=== PATIENT | female | born 1975 | race Caucasian/White ===

== ENCOUNTER 2016-06-26 15:31 | Inpatient (IN) | payer MEDICARE, OTHER ==
[2016-06-26] MEDS ORDERED: INSULIN REGULAR 100 UNIT/ML VIAL IV ONE (15:50)
[2016-06-26 15:51] LABS: Glucose,Whole Blood 480 mg/dL (75-99)
--- NOTE | 2016-06-26 15:53 | ED ---
General Adult HPI - General Chief complaint: Weakness Stated complaint: elevated BS 544 Time Seen by Provider: 06/26/16 15:35 Source: patient, RN notes reviewed Mode of arrival: wheelchair Limitations: no limitations - History of Present Illness Initial comments: This is a 41-year-old female was a past medical history significant for diabetes. Patient comes in today stating that she been vomiting all night having diarrhea. Patient states she became weaker and weaker throughout the night to the point where now she's finding it hard to even get around. Patient denies any fever or chills. Patient denies any abdominal pain but states her abdomen is cramping. Patient denies chest pain difficulty breathing or shortness of breath. Patient denies headache patient denies numbness weakness. Patient does states she is lightheaded however. Patient states his sugars are high. She decided to come to the emergency department. - Related Data Home Medications Medication Instructions Recorded Confirmed Methylphenidate HCl [Ritalin] 20 mg PO DAILY 01/04/14 06/26/16 Omeprazole [PriLOSEC] 20 mg PO BID 01/04/14 06/26/16 Insulin NPH Hum/Reg Insulin Hm 8 unit SQ DAILY@1300 06/26/16 06/26/16 [NovoLIN 70-30 100 UNIT/ML VIAL] Insulin NPH Hum/Reg Insulin Hm 20 unit SQ BID@0800,2000 06/26/16 06/26/16 [NovoLIN 70-30 100 UNIT/ML VIAL] Allergies Allergy/AdvReac Type Severity Reaction Status Date / Time caffeine Allergy Nausea & Verified 06/26/16 16:22 Vomiting paroxetine HCl [From Paxil] Allergy Rash/Hives Verified 06/26/16 16:22 sertraline HCl [From Zoloft] Allergy Rash/Hives Verified 06/26/16 16:22 Review of Systems ROS Statement: Those systems with pertinent positive or pertinent negative responses have been documented in the HPI. ROS Other: All systems not noted in ROS Statement are negative. Past Medical History Past Medical History: Diabetes Mellitus, Fibromyalgia, GERD/Reflux, Rheumatoid Arthritis (RA), Syncope Additional Past Medical History / Comment(s): ANEMIA, LIPOMA LEFT THIGH History of Any Multi-Drug Resistant Organisms: None Reported Past Surgical History: Ablation, Breast Surgery, Tubal Ligation Additional Past Surgical History / Comment(s): LEFT BREAST BX BENIGN, UTERINE ABLATION Past Anesthesia/Blood Transfusion Reactions: No Reported Reaction Past Psychological History: ADD/ADHD, Anxiety, Depression Smoking Status: Never smoker Past Alcohol Use History: None Reported Past Drug Use History: None Reported Additional Drug Use History / Comment(s): STATES DAILY USE, INSTRUCTED NOT TO USE FOR 24 HRS PRIOR TO PROCEDURE - Past Family History Mother Family Medical History: Asthma Additional Family Medical History / Comment(s): depression General Exam - General Exam Comments Initial Comments: GENERAL: Patient is well-developed and well-nourished. Patient is nontoxic and well- hydrated and is in moderate distress ENT: Neck is soft and supple. No significant lymphadenopathy is noted. Oropharynx is clear. Dry mucous membranes. Neck has full range of motion without eliciting any pain. EYES: The sclera were anicteric and conjunctiva were pink and moist. Extraocular movements were intact and pupils were equal round and reactive to light. Eyelids were unremarkable. PULMONARY: Unlabored respirations. Good breath sounds bilaterally. No audible rales rhonchi or wheezing was noted. CARDIOVASCULAR: Patient is tachycardic ABDOMEN: Soft and nontender with normal bowel sounds. No palpable organomegaly was noted. There is no palpable pulsatile mass. SKIN: Skin is clear with no lesions or rashes and otherwise unremarkable. NEUROLOGIC: Patient is alert and oriented x3. Cranial nerves II through XII are grossly intact. Motor and sensory are also intact. Normal speech, volume and content. Symmetrical smile. C MUSCULOSKELETAL: Normal extremities with adequate strength and full range of motion. No lower extremity swelling or edema. No calf tenderness. LYMPHATICS: No significant lymphadenopathy is noted PSYCHIATRIC: Normal psychiatric evaluation. Limitations: no limitations Course Vital Signs 06/26/16 15:33 Temperature 96.8 F L Pulse Rate 131 H Respiratory 20 Rate Blood Pressure 117/79 O2 Sat by Pulse 99 Oximetry Medical Decision Making - Medical Decision Making EKG shows sinus tachycardia at 123 bpm UT interval 130 QRS is 102 QT intervals 346 QTC is 495. Patient's EKG shows no ST segment elevation or depression or T- wave abdomen is noted. Chest x-ray shows no acute abnormality. I started the patient on IV insulin as well as IV fluid and started off at 2 L and at the third after those were done. Dr. Bautista agrees to admit the patient. I spoke with Dr. Suero he agreed to admit the patient Dr. Aviles will be taking over the care of this patient at 5 PM - Lab Data Result diagrams: 06/26/16 16:14 06/26/16 16:14 Lab Results 06/26/16 06/26/16 06/26/16 Range/Units 15:42 16:14 16:14 WBC 27.4 H* (3.8-10.6) k/uL RBC 6.47 H (3.80-5.40) m/uL Hgb 17.4 H (11.4-16.0) gm/dL Hct 57.9 H (34.0-46.0) % MCV 89.4 (80.0-100.0) fL MCH 27.0 (25.0-35.0) pg MCHC 30.1 L (31.0-37.0) g/dL RDW 14.0 (11.5-15.5) % Plt Count 599 H (150-450) k/uL Neutrophils % (Manual) 76.0 % Band Neutrophils % 7.0 % Lymphocytes % (Manual) 14.0 % Monocytes % (Manual) 3.0 % Neutrophils # (Manual) 22.7 H (1.3-7.7) k/uL Lymphocytes # (Manual) 3.8 (1.0-4.8) k/uL Monocytes # (Manual) 0.8 (0-1.0) k/uL Nucleated RBCs 0 (0-0) /100 WBC Manual Slide Review Performed Large Platelets Present Hypochromasia Marked Sodium 145 (137-145) mmol/L Potassium 4.7 (3.5-5.1) mmol/L Chloride 99 (98-107) mmol/L Carbon Dioxide <5 L* (22-30) mmol/L Anion Gap 41 mmol/L BUN 27 H (7-17) mg/dL Creatinine 1.10 H (0.52-1.04) mg/dL Est GFR (MDRD) Af Amer >60 (>60 ml/min/1.73 sqM) Est GFR (MDRD) Non-Af 55 (>60 ml/min/1.73 sqM) Glucose 548 H* (74-99) mg/dL POC Glucose (mg/dL) 480 H (75-99) mg/dL POC Glu Nursing Home Administrator ID Mariano Mckeon Calcium 10.6 H (8.4-10.2) mg/dL Total Bilirubin 0.8 (0.2-1.3) mg/dL AST 46 H (14-36) U/L ALT 36 (9-52) U/L Alkaline Phosphatase 342 H (38-126) U/L Total Protein 11.1 H (6.3-8.2) g/dL Albumin 5.2 H (3.5-5.0) g/dL Acetone, Qual Positive (Negative) 06/26/16 Range/Units 17:02 WBC (3.8-10.6) k/uL RBC (3.80-5.40) m/uL Hgb (11.4-16.0) gm/dL Hct (34.0-46.0) % MCV (80.0-100.0) fL MCH (25.0-35.0) pg MCHC (31.0-37.0) g/dL RDW (11.5-15.5) % Plt Count (150-450) k/uL Neutrophils % (Manual) % Band Neutrophils % % Lymphocytes % (Manual) % Monocytes % (Manual) % Neutrophils # (Manual) (1.3-7.7) k/uL Lymphocytes # (Manual) (1.0-4.8) k/uL Monocytes # (Manual) (0-1.0) k/uL Nucleated RBCs (0-0) /100 WBC Manual Slide Review Large Platelets Hypochromasia Sodium (137-145) mmol/L Potassium (3.5-5.1) mmol/L Chloride (98-107) mmol/L Carbon Dioxide (22-30) mmol/L Anion Gap mmol/L BUN (7-17) mg/dL Creatinine (0.52-1.04) mg/dL Est GFR (MDRD) Af Amer (>60 ml/min/1.73 sqM) Est GFR (MDRD) Non-Af (>60 ml/min/1.73 sqM) Glucose (74-99) mg/dL POC Glucose (mg/dL) >600 H (75-99) mg/dL POC Glu Nursing Home Administrator ID Branch, Garrick Calcium (8.4-10.2) mg/dL Total Bilirubin (0.2-1.3) mg/dL AST (14-36) U/L ALT (9-52) U/L Alkaline Phosphatase (38-126) U/L Total Protein (6.3-8.2) g/dL Albumin (3.5-5.0) g/dL Acetone, Qual (Negative) Critical Care Time Critical Care Time: Yes Total Critical Care Time: 40 Disposition Clinical Impression: DKA (diabetic ketoacidoses), Gastroenteritis Disposition: ADMITTED IP TO THIS HOSP Referrals: Kevin Ruiz DO [Primary Care Provider] - 1-2 days Time of Disposition: 17:01
[2016-06-26] MEDS ORDERED: INSULIN REGULAR 100 UNIT in SODIUM CHLORIDE 0.9% 100 ML IV ONE (16:00)
[2016-06-26] MEDS: SODIUM CHLORIDE 0.9% 2,000 ML IV ONE ×3 (16:19→18:36)
[2016-06-26 16:25] LABS: CH 26.2; CHCM 29.4; HCT 57.9 % (34.0-46.0); HDW 2.84; HGB 17.4 gm/dL (11.4-16.0); Hypochromasia Marked; MCHC 30.1 g/dL (31.0-37.0); MCV 89.4 fL (80.0-100.0); Mean Platelet Volume 7.3; RBC 6.47 m/uL (3.80-5.40); WBC (Perox) 28.86
[2016-06-26 16:39] LABS: WBC 27.4 k/uL (3.8-10.6)
[2016-06-26 16:40] LABS: ALT 36 U/L (9-52); AST 46 U/L (14-36); Alkaline Phosphatase 342 U/L (38-126); Anion Gap 41 mmol/L; Blood Urea Nitrogen 27 mg/dL (7-17); Calcium 10.6 mg/dL (8.4-10.2); Chloride 99 mmol/L (98-107); Non-African American GFR(MDRD) 55 (>60 ml/min/1.73 sqM); Sodium 145 mmol/L (137-145); Total Bilirubin 0.8 mg/dL (0.2-1.3)
[2016-06-26 16:41] LABS: Potassium 4.7 mmol/L (3.5-5.1)
[2016-06-26 16:54] LABS: Carbon Dioxide <5 mmol/L (22-30); Glucose 548 mg/dL (74-99)
[2016-06-26 16:55] LABS: Total Protein 11.1 g/dL (6.3-8.2)
--- NOTE | 2016-06-26 17:01 | XR ---
EXAMINATION TYPE: XR chest 2V DATE OF EXAM: 06/26/2016 4:38 PM COMPARISON: NONE INDICATION: Difficulty breathing nausea vomiting TECHNIQUE: Single frontal view of the chest is obtained. FINDINGS: The heart size is normal. The pulmonary vasculature is normal. The lungs are clear. IMPRESSION: 1. No acute pulmonary process.
[2016-06-26 17:04] LABS: Glucose,Whole Blood >600 mg/dL (75-99)
[2016-06-26 17:08] LABS: Add Differential Manual Differential
[2016-06-26 17:09] LABS: Nucleated Red Blood Cells 0 /100 WBC (0-0); Total Cells Counted 100
[2016-06-26 17:10] LABS: Large Platelets Present; Manual Review Performed
[2016-06-26] MEDS ORDERED: PIPERACILLIN-TAZOBACTAM 3.375 GM in DEXTROSE/WATER 1 50ML.BAG IVPB STA (17:10)
[2016-06-26] MEDS ORDERED: HYDROmorphone 1 MG/ML 1 ML SYRINGE IVP STA (17:14)
[2016-06-26] MEDS ORDERED: ONDANSETRON 4 MG/2 ML VIAL IVP STA (17:25)
[2016-06-26 17:30] LABS: ABG PCO2 19 mmHg (35-45); ABG PH 7.15 (7.35-7.45); ABG PO2 126 mmHg (83-108)
[2016-06-26 17:31] LABS: ABG HCO3 6 mmol/L (21-25); ABG TCO2 7 mmol/L (19-24)
[2016-06-26 17:59] LABS: Appearance,Urine Cloudy (Clear); Bilirubin,Urine Negative (Negative); Glucose,Urine (UA) 4+ (Negative); Leukocyte Esterase,Urine Negative (Negative); Mucus,Urine Rare /hpf; Nitrite,Urine Negative (Negative); PH, Urine 5.5 (5.0-8.0); Particle Count 12091; Protein,Urine 2+ (Negative); RBC,Urine 2 /hpf (0-5); Specific Gravity,Urine 1.014 (1.001-1.035); UA Billing (MACRO vs. MICRO) MICRO; Urobilinogen,Urine <2.0 mg/dL (<2.0); WBC,Urine 15 /hpf (0-5)
[2016-06-26 18:15] LABS: Glucose,Whole Blood 480 mg/dL (75-99)
[2016-06-26 18:25] LABS: Ketones,Urine 3+ (Negative)
[2016-06-26 18:39] LABS: Glucose,Whole Blood 322 mg/dL (75-99)
[2016-06-26] MEDS ORDERED: INSULIN REGULAR 100 UNIT in SODIUM CHLORIDE 0.9% 100 ML IV SCH (19:15)
[2016-06-26] MEDS ORDERED: SODIUM CHLORIDE 0.9% 1,000 ML IV SCH (19:15)
[2016-06-26 19:32] LABS: Glucose,Whole Blood 241 mg/dL (75-99)
[2016-06-26 19:34] LABS: ALT 35 U/L (9-52); AST 41 U/L (14-36); Alkaline Phosphatase 180 U/L (38-126); Anion Gap 21 mmol/L; Blood Urea Nitrogen 28 mg/dL (7-17); Calcium 8.1 mg/dL (8.4-10.2); Chloride 114 mmol/L (98-107); Glucose 182 mg/dL (74-99); Non-African American GFR(MDRD) >60 (>60 ml/min/1.73 sqM); Sodium 144 mmol/L (137-145); Total Bilirubin 0.8 mg/dL (0.2-1.3); Total Protein 7.4 g/dL (6.3-8.2)
[2016-06-26 19:46] LABS: Potassium 4.8 mmol/L (3.5-5.1)
[2016-06-26 19:48] LABS: Carbon Dioxide 9 mmol/L (22-30)
[2016-06-26] MEDS: D5-0.45% NACL WITH KCL 20MEQ/L 1,000 ML IV SCH (20:00)
[2016-06-26 20:24] LABS: Glucose,Whole Blood 147 mg/dL (75-99)
[2016-06-26] MEDS ORDERED: NALOXONE 0.4 MG/ML 1 ML VIAL IV PRN (20:29)
[2016-06-26] MEDS ORDERED: Phosphorus Replacement Protoco 1 EACH MISC MISCELLANE PRN (20:40)
[2016-06-26] MEDS ORDERED: Potassium Replacement Protocol 1 EACH MISC MISCELLANE PRN (20:40)
[2016-06-26] MEDS ORDERED: Magnesium Replacement Protocol 1 EACH MISC MISCELLANE PRN (20:40)
[2016-06-26] MEDS ORDERED: ONDANSETRON 4 MG/2 ML VIAL IVP PRN (20:40)
[2016-06-26 21:02] VITALS: BMI 25.8
[2016-06-26 21:30] LABS: Glucose,Whole Blood 113 mg/dL (75-99)
[2016-06-26] MEDS: HYDROmorphone 1 MG/ML 1 ML SYRINGE IVP PRN (21:40)
[2016-06-26 22:27] LABS: Glucose,Whole Blood 95 mg/dL (75-99)
[2016-06-26 23:02] LABS: Glucose,Whole Blood 93 mg/dL (75-99)
[2016-06-26] MEDS: PIPERACILLIN-TAZOBACTAM 3.375 GM in DEXTROSE/WATER 1 50ML.BAG IVPB SCH (23:37)
[2016-06-26 23:56] LABS: Anion Gap 12 mmol/L; Blood Urea Nitrogen 26 mg/dL (7-17); Calcium 8.1 mg/dL (8.4-10.2); Carbon Dioxide 18 mmol/L (22-30); Chloride 113 mmol/L (98-107); Glucose 109 mg/dL (74-99); Non-African American GFR(MDRD) >60 (>60 ml/min/1.73 sqM); Phosphorous 2.7 mg/dL (2.5-4.5); Potassium 4.4 mmol/L (3.5-5.1); Sodium 143 mmol/L (137-145)
[2016-06-27 00:03] LABS: Glucose,Whole Blood 105 mg/dL (75-99)
[2016-06-27 01:04] LABS: Glucose,Whole Blood 123 mg/dL (75-99)
[2016-06-27 01:56] LABS: Glucose,Whole Blood 141 mg/dL (75-99)
[2016-06-27] MEDS: D5-0.45% NACL WITH KCL 20MEQ/L 1,000 ML IV SCH ×2 (02:54→10:44)
[2016-06-27 02:58] LABS: Glucose,Whole Blood 144 mg/dL (75-99)
[2016-06-27 04:14] LABS: Glucose,Whole Blood 140 mg/dL (75-99)
[2016-06-27 04:31] LABS: Basophils # (A) 0.1 k/uL (0-0.2); Basophils % (A) 1 %; CH 27.1; CHCM 33.3; Eosinophils % (A) 0 %; HCT 37.8 % (34.0-46.0); Luc # (Auto) 0.24; Luc % (Auto) 1; Lymphocytes # (A) 2.2 k/uL (1.0-4.8); Lymphocytes % (A) 13 %; MCH 27.4 pg (25.0-35.0); MCHC 33.5 g/dL (31.0-37.0); Monocytes # (A) 0.7 k/uL (0-1.0); Monocytes % (A) 4 %; Neutrophils # (A) 14.1 k/uL (1.3-7.7); Neutrophils % (A) 82 %; RBC 4.63 m/uL (3.80-5.40); RDW 14.6 % (11.5-15.5); WBC 17.2 k/uL (3.8-10.6); WBC (Perox) 17.69
[2016-06-27 04:35] LABS: Anion Gap 11 mmol/L; Blood Urea Nitrogen 22 mg/dL (7-17); Calcium 8.2 mg/dL (8.4-10.2); Carbon Dioxide 17 mmol/L (22-30); Chloride 112 mmol/L (98-107); Glucose 157 mg/dL (74-99); Non-African American GFR(MDRD) >60 (>60 ml/min/1.73 sqM); Sodium 140 mmol/L (137-145)
[2016-06-27 05:09] LABS: HGB 12.7 gm/dL (11.4-16.0); MCV 81.7 fL (80.0-100.0)
[2016-06-27 05:11] LABS: Glucose,Whole Blood 151 mg/dL (75-99)
[2016-06-27 06:07] LABS: Glucose,Whole Blood 160 mg/dL (75-99)
[2016-06-27] MEDS: HYDROmorphone 1 MG/ML 1 ML SYRINGE IVP PRN ×2 (06:23→10:53)
[2016-06-27 07:08] LABS: Glucose,Whole Blood 154 mg/dL (75-99)
[2016-06-27 07:58] LABS: Glucose,Whole Blood 169 mg/dL (75-99)
[2016-06-27] MEDS: PIPERACILLIN-TAZOBACTAM 3.375 GM in DEXTROSE/WATER 1 50ML.BAG IVPB SCH (08:04)
[2016-06-27 08:54] LABS: Glucose,Whole Blood 167 mg/dL (75-99)
[2016-06-27] MEDS ORDERED: ENOXAPARIN 40 MG/0.4 ML SYRINGE SQ SCH (09:00)
[2016-06-27] MEDS ORDERED: PANTOPRAZOLE 40 MG/10 ML VIAL IV SCH (09:00)
--- NOTE | 2016-06-27 09:11 | XR ---
EXAMINATION TYPE: XR chest 1V portable DATE OF EXAM: 06/27/2016 7:00 AM COMPARISON: 06/26/2016 INDICATION: Elevated blood sugar TECHNIQUE: Single frontal view of the chest is obtained. FINDINGS: The heart size is normal. The pulmonary vasculature is normal. The lungs are clear. IMPRESSION: 1. No acute pulmonary process.
[2016-06-27 09:45] LABS: Glucose,Whole Blood 153 mg/dL (75-99)
[2016-06-27 09:51] LABS: Anion Gap 11 mmol/L; Blood Urea Nitrogen 18 mg/dL (7-17); Calcium 8.3 mg/dL (8.4-10.2); Carbon Dioxide 18 mmol/L (22-30); Chloride 114 mmol/L (98-107); Glucose 164 mg/dL (74-99); Magnesium 1.9 mg/dL (1.6-2.3); Non-African American GFR(MDRD) >60 (>60 ml/min/1.73 sqM); Phosphorous 2.8 mg/dL (2.5-4.5); Sodium 143 mmol/L (137-145)
[2016-06-27 09:57] LABS: Hemoglobin A1C 11.7 % (4.2-6.1)
[2016-06-27 09:58] LABS: Potassium 4.5 mmol/L (3.5-5.1)
[2016-06-27] MEDS ORDERED: INSULIN NPH 300 UNIT/3 ML VIAL SQ ONE (10:27)
[2016-06-27] MEDS ORDERED: INSULIN GLARGINE 100 UNIT/ML 10 ML VIAL SQ SCH (10:30)
[2016-06-27] MEDS ORDERED: SODIUM CHLORIDE 0.9% 1,000 ML IV SCH (10:45)
[2016-06-27] MEDS ORDERED: LACTATED RINGERS 1,000 ML IV SCH (11:00)
[2016-06-27 11:21] LABS: Glucose,Whole Blood 162 mg/dL (75-99)
[2016-06-27] MEDS ORDERED: INSULIN LISPRO (humaLOG) 300 UNIT/3 ML VIAL SQ SCH ×2 (12:30)
[2016-06-27 12:40] VITALS: TEMP 98
[2016-06-27] MEDS ORDERED: FLUDROCORTISONE 0.1 MG TAB PO SCH (13:00)
[2016-06-27] MEDS ORDERED: DESVENLAFAXINE SUCCINATE 50 MG TAB.ER.24H PO SCH (13:00)
--- NOTE | 2016-06-27 13:07 | HP ---
HISTORY AND PHYSICAL/DISCHARGE SUMMARY DATE OF ADMISSION: This is a 41-year-old female with a known history of diabetes mellitus, viral gastroenteritis which ( ) her DKA. Patient came in with highly elevated WBC count and metabolic acidosis secondary to diabetic ketoacidosis which resolved and anion gap improved. Patient takes NPH insulin 70/30 seven units in the morning, six units in the afternoon and twenty units at night time. Blood sugars apparently were never controlled. I will try for Lantus aspart regimen, 20 units at bedtime and morning along with premeal insulin 6 units if her insurance approves. Patient's prescription be given accordingly and if not, patient was asked to take 20 units of 70/30 in the morning, if insurance does not approve Lantus. Patient was asked to take 20 units of 70/30 in the morning and 15 units of 70/30 in the evening and check the blood sugars t.i.d. a.c. and patient will be on diabetic diet. Patient's diarrhea improved. Patient does not have any pneumonia or urinary tract infection or any other signs or symptoms of sepsis except for viral gastroenteritis which does not warrant any antibiotics. Antibiotics will be discontinued. Patient's anion gap resolved. Patient was given Lantus now. Until she is discharged, patient will be on lactated Ringer's and patient will be started on her diabetic diet and will watch her for a couple more hours, after that patient will be discharged. REVIEW OF SYSTEMS: GASTROINTESTINAL: As described in HPI and patient was having epigastric abdominal pain. CONSTITUTIONAL: No fever, no malaise, no fatigue. HEENT: No recent visual problems or hearing problems. Denied any sore throat. CARDIOVASCULAR: No chest pain, orthopnea, PND, no palpitations, no syncope. PULMONARY: No shortness of breath, no cough, no hemoptysis. NEUROLOGICAL: No headaches, no weakness, no numbness. HEMATOLOGICAL: Denies any bleeding or petechiae. GENITOURINARY: Denies any burning micturition, frequency, or urgency. MUSCULOSKELETAL/RHEUMATOLOGICAL: Denies any joint pain, swelling, or any muscle pain. ENDOCRINE: Denies any polyuria or polydipsia. The rest of the 14 point review of systems is negative. Patient is already taking Prilosec at home. Patient also use ibuprofen which will be discontinued. Home medications include: 1. Methylphenidate. 2. Omeprazole. 3. 70/30 insulin dosing as mentioned above. ALLERGIES: Allergic to CAFFEINE, PAROXETINE, SERTRALINE. PAST MEDICAL HISTORY: Type 1 diabetes mellitus, fibromyalgia, gastroesophageal reflux disease, rheumatoid arthritis, anemia, lipoma of the thigh, breast surgery, tubal ligation, ADD, ADHD, anxiety, depression. SOCIAL HISTORY: Denied any smoking, alcohol abuse or drug abuse. FAMILY HISTORY: Mother had asthma and depression. PHYSICAL EXAMINATION: VITAL SIGNS: Temperature 98.9, pulse of 106, respiratory rate of 13, blood pressure is 135/63, saturating at 98% on room air. ABDOMINAL EXAMINATION: Patient has mild diffuse tenderness. Abdomen is soft, no rebound or rigidity. GENERAL: The patient is alert and oriented x3, not in any acute distress. Well developed, well nourished. HEENT: Pupils are round and equally reacting to light. EOMI. No scleral icterus. No conjunctival pallor. Normocephalic, atraumatic. No pharyngeal erythema. No thyromegaly. CARDIOVASCULAR: S1 and S2 present. No murmurs, rubs, or gallops. PULMONARY: Chest is clear to auscultation, no wheezing or crackles. MUSCULOSKELETAL: No joint swelling or deformity. EXTREMITIES: No cyanosis, clubbing, or pedal edema. NEUROLOGICAL: Gross neurological examination did not reveal any focal deficits. SKIN: No rashes. LABORATORY DATA: CBC, CMP are abnormal for elevated WBC count of 27,000 which came down to 17,200, is a reactive response secondary to viral gastroenteritis. Patient is hemoconcentrated with elevated hemoglobin which has come down now and patient has metabolic acidosis with pH of 7.15 and chloride is 114 secondary to hyperchloremia from IV fluids she was receiving. Urine showed 15 WBC, cloudy urine and 2+ protein, 4+ glucose and ketones. Patient's urine drug screen is positive for marijuana. Chest x-ray did not show any pneumonic process. ASSESSMENT AND PLAN: 1. Diabetic ketoacidosis. Management as mentioned above. Patient will be discharged today. 2. Viral gastroenteritis. Patient will be encouraged to drink water at home. 3. Fibromyalgia. 4. Gastroesophageal reflux disease. For above-mentioned chronic medical problems, patient can continue her home medications, insulin regimen changes as mentioned above. This dictation is both H&P and Discharge Summary. Patient will follow with Dr. Kevin Ruiz in about 3 to 7 days. Activity as tolerated. Diabetic 1800 calorie diet.
[2016-06-27] MEDS ORDERED: MAG HYDROX/AL HYDROX/SIMETH 30 ML CUP PO PRN (13:51)
--- NOTE | 2016-06-27 13:56 | P.CNPUL ---
History of Present Illness Consult date: 06/27/16 Requesting physician: Ronny Bautista Reason for consult: other (Acute diabetic ketoacidosis) Chief complaint: Weakness and vomiting. As well as diarrhea. History of present illness: This is a 41-year-old female with history of type 1 diabetes, patient presented to the ER with 1 day history of vomiting and vague abdominal pain and diarrhea. Patient had a flulike illness recently, but she recovered quite well, she believes that her had similar symptoms, and her symptoms have recurred with mostly GI complaints as noted above. Upon presentation to the ER, patient was noted to have significantly elevated blood sugar, and she had positive ketones. She was placed on the DKA protocol, admitted to the ICU, and I was asked to see her on consultation. Patient denies any fever no chills, no dysuria frequency or urgency. On presentation patient was noted to have leukocytosis with WBC count of 27.4. ABG showed a pO2 of 126 pCO2 of 19 pH of 7.15 her urinalysis showed evidence of pyuria and bacteriuria her urine drug screen was positive for marijuana. Vital screen was negative. Ketones were positive. At the time of my evaluation, patient was noted to be doing quite well, and she was relatively asymptomatic. In the ER, the patient was given a dose of Zosyn, which was already discontinued. Cultures are pending. Review of Systems 14 point review of systems were obtained, please refer to pertinent positives and negatives in HPI. Past Medical History Past Medical History: Diabetes Mellitus, Fibromyalgia, GERD/Reflux, Rheumatoid Arthritis (RA), Syncope Additional Past Medical History / Comment(s): ANEMIA, LIPOMA LEFT THIGH History of Any Multi-Drug Resistant Organisms: None Reported Past Surgical History: Ablation, Breast Surgery, Tubal Ligation Additional Past Surgical History / Comment(s): LEFT BREAST BX BENIGN, UTERINE ABLATION Past Anesthesia/Blood Transfusion Reactions: No Reported Reaction Past Psychological History: ADD/ADHD, Anxiety, Depression Smoking Status: Never smoker Past Alcohol Use History: None Reported Past Drug Use History: Marijuana Additional Drug Use History / Comment(s): Medicial marijauana daily use. - Past Family History Mother Family Medical History: Asthma Additional Family Medical History / Comment(s): depression Medications and Allergies Home Medications Medication Instructions Recorded Confirmed Type Methylphenidate HCl [Ritalin] 20 mg PO BID 01/04/14 06/26/16 History Omeprazole [PriLOSEC] 20 mg PO BID 01/04/14 06/26/16 History Desvenlafaxine Succinate [Pristiq] 100 mg PO DAILY 06/26/16 06/26/16 History Fludrocortisone [Florinef] 0.1 mg PO DAILY 06/26/16 06/26/16 History Simvastatin [Zocor] 20 mg PO DAILY 06/26/16 06/26/16 History Allergies Allergy/AdvReac Type Severity Reaction Status Date / Time caffeine Allergy Nausea & Verified 06/26/16 21:05 Vomiting paroxetine HCl [From Paxil] Allergy Rash/Hives Verified 06/26/16 21:05 sertraline HCl [From Zoloft] Allergy Rash/Hives Verified 06/26/16 21:05 Physical Exam Vitals: Vital Signs Temp Pulse Resp BP Pulse Ox 06/27/16 12:00 98 F 105 H 18 114/62 97 06/27/16 11:00 95 10 L 115/68 98 06/27/16 10:00 97 17 115/68 97 06/27/16 09:00 106 H 13 135/63 06/27/16 08:00 98.9 F 103 H 15 136/64 98 06/27/16 07:00 101 H 13 124/62 97 06/27/16 06:00 86 17 120/58 99 06/27/16 05:00 102 H 15 113/65 96 06/27/16 04:00 97.9 F 102 H 15 119/64 96 06/27/16 03:00 100 18 116/73 98 06/27/16 02:00 101 H 21 99/63 98 06/27/16 01:00 101 H 20 99/58 97 06/27/16 00:00 98.3 F 103 H 20 96/54 97 06/26/16 23:19 109 H 14 93/49 96 06/26/16 23:00 107 H 14 99/51 96 06/26/16 22:00 113 H 20 108/62 96 06/26/16 21:00 115 H 14 115/66 97 06/26/16 20:00 111 H 15 126/72 99 06/26/16 19:43 97.3 F L 110 H 20 126/72 98 06/26/16 18:00 106 H 14 119/66 100 Intake and Output 06/26/16 06/27/16 06/27/16 22:59 06:59 14:59 Intake Total 2322.903 1400 450 Output Total 600 1500 Balance 2322.903 800 -1050 Intake: IV 450 D5-0.45% NaCl with KCl 450 20Meq/l 1,000 ml @ 150 mls/hr IV .Q6H40M EZRA Rx# :[id number] Intake, IV Titration 2322.903 1400 Amount D5-0.45% NaCl with KCl 300 1350 20Meq/l 1,000 ml @ 150 mls/hr IV .Q6H40M EZRA Rx# :[id number] Insulin Regular 100 unit 15.901 0 In Sodium Chloride 0.9% 100 ml @ 0.1 UNITS/KG/HR 6.87 mls/hr IV .[id number] EZRA Rx#:[id number] Insulin Regular 100 unit 7.002 In Sodium Chloride 0.9% 100 ml @ 7 UNIT/HR 7.07 mls/hr IV .[id number] ONE Rx #:[id number] Piperacillin-Tazobactam 3 50 .375 gm In Dextrose/Water 1 50ml.bag @ 12.5 mls/hr IVPB Q8HR EZRA Rx#: [id number] Sodium Chloride 0.9% 2, 2000 000 ml @ 999 mls/hr IV . Q2H1M ONE Rx#:[id number] Output: Urine 500 1500 Oral Regurgitation 100 Other: Voiding Method Toilet Toilet # Voids 1 Weight 66.2 kg 67.3 kg Physical Exam: Revealed a 41-year-old female in no distress HEENT:[Neck is supple.] [No neck masses.] [No thyromegaly.] [No JVD.] Chest: [Clear throughout, no crackles, no rhonchi, no wheezes.] Cardiac Exam: [Normal S1 and S2, no S3 gallop, no murmur.] Abdomen: [Soft, nontender, no megaly, no rebound, no guarding, normal bowel sounds.] Extremities: [No clubbing, no edema, no cyanosis.] Neurological Exam: [No focal neurologic deficit.] Results - Laboratory Findings CBC and BMP: 06/27/16 03:55 06/27/16 08:26 ABG ABG pH 7.15 (7.35-7.45) L* 06/26/16 17:15 ABG pCO2 19 mmHg (35-45) L* 06/26/16 17:15 ABG pO2 126 mmHg (83-108) H 06/26/16 17:15 ABG O2 Saturation 98.0 % (94-97) H 06/26/16 17:15 Abnormal lab findings: Abnormal Labs 06/26/16 06/26/16 06/26/16 17:02 17:15 17:42 WBC Neutrophils # ABG pH 7.15 L* ABG pCO2 19 L* ABG pO2 126 H ABG HCO3 6 L* ABG Total CO2 7 L ABG O2 Saturation 98.0 H Chloride Carbon Dioxide BUN Creatinine Glucose POC Glucose (mg/dL) >600 H Hemoglobin A1c Calcium AST Alkaline Phosphatase Urine Appearance Cloudy H Urine Protein 2+ H Urine Glucose (UA) 4+ H Urine Ketones 3+ H Urine WBC 15 H Urine Mucus Rare H Urine Yeast (Budding) Few H U Marijuana (THC) Screen Detected H 06/26/16 06/26/16 06/26/16 18:02 18:32 19:06 WBC Neutrophils # ABG pH ABG pCO2 ABG pO2 ABG HCO3 ABG Total CO2 ABG O2 Saturation Chloride 114 H Carbon Dioxide 9 L* BUN 28 H Creatinine Glucose 182 H POC Glucose (mg/dL) 480 H 322 H Hemoglobin A1c Calcium 8.1 L AST 41 H Alkaline Phosphatase 180 H Urine Appearance Urine Protein Urine Glucose (UA) Urine Ketones Urine WBC Urine Mucus Urine Yeast (Budding) U Marijuana (THC) Screen 06/26/16 06/26/16 06/26/16 19:30 20:22 21:29 WBC Neutrophils # ABG pH ABG pCO2 ABG pO2 ABG HCO3 ABG Total CO2 ABG O2 Saturation Chloride Carbon Dioxide BUN Creatinine Glucose POC Glucose (mg/dL) 241 H 147 H 113 H Hemoglobin A1c Calcium AST Alkaline Phosphatase Urine Appearance Urine Protein Urine Glucose (UA) Urine Ketones Urine WBC Urine Mucus Urine Yeast (Budding) U Marijuana (THC) Screen 06/26/16 06/27/16 06/27/16 23:33 00:01 01:02 WBC Neutrophils # ABG pH ABG pCO2 ABG pO2 ABG HCO3 ABG Total CO2 ABG O2 Saturation Chloride 113 H Carbon Dioxide 18 L BUN 26 H Creatinine Glucose 109 H POC Glucose (mg/dL) 105 H 123 H Hemoglobin A1c Calcium 8.1 L AST Alkaline Phosphatase Urine Appearance Urine Protein Urine Glucose (UA) Urine Ketones Urine WBC Urine Mucus Urine Yeast (Budding) U Marijuana (THC) Screen 06/27/16 06/27/16 06/27/16 01:54 02:56 03:55 WBC Neutrophils # ABG pH ABG pCO2 ABG pO2 ABG HCO3 ABG Total CO2 ABG O2 Saturation Chloride 112 H Carbon Dioxide 17 L BUN 22 H Creatinine 0.50 L Glucose 157 H POC Glucose (mg/dL) 141 H 144 H Hemoglobin A1c Calcium 8.2 L AST Alkaline Phosphatase Urine Appearance Urine Protein Urine Glucose (UA) Urine Ketones Urine WBC Urine Mucus Urine Yeast (Budding) U Marijuana (THC) Screen 06/27/16 06/27/16 06/27/16 03:55 03:55 04:13 WBC 17.2 H Neutrophils # 14.1 H ABG pH ABG pCO2 ABG pO2 ABG HCO3 ABG Total CO2 ABG O2 Saturation Chloride Carbon Dioxide BUN Creatinine Glucose POC Glucose (mg/dL) 140 H Hemoglobin A1c 11.7 H Calcium AST Alkaline Phosphatase Urine Appearance Urine Protein Urine Glucose (UA) Urine Ketones Urine WBC Urine Mucus Urine Yeast (Budding) U Marijuana (THC) Screen 06/27/16 06/27/16 06/27/16 05:10 06:06 07:07 WBC Neutrophils # ABG pH ABG pCO2 ABG pO2 ABG HCO3 ABG Total CO2 ABG O2 Saturation Chloride Carbon Dioxide BUN Creatinine Glucose POC Glucose (mg/dL) 151 H 160 H 154 H Hemoglobin A1c Calcium AST Alkaline Phosphatase Urine Appearance Urine Protein Urine Glucose (UA) Urine Ketones Urine WBC Urine Mucus Urine Yeast (Budding) U Marijuana (THC) Screen 06/27/16 06/27/16 06/27/16 07:57 08:26 08:53 WBC Neutrophils # ABG pH ABG pCO2 ABG pO2 ABG HCO3 ABG Total CO2 ABG O2 Saturation Chloride 114 H Carbon Dioxide 18 L BUN 18 H Creatinine 0.46 L Glucose 164 H POC Glucose (mg/dL) 169 H 167 H Hemoglobin A1c Calcium 8.3 L AST Alkaline Phosphatase Urine Appearance Urine Protein Urine Glucose (UA) Urine Ketones Urine WBC Urine Mucus Urine Yeast (Budding) U Marijuana (THC) Screen 03/05/17 03/05/17 09:43 11:20 WBC Neutrophils # ABG pH ABG pCO2 ABG pO2 ABG HCO3 ABG Total CO2 ABG O2 Saturation Chloride Carbon Dioxide BUN Creatinine Glucose POC Glucose (mg/dL) 153 H 162 H Hemoglobin A1c Calcium AST Alkaline Phosphatase Urine Appearance Urine Protein Urine Glucose (UA) Urine Ketones Urine WBC Urine Mucus Urine Yeast (Budding) U Marijuana (THC) Screen - Diagnostic Findings Chest x-ray: image reviewed (No evidence of active disease) Assessment and Plan Plan: Impression: 1 acute diabetic ketoacidosis significantly improved, hence the patient will be transferred out of the ICU today. And we'll sign off, and that the primary care physician decide on further treatment or discharge planning. 2 suspect recent viral gastroenteritis. 3 history of fibromyalgia and GERD. Recommendation: Transfer to a regular medical floor out of the ICU, I don't believe the patient is ready to be discharged today yet, she would likely end up coming back to the ER again, and I do not believe discharging the patient home is advisable. Time with Patient: Greater than 30
[2016-06-27 13:58] VITALS: BP 125/65
[2016-06-27 15:44] VITALS: PULSE 101; RESP 25
[2016-06-27 16:05] LABS: Glucose,Whole Blood 236 mg/dL (75-99)
[2016-06-27] MEDS ORDERED: METHYLPHENIDATE HCL 10 MG TAB PO SCH (21:00)
[2016-06-27] MEDS ORDERED: PANTOPRAZOLE 40 MG TABLET PO SCH (21:00)
[2016-06-28] MEDS ORDERED: ATORVASTATIN 10 MG TAB PO SCH (09:00)
== END 2016-06-27 17:04 | disposition home or self-care (01) | DRG 639 ==
LOC: EC 15:31 → 6ICU 17:01
PROVIDERS: ADMIT Internal Medicine; ATTEND Internal Medicine
DX: E10.10 Type 1 diabetes mellitus with ketoacidosis without coma (principal); F32.9 Major depressive disorder, single episode, unspecified; A08.4 Viral intestinal infection, unspecified; M79.7 Fibromyalgia; K21.9 Gastro-esophageal reflux disease without esophagitis; F90.9 Attention-deficit hyperactivity disorder, unspecified type; M06.9 Rheumatoid arthritis, unspecified; Z79.4 Long term (current) use of insulin; F41.9 Anxiety disorder, unspecified; Z79.899 Other long term (current) drug therapy
CPT/HCPCS: 36415; 36600; 71010; 71020; 80048; 80053; 80306; 81001; 82009; 82805; 83036; 83735; 84100; 85025; 87502; 93005; 96365; 96366; 96367; 96375; 96376; 99291

== ENCOUNTER 2016-06-29 00:02 | Emergency (ER) | payer MEDICARE, OTHER ==
[2016-06-29 00:23] VITALS: PULSE 88
[2016-06-29] MEDS ORDERED: MAG HYDROX/AL HYDROX/SIMETH 30 ML, HYOSCYAMINE ELIXIR 10 ML, CIMETIDINE HCL 300 MG, LID... PO STA ×8 (01:25→04:48)
[2016-06-29 02:37] LABS: Basophils % (A) 0 %; CH 27.1; CHCM 34.5; Eosinophils % (A) 0 %; HCT 34.6 % (34.0-46.0); HDW 2.87; HGB 11.7 gm/dL (11.4-16.0); Luc # (Auto) 0.09; Luc % (Auto) 1; Lymphocytes # (A) 2.7 k/uL (1.0-4.8); Lymphocytes % (A) 36 %; MCH 26.8 pg (25.0-35.0); MCV 78.9 fL (80.0-100.0); Monocytes # (A) 0.3 k/uL (0-1.0); Monocytes % (A) 4 %; Neutrophils # (A) 4.3 k/uL (1.3-7.7); Neutrophils % (A) 58 %; RBC 4.38 m/uL (3.80-5.40); RDW 14.6 % (11.5-15.5); WBC 7.4 k/uL (3.8-10.6); WBC (Perox) 7.66
[2016-06-29 02:47] LABS: ALT 32 U/L (9-52); AST 20 U/L (14-36); Alkaline Phosphatase 153 U/L (38-126); Amylase 46 U/L (30-110); Anion Gap 6 mmol/L; Blood Urea Nitrogen 8 mg/dL (7-17); Calcium 8.8 mg/dL (8.4-10.2); Carbon Dioxide 28 mmol/L (22-30); Chloride 100 mmol/L (98-107); Glucose 249 mg/dL (74-99); Magnesium 1.9 mg/dL (1.6-2.3); Non-African American GFR(MDRD) >60 (>60 ml/min/1.73 sqM); Potassium 3.5 mmol/L (3.5-5.1); Sodium 134 mmol/L (137-145); Total Bilirubin 0.4 mg/dL (0.2-1.3); Total Protein 5.8 g/dL (6.3-8.2)
[2016-06-29] MEDS ORDERED: INSULIN REGULAR 100 UNIT/ML VIAL SQ STA (03:10)
[2016-06-29 03:31] LABS: Glucose,Whole Blood 267 mg/dL (75-99)
[2016-06-29 04:48] VITALS: BP 137/80; RESP 18; TEMP 98.3
--- NOTE | 2016-06-29 04:51 | ED ---
General Adult HPI - General Chief complaint: ENT Stated complaint: revisit,indigestion pain Time Seen by Provider: 06/29/16 00:47 Source: patient, RN notes reviewed Mode of arrival: ambulatory Limitations: no limitations - History of Present Illness Initial comments: This patient is a 41-year-old woman who presents to be evaluated for substernal burning and squeezing pain that has been going on over the past couple of days. Patient notes that she had been seen for which she is calling a stomach flu that was accompanied by multiple episodes of vomiting. She states that she started having these epigastric and substernal burning and squeezing pains that would come and go. Initially they were a little better if she took some water but then that stopped helping. Patient denies any anginal type symptoms, no dyspnea, diaphoresis, palpitations or lightheadedness, no syncope, nausea or vomiting. -: days(s) Location: chest, abdomen Quality: burning Consistency: intermittent Improves with: none Worsens with: none - Related Data Home Medications Medication Instructions Recorded Confirmed Methylphenidate HCl [Ritalin] 20 mg PO BID 01/04/14 06/29/16 Omeprazole [PriLOSEC] 20 mg PO BID 01/04/14 06/29/16 Desvenlafaxine Succinate [Pristiq] 100 mg PO DAILY 06/26/16 06/29/16 Fludrocortisone [Florinef] 0.1 mg PO DAILY 06/26/16 06/29/16 Simvastatin [Zocor] 20 mg PO DAILY 06/26/16 06/29/16 Previous Rx's Medication Instructions Recorded Insulin Aspart [NovoLOG] 7 unit SQ TID-W/MEALS #1 vial 06/27/16 Insulin Glargine [Lantus] 20 unit SQ DAILY #1 vial 06/27/16 Famotidine [Pepcid] 20 mg PO DAILY #14 tablet 06/29/16 Metoclopramide [Reglan] 10 mg PO ACHS #20 tab 06/29/16 Allergies Allergy/AdvReac Type Severity Reaction Status Date / Time caffeine Allergy Nausea & Verified 06/29/16 00:23 Vomiting paroxetine HCl [From Paxil] Allergy Rash/Hives Verified 06/29/16 00:23 sertraline HCl [From Zoloft] Allergy Rash/Hives Verified 06/29/16 00:23 Review of Systems ROS Statement: Those systems with pertinent positive or pertinent negative responses have been documented in the HPI. ROS Other: All systems not noted in ROS Statement are negative. Constitutional: Denies: fever, chills Respiratory: Denies: cough, dyspnea Cardiovascular: Reports: as per HPI, chest pain. Denies: palpitations, dyspnea on exertion, orthopnea, edema, syncope Gastrointestinal: Reports: as per HPI. Denies: abdominal pain, nausea, vomiting Musculoskeletal: Denies: back pain Skin: Denies: rash Neurological: Denies: headache, weakness, numbness Past Medical History Past Medical History: Diabetes Mellitus, Fibromyalgia, GERD/Reflux, Rheumatoid Arthritis (RA), Syncope Additional Past Medical History / Comment(s): ANEMIA, LIPOMA LEFT THIGH History of Any Multi-Drug Resistant Organisms: None Reported Past Surgical History: Ablation, Breast Surgery, Tubal Ligation Additional Past Surgical History / Comment(s): LEFT BREAST BX BENIGN, UTERINE ABLATION Past Anesthesia/Blood Transfusion Reactions: No Reported Reaction Past Psychological History: ADD/ADHD, Anxiety, Depression Smoking Status: Never smoker Past Alcohol Use History: None Reported Past Drug Use History: Marijuana Additional Drug Use History / Comment(s): Medicial marijauana daily use. - Past Family History Mother Family Medical History: Asthma Additional Family Medical History / Comment(s): depression General Exam Limitations: no limitations General appearance: alert, in no apparent distress Head exam: Present: atraumatic, normocephalic Eye exam: Present: normal appearance. Absent: scleral icterus, conjunctival injection ENT exam: Present: normal oropharynx Neck exam: Present: normal inspection Respiratory exam: Present: normal lung sounds bilaterally. Absent: respiratory distress, wheezes, rales, rhonchi, stridor, chest wall tenderness, other Cardiovascular Exam: Present: regular rate, normal rhythm, normal heart sounds. Absent: systolic murmur, diastolic murmur, rubs, gallop GI/Abdominal exam: Present: soft. Absent: distended, tenderness, guarding, rebound Extremities exam: Present: normal inspection, normal capillary refill. Absent: pedal edema, calf tenderness Back exam: Present: normal inspection. Absent: CVA tenderness (R), CVA tenderness (L) Neurological exam: Present: alert Skin exam: Present: warm, dry, intact, normal color. Absent: rash Course Vital Signs 06/29/16 06/29/16 00:17 04:46 Temperature 99.1 F 98.3 F Pulse Rate 88 88 Respiratory 20 18 Rate Blood Pressure 115/73 137/80 O2 Sat by Pulse 98 98 Oximetry EKG Findings - EKG Results: EKG: interpreted by QUEENIE SANCHEZ, sinus rhythm (Rate 80 bpm), normal axis, normal QRS, normal ST/T - [place], Pacemaker, Normal: Normal tracing: normal tracing Medical Decision Making - Medical Decision Making The patient's symptoms have resolved with the GI cocktail. Have reviewed the chest x-ray, and on the exam the patient does not have any lung findings. She is not coughing or short of breath. At this point we'll have the patient have close follow-up to ensure that this is not a developing infiltrate. Discussed return parameters. - Lab Data Result diagrams: 06/29/16 02:28 06/29/16 02:28 Lab Results 06/29/16 06/29/16 06/29/16 Range/Units 02:28 02:28 02:28 WBC 7.4 (3.8-10.6) k/uL RBC 4.38 (3.80-5.40) m/uL Hgb 11.7 (11.4-16.0) gm/dL Hct 34.6 (34.0-46.0) % MCV 78.9 L (80.0-100.0) fL MCH 26.8 (25.0-35.0) pg MCHC 34.0 (31.0-37.0) g/dL RDW 14.6 (11.5-15.5) % Plt Count 258 (150-450) k/uL Neutrophils % 58 % Lymphocytes % 36 % Monocytes % 4 % Eosinophils % 0 % Basophils % 0 % Neutrophils # 4.3 (1.3-7.7) k/uL Lymphocytes # 2.7 (1.0-4.8) k/uL Monocytes # 0.3 (0-1.0) k/uL Eosinophils # 0.0 (0-0.7) k/uL Basophils # 0.0 (0-0.2) k/uL Sodium 134 L (137-145) mmol/L Potassium 3.5 (3.5-5.1) mmol/L Chloride 100 (98-107) mmol/L Carbon Dioxide 28 (22-30) mmol/L Anion Gap 6 mmol/L BUN 8 (7-17) mg/dL Creatinine 0.30 L (0.52-1.04) mg/dL Est GFR (MDRD) Af Amer >60 (>60 ml/min/1.73 sqM) Est GFR (MDRD) Non-Af >60 (>60 ml/min/1.73 sqM) Glucose 249 H (74-99) mg/dL POC Glucose (mg/dL) (75-99) mg/dL POC Glu Maintenance Pipefitter ID Calcium 8.8 (8.4-10.2) mg/dL Magnesium 1.9 (1.6-2.3) mg/dL Total Bilirubin 0.4 (0.2-1.3) mg/dL AST 20 (14-36) U/L ALT 32 (9-52) U/L Alkaline Phosphatase 153 H (38-126) U/L Troponin I <0.012 (0.000-0.034) ng/mL Total Protein 5.8 L (6.3-8.2) g/dL Albumin 3.2 L (3.5-5.0) g/dL Amylase 46 (30-110) U/L Lipase 273 (23-300) U/L Acetone, Qual Negative (Negative) 06/29/16 Range/Units 03:28 WBC (3.8-10.6) k/uL RBC (3.80-5.40) m/uL Hgb (11.4-16.0) gm/dL Hct (34.0-46.0) % MCV (80.0-100.0) fL MCH (25.0-35.0) pg MCHC (31.0-37.0) g/dL RDW (11.5-15.5) % Plt Count (150-450) k/uL Neutrophils % % Lymphocytes % % Monocytes % % Eosinophils % % Basophils % % Neutrophils # (1.3-7.7) k/uL Lymphocytes # (1.0-4.8) k/uL Monocytes # (0-1.0) k/uL Eosinophils # (0-0.7) k/uL Basophils # (0-0.2) k/uL Sodium (137-145) mmol/L Potassium (3.5-5.1) mmol/L Chloride (98-107) mmol/L Carbon Dioxide (22-30) mmol/L Anion Gap mmol/L BUN (7-17) mg/dL Creatinine (0.52-1.04) mg/dL Est GFR (MDRD) Af Amer (>60 ml/min/1.73 sqM) Est GFR (MDRD) Non-Af (>60 ml/min/1.73 sqM) Glucose (74-99) mg/dL POC Glucose (mg/dL) 267 H (75-99) mg/dL POC Glu Maintenance Pipefitter ID Rosa Yost Calcium (8.4-10.2) mg/dL Magnesium (1.6-2.3) mg/dL Total Bilirubin (0.2-1.3) mg/dL AST (14-36) U/L ALT (9-52) U/L Alkaline Phosphatase (38-126) U/L Troponin I (0.000-0.034) ng/mL Total Protein (6.3-8.2) g/dL Albumin (3.5-5.0) g/dL Amylase (30-110) U/L Lipase (23-300) U/L Acetone, Qual (Negative) Disposition Clinical Impression: Esophagitis Disposition: HOME SELF-CARE Condition: Good Instructions: Esophagitis (ED) Prescriptions: Famotidine [Pepcid] 20 mg PO DAILY #14 tablet Metoclopramide [Reglan] 10 mg PO ACHS #20 tab Referrals: Kevin Ruiz DO [Primary Care Provider] - 1-2 days Javier Paniagua MD [STAFF PHYSICIAN] - 1-2 days
[2016-06-29 07:16] LABS: Glucose,Whole Blood 294 mg/dL (75-99)
--- NOTE | 2016-06-29 13:39 | XR ---
Final Report EXAM: XR Chest, 2 Views. CLINICAL HISTORY: Reason: Difficulty breathing TECHNIQUE: Frontal and lateral views of the chest. COMPARISON: No relevant prior studies available. FINDINGS: Lungs: Slight increased nodular densities projecting over the right lung base. Pleural space: Unremarkable. No pneumothorax. Heart: Unremarkable. No cardiomegaly. Mediastinum: Unremarkable. Bones/joints: Unremarkable. IMPRESSION: Possible early infiltrate in the right lung base. Follow-up recommended. No effusion
== END 2016-06-29 05:05 | disposition home or self-care (01) ==
LOC: EC 00:02
DX: K21.0 Gastro-esophageal reflux disease with esophagitis (principal); Z79.4 Long term (current) use of insulin; Z79.52 Long term (current) use of systemic steroids; Z79.899 Other long term (current) drug therapy; Z88.8 Allergy status to other drugs, medicaments and biological substances; E11.9 Type 2 diabetes mellitus without complications; F90.9 Attention-deficit hyperactivity disorder, unspecified type; F41.9 Anxiety disorder, unspecified; F32.9 Major depressive disorder, single episode, unspecified; M06.9 Rheumatoid arthritis, unspecified
CPT/HCPCS: 36415; 71020; 80053; 82009; 82150; 83690; 83735; 84484; 85025; 93005; 99284

== ENCOUNTER 2017-03-08 08:51 | Inpatient (IN) | payer MEDICARE, OTHER ==
[2017-03-08 09:08] LABS: Glucose,Whole Blood 588 mg/dL (75-99)
[2017-03-08] MEDS ORDERED: SODIUM CHLORIDE 0.9% 1,000 ML IV STA (09:40)
--- NOTE | 2017-03-08 09:46 | ED ---
General Adult HPI - General Chief complaint: Recheck/Abnormal Lab/Rx Stated complaint: High sugar Time Seen by Provider: 03/08/17 09:27 Source: patient, RN notes reviewed Mode of arrival: wheelchair Limitations: no limitations - History of Present Illness Initial comments: Patient is a pleasant 42-year-old female presenting to the emergency department with concerns for hyperglycemia. Patient states her blood sugar was 600 this morning. Patient is unclear what her last blood sugar was. Patient states she felt normal yesterday. Patient feels fatigued. Patient complains of polyuria and polydipsia. Known diabetic. - Related Data Home Medications Medication Instructions Recorded Confirmed Methylphenidate HCl [Ritalin] 20 mg PO BID 01/04/14 03/08/17 Omeprazole [PriLOSEC] 20 mg PO BID 01/04/14 03/08/17 Desvenlafaxine Succinate [Pristiq] 100 mg PO DAILY 06/26/16 03/08/17 Insulin Aspart [NovoLOG See Protocol SQ ACHS 03/08/17 03/08/17 (formulary)] Insulin Glargine [Lantus] 30 unit SQ DAILY 03/08/17 03/08/17 Allergies Allergy/AdvReac Type Severity Reaction Status Date / Time caffeine Allergy Nausea & Verified 03/08/17 09:36 Vomiting paroxetine HCl [From Paxil] Allergy Rash/Hives Verified 03/08/17 09:36 sertraline HCl [From Zoloft] Allergy Rash/Hives Verified 03/08/17 09:36 Review of Systems ROS Statement: Those systems with pertinent positive or pertinent negative responses have been documented in the HPI. ROS Other: All systems not noted in ROS Statement are negative. Constitutional: Denies: fever Eyes: Denies: eye pain ENT: Denies: ear pain Respiratory: Denies: cough Cardiovascular: Denies: chest pain Endocrine: Reports: polydipsia, polyuria Gastrointestinal: Denies: abdominal pain Genitourinary: Denies: dysuria Skin: Denies: rash Neurological: Denies: weakness Past Medical History Past Medical History: Diabetes Mellitus, Fibromyalgia, GERD/Reflux, Rheumatoid Arthritis (RA), Syncope Additional Past Medical History / Comment(s): ANEMIA, LIPOMA LEFT THIGH History of Any Multi-Drug Resistant Organisms: None Reported Past Surgical History: Ablation, Breast Surgery, Tubal Ligation Additional Past Surgical History / Comment(s): LEFT BREAST BX BENIGN, UTERINE ABLATION Past Anesthesia/Blood Transfusion Reactions: No Reported Reaction Past Psychological History: ADD/ADHD, Anxiety, Depression Smoking Status: Never smoker Past Alcohol Use History: None Reported Past Drug Use History: Marijuana - Past Family History Mother Family Medical History: Asthma Additional Family Medical History / Comment(s): depression General Exam Limitations: no limitations General appearance: alert, in no apparent distress Head exam: Present: atraumatic Eye exam: Present: normal appearance, PERRL ENT exam: Present: normal oropharynx Neck exam: Present: normal inspection Respiratory exam: Present: normal lung sounds bilaterally Cardiovascular Exam: Present: tachycardia GI/Abdominal exam: Present: soft. Absent: tenderness Extremities exam: Present: normal inspection Neurological exam: Present: alert, oriented X3, CN II-XII intact. Absent: motor sensory deficit Expanded Cranial nerves: EOM's Intact: Normal Motor strength exam: RUE: 5, LUE: 5, RLE: 5, LLE: 5 Psychiatric exam: Present: normal affect, normal mood Skin exam: Present: normal color Course Vital Signs 03/08/17 03/08/17 09:02 10:20 Temperature 97.2 F L Pulse Rate 120 H 105 H Respiratory 20 20 Rate Blood Pressure 117/76 119/78 O2 Sat by Pulse 98 98 Oximetry EKG Findings - EKG Comments: EKG Findings:: Sinus tachycardia 106. ME 142. QRS 106. QT 372. QTC 494. Left axis. Poor R-wave progression. No acute ST change. Medical Decision Making - Medical Decision Making Patient reevaluated and updated. Insulin drip has been started. Case discussed with Dr. quintero, who will admit for Dr. Ruiz. - Lab Data Result diagrams: 03/08/17 09:30 03/08/17 09:30 Lab Results 03/08/17 03/08/17 03/08/17 Range/Units 09:06 09:30 09:30 WBC 10.0 (3.8-10.6) k/uL RBC 5.38 (3.80-5.40) m/uL Hgb 14.8 (11.4-16.0) gm/dL Hct 49.1 H (34.0-46.0) % MCV 91.3 (80.0-100.0) fL MCH 27.5 (25.0-35.0) pg MCHC 30.2 L (31.0-37.0) g/dL RDW 13.3 (11.5-15.5) % Plt Count 398 (150-450) k/uL Neutrophils % 82 % Lymphocytes % 15 % Monocytes % 1 % Eosinophils % 0 % Basophils % 0 % Neutrophils # 8.2 H (1.3-7.7) k/uL Lymphocytes # 1.5 (1.0-4.8) k/uL Monocytes # 0.1 (0-1.0) k/uL Eosinophils # 0.0 (0-0.7) k/uL Basophils # 0.0 (0-0.2) k/uL Hypochromasia Moderate Sodium 141 (137-145) mmol/L Potassium 4.5 (3.5-5.1) mmol/L Chloride 102 (98-107) mmol/L Carbon Dioxide 8 L* (22-30) mmol/L Anion Gap 31 mmol/L BUN 20 H (7-17) mg/dL Creatinine 0.61 (0.52-1.04) mg/dL Est GFR (MDRD) Af Amer >60 (>60 ml/min/1.73 sqM) Est GFR (MDRD) Non-Af >60 (>60 ml/min/1.73 sqM) Glucose 623 H* (74-99) mg/dL POC Glucose (mg/dL) 588 H (75-99) mg/dL POC Glu Meat Specialist ID Laquita Bourne Calcium 10.8 H (8.4-10.2) mg/dL Phosphorus 5.4 H (2.5-4.5) mg/dL Magnesium 2.0 (1.6-2.3) mg/dL Total Bilirubin 0.4 (0.2-1.3) mg/dL AST 36 (14-36) U/L ALT 35 (9-52) U/L Alkaline Phosphatase 352 H (38-126) U/L Total Protein 8.9 H (6.3-8.2) g/dL Albumin 5.0 (3.5-5.0) g/dL Urine Color Urine Appearance (Clear) Urine pH (5.0-8.0) Ur Specific [place] (1.001-1.035) Urine Protein (Negative) Urine Glucose (UA) (Negative) Urine Ketones (Negative) Urine Blood (Negative) Urine Nitrite (Negative) Urine Bilirubin (Negative) Urine Urobilinogen (<2.0) mg/dL Ur Leukocyte Esterase (Negative) Acetone, Qual Positive (Negative) 03/08/17 Range/Units 09:30 WBC (3.8-10.6) k/uL RBC (3.80-5.40) m/uL Hgb (11.4-16.0) gm/dL Hct (34.0-46.0) % MCV (80.0-100.0) fL MCH (25.0-35.0) pg MCHC (31.0-37.0) g/dL RDW (11.5-15.5) % Plt Count (150-450) k/uL Neutrophils % % Lymphocytes % % Monocytes % % Eosinophils % % Basophils % % Neutrophils # (1.3-7.7) k/uL Lymphocytes # (1.0-4.8) k/uL Monocytes # (0-1.0) k/uL Eosinophils # (0-0.7) k/uL Basophils # (0-0.2) k/uL Hypochromasia Sodium (137-145) mmol/L Potassium (3.5-5.1) mmol/L Chloride (98-107) mmol/L Carbon Dioxide (22-30) mmol/L Anion Gap mmol/L BUN (7-17) mg/dL Creatinine (0.52-1.04) mg/dL Est GFR (MDRD) Af Amer (>60 ml/min/1.73 sqM) Est GFR (MDRD) Non-Af (>60 ml/min/1.73 sqM) Glucose (74-99) mg/dL POC Glucose (mg/dL) (75-99) mg/dL POC Glu Meat Specialist ID Calcium (8.4-10.2) mg/dL Phosphorus (2.5-4.5) mg/dL Magnesium (1.6-2.3) mg/dL Total Bilirubin (0.2-1.3) mg/dL AST (14-36) U/L ALT (9-52) U/L Alkaline Phosphatase (38-126) U/L Total Protein (6.3-8.2) g/dL Albumin (3.5-5.0) g/dL Urine Color Colorless Urine Appearance Clear (Clear) Urine pH 5.0 (5.0-8.0) Ur Specific [place] 1.021 (1.001-1.035) Urine Protein Negative (Negative) Urine Glucose (UA) 4+ H (Negative) Urine Ketones 4+ H (Negative) Urine Blood Negative (Negative) Urine Nitrite Negative (Negative) Urine Bilirubin Negative (Negative) Urine Urobilinogen <2.0 (<2.0) mg/dL Ur Leukocyte Esterase Negative (Negative) Acetone, Qual (Negative) - Radiology Data Radiology results: image reviewed (Chest x-ray shows chronic changes.) Critical Care Time Critical Care Time: Yes Total Critical Care Time: 32 Disposition Clinical Impression: DKA (diabetic ketoacidoses) Disposition: ADMITTED IP TO THIS [facility] Condition: Serious Referrals: Kevin Ruiz DO [Primary Care Provider] - 1-2 days Decision Time: 10:49
[2017-03-08 09:56] LABS: Appearance,Urine Clear (Clear); Basophils % (A) 0 %; Bilirubin,Urine Negative (Negative); CH 27.6; CHCM 30.4; Eosinophils % (A) 0 %; Glucose,Urine (UA) 4+ (Negative); HCT 49.1 % (34.0-46.0); HDW 2.51; HGB 14.8 gm/dL (11.4-16.0); Hypochromasia Moderate; Leukocyte Esterase,Urine Negative (Negative); Luc # (Auto) 0.14; Luc % (Auto) 1; Lymphocytes # (A) 1.5 k/uL (1.0-4.8); Lymphocytes % (A) 15 %; MCH 27.5 pg (25.0-35.0); MCHC 30.2 g/dL (31.0-37.0); MCV 91.3 fL (80.0-100.0); Mean Platelet Volume 6.8; Monocytes # (A) 0.1 k/uL (0-1.0); Monocytes % (A) 1 %; Neutrophils # (A) 8.2 k/uL (1.3-7.7); Neutrophils % (A) 82 %; Nitrite,Urine Negative (Negative); Protein,Urine Negative (Negative); RBC 5.38 m/uL (3.80-5.40); RDW 13.3 % (11.5-15.5); Specific Gravity,Urine 1.021 (1.001-1.035); UA Billing (MACRO vs. MICRO) CHEM; Urobilinogen,Urine <2.0 mg/dL (<2.0); WBC (Perox) 9.33
[2017-03-08 10:12] LABS: ALT 35 U/L (9-52); AST 36 U/L (14-36); Alkaline Phosphatase 352 U/L (38-126); Anion Gap 31 mmol/L; Blood Urea Nitrogen 20 mg/dL (7-17); Calcium 10.8 mg/dL (8.4-10.2); Chloride 102 mmol/L (98-107); Non-African American GFR(MDRD) >60 (>60 ml/min/1.73 sqM); Phosphorus 5.4 mg/dL (2.5-4.5); Potassium 4.5 mmol/L (3.5-5.1); Sodium 141 mmol/L (137-145); Total Bilirubin 0.4 mg/dL (0.2-1.3); Total Protein 8.9 g/dL (6.3-8.2)
[2017-03-08 10:19] LABS: Ketones,Urine 4+ (Negative)
--- NOTE | 2017-03-08 10:21 | XR ---
EXAMINATION TYPE: XR chest 2V DATE OF EXAM: 03/08/2017 COMPARISON: 06/29/2016 HISTORY: 42-year-old female with weakness TECHNIQUE: AP and lateral views FINDINGS: Heart is normal size. Aorta and pulmonary vasculature are within normal limits. Mild interstitial pro minence is unchanged. No consolidation or pleural effusion. Some strandy atelectasis scattered in the lungs. IMPRESSION: Chronic changes, possible chronic bronchitis/asthma. No acute process seen.
[2017-03-08 10:26] LABS: Carbon Dioxide 8 mmol/L (22-30); Glucose 623 mg/dL (74-99)
[2017-03-08] MEDS ORDERED: INSULIN REGULAR BOLUS (FROM DRIP BAG) IV ONE (10:46)
[2017-03-08] MEDS ORDERED: SODIUM CHLORIDE 0.9% 1,000 ML IV ONE (10:46)
[2017-03-08] MEDS ORDERED: ONDANSETRON 4 MG/2 ML VIAL IVP STA (10:53)
[2017-03-08 10:59] LABS: ABG Base Excess -14.3 mmol/L; ABG HCO3 11 mmol/L (21-25); ABG PCO2 21 mmHg (35-45); ABG PH 7.32 (7.35-7.45); ABG PO2 126 mmHg (83-108); ABG TCO2 11 mmol/L (19-24)
[2017-03-08] MEDS ORDERED: INSULIN REGULAR 100 UNIT in SODIUM CHLORIDE 0.9% 100 ML IV SCH (11:00)
[2017-03-08] MEDS ORDERED: D5-0.45% NACL WITH KCL 20MEQ/L 1,000 ML IV SCH (11:30)
[2017-03-08] MEDS: D5-0.45% NACL WITH KCL 20MEQ/L 1,000 ML IV SCH ×2 (11:31→20:28)
[2017-03-08 12:11] LABS: Glucose,Whole Blood 136 mg/dL (75-99)
[2017-03-08 12:32] LABS: Glucose,Whole Blood 257 mg/dL (75-99)
[2017-03-08 13:19] LABS: Glucose,Whole Blood 108 mg/dL (75-99)
[2017-03-08 14:06] LABS: Glucose,Whole Blood 118 mg/dL (75-99)
[2017-03-08 14:30] LABS: Glucose,Whole Blood 194 mg/dL (75-99)
[2017-03-08 14:33] VITALS: BMI 26.5
[2017-03-08 15:36] LABS: Anion Gap 12 mmol/L; Blood Urea Nitrogen 21 mg/dL (7-17); Carbon Dioxide 20 mmol/L (22-30); Chloride 104 mmol/L (98-107); Glucose 211 mg/dL (74-99); Non-African American GFR(MDRD) >60 (>60 ml/min/1.73 sqM); Phosphorus 4.2 mg/dL (2.5-4.5); Potassium 5.4 mmol/L (3.5-5.1); Sodium 136 mmol/L (137-145)
[2017-03-08 15:38] LABS: Glucose,Whole Blood 216 mg/dL (75-99)
[2017-03-08 16:42] LABS: Glucose,Whole Blood 213 mg/dL (75-99)
[2017-03-08 18:10] LABS: Glucose,Whole Blood 230 mg/dL (75-99)
[2017-03-08] MEDS: SODIUM CHLORIDE 0.9% 1,000 ML IV SCH ×4 (18:16→22:34)
[2017-03-08 19:16] LABS: Glucose,Whole Blood 356 mg/dL (75-99)
[2017-03-08 19:46] LABS: Anion Gap 8 mmol/L; Blood Urea Nitrogen 18 mg/dL (7-17); Carbon Dioxide 21 mmol/L (22-30); Chloride 101 mmol/L (98-107); Glucose 381 mg/dL (74-99); Non-African American GFR(MDRD) >60 (>60 ml/min/1.73 sqM); Phosphorus 3.1 mg/dL (2.5-4.5); Potassium 4.6 mmol/L (3.5-5.1); Sodium 130 mmol/L (137-145)
--- NOTE | 2017-03-08 19:55 | HP ---
HISTORY AND PHYSICAL DATE OF ADMISSION: 03/08/17 PRESENTING COMPLAINT: Delirious HISTORY OF PRESENTING COMPLAINT: This is a 42-year-old patient of Dr. Ruiz. Chronic stable medical conditions include fibromyalgia, ADHD, rheumatoid arthritis diagnosed at [facility], depression. The patient was started on insulin at age of 25. The patient normally takes Lantus 30 units and Humalog. Overnight patient became confused with nausea, vomiting, presented with a DKA with sugars up to the 600. Patient is put on insulin drip. The patient did have a loose bowel movement this morning. No abdominal pain and she was rather delirious and confused. Brought in by her . The patient does not eat well and depression seems to be a factor and he said he has had financial issues regarding follow up with healthcare professionals. The patient still remains on insulin drip. She is arousable, does answer questions then dozes off. REVIEW OF SYSTEMS: Difficult to obtain as patient is rather lethargic. PAST MEDICAL HISTORY: Fibromyalgia, ADHD, rheumatoid arthritis, depression, diabetes mellitus type 1 requiring insulin. PAST SURGICAL HISTORY: Breast surgery, tubal ligation, uterine ablation, tilt-table test, removed, uterine ablation. PAST PSYCH HISTORY: ADHD, anxiety, depression. SOCIAL HISTORY: for 20 years. The patient is disabled. Smokes marijuana at night for pain control. FAMILY HISTORY: Asthma, depression, colitis. HOME MEDICATIONS: 1. Ritalin 20 mg p.o. b.i.d. 2. Lantus 30 units subcu in the morning. 3. NovoLog per scale. 4. Pristiq 100 mg p.o. daily. 5. Prilosec 20 mg p.o. b.i.d. ALLERGIES: CAFFEINE, PAXIL, ZOLOFT. PHYSICAL EXAMINATION: Vital signs on presentation: Temperature 97.2, pulse 120, respiration 20, blood pressure 117/76, pulse ox 98% on room air. GENERAL APPEARANCE: Average built, lying in bed, lethargic but arousable. EYES: Pupils equal. Conjunctivae normal. HEENT: Oral cavity dry mucous membrane. NECK: JVD unable to assess. Mass not palpable. RESPIRATORY: Effort, lungs fair entry. CARDIOVASCULAR: First and second sounds. No edema. ABDOMEN: Soft, nontender. Liver and spleen not palpable. LYMPHATIC: No lymph nodes palpable in neck or axillae. PSYCHIATRY: Unable to assess. Patient answering some questions then dozes off. NEUROLOGICAL: Pupils equal. No facial asymmetry. Moving all 4 limbs. INVESTIGATIONS: White count 10, hemoglobin 14.8, platelets 398, potassium 4.5, bicarb is 8, blood glucose was 623, calcium 10.8. UA showing glucose and ketone. Serum acetone positive. ASSESSMENT: 1. Acute diabetic ketoacidosis with no obvious precipitating factor. 2. Hypercalcemia from dehydration. 3. Chronic fibromyalgia. 4. Attention deficit hyperactivity disorder. 5. Rheumatoid arthritis with diagnosis made at [facility]. 6. Depression not otherwise specified and may be uncontrolled as per the . PLAN: Patient is put on insulin drip. Sugars have been coming down. The patient is somewhat lethargic. In the morning we will switch her over to Lantus. The patient does follow with Dr. Christy Vaughn from medical oncology will be consulted. The DKA protocol is being followed. We will also do a psychiatry consultation. Care was discussed with the at the bedside at length. Questions were answered. MMODL / IJN: [id number] /
[2017-03-08 20:04] LABS: Glucose,Whole Blood 375 mg/dL (75-99)
[2017-03-08] MEDS: METHYLPHENIDATE HCL 10 MG TAB PO SCH (20:39)
[2017-03-08] MEDS: INSULIN DETEMIR 100 UNIT/ML 10 ML VIAL SQ SCH (20:39)
[2017-03-08] MEDS: INSULIN ASPART 100 UNIT/ML 1 ML 10 ML VIAL SQ SCH (20:39)
[2017-03-08 20:41] LABS: Glucose,Whole Blood 392 mg/dL (75-99)
[2017-03-09 04:06] LABS: Glucose,Whole Blood 212 mg/dL (75-99)
[2017-03-09 06:08] LABS: Glucose,Whole Blood 62 mg/dL (75-99)
[2017-03-09 06:22] LABS: Anion Gap 6 mmol/L; Blood Urea Nitrogen 17 mg/dL (7-17); Calcium 8.9 mg/dL (8.4-10.2); Carbon Dioxide 25 mmol/L (22-30); Chloride 104 mmol/L (98-107); Glucose 64 mg/dL (74-99); Non-African American GFR(MDRD) >60 (>60 ml/min/1.73 sqM); Potassium 3.5 mmol/L (3.5-5.1); Sodium 135 mmol/L (137-145)
[2017-03-09 06:23] LABS: Glucose,Whole Blood 65 mg/dL (75-99)
[2017-03-09 06:46] LABS: Glucose,Whole Blood 134 mg/dL (75-99)
[2017-03-09] MEDS: INSULIN ASPART 100 UNIT/ML 1 ML 10 ML VIAL SQ SCH ×7 (06:46→22:06)
[2017-03-09] MEDS: SODIUM CHLORIDE 0.9% 1,000 ML IV SCH ×4 (06:46→20:33)
[2017-03-09] MEDS: PANTOPRAZOLE 40 MG TABLET PO SCH (07:11)
[2017-03-09] MEDS ORDERED: NON-FORMULARY DRUG (Insulin Glargine 30 UNIT) SQ SCH (09:00)
[2017-03-09] MEDS: DESVENLAFAXINE SUCCINATE 50 MG TAB.ER.24H PO SCH (09:14)
[2017-03-09] MEDS: METHYLPHENIDATE HCL 10 MG TAB PO SCH ×2 (09:14→20:38)
[2017-03-09] MEDS: ENOXAPARIN 40 MG/0.4 ML SYRINGE SQ SCH (09:14)
[2017-03-09] MEDS: ACETAMINOPHEN TAB 500 MG TAB PO PRN ×2 (11:08→20:38)
[2017-03-09] MEDS ORDERED: RX INFO: IV CONTRAST WAS GIVEN 1 EACH MISC MISCELLANE PRN (11:31)
[2017-03-09 11:52] LABS: Glucose,Whole Blood 220 mg/dL (75-99)
[2017-03-09] MEDS: ASPIRIN 81 MG PO SCH (12:54)
--- NOTE | 2017-03-09 13:28 | CT ---
EXAMINATION TYPE: CT angio head neck DATE OF EXAM: 03/09/2017 HISTORY: Hands numbness COMPARISON: NONE CT DLP: 1210.3 mGycm. Automated Exposure Control for Dose Reduction was Utilized. TECHNIQUE: CTA scan of the neck is performed with IV Contrast, patient injected with 65 mL of Omnipa que 350, axial images are obtained, coronal and sagittal reformatted images are reviewed. Three-D rec onstructed images are created on an independent workstation and reviewed. FINDINGS: No evidence of acute hemorrhage or mass effect. There is an area of low attenuation within the right frontal white matter may been the basis of previous ischemia. Correlate clinically. MRI cou ld BE obtained as warranted. Evaluation of the neck and head with CTA is limited due to motion artifact. There is shotty adenopathy within the soft tissues of the neck. Changes of chronic sinusitis noted. Grossly there is no significant stenosis involving the carotid bifurcation bilaterally. Assessment intracranially demonstrates no diagnostic evidence of sizable aneurysm or vascular malform ation. Changes of chronic sinusitis noted. IMPRESSION: 1. Limited exam due to motion artifact demonstrates no definite significant stenosis involving the ca rotid bifurcation. Assessment for dissection is nondiagnostic due to motion artifact. 2. No sizable intracranial aneurysm. 3. Area of low attenuation in the right frontal lobe may be on the basis of a previous infarct. Corre late with MRI with diffusion imaging to assess chronicity.
[2017-03-09 14:51] LABS: Glucose,Whole Blood 141 mg/dL (75-99)
[2017-03-09 16:44] LABS: Glucose,Whole Blood 209 mg/dL (75-99)
--- NOTE | 2017-03-09 19:03 | MR ---
EXAMINATION TYPE: MR brain wo con DATE OF EXAM: 03/09/2017 COMPARISON: CTA head and neck earlier today HISTORY: Possible TIA per order. Acute onset right-sided facial droop and numbness. TECHNIQUE: Multiplanar, multisequence imaging of the brain and brainstem is performed without IV cont rast. FINDINGS: Diffusion weighted images demonstrate no evidence of a recent infarct or other diffusion abnormality. There is no worrisome extra-axial fluid collection. The ventricular system and cisternal spaces are normal in size and appearance. The brain volume is age appropriate. There is nonspecific irregular T 2 hyperintense area high right frontal lobe measuring 2.3 x 1.9 cm on axial image 23 correlates with area of abnormality on CT. Otherwise no significant white matter changes are seen. Area shows T1 hypo intensity. Midline structures demonstrate normal morphology. The craniocervical junction appears within normal limits. Normal vascular flow voids are present. Mild mucosal thickening inferior bilateral maxillary sinuses and bilateral ethmoid sinuses is present. The globes are intact bilaterally. IMPRESSION: Nonspecific irregular 2 cm right posterior frontal lobe white matter lesion at level of t he centrum semiovale. Differential includes demyelinating plaque, subacute/chronic ischemia, infecti ous and/or inflammatory etiology. Correlating with old outside CT or MRI would be beneficial to asses s if new or acute finding. No restricted diffusion is seen to suggest acute infarct. Consider contras t-enhanced study to assess for enhancement or possible active MS lesion.
--- NOTE | 2017-03-09 19:30 | US ---
EXAMINATION TYPE: US carotid duplex BILAT DATE OF EXAM: 03/09/2017 COMPARISON: CTA head and neck earlier today CLINICAL HISTORY: poss TIA. Right side facial numbness EXAM MEASUREMENTS: RIGHT: Peak Systolic Velocity (PSV) cm/sec ----- Right CCA: 81.3 ----- Right ICA: 94.4 ----- Right ECA: 121.0 ICA/CCA ratio: 1.2 RIGHT: End Diastole cm/sec ----- Right CCA: 23.1 ----- Right ICA: 41.7 ----- Right ECA: 22.5 LEFT: Peak Systolic Velocity (PSV) cm/sec ----- Left CCA: 83.8 ----- Left ICA: 96.9 ----- Left ECA: 122.6 ICA/CCA ratio: 1.2 LEFT: End Diastole cm/sec ----- Left CCA: 20.8 ----- Left ICA: 41.3 ----- Left ECA: 25.7 VERTEBRALS (direction of flow): Right Vertebral: Antegrade Left Vertebral: Antegrade Rhythm: Normal No significant stenosis seen Grayscale images show no significant focal plaque at carotid bulb level bilaterally. IMPRESSION: No significant stenosis is identified bilaterally. Findings correlate with recent CTA n lucia study which is more sensitive study.
[2017-03-09 19:58] VITALS: RESP 16
[2017-03-09 20:55] LABS: Glucose,Whole Blood 170 mg/dL (75-99)
[2017-03-09] MEDS ORDERED: ATORVASTATIN 20 MG TAB PO SCH (21:00)
[2017-03-09] MEDS: INSULIN DETEMIR 100 UNIT/ML 10 ML VIAL SQ SCH (22:05)
--- NOTE | 2017-03-09 23:21 | PN ---
PROGRESS NOTE DATE OF SERVICE: 03/09/2017 PRESENTING COMPLAINT: Acute delirium. INTERVAL HISTORY: This patient presented with acute DKA and acute delirium which greatly improved. The patient doing better, tolerating a diet. The patient did tell us today that there may be some facial asymmetry and right arm numbness she had for a short time when all this presentation started. There was concern about a TIA. REVIEW OF SYSTEMS: Done for constitutional, cardiovascular, GI, pulmonary, musculoskeletal, neurological; relevant findings as above. CURRENT MEDICATIONS: Reviewed. EXAMINATION: Temperature 98.1, pulse 85, respirations 16, blood pressure 164/60, pulse ox 98% on room air. GENERAL APPEARANCE: Sitting up, comfortable. The patient is combing her hair. EYES: Pupils equal. Conjunctivae normal. NECK: JVD not raised. Mass not palpable. RESPIRATORY: Effort normal. LUNGS: Clear. CARDIOVASCULAR: First and second sounds normal. NEUROLOGICAL: No focal weakness. No facial asymmetry. Power and sensation grossly intact. INVESTIGATIONS: Accu-Cheks are noted. ASSESSMENT: 1. Possible transient ischemic attack. 2. Acute transient ischemic attack. 3. Diabetic ketoacidosis, resolved. 4. Insulin-requiring diabetes mellitus type 1. 5. Chronic fibromyalgia. 6. Attention deficit hyperactivity disorder. 7. Rheumatoid arthritis. 8. Depression, not otherwise specified. PLAN: Patient did inform me that she had seen Dr. Bowers last week and her medications were adjusted. Hence, she is okay with that. Hence, the psych consult is being canceled. We did go ahead and order an MRI and a carotid Doppler. The patient will also be started on aspirin and Lipitor. Care was discussed with the patient. The patient did follow with Dr. Christy Vaughn from oncology. MMODL / IJN: [id number] /
[2017-03-10] MEDS: SODIUM CHLORIDE 0.9% 1,000 ML IV SCH ×3 (04:11→13:04)
[2017-03-10 05:33] LABS: Glucose,Whole Blood 60 mg/dL (75-99)
[2017-03-10] MEDS: INSULIN ASPART 100 UNIT/ML 1 ML 10 ML VIAL SQ SCH ×4 (05:45→13:04)
[2017-03-10 05:49] LABS: Glucose,Whole Blood 86 mg/dL (75-99)
[2017-03-10] MEDS: PANTOPRAZOLE 40 MG TABLET PO SCH (06:04)
[2017-03-10 06:40] LABS: Anion Gap 8 mmol/L; Blood Urea Nitrogen 15 mg/dL (7-17); Calcium 8.7 mg/dL (8.4-10.2); Carbon Dioxide 25 mmol/L (22-30); Chloride 105 mmol/L (98-107); Glucose 79 mg/dL (74-99); Non-African American GFR(MDRD) >60 (>60 ml/min/1.73 sqM); Potassium 3.2 mmol/L (3.5-5.1); Sodium 138 mmol/L (137-145)
[2017-03-10] MEDS: ACETAMINOPHEN TAB 500 MG TAB PO PRN (09:07)
[2017-03-10] MEDS: ENOXAPARIN 40 MG/0.4 ML SYRINGE SQ SCH (09:07)
[2017-03-10] MEDS: METHYLPHENIDATE HCL 10 MG TAB PO SCH (09:07)
[2017-03-10] MEDS: DESVENLAFAXINE SUCCINATE 50 MG TAB.ER.24H PO SCH (09:07)
[2017-03-10] MEDS: ASPIRIN 81 MG PO SCH (09:07)
--- NOTE | 2017-03-10 10:46 | CDI ---
In responding to this query, please exercise your independent professional judgment. The [facility] Coding Staff and Clinical Documentation Specialists appreciate your assistance in clarifying documentation, maintaining compliance with coding guidelines, accurately documenting patients condition and capturing severity of illness. The fact that a question is asked does not imply that any particular answer is desired or expected. Communication forms are a method of clarifying documentation and are not made part of the Legal Health Record. Thank you in advance for your clarification. Last Revision, June 2015 Gwen Paris [address] [facility] [place] [address] Documentation Clarification Form Date: 03/10/2017 10:34:00 AM From: Milana Landry Admit Date: 03/08/2017 10:48:00 AM Patient Name: Shayla Perkins Visit Number: [id number] Dr. Ashvin Bundy Patient history/risk factors: Patient presented with DKA DM type 1 Clinical Indicators: H&P documents 'patient became confused'...'patient is rather lethargic' Progress note on 03/09 states' patient presented with acute DKA and acute delirium which greatly improved' Labs on admission: glucose 623, Hgb A1c 10.6, CO2 8, Ca10.8, Phos 5.4, Alk Phos 352 UA on admission: 4+ glucose, 4+ ketones Acetone + ABG's on admission: pH 7.32, pCO2 21, pO2 126, HCO3 11 Treatment: Insulin drip DKA Protocol In your professional opinion, please clarify the etiology of the altered mental status, if known. Acute Metabolic Encephalopathy Other type of Encephalopathy, please specify Other condition, please specify Unable to determine Please document in your progress notes and discharge summary in order to capture severity of illness and risk of mortality. Include clinical findings that support your diagnosis. FYI: Press F11 to launch patient chart. MAYCOL
[2017-03-10 10:47] VITALS: TEMP 96.4
[2017-03-10 11:39] LABS: Glucose,Whole Blood 239 mg/dL (75-99)
[2017-03-10] MEDS: POTASSIUM CHLORIDE ER 20 MEQ TAB.ER PO SCH ×2 (11:42→13:04)
[2017-03-10 12:06] VITALS: BP 133/81; PULSE 94
--- NOTE | 2017-03-10 14:49 | DS ---
DISCHARGE SUMMARY DATE OF ADMISSION: March 08, 2017. DATE OF DISCHARGE: March 10, 2017. FINAL DIAGNOSES: 1. Acute diabetic ketoacidosis, present on admission. 2. Diabetes mellitus type 1 on insulin. 3. Chronic fibromyalgia. 4. Attention deficit hyperactivity disorder. 5. Rheumatoid arthritis. 6. Depression otherwise specified. 7. Transient ischemic attack, present on admission. 8. Acute delirium from DKA, present on admission. 9. Autonomic dysfunction from underlying diabetes, chronic. HOSPITAL COURSE: This is a patient presented with diabetic ketoacidosis. Responded well to insulin drip. Went back on home regime. Patient is followed by Dr. Vaughn from Endocrinology. The patient also had complained of some facial drooping and right arm numbness when all this started before coming in. Neurological workup was done including a CT angio, MRI of the brain, and carotid Doppler the latter of which was negative. 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 The patient states that she has had this for a long time, extensive workup in the past. She also said that she has had a tilt-table test positive in the past and has seen a neurologist in the past. Feeling quite well otherwise. The patient had some confusion upon presentation. EXAM: Lungs are clear. Cardiovascular first and second sounds normal. Psych AO x3. Care was discussed with the patient. Questions were answered. DISCHARGE MEDICATIONS: 1. Ritalin 20 mg b.i.d. 2. Prilosec 20 mg p.o. b.i.d. 3. Pristiq 100 mg p.o. daily. 4. NovoLog per scale at home. 5. Lantus 30 units subcu daily. 6. Aspirin 81 mg p.o. daily. 7. Lipitor 20 mg p.o. q.h.s. Follow up with Dr. Ruiz in 1 week, Dr. Ramírez in [address] Vaughn in 3 days. The patient to keep her Accu-Cheks. MMODL / IJN: [id number] /
== END 2017-03-10 16:57 | disposition home or self-care (01) | DRG 638 ==
LOC: EC 08:51 → 6SEL 10:48
PROVIDERS: ADMIT Hospitalist; ATTEND Hospitalist
DX: E10.10 Type 1 diabetes mellitus with ketoacidosis without coma (principal); G45.9 Transient cerebral ischemic attack, unspecified; E83.52 Hypercalcemia; E86.0 Dehydration; F12.90 Cannabis use, unspecified, uncomplicated; F32.9 Major depressive disorder, single episode, unspecified; F90.9 Attention-deficit hyperactivity disorder, unspecified type; K21.9 Gastro-esophageal reflux disease without esophagitis; M06.9 Rheumatoid arthritis, unspecified; M79.7 Fibromyalgia; Z79.4 Long term (current) use of insulin; Z79.899 Other long term (current) drug therapy; Z81.8 Family history of other mental and behavioral disorders; Z82.5 Family history of asthma and other chronic lower respiratory diseases; Z79.82 Long term (current) use of aspirin
CPT/HCPCS: 36415; 36600; 70496; 70498; 70551; 71020; 80048; 80051; 80053; 81003; 82009; 82565; 82805; 82947; 83036; 83735; 84100; 84520; 85025; 93005; 93880; 96361; 96365; 96366; 96375; 99291

== ENCOUNTER → 2017-03-16 | Outpatient (CLI) | payer MEDICARE, OTHER ==
--- NOTE | 2017-03-16 13:24 | US ---
EXAMINATION TYPE: US venous doppler duplex LE RT DATE OF EXAM: 03/16/2017 12:57 PM COMPARISON: NONE CLINICAL HISTORY: M79.604 Pt in RT lower Limb.right leg pain SIDE PERFORMED: Right TECHNIQUE: The lower extremity deep venous system is examined utilizing real time linear array sonog raffy with graded compression, doppler sonography and color-flow sonography. VESSELS IMAGED: External Iliac Vein (EIV) Common Femoral Vein Deep Femoral Vein Greater Saphenous Vein * Femoral Vein Popliteal Vein Small Saphenous Vein * Proximal Calf Veins (* superficial vessels) *office called with tech impression at 1310 Right Leg: Appears negative for DVT Grayscale, color doppler, spectral doppler imaging performed of the deep veins of the lower extremiti es. There is normal flow, compressibility, vascular waveforms. IMPRESSION: No sonographic evidence of deep venous thrombosis within the right lower extremity.
--- NOTE | 2017-03-16 13:39 | XR ---
EXAMINATION TYPE: XR lumbar spine 2 or 3V DATE OF EXAM: 03/16/2017 COMPARISON: NONE HISTORY: Right leg pain, low back pain TECHNIQUE: Three-view lumbar spine FINDINGS: Disc heights are preserved. Vertebral body heights are preserved. Alignment is normal. Ther e 5 lumbar-type vertebral bodies. The pedicles are intact. IMPRESSION: Normal 3 view lumbar spine.
--- NOTE | 2017-03-16 13:45 | XR ---
EXAMINATION TYPE: XR Hip Complete RT DATE OF EXAM: 03/16/2017 COMPARISON: NONE HISTORY: Right leg pain TECHNIQUE: 2 view right hip FINDINGS: Femoral head articulates with the acetabulum. Minimal joint space narrowing may be present. No acute fractures are evident. Surgical clip is noted in the right hemipelvis. IMPRESSION: 1. No acute osseous abnormality.
== END | disposition home or self-care (01) ==
LOC: RADUSWWP 12:08
PROVIDERS: ATTEND Family Medicine
DX: M79.604 Pain in right leg (principal)
CPT/HCPCS: 72100; 73502

== ENCOUNTER 2017-06-27 03:17 | Inpatient (IN) | payer MEDICARE ==
[2017-06-27] MEDS ORDERED: INSULIN REGULAR 100 UNIT/ML VIAL IV ONE (03:33)
[2017-06-27] MEDS ORDERED: INSULIN REGULAR 100 UNIT in SODIUM CHLORIDE 0.9% 100 ML IV ONE (03:33)
[2017-06-27] MEDS ORDERED: ONDANSETRON 4 MG/2 ML VIAL IVP STA (03:34)
[2017-06-27] MEDS ORDERED: SODIUM CHLORIDE 0.9% 2,000 ML IV ONE (03:34)
--- NOTE | 2017-06-27 03:37 | ED ---
General Adult HPI - General Chief complaint: Recheck/Abnormal Lab/Rx Stated complaint: HYPERGLYCEMIA Time Seen by Provider: 06/27/17 03:20 Source: patient, family, RN notes reviewed Mode of arrival: wheelchair Limitations: no limitations - History of Present Illness Initial comments: This is a 42-year-old female with past medical history significant for diabetes type 1. Patient states she started feeling bad yesterday morning she realized her sugar was over 600. Patient struggled 80 try to get it down but she was also vomiting. Patient states been unable to keep any fluids or food down. Patient states as time went on she felt worse and worse. Patient states she's been breathing heavy and her heart feels like it's racing. Patient denies any abdominal pain patient denies any chest pain. Patient denies headache patient denies numbness weakness. Patient denies any diarrhea. Patient denies any fevers or cough - Related Data Home Medications Medication Instructions Recorded Confirmed Methylphenidate HCl [Ritalin] 20 mg PO BID 01/04/14 03/08/17 Omeprazole [PriLOSEC] 20 mg PO BID 01/04/14 03/08/17 Desvenlafaxine Succinate [Pristiq] 100 mg PO DAILY 06/26/16 03/08/17 Insulin Aspart [NovoLOG See Protocol SQ ACHS 03/08/17 03/08/17 (formulary)] Previous Rx's Medication Instructions Recorded Aspirin 81 mg PO DAILY chew 03/09/17 Atorvastatin [Lipitor] 20 mg PO HS #30 tab 03/10/17 Insulin Aspart [NovoLOG 7 unit SQ AC-TID #1 vial 03/10/17 (formulary)] Insulin Glargine [Lantus] 30 unit SQ DAILY #1 vial 03/10/17 Allergies Allergy/AdvReac Type Severity Reaction Status Date / Time caffeine Allergy Nausea & Verified 06/27/17 03:25 Vomiting paroxetine HCl [From Paxil] Allergy Rash/Hives Verified 06/27/17 03:25 sertraline HCl [From Zoloft] Allergy Rash/Hives Verified 06/27/17 03:25 Review of Systems ROS Statement: Those systems with pertinent positive or pertinent negative responses have been documented in the HPI. ROS Other: All systems not noted in ROS Statement are negative. Past Medical History Past Medical History: Diabetes Mellitus, Fibromyalgia, GERD/Reflux, Rheumatoid Arthritis (RA), Syncope Additional Past Medical History / Comment(s): IDDM type I, DKA, rheumatoid arthritis multiple sites, "neurocardiogenic syncope"-causes sudden drop in blood pressure and pt has syncope-has not happened in a long time, multiple lipomas. History of Any Multi-Drug Resistant Organisms: None Reported Past Surgical History: Breast Surgery, Tubal Ligation, Uterine Ablation Additional Past Surgical History / Comment(s): Tilt table test, LEFT BREAST BX BENIGN, L thigh lipoma removal, UTERINE ABLATION Past Anesthesia/Blood Transfusion Reactions: No Reported Reaction Past Psychological History: ADD/ADHD, Anxiety, Depression Smoking Status: Never smoker Past Alcohol Use History: Rare Past Drug Use History: Marijuana - Past Family History Mother Family Medical History: Asthma Additional Family Medical History / Comment(s): depression, colitis Father History Unknown: Yes General Exam - General Exam Comments Initial Comments: GENERAL: Patient is well-developed and well-nourished. Patient is nontoxic and well- hydrated and is in moderate distress. ENT: Neck is soft and supple. No significant lymphadenopathy is noted. Oropharynx is clear. Dry mucous membranes. Neck has full range of motion without eliciting any pain. EYES: The sclera were anicteric and conjunctiva were pink and moist. Extraocular movements were intact and pupils were equal round and reactive to light. Eyelids were unremarkable. PULMONARY: Unlabored respirations. Good breath sounds bilaterally. No audible rales rhonchi or wheezing was noted. CARDIOVASCULAR: Patient's heart rate is 140 beats minute ABDOMEN: Soft and nontender with normal bowel sounds. No palpable organomegaly was noted. There is no palpable pulsatile mass. SKIN: Skin is clear with no lesions or rashes and otherwise unremarkable. NEUROLOGIC: Patient is alert and oriented x3. Cranial nerves II through XII are grossly intact. Motor and sensory are also intact. Normal speech, volume and content. Symmetrical smile. MUSCULOSKELETAL: Normal extremities with adequate strength and full range of motion. No lower extremity swelling or edema. No calf tenderness. LYMPHATICS: No significant lymphadenopathy is noted PSYCHIATRIC: Normal psychiatric evaluation. Normal interpersonal interactions appears functionally intact in deals appropriately with others. No signs of depression. No signs of anxiety. Limitations: no limitations Course Vital Signs 06/27/17 03:20 Temperature 96.9 F L Pulse Rate 142 H Respiratory 32 H Rate Blood Pressure 133/87 O2 Sat by Pulse 100 Oximetry Medical Decision Making - Medical Decision Making EKG shows sinus tachycardia at 134 bpm QRS is 90 QT interval 362 QTC is 540. Patient's EKG shows no ST segment elevation or depression. Patient was in DKA I started the patient was a bolus of insulin and an insulin drip. I wrote 2 L of fluid for the patient as well. Patient's glucose dropped down to below 200 I started the patient on D5 0.45 and they started at 250 mL per hour - Lab Data Result diagrams: 06/27/17 03:52 06/27/17 03:52 Lab Results 06/27/17 06/27/17 06/27/17 Range/Units 03:37 03:52 03:52 WBC 12.5 H (3.8-10.6) k/uL RBC 5.96 H (3.80-5.40) m/uL Hgb 15.9 (11.4-16.0) gm/dL Hct 50.8 H (34.0-46.0) % MCV 85.4 (80.0-100.0) fL MCH 26.7 (25.0-35.0) pg MCHC 31.3 (31.0-37.0) g/dL RDW 13.7 (11.5-15.5) % Plt Count 541 H (150-450) k/uL Neutrophils % 85 % Lymphocytes % 12 % Monocytes % 2 % Eosinophils % 0 % Basophils % 0 % Neutrophils # 10.6 H (1.3-7.7) k/uL Lymphocytes # 1.5 (1.0-4.8) k/uL Monocytes # 0.2 (0-1.0) k/uL Eosinophils # 0.0 (0-0.7) k/uL Basophils # 0.0 (0-0.2) k/uL Hypochromasia Slight Sodium 139 (137-145) mmol/L Potassium 4.2 (3.5-5.1) mmol/L Chloride 94 L (98-107) mmol/L Carbon Dioxide <5 L* (22-30) mmol/L Anion Gap mmol/L BUN 21 H (7-17) mg/dL Creatinine 0.80 (0.52-1.04) mg/dL Est GFR (MDRD) Af Amer >60 (>60 ml/min/1.73 sqM) Est GFR (MDRD) Non-Af >60 (>60 ml/min/1.73 sqM) Glucose 440 H (74-99) mg/dL POC Glucose (mg/dL) 433 H (75-99) mg/dL POC Glu Bilingual Medical Assistant ID Morales Louis Calcium 10.3 H (8.4-10.2) mg/dL Magnesium 1.9 (1.6-2.3) mg/dL Total Bilirubin 0.4 (0.2-1.3) mg/dL AST 24 (14-36) U/L ALT 26 (9-52) U/L Alkaline Phosphatase 273 H (38-126) U/L Troponin I (0.000-0.034) ng/mL Total Protein 9.0 H (6.3-8.2) g/dL Albumin 5.2 H (3.5-5.0) g/dL Acetone, Qual Positive (Negative) 06/27/17 06/27/17 Range/Units 03:52 05:10 WBC (3.8-10.6) k/uL RBC (3.80-5.40) m/uL Hgb (11.4-16.0) gm/dL Hct (34.0-46.0) % MCV (80.0-100.0) fL MCH (25.0-35.0) pg MCHC (31.0-37.0) g/dL RDW (11.5-15.5) % Plt Count (150-450) k/uL Neutrophils % % Lymphocytes % % Monocytes % % Eosinophils % % Basophils % % Neutrophils # (1.3-7.7) k/uL Lymphocytes # (1.0-4.8) k/uL Monocytes # (0-1.0) k/uL Eosinophils # (0-0.7) k/uL Basophils # (0-0.2) k/uL Hypochromasia Sodium (137-145) mmol/L Potassium (3.5-5.1) mmol/L Chloride (98-107) mmol/L Carbon Dioxide (22-30) mmol/L Anion Gap mmol/L BUN (7-17) mg/dL Creatinine (0.52-1.04) mg/dL Est GFR (MDRD) Af Amer (>60 ml/min/1.73 sqM) Est GFR (MDRD) Non-Af (>60 ml/min/1.73 sqM) Glucose (74-99) mg/dL POC Glucose (mg/dL) 195 H (75-99) mg/dL POC Glu Bilingual Medical Assistant Daphne Howell Calcium (8.4-10.2) mg/dL Magnesium (1.6-2.3) mg/dL Total Bilirubin (0.2-1.3) mg/dL AST (14-36) U/L ALT (9-52) U/L Alkaline Phosphatase (38-126) U/L Troponin I <0.012 (0.000-0.034) ng/mL Total Protein (6.3-8.2) g/dL Albumin (3.5-5.0) g/dL Acetone, Qual (Negative) Critical Care Time Critical Care Time: Yes Total Critical Care Time: 35 Disposition Clinical Impression: DKA (diabetic ketoacidoses) Disposition: ADMITTED IP TO THIS HOSP Referrals: None,Stated [REFERRING] - 1-2 days Time of Disposition: 05:29
[2017-06-27 03:39] LABS: Glucose,Whole Blood 433 mg/dL (75-99)
[2017-06-27 04:02] LABS: Basophils % (A) 0 %; Eosinophils % (A) 0 %; HCT 50.8 % (34.0-46.0); HGB 15.9 gm/dL (11.4-16.0); Hypochromasia Slight; Lymphocytes # (A) 1.5 k/uL (1.0-4.8); Lymphocytes % (A) 12 %; MCH 26.7 pg (25.0-35.0); MCHC 31.3 g/dL (31.0-37.0); MCV 85.4 fL (80.0-100.0); Mean Platelet Volume 6.6; Monocytes # (A) 0.2 k/uL (0-1.0); Monocytes % (A) 2 %; Neutrophils # (A) 10.6 k/uL (1.3-7.7); Neutrophils % (A) 85 %; Platelet Count 541 k/uL (150-450); RBC 5.96 m/uL (3.80-5.40); RDW 13.7 % (11.5-15.5); WBC 12.5 k/uL (3.8-10.6)
[2017-06-27 04:14] LABS: ALT 26 U/L (9-52); AST 24 U/L (14-36); Albumin 5.2 g/dL (3.5-5.0); Alkaline Phosphatase 273 U/L (38-126); Blood Urea Nitrogen 21 mg/dL (7-17); Calcium 10.3 mg/dL (8.4-10.2); Chloride 94 mmol/L (98-107); Glucose 440 mg/dL (74-99); Potassium 4.2 mmol/L (3.5-5.1); Sodium 139 mmol/L (137-145); Total Bilirubin 0.4 mg/dL (0.2-1.3)
--- NOTE | 2017-06-27 04:30 | XR ---
EXAM: XR Chest, 2 Views CLINICAL HISTORY: ITS.REASON XR Reason: Difficulty breathing TECHNIQUE: Frontal and lateral views of the chest. COMPARISON: Chest x-ray dated 03/08/2017. FINDINGS: Lungs: Unremarkable. The lungs are clear. Pleural space: Unremarkable. No pneumothorax. Heart: Unremarkable. No cardiomegaly. Mediastinum: Unremarkable. Bones/joints: Unremarkable. IMPRESSION: Normal chest x-rays.
[2017-06-27 04:31] LABS: Carbon Dioxide <5 mmol/L (22-30)
[2017-06-27 05:12] LABS: Glucose,Whole Blood 195 mg/dL (75-99)
[2017-06-27] MEDS ORDERED: DEXTROSE 5%-0.45% NACL 1,000 ML IV ONE (05:25)
[2017-06-27] MEDS ORDERED: Potassium Replacement Protocol 1 EACH MISC MISCELLANE PRN (05:35)
[2017-06-27] MEDS ORDERED: Magnesium Replacement Protocol 1 EACH MISC MISCELLANE PRN (05:35)
[2017-06-27] MEDS ORDERED: INSULIN REGULAR BOLUS (FROM DRIP BAG) IV ONE (05:35)
[2017-06-27] MEDS ORDERED: INSULIN REGULAR 100 UNIT in SODIUM CHLORIDE 0.9% 100 ML IV SCH (05:45)
[2017-06-27 06:37] LABS: Glucose,Whole Blood 198 mg/dL (75-99)
[2017-06-27 08:08] LABS: Appearance,Urine Cloudy (Clear); Bacteria,Urine Rare /hpf; Bilirubin,Urine Negative (Negative); Blood,Urine Negative (Negative); Color,Urine Light Yellow; Glucose,Urine (UA) 4+ (Negative); Granular Casts,Urine 1 /lpf (0); Hyaline Casts,Urine 38 /lpf (0-2); Leukocyte Esterase,Urine Negative (Negative); Mucus,Urine Rare /hpf; PH, Urine 5.5 (5.0-8.0); Protein,Urine 1+ (Negative); RBC,Urine 1 /hpf (0-5); Specific Gravity,Urine 1.012 (1.001-1.035); Squamous Epithelial Cell,Urine 2 /hpf (0-4); WBC,Urine 3 /hpf (0-5)
[2017-06-27 08:10] LABS: Ketones,Urine 4+ (Negative)
[2017-06-27 08:15] LABS: Glucose,Whole Blood 164 mg/dL (75-99)
[2017-06-27 08:28] LABS: Anion Gap 23 mmol/L; Blood Urea Nitrogen 19 mg/dL (7-17); Carbon Dioxide 11 mmol/L (22-30); Chloride 101 mmol/L (98-107); Glucose 158 mg/dL (74-99); Phosphorus 2.5 mg/dL (2.5-4.5); Potassium 4.2 mmol/L (3.5-5.1); Sodium 135 mmol/L (137-145)
[2017-06-27 08:40] LABS: Glucose,Whole Blood 172 mg/dL (75-99)
[2017-06-27 09:57] LABS: Glucose,Whole Blood 140 mg/dL (75-99)
[2017-06-27 10:55] LABS: Glucose,Whole Blood 141 mg/dL (75-99)
[2017-06-27] MEDS: INSULIN REGULAR 100 UNIT in SODIUM CHLORIDE 0.9% 100 ML IV SCH ×2 (12:07→22:21)
[2017-06-27] MEDS: SODIUM CHLORIDE 0.9% 1,000 ML IV SCH ×7 (12:10→20:55)
[2017-06-27 12:12] LABS: Glucose,Whole Blood 168 mg/dL (75-99)
[2017-06-27] MEDS: D5-0.45% NACL WITH KCL 20MEQ/L 1,000 ML IV SCH ×3 (12:27→20:55)
[2017-06-27 12:48] LABS: Anion Gap 16 mmol/L; Blood Urea Nitrogen 14 mg/dL (7-17); Carbon Dioxide 15 mmol/L (22-30); Chloride 101 mmol/L (98-107); Glucose 198 mg/dL (74-99); Phosphorus 2.7 mg/dL (2.5-4.5); Potassium 4.3 mmol/L (3.5-5.1); Sodium 132 mmol/L (137-145)
[2017-06-27 13:04] LABS: Glucose,Whole Blood 194 mg/dL (75-99)
[2017-06-27 14:29] LABS: Glucose,Whole Blood 234 mg/dL (75-99)
[2017-06-27 14:56] VITALS: BMI 25.8
[2017-06-27 15:19] LABS: Glucose,Whole Blood 276 mg/dL (75-99)
[2017-06-27 15:48] LABS: Appearance,Urine Clear (Clear); Bilirubin,Urine Negative (Negative); Blood,Urine Negative (Negative); Color,Urine Light Yellow; Glucose,Urine (UA) 4+ (Negative); Leukocyte Esterase,Urine Negative (Negative); PH, Urine 5.5 (5.0-8.0); Protein,Urine Trace (Negative); Specific Gravity,Urine 1.015 (1.001-1.035); Urobilinogen,Urine <2.0 mg/dL (<2.0)
[2017-06-27 16:05] LABS: Glucose,Whole Blood 325 mg/dL (75-99)
[2017-06-27 16:33] LABS: Ketones,Urine 4+ (Negative)
[2017-06-27 17:08] LABS: ALT 29 U/L (9-52); AST 18 U/L (14-36); Albumin 3.1 g/dL (3.5-5.0); Alkaline Phosphatase 160 U/L (38-126); Anion Gap 22 mmol/L; Blood Urea Nitrogen 12 mg/dL (7-17); Calcium 8.3 mg/dL (8.4-10.2); Chloride 104 mmol/L (98-107); Potassium 4.6 mmol/L (3.5-5.1); Sodium 132 mmol/L (137-145); Total Bilirubin 0.5 mg/dL (0.2-1.3); Total Protein 5.8 g/dL (6.3-8.2)
[2017-06-27 17:23] LABS: Glucose,Whole Blood 396 mg/dL (75-99)
[2017-06-27 17:30] LABS: Carbon Dioxide 6 mmol/L (22-30); Glucose 475 mg/dL (74-99)
[2017-06-27 18:20] LABS: Glucose,Whole Blood 388 mg/dL (75-99)
[2017-06-27 19:08] LABS: Glucose,Whole Blood 297 mg/dL (75-99)
[2017-06-27 19:39] LABS: Hemoglobin A1C 12.7 % (4.0-6.0)
[2017-06-27 19:56] LABS: Glucose,Whole Blood 247 mg/dL (75-99)
[2017-06-27 20:48] LABS: ALT 28 U/L (9-52); AST 19 U/L (14-36); Albumin 3.2 g/dL (3.5-5.0); Alkaline Phosphatase 174 U/L (38-126); Anion Gap 13 mmol/L; Blood Urea Nitrogen 10 mg/dL (7-17); Calcium 8.5 mg/dL (8.4-10.2); Carbon Dioxide 14 mmol/L (22-30); Chloride 106 mmol/L (98-107); Glucose 224 mg/dL (74-99); Sodium 133 mmol/L (137-145); Total Bilirubin 0.4 mg/dL (0.2-1.3); Total Protein 5.9 g/dL (6.3-8.2)
[2017-06-27 21:17] LABS: Glucose,Whole Blood 207 mg/dL (75-99)
[2017-06-27 22:08] LABS: Glucose,Whole Blood 191 mg/dL (75-99)
[2017-06-27 23:29] LABS: Glucose,Whole Blood 236 mg/dL (75-99)
[2017-06-28 00:09] LABS: Glucose,Whole Blood 219 mg/dL (75-99)
[2017-06-28] MEDS: SODIUM CHLORIDE 0.9% 1,000 ML IV SCH ×2 (00:23→01:50)
--- NOTE | 2017-06-28 00:24 | P.HPIM ---
History of Present Illness H&P Date: 06/27/17 Chief Complaint: Nausea and vomiting and not feeling well Patient is a 42-year-old female with a known history of diabetes type 1, CVA/TIA , fibromyalgia GERD and rheumatoid arthritis and also history of multiple neurocardiogenic syncope came to the hospital complains of not feeling very well and unable to keep down food for the past 2 days. Patient's blood sugar was over 600 at home. Patient has been feeling worse and came to the hospital. Patient states she's been breathing heavy and her heart feels like it's racing. Patient denies any abdominal pain patient denies any chest pain. Patient denies headache patient denies numbness weakness. Patient denies any diarrhea. Patient denies any fevers or cough. No fever no chills. Patient was found have blood sugar greater than 400 and a stone positive along with metabolic acidosis with AG Patient was started on insulin drip for DKA Chest x-ray showed no acute cardio pulmonary process. UA negative for infection. Review of Systems Constitutional: Patient denies any fever or chills . Denies weakness and malaise Abdomen: Patient does have nausea and is a vomiting. No abdominal pain no diarrhea Cardiovascular: Patient denies any chest pain or short of breath no palpitations. Respiratory: patient denied any cough is from production. No shortness of breath Neurologic: Patient denied any numbness or tingling headache. Musculoskeletal: Patient denies any complaints of joint swelling or deformity. Skin: Negative Psychiatric: Negative Endocrine: No heat or cold intolerance. No recent weight gain. Genitourinary: No dysuria or hematuria. All other 14 point ROS negative except the above Past Medical History Past Medical History: CVA/TIA, Diabetes Mellitus, Fibromyalgia, GERD/Reflux, Rheumatoid Arthritis (RA), Syncope Additional Past Medical History / Comment(s): IDDM type I, DKA, 03/08/17 TIA. rheumatoid arthritis multiple sites, "neurocardiogenic syncope"-causes sudden drop in blood pressure and pt has syncope-has not happened in a long time, multiple lipomas. History of Any Multi-Drug Resistant Organisms: None Reported Past Surgical History: Breast Surgery, Tubal Ligation, Uterine Ablation Additional Past Surgical History / Comment(s): Tilt table test, LEFT BREAST BX BENIGN, L thigh lipoma removal. Past Anesthesia/Blood Transfusion Reactions: No Reported Reaction Smoking Status: Never smoker - Past Family History Mother Family Medical History: Asthma Additional Family Medical History / Comment(s): depression, colitis Father History Unknown: Yes Medications and Allergies Home Medications Medication Instructions Recorded Confirmed Type Methylphenidate HCl [Ritalin] 20 mg PO BID 01/04/14 06/27/17 History Omeprazole [PriLOSEC] 20 mg PO BID 01/04/14 06/27/17 History Desvenlafaxine Succinate [Pristiq] 100 mg PO DAILY 06/26/16 06/27/17 History Insulin Aspart [NovoLOG See Protocol SQ ACHS 03/08/17 06/27/17 History (formulary)] Aspirin 81 mg PO DAILY chew 03/09/17 06/27/17 Rx Insulin Glargine [Lantus] 20 unit SQ DAILY 06/27/17 06/27/17 History Allergies Allergy/AdvReac Type Severity Reaction Status Date / Time paroxetine HCl [From Paxil] Allergy Rash/Hives Verified 06/27/17 07:09 sertraline HCl [From Zoloft] Allergy Rash/Hives Verified 06/27/17 07:09 caffeine AdvReac Nausea & Verified 06/27/17 07:09 Vomiting Physical Exam Vitals: Vital Signs Temp Pulse Resp BP Pulse Ox 06/27/17 10:58 97.9 F 102 H 18 112/69 98 06/27/17 10:29 99 18 115/70 06/27/17 08:24 100 18 127/70 99 06/27/17 06:00 98.3 F 110 H 16 130/74 98 06/27/17 05:44 98.1 F 120 H 16 135/80 97 06/27/17 03:20 96.9 F L 142 H 32 H 133/87 100 Intake and Output 06/26/17 06/27/17 06/27/17 22:59 06:59 14:59 Intake Total 10.841 165.456 Balance 10.841 165.456 Intake: Intake, IV Titration 10.841 165.456 Amount Dextrose 5%-0.45% NaCl 1, 150 000 ml @ 250 mls/hr IV . Q4H ONE Rx#:[id number] Insulin Regular 100 unit 10.841 15.456 In Sodium Chloride 0.9% 100 ml @ 7 UNIT/HR 7.07 mls/hr IV .[id number] ONE Rx #:[id number] Other: Weight 66.224 kg PHYSICAL EXAMINATION: Patient is lying in the bed comfortably, appears to be anxious and mild distress , awake alert and oriented.. HEENT: Normocephalic. Neck is supple. Pupils reactive. Nostrils clear. Oral cavity is moist. Ears reveal no drainage. Neck reveals no JVD, carotid bruits, or thyromegaly. CHEST EXAMINATION: Trachea is central. Symmetrical expansion. Lung rodrigez clear to auscultation and percussion. Bibasilar diminished air entry CARDIAC: Normal S1, S2 with no gallops. No murmurs ABDOMEN: Soft. Bowel sounds normal. No organomegaly. No abdominal bruits. Extremities: reveal no edema. No clubbing or cyanosis Neurologically awake, alert, oriented x3 with well-coordinated movements. No focal deficits noted Skin: No rash or skin lesions. Psychiatric: Cooperative. Nonsuicidal Musculoskeletal: No joint swelling or deformity. Normal range of motion. Results CBC & Chem 7: 06/27/17 03:52 06/27/17 20:14 Labs: Abnormal Lab Results - Last 24 Hours (Table) 06/27/17 06/27/17 06/27/17 Range/Units 03:37 03:52 03:52 WBC 12.5 H (3.8-10.6) k/uL RBC 5.96 H (3.80-5.40) m/uL Hct 50.8 H (34.0-46.0) % Plt Count 541 H (150-450) k/uL Neutrophils # 10.6 H (1.3-7.7) k/uL Sodium (137-145) mmol/L Chloride 94 L (98-107) mmol/L Carbon Dioxide <5 L* (22-30) mmol/L BUN 21 H (7-17) mg/dL Creatinine (0.52-1.04) mg/dL Glucose 440 H (74-99) mg/dL POC Glucose (mg/dL) 433 H (75-99) mg/dL Calcium 10.3 H (8.4-10.2) mg/dL Alkaline Phosphatase 273 H (38-126) U/L Total Protein 9.0 H (6.3-8.2) g/dL Albumin 5.2 H (3.5-5.0) g/dL Urine Appearance (Clear) Urine Protein (Negative) Urine Glucose (UA) (Negative) Urine Ketones (Negative) Urine Bacteria (None) /hpf Hyaline Casts (0-2) /lpf Urine Mucus (None) /hpf 06/27/17 06/27/17 06/27/17 Range/Units 05:10 06:34 07:44 WBC (3.8-10.6) k/uL RBC (3.80-5.40) m/uL Hct (34.0-46.0) % Plt Count (150-450) k/uL Neutrophils # (1.3-7.7) k/uL Sodium (137-145) mmol/L Chloride (98-107) mmol/L Carbon Dioxide (22-30) mmol/L BUN (7-17) mg/dL Creatinine (0.52-1.04) mg/dL Glucose (74-99) mg/dL POC Glucose (mg/dL) 195 H 198 H 164 H (75-99) mg/dL Calcium (8.4-10.2) mg/dL Alkaline Phosphatase (38-126) U/L Total Protein (6.3-8.2) g/dL Albumin (3.5-5.0) g/dL Urine Appearance (Clear) Urine Protein (Negative) Urine Glucose (UA) (Negative) Urine Ketones (Negative) Urine Bacteria (None) /hpf Hyaline Casts (0-2) /lpf Urine Mucus (None) /hpf 06/27/17 06/27/17 06/27/17 Range/Units 07:45 07:45 08:36 WBC (3.8-10.6) k/uL RBC (3.80-5.40) m/uL Hct (34.0-46.0) % Plt Count (150-450) k/uL Neutrophils # (1.3-7.7) k/uL Sodium 135 L (137-145) mmol/L Chloride (98-107) mmol/L Carbon Dioxide 11 L (22-30) mmol/L BUN 19 H (7-17) mg/dL Creatinine 0.47 L (0.52-1.04) mg/dL Glucose 158 H (74-99) mg/dL POC Glucose (mg/dL) 172 H (75-99) mg/dL Calcium (8.4-10.2) mg/dL Alkaline Phosphatase (38-126) U/L Total Protein (6.3-8.2) g/dL Albumin (3.5-5.0) g/dL Urine Appearance Cloudy H (Clear) Urine Protein 1+ H (Negative) Urine Glucose (UA) 4+ H (Negative) Urine Ketones 4+ H (Negative) Urine Bacteria Rare H (None) /hpf Hyaline Casts 38 H (0-2) /lpf Urine Mucus Rare H (None) /hpf 06/27/17 06/27/17 06/27/17 Range/Units 09:56 10:52 11:54 WBC (3.8-10.6) k/uL RBC (3.80-5.40) m/uL Hct (34.0-46.0) % Plt Count (150-450) k/uL Neutrophils # (1.3-7.7) k/uL Sodium (137-145) mmol/L Chloride (98-107) mmol/L Carbon Dioxide (22-30) mmol/L BUN (7-17) mg/dL Creatinine (0.52-1.04) mg/dL Glucose (74-99) mg/dL POC Glucose (mg/dL) 140 H 141 H 168 H (75-99) mg/dL Calcium (8.4-10.2) mg/dL Alkaline Phosphatase (38-126) U/L Total Protein (6.3-8.2) g/dL Albumin (3.5-5.0) g/dL Urine Appearance (Clear) Urine Protein (Negative) Urine Glucose (UA) (Negative) Urine Ketones (Negative) Urine Bacteria (None) /hpf Hyaline Casts (0-2) /lpf Urine Mucus (None) /hpf Thrombosis Risk Factor Assmnt - DVT/VTE Prophylaxis DVT/VTE Prophylaxis: Pharmacologic Prophylaxis ordered - Choose All That Apply Any of the Below Risk Factors Present?: Yes Other Risk Factors: No Other congenital or acquired thrombophilia - If yes, enter type in comment: No Assessment and Plan Assessment: Acute diabetic ketoacidosis likely due to noncompliance with insulin dose. Nausea vomiting and unable to tolerate diet due to DKA AGMA Uncontrolled diabetes type 1. HB A1c 12.7 History of CVA/TIA Fibromyalgia GERD History of neurocardiogenic syncope multiple episodes DVT prophylaxis Plan: Patient will be continued on aggressive IV hydration and insulin drip until anion gap closes. Patient takes 20 units of Lantus along with sliding scale. Diabetic education will be provided. Infectious workup including chest x-ray and UA negative. Follow-up culture reports. We will continue to monitor closely and further recommendations based on the clinical course. Prognosis is guarded. Time with Patient: Greater than 30
[2017-06-28] MEDS: ACETAMINOPHEN TAB 325 MG TAB PO PRN ×2 (00:25→21:41)
[2017-06-28 01:05] LABS: Anion Gap 10 mmol/L; Blood Urea Nitrogen 11 mg/dL (7-17); Calcium 8.2 mg/dL (8.4-10.2); Carbon Dioxide 20 mmol/L (22-30); Chloride 103 mmol/L (98-107); Glucose 197 mg/dL (74-99); Potassium 3.2 mmol/L (3.5-5.1); Sodium 133 mmol/L (137-145)
[2017-06-28 01:06] LABS: Glucose,Whole Blood 179 mg/dL (75-99)
[2017-06-28] MEDS: D5-0.45% NACL WITH KCL 20MEQ/L 1,000 ML IV SCH (01:49)
[2017-06-28 02:01] LABS: Glucose,Whole Blood 122 mg/dL (75-99)
[2017-06-28] MEDS: POTASSIUM CHLORIDE ER 20 MEQ TAB.ER PO SCH ×3 (02:30→04:58)
[2017-06-28 03:05] LABS: Glucose,Whole Blood 139 mg/dL (75-99)
[2017-06-28 04:10] LABS: Glucose,Whole Blood 143 mg/dL (75-99)
[2017-06-28 05:24] LABS: Glucose,Whole Blood 244 mg/dL (75-99)
[2017-06-28 06:19] LABS: Glucose,Whole Blood 283 mg/dL (75-99)
[2017-06-28 07:01] LABS: Glucose,Whole Blood 281 mg/dL (75-99)
[2017-06-28 07:02] LABS: Anion Gap 9 mmol/L; Blood Urea Nitrogen 8 mg/dL (7-17); Calcium 8.1 mg/dL (8.4-10.2); Carbon Dioxide 18 mmol/L (22-30); Chloride 107 mmol/L (98-107); Glucose 326 mg/dL (74-99); Potassium 5.8 mmol/L (3.5-5.1); Sodium 134 mmol/L (137-145)
[2017-06-28] MEDS: INSULIN ASPART 100 UNIT/ML 1 ML 10 ML VIAL SQ SCH ×4 (08:38→21:41)
[2017-06-28] MEDS: ASPIRIN 81 MG PO SCH (08:59)
[2017-06-28] MEDS: PANTOPRAZOLE 40 MG TABLET PO SCH (08:59)
[2017-06-28] MEDS: METHYLPHENIDATE HCL 10 MG TAB PO SCH ×2 (08:59→17:51)
[2017-06-28] MEDS: INSULIN DETEMIR 100 UNIT/ML 10 ML VIAL SQ SCH (09:00)
[2017-06-28] MEDS: HEPARIN SODIUM,PORCINE 5,000 UNIT/ML 1 ML VIAL SQ SCH ×2 (09:00→21:41)
[2017-06-28] MEDS: DESVENLAFAXINE SUCCINATE 50 MG TAB.ER.24H PO SCH (09:00)
[2017-06-28 12:14] LABS: Glucose,Whole Blood 276 mg/dL (75-99)
[2017-06-28 17:14] LABS: Glucose,Whole Blood 167 mg/dL (75-99)
[2017-06-28 20:37] LABS: Glucose,Whole Blood 139 mg/dL (75-99)
[2017-06-28] MEDS ORDERED: INSULIN DETEMIR 100 UNIT/ML 10 ML VIAL SQ SCH (21:00)
[2017-06-28 22:51] VITALS: RESP 18
[2017-06-29 06:01] VITALS: BP 132/79; PULSE 91; TEMP 97.3
[2017-06-29] MEDS: D5-0.45% NACL WITH KCL 20MEQ/L 1,000 ML IV SCH (06:22)
[2017-06-29 07:13] LABS: Glucose,Whole Blood 390 mg/dL (75-99)
[2017-06-29] MEDS: DESVENLAFAXINE SUCCINATE 50 MG TAB.ER.24H PO SCH (08:05)
[2017-06-29] MEDS: PANTOPRAZOLE 40 MG TABLET PO SCH (08:05)
[2017-06-29] MEDS: HEPARIN SODIUM,PORCINE 5,000 UNIT/ML 1 ML VIAL SQ SCH (08:05)
[2017-06-29] MEDS: METHYLPHENIDATE HCL 10 MG TAB PO SCH (08:05)
[2017-06-29] MEDS: INSULIN DETEMIR 100 UNIT/ML 10 ML VIAL SQ SCH (08:05)
[2017-06-29] MEDS: ASPIRIN 81 MG PO SCH (08:05)
[2017-06-29] MEDS: INSULIN ASPART 100 UNIT/ML 1 ML 10 ML VIAL SQ SCH ×2 (08:05→12:43)
[2017-06-29 11:40] LABS: Glucose,Whole Blood 327 mg/dL (75-99)
[2017-06-29 12:22] LABS: Basophils % (A) 0 %; Eosinophils % (A) 1 %; HCT 32.3 % (34.0-46.0); HGB 11.1 gm/dL (11.4-16.0); Lymphocytes # (A) 1.6 k/uL (1.0-4.8); Lymphocytes % (A) 45 %; MCH 26.8 pg (25.0-35.0); MCHC 34.3 g/dL (31.0-37.0); Mean Platelet Volume 6.3; Monocytes # (A) 0.1 k/uL (0-1.0); Monocytes % (A) 4 %; Neutrophils # (A) 1.7 k/uL (1.3-7.7); Neutrophils % (A) 49 %; Platelet Count 247 k/uL (150-450); RBC 4.13 m/uL (3.80-5.40); RDW 13.8 % (11.5-15.5); WBC 3.5 k/uL (3.8-10.6)
[2017-06-29 12:28] LABS: MCV 78.2 fL (80.0-100.0)
[2017-06-29] MEDS ORDERED: INSULIN ASPART 100 UNIT/ML 1 ML 10 ML VIAL SQ SCH (12:30)
[2017-06-29 12:51] LABS: Anion Gap 9 mmol/L; Blood Urea Nitrogen 7 mg/dL (7-17); Calcium 8.7 mg/dL (8.4-10.2); Carbon Dioxide 24 mmol/L (22-30); Chloride 100 mmol/L (98-107); Glucose 256 mg/dL (74-99); Sodium 133 mmol/L (137-145)
== END 2017-06-29 15:01 | disposition home or self-care (01) | DRG 639 ==
LOC: EC 03:17 → 6SEL 05:32 → 4MS4W 06-28 14:57
PROVIDERS: ADMIT Hospitalist; ATTEND Hospitalist
PROC: 05HY33Z Insertion of Infusion Device into Upper Vein, Percutaneous Approach (ICD-10-PCS; principal; 2017-06-27 15:25)
DX: E10.10 Type 1 diabetes mellitus with ketoacidosis without coma (principal); F12.90 Cannabis use, unspecified, uncomplicated; F90.9 Attention-deficit hyperactivity disorder, unspecified type; K21.9 Gastro-esophageal reflux disease without esophagitis; M06.9 Rheumatoid arthritis, unspecified; M79.7 Fibromyalgia; Z79.4 Long term (current) use of insulin; Z79.82 Long term (current) use of aspirin; Z79.899 Other long term (current) drug therapy; Z81.8 Family history of other mental and behavioral disorders; Z82.5 Family history of asthma and other chronic lower respiratory diseases; Z86.73 Personal history of transient ischemic attack (TIA), and cerebral infarction without residual deficits; Z91.14 Patient's other noncompliance with medication regimen; Z88.5 Allergy status to narcotic agent; Z88.8 Allergy status to other drugs, medicaments and biological substances; R11.2 Nausea with vomiting, unspecified; F41.9 Anxiety disorder, unspecified; F32.9 Major depressive disorder, single episode, unspecified
CPT/HCPCS: 0; 36415; 71046; 80048; 80051; 80053; 81001; 81003; 82009; 82565; 82947; 83036; 83735; 84100; 84484; 84520; 85025; 93005; 96361; 96374; 99291

== ENCOUNTER 2017-08-19 16:25 | Emergency (ER) | payer MEDICARE ==
[2017-08-19 16:42] VITALS: RESP 18
[2017-08-19] MEDS ORDERED: SODIUM CHLORIDE 0.9% 1,000 ML IV STA (16:56)
[2017-08-19] MEDS ORDERED: KETOROLAC 30 MG/ML 1 ML VIAL IVP STA (16:56)
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
[2017-08-19 17:23] LABS: Appearance,Urine Clear (Clear); Bilirubin,Urine Negative (Negative); Blood,Urine Negative (Negative); Color,Urine Colorless; Glucose,Urine (UA) 4+ (Negative); Ketones,Urine Negative (Negative); Leukocyte Esterase,Urine Negative (Negative); Nitrite,Urine Negative (Negative); Protein,Urine Negative (Negative); Specific Gravity,Urine 1.025 (1.001-1.035); Urobilinogen,Urine <2.0 mg/dL (<2.0)
[2017-08-19 17:34] LABS: Basophils % (A) 0 %; Eosinophils % (A) 0 %; HCT 37.1 % (34.0-46.0); HGB 11.9 gm/dL (11.4-16.0); Hypochromasia Slight; Lymphocytes # (A) 2.2 k/uL (1.0-4.8); Lymphocytes % (A) 41 %; MCH 26.3 pg (25.0-35.0); MCV 82.2 fL (80.0-100.0); Monocytes # (A) 0.3 k/uL (0-1.0); Monocytes % (A) 5 %; Neutrophils # (A) 2.9 k/uL (1.3-7.7); Neutrophils % (A) 52 %; Platelet Count 385 k/uL (150-450); RBC 4.51 m/uL (3.80-5.40); RDW 13.1 % (11.5-15.5); WBC 5.5 k/uL (3.8-10.6)
[2017-08-19 17:46] LABS: D-Dimer 0.56 mg/L FEU (<0.60); Partial Thromboplastin Time 23.2 sec (22.0-30.0); Prothrombin Time 9.6 sec (9.0-12.0)
[2017-08-19 17:51] LABS: ALT 13 U/L (9-52); AST 15 U/L (14-36); Albumin 3.6 g/dL (3.5-5.0); Alkaline Phosphatase 183 U/L (38-126); Anion Gap 19 mmol/L; Blood Urea Nitrogen 20 mg/dL (7-17); Calcium 9.3 mg/dL (8.4-10.2); Carbon Dioxide 21 mmol/L (22-30); Chloride 95 mmol/L (98-107); Lipase 149 U/L (23-300); Magnesium 1.6 mg/dL (1.6-2.3); Potassium 3.9 mmol/L (3.5-5.1); Sodium 135 mmol/L (137-145); Total Bilirubin 0.2 mg/dL (0.2-1.3); Total Protein 6.4 g/dL (6.3-8.2)
[2017-08-19 18:05] LABS: Glucose 519 mg/dL (74-99)
--- NOTE | 2017-08-19 18:05 | XR ---
EXAMINATION TYPE: XR chest 2V DATE OF EXAM: 08/19/2017 COMPARISON: 08/12/2017 HISTORY: Chest pain TECHNIQUE: Frontal and lateral views of the chest are obtained. FINDINGS: Heart and mediastinum are normal. Lungs are clear. Diaphragm is normal. There are chest le ads. Bony thorax is intact. IMPRESSION: Normal chest. No change.
[2017-08-19] MEDS ORDERED: SODIUM CHLORIDE 0.9% 2,000 ML IV ONE (18:12)
[2017-08-19 18:19] VITALS: TEMP 97.7
[2017-08-19 18:56] LABS: Glucose,Whole Blood 150 mg/dL (75-99)
[2017-08-19 19:19] VITALS: BP 114/69; PULSE 90
== END 2017-08-19 19:19 | disposition home or self-care (01) ==
LOC: EC 16:25
DX: R07.2 Precordial pain (principal); E10.65 Type 1 diabetes mellitus with hyperglycemia; F90.9 Attention-deficit hyperactivity disorder, unspecified type; F32.9 Major depressive disorder, single episode, unspecified; F41.9 Anxiety disorder, unspecified; Z86.73 Personal history of transient ischemic attack (TIA), and cerebral infarction without residual deficits; Z79.4 Long term (current) use of insulin; Z79.899 Other long term (current) drug therapy; Z91.018 Allergy to other foods; Z88.8 Allergy status to other drugs, medicaments and biological substances
CPT/HCPCS: 36415; 93005; 85379; 80053; 83690; 83735; 84484; 85025; 85610; 85730; 81003; 81025; 71046; 99285; 96374; 96361; J1885

== ENCOUNTER 2017-09-07 19:03 | Inpatient (IN) | payer MEDICARE ==
[2017-09-07] MEDS ORDERED: SODIUM CHLORIDE 0.9% 1,000 ML IV STA ×2 (19:45→21:24)
[2017-09-07] MEDS ORDERED: KETOROLAC 30 MG/ML 1 ML VIAL IM STA (19:46)
[2017-09-07] MEDS ORDERED: KETOROLAC 30 MG/ML 1 ML VIAL IVP STA (19:58)
--- NOTE | 2017-09-07 20:01 | ED ---
General Adult HPI - General Source: patient, RN notes reviewed Mode of arrival: wheelchair Limitations: no limitations <Chente Martin - Last Filed: 09/07/17 23:47> <Alexandro Mata - Last Filed: 09/08/17 06:49> - General Chief complaint: Extremity Problem,Nontraumatic Stated complaint: Leg pain, Pain everywhere Time Seen by Provider: 09/07/17 19:25 - History of Present Illness Initial comments: 42-year-old female with a history of fibromyalgia and rheumatoid arthritis presents to the emergency department for a chief complaint of increased generalized pain. Patient states she has pain in the bilateral ankles knees and hips. She also has some lower abdominal pain related to the hip pain. Patient states it is difficult for her to raise her arms due to the pain. She states her legs hurt the most. Patient denies pain shooting from her back down to her legs. Patient states she is also diabetic. Patient denies IV drug use. She states she has medical marijuana. Patient states Dr Ruiz manages her conditions. She has tried methotrexate and Humira with no relief. She usually takes Tylenol at home for pain and can stand it. However today she needed some relief. Patient has no other complaints at this time including shortness of breath, chest pain, abdominal pain, nausea or vomiting, headache, or visual changes. (Chente Martin) - Related Data Home Medications Medication Instructions Recorded Confirmed Methylphenidate HCl [Ritalin] 20 mg PO BID 01/04/14 09/07/17 Omeprazole [PriLOSEC] 20 mg PO BID 01/04/14 09/07/17 Desvenlafaxine Succinate [Pristiq] 100 mg PO DAILY 06/26/16 09/07/17 Insulin Aspart [NovoLOG See Protocol SQ ACHS 03/08/17 09/07/17 (formulary)] Insulin Glargine [Lantus] 32 unit SQ DAILY 06/27/17 09/07/17 Previous Rx's Medication Instructions Recorded Insulin Aspart [NovoLOG 7 unit SQ AC-TID #0 vial 06/29/17 (formulary)] Allergies Allergy/AdvReac Type Severity Reaction Status Date / Time paroxetine HCl [From Paxil] Allergy Rash/Hives Verified 09/07/17 19:59 sertraline HCl [From Zoloft] Allergy Rash/Hives Verified 09/07/17 19:59 caffeine AdvReac Nausea & Verified 09/07/17 19:59 Vomiting Review of Systems ROS Other: All systems not noted in ROS Statement are negative. <Chente Martin - Last Filed: 09/07/17 23:47> ROS Other: All systems not noted in ROS Statement are negative. <Alexandro Mata - Last Filed: 09/08/17 06:49> ROS Statement: Those systems with pertinent positive or pertinent negative responses have been documented in the HPI. Past Medical History Past Medical History: CVA/TIA, Diabetes Mellitus, Fibromyalgia, GERD/Reflux, Rheumatoid Arthritis (RA), Syncope Additional Past Medical History / Comment(s): IDDM type I, DKA, 03/08/17 TIA. rheumatoid arthritis multiple sites, "neurocardiogenic syncope"-causes sudden drop in blood pressure and pt has syncope-has not happened in a long time, multiple lipomas. History of Any Multi-Drug Resistant Organisms: None Reported Past Surgical History: Breast Surgery, Tubal Ligation, Uterine Ablation Additional Past Surgical History / Comment(s): Tilt table test, LEFT BREAST BX BENIGN, L thigh lipoma removal. Past Anesthesia/Blood Transfusion Reactions: No Reported Reaction Past Psychological History: ADD/ADHD, Anxiety, Depression Smoking Status: Never smoker Past Alcohol Use History: Rare Past Drug Use History: Marijuana - Past Family History Mother Family Medical History: Asthma Additional Family Medical History / Comment(s): depression, colitis Father History Unknown: Yes <Chente Martin - Last Filed: 09/07/17 23:47> General Exam Limitations: no limitations General appearance: alert, in no apparent distress Head exam: Present: atraumatic, normocephalic, normal inspection Respiratory exam: Present: normal lung sounds bilaterally. Absent: respiratory distress, wheezes, rales, rhonchi, stridor Cardiovascular Exam: Present: regular rate, normal rhythm, normal heart sounds. Absent: systolic murmur, diastolic murmur, rubs, gallop, clicks GI/Abdominal exam: Present: soft, tenderness (Patient does have some mild lower abdominal tenderness.), normal bowel sounds. Absent: distended, guarding, rebound, rigid Extremities exam: Present: tenderness (Patient has tenderness in the arms and legs bilaterally. No specific point tenderness.), normal capillary refill ( Refill less than 2 seconds in all 4 extremities. Radial pulse 2+ bilaterally. Pedal pulse 2+ bilaterally.). Absent: full ROM (Patient has limited range of motion of joints in upper and lower extremities but is able to move all joints.) , joint swelling (No swelling or ecchymosis noted in any extremities.), calf tenderness (Negative Homans sign bilaterally. No increased tenderness in the calves.) Back exam: Absent: full ROM, tenderness Neurological exam: Present: alert, oriented X3, CN II-XII intact Skin exam: Present: warm, dry, intact, normal color. Absent: rash <Chente Martin - Last Filed: 09/07/17 23:47> Vital Signs 09/07/17 09/07/17 09/07/17 19:10 20:23 21:18 Temperature 97.9 F 98.7 F Pulse Rate 96 80 82 Pulse Rate [ Left Pulse Oximetery] Respiratory 20 20 18 Rate Blood Pressure 142/78 128/80 127/76 Blood Pressure [Right Arm] O2 Sat by Pulse 98 100 99 Oximetry 09/07/17 09/08/17 23:13 00:45 Temperature 97.9 F 98.4 F Pulse Rate 88 Pulse Rate [ 91 Left Pulse Oximetery] Respiratory 18 18 Rate Blood Pressure 119/59 Blood Pressure 110/64 [Right Arm] O2 Sat by Pulse 96 97 Oximetry Medical Decision Making - Lab Data Result diagrams: 09/07/17 20:51 09/07/17 20:51 <Chente Martin - Last Filed: 09/07/17 23:47> - Lab Data Result diagrams: 09/07/17 20:51 09/08/17 05:18 <Alexandro Mata - Last Filed: 09/08/17 06:49> - Medical Decision Making 42-year-old female with a history of rheumatoid arthritis and fibromyalgia presents the emergency department for generalized pain. Patient states the pain is worse in her bilateral legs. Patient states she also had difficulty raising her arms due to the pain. Patient admits to lower abdominal pain that she thinks is related to her hips. Patient states she normally takes Tylenol at home but it is not helping today. On exam patient has diffuse bilateral leg pain as well as mild lower abdominal pain. Patient also has pain in the arms. Neurovascular intact in all extremities. Patient's CBC is unremarkable. Patient 's glucose is 451. CRP 49.5. Urine shows 4+ glucose and 3+ ketones. Acetone positive. Patient has a history of DKA and is currently in DKA. Patient was given fluids and insulin. Her pain was managed with Toradol. She will be admitted to the hospital. (Chente Martin) I saw this patient in conjunction with the physician study assistant. I performed independent history and physical exam. Agree with case management. I did perform independent history and physical. Case discussed with the admitting physician. data entry specialist. Physician study assistant supervision time. Discussion of results with patient and a family member (NanciAlexandro quezada) - Lab Data Lab Results 09/07/17 09/07/17 09/07/17 Range/Units 20:22 20:51 20:51 WBC 7.1 (3.8-10.6) k/uL RBC 5.12 (3.80-5.40) m/uL Hgb 13.0 (11.4-16.0) gm/dL Hct 40.1 (34.0-46.0) % MCV 78.4 L (80.0-100.0) fL MCH 25.4 (25.0-35.0) pg MCHC 32.4 (31.0-37.0) g/dL RDW 13.2 (11.5-15.5) % Plt Count 325 (150-450) k/uL Neutrophils % 64 % Lymphocytes % 30 % Monocytes % 4 % Eosinophils % 0 % Basophils % 0 % Neutrophils # 4.5 (1.3-7.7) k/uL Lymphocytes # 2.1 (1.0-4.8) k/uL Monocytes # 0.3 (0-1.0) k/uL Eosinophils # 0.0 (0-0.7) k/uL Basophils # 0.0 (0-0.2) k/uL Hypochromasia Slight Sodium 133 L (137-145) mmol/L Potassium 4.8 (3.5-5.1) mmol/L Chloride 96 L (98-107) mmol/L Carbon Dioxide 21 L (22-30) mmol/L Anion Gap 16 mmol/L BUN 17 (7-17) mg/dL Creatinine 0.30 L (0.52-1.04) mg/dL Est GFR (CKD-EPI)AfAm >90 (>60 ml/min/1.73 sqM) Est GFR (CKD-EPI)NonAf >90 (>60 ml/min/1.73 sqM) Glucose 451 H* (74-99) mg/dL POC Glucose (mg/dL) 459 H (75-99) mg/dL POC Glu Senior Strategy Analyst ID Michi Lynn Calcium 9.4 (8.4-10.2) mg/dL Total Bilirubin 0.4 (0.2-1.3) mg/dL AST 20 (14-36) U/L ALT 22 (9-52) U/L Alkaline Phosphatase 186 H (38-126) U/L C-Reactive Protein 49.5 H (<10.0) mg/L Total Protein 6.7 (6.3-8.2) g/dL Albumin 3.8 (3.5-5.0) g/dL Urine Color Urine Appearance (Clear) Urine pH (5.0-8.0) Ur Specific [place] (1.001-1.035) Urine Protein (Negative) Urine Glucose (UA) (Negative) Urine Ketones (Negative) Urine Blood (Negative) Urine Nitrite (Negative) Urine Bilirubin (Negative) Urine Urobilinogen (<2.0) mg/dL Ur Leukocyte Esterase (Negative) Urine HCG, Qual (Not Detectd) Acetone, Qual Positive (Negative) 09/07/17 09/07/17 09/07/17 Range/Units 20:51 20:51 22:13 WBC (3.8-10.6) k/uL RBC (3.80-5.40) m/uL Hgb (11.4-16.0) gm/dL Hct (34.0-46.0) % MCV (80.0-100.0) fL MCH (25.0-35.0) pg MCHC (31.0-37.0) g/dL RDW (11.5-15.5) % Plt Count (150-450) k/uL Neutrophils % % Lymphocytes % % Monocytes % % Eosinophils % % Basophils % % Neutrophils # (1.3-7.7) k/uL Lymphocytes # (1.0-4.8) k/uL Monocytes # (0-1.0) k/uL Eosinophils # (0-0.7) k/uL Basophils # (0-0.2) k/uL Hypochromasia Sodium (137-145) mmol/L Potassium (3.5-5.1) mmol/L Chloride (98-107) mmol/L Carbon Dioxide (22-30) mmol/L Anion Gap mmol/L BUN (7-17) mg/dL Creatinine (0.52-1.04) mg/dL Est GFR (CKD-EPI)AfAm (>60 ml/min/1.73 sqM) Est GFR (CKD-EPI)NonAf (>60 ml/min/1.73 sqM) Glucose (74-99) mg/dL POC Glucose (mg/dL) 377 H (75-99) mg/dL POC Glu Senior Strategy Analyst ID Daphne Sharif Calcium (8.4-10.2) mg/dL Total Bilirubin (0.2-1.3) mg/dL AST (14-36) U/L ALT (9-52) U/L Alkaline Phosphatase (38-126) U/L C-Reactive Protein (<10.0) mg/L Total Protein (6.3-8.2) g/dL Albumin (3.5-5.0) g/dL Urine Color Colorless Urine Appearance Clear (Clear) Urine pH 5.5 (5.0-8.0) Ur Specific [place] 1.029 (1.001-1.035) Urine Protein Negative (Negative) Urine Glucose (UA) 4+ H (Negative) Urine Ketones 3+ H (Negative) Urine Blood Negative (Negative) Urine Nitrite Negative (Negative) Urine Bilirubin Negative (Negative) Urine Urobilinogen <2.0 (<2.0) mg/dL Ur Leukocyte Esterase Negative (Negative) Urine HCG, Qual Not Detected (Not Detectd) Acetone, Qual (Negative) Critical Care Time Critical Care Time: Yes (30 minutes) <Alexandro Mata - Last Filed: 09/08/17 06:49> Disposition Time of Disposition: 23:51 <Chente Martin - Last Filed: 09/07/17 23:47> <Alexandro Mata - Last Filed: 09/08/17 06:49> Clinical Impression: DKA (diabetic ketoacidoses) Disposition: ADMITTED IP TO THIS HOSP Condition: Good
[2017-09-07 20:33] LABS: Glucose,Whole Blood 459 mg/dL (75-99)
[2017-09-07 21:03] LABS: Appearance,Urine Clear (Clear); Basophils % (A) 0 %; Bilirubin,Urine Negative (Negative); Blood,Urine Negative (Negative); Color,Urine Colorless; Eosinophils % (A) 0 %; Glucose,Urine (UA) 4+ (Negative); HCT 40.1 % (34.0-46.0); Hypochromasia Slight; Leukocyte Esterase,Urine Negative (Negative); Lymphocytes # (A) 2.1 k/uL (1.0-4.8); Lymphocytes % (A) 30 %; MCH 25.4 pg (25.0-35.0); MCHC 32.4 g/dL (31.0-37.0); MCV 78.4 fL (80.0-100.0); Mean Platelet Volume 6.6; Monocytes # (A) 0.3 k/uL (0-1.0); Monocytes % (A) 4 %; Neutrophils # (A) 4.5 k/uL (1.3-7.7); Neutrophils % (A) 64 %; Nitrite,Urine Negative (Negative); PH, Urine 5.5 (5.0-8.0); Platelet Count 325 k/uL (150-450); Protein,Urine Negative (Negative); RBC 5.12 m/uL (3.80-5.40); RDW 13.2 % (11.5-15.5); Specific Gravity,Urine 1.029 (1.001-1.035); Urobilinogen,Urine <2.0 mg/dL (<2.0); WBC 7.1 k/uL (3.8-10.6)
[2017-09-07 21:15] LABS: ALT 22 U/L (9-52); AST 20 U/L (14-36); Albumin 3.8 g/dL (3.5-5.0); Alkaline Phosphatase 186 U/L (38-126); Anion Gap 16 mmol/L; Blood Urea Nitrogen 17 mg/dL (7-17); C Reactive Protein 49.5 mg/L (<10.0); Calcium 9.4 mg/dL (8.4-10.2); Carbon Dioxide 21 mmol/L (22-30); Chloride 96 mmol/L (98-107); Potassium 4.8 mmol/L (3.5-5.1); Sodium 133 mmol/L (137-145); Total Bilirubin 0.4 mg/dL (0.2-1.3); Total Protein 6.7 g/dL (6.3-8.2)
[2017-09-07 21:20] VITALS: RESP 18
[2017-09-07 21:21] LABS: Glucose 451 mg/dL (74-99)
[2017-09-07] MEDS ORDERED: INSULIN REGULAR 100 UNIT/ML VIAL IV ONE (21:23)
[2017-09-07] MEDS ORDERED: INSULIN REGULAR BOLUS (FROM DRIP BAG) IV ONE (21:25)
[2017-09-07] MEDS ORDERED: INSULIN REGULAR 100 UNIT in SODIUM CHLORIDE 0.9% 100 ML IV SCH (21:45)
[2017-09-07 21:52] LABS: Ketones,Urine 3+ (Negative)
[2017-09-07] MEDS ORDERED: NALOXONE 0.4 MG/ML 1 ML VIAL IV PRN (22:13)
[2017-09-07] MEDS ORDERED: KETOROLAC 30 MG/ML 1 ML VIAL IVP PRN (22:13)
[2017-09-07] MEDS ORDERED: MORPHINE SULFATE 4 MG/ML SYRINGE IV PRN (22:13)
[2017-09-07] MEDS ORDERED: SODIUM CHLORIDE 0.9% 1,000 ML IV SCH (22:15)
[2017-09-07] MEDS ORDERED: ACETAMINOPHEN TAB 325 MG TAB PO SCH (22:30)
[2017-09-07 22:41] LABS: Glucose,Whole Blood 377 mg/dL (75-99)
[2017-09-07 23:59] LABS: Glucose,Whole Blood 256 mg/dL (75-99)
[2017-09-08] MEDS: SODIUM CHLORIDE 0.9% 1,000 ML IV SCH ×2 (00:09→01:45)
[2017-09-08] MEDS ORDERED: ACETAMINOPHEN TAB 325 MG TAB PO PRN (01:08)
[2017-09-08 01:12] LABS: Glucose,Whole Blood 216 mg/dL (75-99)
[2017-09-08 01:43] VITALS: BMI 26.2
[2017-09-08] MEDS: D5-0.45% NACL WITH KCL 20MEQ/L 1,000 ML IV SCH ×2 (01:43→08:15)
[2017-09-08 02:18] LABS: Glucose,Whole Blood 178 mg/dL (75-99)
[2017-09-08 02:28] LABS: Anion Gap 13 mmol/L; Blood Urea Nitrogen 15 mg/dL (7-17); Carbon Dioxide 21 mmol/L (22-30); Chloride 103 mmol/L (98-107); Glucose 191 mg/dL (74-99); Phosphorus 3.2 mg/dL (2.5-4.5); Potassium 3.3 mmol/L (3.5-5.1); Sodium 137 mmol/L (137-145)
[2017-09-08 03:24] LABS: Glucose,Whole Blood 84 mg/dL (75-99)
[2017-09-08 04:16] LABS: Glucose,Whole Blood 97 mg/dL (75-99)
[2017-09-08 05:13] LABS: Glucose,Whole Blood 128 mg/dL (75-99)
[2017-09-08 06:13] LABS: Glucose,Whole Blood 142 mg/dL (75-99)
[2017-09-08 06:18] LABS: Anion Gap 11 mmol/L; Blood Urea Nitrogen 13 mg/dL (7-17); Carbon Dioxide 22 mmol/L (22-30); Chloride 106 mmol/L (98-107); Glucose 129 mg/dL (74-99); Phosphorus 4.3 mg/dL (2.5-4.5); Potassium 4.2 mmol/L (3.5-5.1); Sodium 139 mmol/L (137-145)
[2017-09-08 07:21] LABS: Glucose,Whole Blood 147 mg/dL (75-99)
[2017-09-08 08:12] VITALS: PULSE 88
[2017-09-08 08:22] LABS: Glucose,Whole Blood 217 mg/dL (75-99)
[2017-09-08 09:14] LABS: Glucose,Whole Blood 323 mg/dL (75-99)
[2017-09-08] MEDS: NAPROXEN 250 MG TAB PO SCH ×2 (10:09→16:07)
[2017-09-08 10:31] LABS: Glucose,Whole Blood 348 mg/dL (75-99)
[2017-09-08 10:35] LABS: Anion Gap 11 mmol/L; Blood Urea Nitrogen 12 mg/dL (7-17); Calcium 8.1 mg/dL (8.4-10.2); Carbon Dioxide 20 mmol/L (22-30); Chloride 103 mmol/L (98-107); Glucose 357 mg/dL (74-99); Phosphorus 3.9 mg/dL (2.5-4.5); Potassium 4.4 mmol/L (3.5-5.1); Sodium 134 mmol/L (137-145)
[2017-09-08] MEDS ORDERED: INSULIN ASPART 100 UNIT/ML 1 ML 10 ML VIAL SQ ONE (10:50)
[2017-09-08] MEDS ORDERED: INSULIN DETEMIR 100 UNIT/ML 10 ML VIAL SQ SCH (11:00)
[2017-09-08] MEDS ORDERED: PANTOPRAZOLE 40 MG TABLET PO SCH (11:00)
[2017-09-08] MEDS ORDERED: METHYLPHENIDATE HCL 10 MG TAB PO SCH (11:00)
[2017-09-08] MEDS ORDERED: DESVENLAFAXINE SUCCINATE 50 MG TAB.ER.24H PO SCH (11:00)
[2017-09-08 11:25] LABS: Glucose,Whole Blood 311 mg/dL (75-99)
[2017-09-08 11:56] VITALS: BP 111/77; TEMP 97.6
[2017-09-08 12:13] LABS: Hemoglobin A1C 10.5 % (4.0-6.0)
[2017-09-08] MEDS ORDERED: INSULIN ASPART 100 UNIT/ML 1 ML 10 ML VIAL SQ SCH (12:30)
[2017-09-08 14:39] LABS: Glucose,Whole Blood 182 mg/dL (75-99)
[2017-09-08] MEDS ORDERED: MORPHINE ORAL SOLN 10 MG/5 ML CUP PO PRN (15:24)
--- NOTE | 2017-09-08 16:00 | HP ---
HISTORY AND PHYSICAL HISTORY AND PHYSICAL AND DISCHARGE SUMMARY: DATE OF ADMISSION: 09/07/2017 DATE OF DISCHARGE: 09/08/2017 DATE OF SERVICE: 09/08/2017 PRESENTING COMPLAINT: Pain in the ankle, not feeling well. HISTORY OF PRESENTING COMPLAINT: This is a very pleasant 42-year-old patient of Dr. Ruiz who because of insurance reasons has not really followed up with a doctor. Patient's chronic stable medical conditions include fibromyalgia, GERD, rheumatoid arthritis, anxiety, depression. Patient also is supposed to follow with Dr. Christy Vaughn from Endocrinology. Patient was having increasing pain yesterday in the ankle, knees, hips, shoulders, back, and came to the ER. She was feeling slightly nauseated, had a couple of loose stools. Patient was found to be in diabetic ketoacidosis with sugar found to be 451. Serum acetone was positive. Patient was admitted for diabetic ketoacidosis and put on insulin drip. Denied any fever or chills. No respiratory symptoms. No urinary symptoms. No evidence of infection. REVIEW OF SYSTEMS: CONSTITUTIONAL: Tired. HEENT: None. RESPIRATORY: None. CARDIOVASCULAR: None. GASTROINTESTINAL: A couple of loose stools. GENITOURINARY: None. MUSCULOSKELETAL: Aches and pains in different joints, including ankle, knees, hips, shoulders. DERMATOLOGICAL: None. HEMATOLOGICAL: None. LYMPHATICS: None. PSYCHIATRY: None. NEUROLOGICAL: None. PAST MEDICAL HISTORY: 1. Fibromyalgia. 2. GERD. 3. Diabetes mellitus, type 1. 4. Rheumatoid arthritis. 5. Anxiety. 6. Depression. 7. Neurocardiogenic syncope. 8. Multiple lipomas. PAST SURGICAL HISTORY: 1. Breast surgery. 2. Tubal ligation. 3. Uterine ablation. 4. Has had a tilt table test. 5. Left thigh lipoma removed. PSYCH HISTORY: Anxiety, depression, ADHD. SOCIAL HISTORY: . They have cats and birds. Depression is controlled. No smoking. Marijuana at night for pain. FAMILY HISTORY: Asthma, depression, colitis. HOME MEDICATIONS: 1. Prilosec 20 mg b.i.d. 2. Ritalin 20 mg b.i.d. 3. Lantus 32 units subcutaneously daily. 4. NovoLog per scale. 5. Pristiq 100 mg p.o. daily. ALLERGIES: 1. PAXIL. 2. ZOLOFT. 3. CAFFEINE. PHYSICAL EXAMINATION: VITAL SIGNS ON PRESENTATION: Temperature 97.9, pulse 96, respiration 20, blood pressure 142/78, pulse ox 98% on room air. GENERAL APPEARANCE: Average build. Sitting up. Comfortable. EYES: Pupils equal. Conjunctivae normal. HEENT: External appearance of nose and ears normal. Oral cavity normal. NECK: JVD not raised. Mass not palpable. RESPIRATORY: Effort normal. LUNGS: Fair air entry. CARDIOVASCULAR: First and second sounds normal. No edema. ABDOMEN: Soft, non-tender. Liver and spleen not palpable. LYMPHATIC: No lymph node palpable in neck or axillae. PSYCHIATRY: Alert and oriented x3. Mood and affect normal. NEUROLOGICAL: Pupils equal. Cranial nerves grossly intact. Power and sensation grossly intact. MUSCULOSKELETAL: Mild tenderness in the right ankle area. No evidence of infection. INVESTIGATIONS: White count 7.1, hemoglobin 13, potassium 4.8, BUN 17, creatinine 0.30. Blood glucose was 451. Serum acetone was positive. ASSESSMENT: 1. Diabetic ketoacidosis. 2. Diabetes mellitus, type 1, insulin-requiring. 3. Chronic fibromyalgia. 4. Gastroesophageal reflux disease. 5. Neurocardiogenic syncope. 6. Chronic anxiety and depression. 7. Questionable rheumatoid arthritis. PLAN: Patient was put on insulin drip, did well. This morning patient was put back on her Lantus and NovoLog. Sugar right now is 182. I did have a long talk with the patient. She has got ample supply of insulin but has trouble paying co-pays. She is going to make efforts to do that. I did put the patient on naproxen, with which her pain has improved. I told her to follow up with her specialist. DISCHARGE MEDICATIONS: 1. Ritalin 20 mg b.i.d. 2. Prilosec 20 mg b.i.d. 3. Pristiq 100 mg p.o. daily. 4. NovoLog. 5. Lantus 32 units subcutaneously daily. 6. NovoLog 7 units before meals t.i.d. 7. Naproxen 250 mg t.i.d. for 7 days. Follow up with Dr. Ruiz in 3 days. Follow up with Dr. Vaughn in 3 days. Follow up with Dr. Santamaria in one week. Diet carbohydrate-consistent. This is both a history and physical and discharge summary on Shayla Hassandean MMODL / IJN: [id number] /
== END 2017-09-08 17:02 | disposition home or self-care (01) | DRG 639 ==
LOC: EC 19:03 → 6SEL 22:20
PROVIDERS: ADMIT Hospitalist; ATTEND Hospitalist
DX: E10.10 Type 1 diabetes mellitus with ketoacidosis without coma (principal); F32.9 Major depressive disorder, single episode, unspecified; M79.7 Fibromyalgia; K21.9 Gastro-esophageal reflux disease without esophagitis; M06.9 Rheumatoid arthritis, unspecified; F41.9 Anxiety disorder, unspecified; F90.9 Attention-deficit hyperactivity disorder, unspecified type; R55 Syncope and collapse; Z91.19 Patient's noncompliance with other medical treatment and regimen; Z79.4 Long term (current) use of insulin; Z79.899 Other long term (current) drug therapy; Z86.73 Personal history of transient ischemic attack (TIA), and cerebral infarction without residual deficits; Z59.9 Problem related to housing and economic circumstances, unspecified; Z98.51 Tubal ligation status; Z88.8 Allergy status to other drugs, medicaments and biological substances; Z82.5 Family history of asthma and other chronic lower respiratory diseases; Z81.8 Family history of other mental and behavioral disorders; Z83.79 Family history of other diseases of the digestive system
CPT/HCPCS: 36415; 80048; 80051; 80053; 81003; 81025; 82009; 82565; 82947; 83036; 84100; 84520; 85025; 86140; 96361; 96374; 99285

== ENCOUNTER 2017-10-01 13:25 | Inpatient (IN) | payer MEDICARE ==
[2017-10-01 14:00] LABS: Glucose,Whole Blood 422 mg/dL (75-99)
[2017-10-01] MEDS ORDERED: SODIUM CHLORIDE 0.9% 1,000 ML IV STA ×3 (15:32→17:15)
--- NOTE | 2017-10-01 15:35 | ED ---
General Adult HPI - General Chief complaint: Recheck/Abnormal Lab/Rx Stated complaint: Hyperglycemia Time Seen by Provider: 10/01/17 14:40 Source: patient, RN notes reviewed Mode of arrival: wheelchair Limitations: no limitations - History of Present Illness Initial comments: This is a 42-year-old female history of insulin-dependent diabetes who states she is started having nausea vomiting yesterday and also had high blood sugars or treated at home without success. She states she's had sweats and chills cough for about a week with white phlegm no urinary problems. At this time is generalized weakness and pain no overt focal abdominal pain. No other modifying factors. She states she is not she's had a tubal ligation as well as NovaSure - Related Data Home Medications Medication Instructions Recorded Confirmed Methylphenidate HCl [Ritalin] 20 mg PO BID 01/04/14 10/01/17 Omeprazole [PriLOSEC] 20 mg PO BID 01/04/14 10/01/17 Desvenlafaxine Succinate [Pristiq] 100 mg PO DAILY 06/26/16 10/01/17 Insulin Aspart [NovoLOG See Protocol SQ ACHS 03/08/17 10/01/17 (formulary)] Insulin Glargine [Lantus] 32 unit SQ DAILY 06/27/17 10/01/17 Allergies Allergy/AdvReac Type Severity Reaction Status Date / Time paroxetine HCl [From Paxil] Allergy Rash/Hives Verified 10/01/17 18:15 sertraline HCl [From Zoloft] Allergy Rash/Hives Verified 10/01/17 18:15 caffeine AdvReac Nausea & Verified 10/01/17 18:15 Vomiting Review of Systems ROS Statement: Those systems with pertinent positive or pertinent negative responses have been documented in the HPI. ROS Other: All systems not noted in ROS Statement are negative. Past Medical History Past Medical History: CVA/TIA, Diabetes Mellitus, Fibromyalgia, GERD/Reflux, Rheumatoid Arthritis (RA), Syncope Additional Past Medical History / Comment(s): IDDM type I, DKA, 03/08/17 TIA. rheumatoid arthritis multiple sites, "neurocardiogenic syncope"-causes sudden drop in blood pressure and pt has syncope-has not happened in a long time, multiple lipomas. History of Any Multi-Drug Resistant Organisms: None Reported Past Surgical History: Breast Surgery, Tubal Ligation, Uterine Ablation Additional Past Surgical History / Comment(s): Tilt table test, LEFT BREAST BX BENIGN, L thigh lipoma removal. Past Anesthesia/Blood Transfusion Reactions: No Reported Reaction Past Psychological History: ADD/ADHD, Anxiety, Depression Smoking Status: Never smoker Past Alcohol Use History: Rare Past Drug Use History: Marijuana - Past Family History Mother Family Medical History: Asthma Additional Family Medical History / Comment(s): depression, colitis Father History Unknown: Yes General Exam - General Exam Comments Initial Comments: This a well-developed well-nourished awake alert oriented 3 female Limitations: no limitations General appearance: alert, in no apparent distress Head exam: Present: atraumatic, normocephalic, normal inspection Eye exam: Present: normal appearance, PERRL, EOMI. Absent: scleral icterus, conjunctival injection, periorbital swelling ENT exam: Present: mucous membranes dry Neck exam: Present: normal inspection. Absent: tenderness, meningismus, lymphadenopathy Respiratory exam: Present: normal lung sounds bilaterally. Absent: respiratory distress, wheezes, rales, rhonchi, stridor Cardiovascular Exam: Present: normal rhythm, tachycardia. Absent: systolic murmur, diastolic murmur, rubs, gallop, clicks GI/Abdominal exam: Present: soft, normal bowel sounds. Absent: distended, tenderness, guarding, rebound, rigid Extremities exam: Present: normal inspection, full ROM, normal capillary refill. Absent: tenderness, pedal edema, joint swelling, calf tenderness Back exam: Present: normal inspection Neurological exam: Present: alert, oriented X3, CN II-XII intact Psychiatric exam: Present: normal affect, normal mood Skin exam: Present: warm, dry, intact, normal color. Absent: rash Course Vital Signs 10/01/17 10/01/17 10/01/17 13:54 16:15 16:57 Temperature 98.1 F Pulse Rate 145 H 135 H 128 H Respiratory 22 18 19 Rate Blood Pressure 118/86 148/90 155/91 O2 Sat by Pulse 98 97 99 Oximetry - Reevaluation(s) Reevaluation #1: 10/01/17 18:12 Reevaluation patient reveals the blood sugar to be improving after IV hydration hours she was developing nausea vomiting. Medical Decision Making - Medical Decision Making I did discuss findings with patient she is the exception of 1 episode nausea vomiting feeling somewhat improved after IV hydration she'll be admitted for continued IV hydration and control of blood sugar. - Lab Data Result diagrams: 10/01/17 15:00 10/01/17 15:00 Lab Results 10/01/17 10/01/17 10/01/17 Range/Units 13:58 15:00 15:00 WBC 16.6 H (3.8-10.6) k/uL RBC 6.58 H (3.80-5.40) m/uL Hgb 15.9 (11.4-16.0) gm/dL Hct 49.2 H (34.0-46.0) % MCV 74.8 L (80.0-100.0) fL MCH 24.2 L (25.0-35.0) pg MCHC 32.4 (31.0-37.0) g/dL RDW 13.9 (11.5-15.5) % Plt Count 543 H (150-450) k/uL Neutrophils % 89 % Lymphocytes % 8 % Monocytes % 3 % Eosinophils % 0 % Basophils % 0 % Neutrophils # 14.8 H (1.3-7.7) k/uL Lymphocytes # 1.3 (1.0-4.8) k/uL Monocytes # 0.5 (0-1.0) k/uL Eosinophils # 0.0 (0-0.7) k/uL Basophils # 0.0 (0-0.2) k/uL Microcytosis Slight Sodium 138 (137-145) mmol/L Potassium 4.7 (3.5-5.1) mmol/L Chloride 97 L (98-107) mmol/L Carbon Dioxide 6 L* (22-30) mmol/L Anion Gap 35 mmol/L BUN 26 H (7-17) mg/dL Creatinine 0.77 (0.52-1.04) mg/dL Est GFR (CKD-EPI)AfAm >90 (>60 ml/min/1.73 sqM) Est GFR (CKD-EPI)NonAf >90 (>60 ml/min/1.73 sqM) Glucose 323 H (74-99) mg/dL POC Glucose (mg/dL) 422 H (75-99) mg/dL POC Glu Sack Repairer ID Theodore, Hamida Calcium 10.9 H (8.4-10.2) mg/dL Magnesium 1.7 (1.6-2.3) mg/dL Total Bilirubin 0.8 (0.2-1.3) mg/dL AST 41 H (14-36) U/L ALT 18 (9-52) U/L Alkaline Phosphatase 212 H (38-126) U/L Total Protein 9.7 H (6.3-8.2) g/dL Albumin 5.2 H (3.5-5.0) g/dL Amylase 53 (30-110) U/L Lipase 48 (23-300) U/L Urine Color Urine Appearance (Clear) Urine pH (5.0-8.0) Ur Specific [place] (1.001-1.035) Urine Protein (Negative) Urine Glucose (UA) (Negative) Urine Ketones (Negative) Urine Blood (Negative) Urine Nitrite (Negative) Urine Bilirubin (Negative) Urine Urobilinogen (<2.0) mg/dL Ur Leukocyte Esterase (Negative) Urine RBC (0-5) /hpf Urine WBC (0-5) /hpf Ur Squamous Epith Cells (0-4) /hpf Hyaline Casts (0-2) /lpf Urine Mucus (None) /hpf Acetone, Qual (Negative) 10/01/17 10/01/17 10/01/17 Range/Units 15:00 17:01 17:49 WBC (3.8-10.6) k/uL RBC (3.80-5.40) m/uL Hgb (11.4-16.0) gm/dL Hct (34.0-46.0) % MCV (80.0-100.0) fL MCH (25.0-35.0) pg MCHC (31.0-37.0) g/dL RDW (11.5-15.5) % Plt Count (150-450) k/uL Neutrophils % % Lymphocytes % % Monocytes % % Eosinophils % % Basophils % % Neutrophils # (1.3-7.7) k/uL Lymphocytes # (1.0-4.8) k/uL Monocytes # (0-1.0) k/uL Eosinophils # (0-0.7) k/uL Basophils # (0-0.2) k/uL Microcytosis Sodium (137-145) mmol/L Potassium (3.5-5.1) mmol/L Chloride (98-107) mmol/L Carbon Dioxide (22-30) mmol/L Anion Gap mmol/L BUN (7-17) mg/dL Creatinine (0.52-1.04) mg/dL Est GFR (CKD-EPI)AfAm (>60 ml/min/1.73 sqM) Est GFR (CKD-EPI)NonAf (>60 ml/min/1.73 sqM) Glucose (74-99) mg/dL POC Glucose (mg/dL) 130 H (75-99) mg/dL POC Glu Sack Repairer ID Demetrice [place] Calcium (8.4-10.2) mg/dL Magnesium (1.6-2.3) mg/dL Total Bilirubin (0.2-1.3) mg/dL AST (14-36) U/L ALT (9-52) U/L Alkaline Phosphatase (38-126) U/L Total Protein (6.3-8.2) g/dL Albumin (3.5-5.0) g/dL Amylase (30-110) U/L Lipase (23-300) U/L Urine Color Yellow Urine Appearance Cloudy H (Clear) Urine pH 5.5 (5.0-8.0) Ur Specific [place] 1.017 (1.001-1.035) Urine Protein 2+ H (Negative) Urine Glucose (UA) 4+ H (Negative) Urine Ketones 4+ H (Negative) Urine Blood Negative (Negative) Urine Nitrite Negative (Negative) Urine Bilirubin Negative (Negative) Urine Urobilinogen 2.0 (<2.0) mg/dL Ur Leukocyte Esterase Negative (Negative) Urine RBC 1 (0-5) /hpf Urine WBC 3 (0-5) /hpf Ur Squamous Epith Cells 7 H (0-4) /hpf Hyaline Casts 67 H (0-2) /lpf Urine Mucus Rare H (None) /hpf Acetone, Qual Negative (Negative) - EKG Data -: EKG Interpreted by Me EKG shows normal: sinus rhythm (Sinus tachycardia rate of 1:30. Interval 134 QRS duration 90 QT since QTC 318/467 left anterior fascicular block) - Radiology Data Radiology results: report reviewed (I did review the imaging and report no acute findings.), image reviewed Disposition Clinical Impression: Uncontrolled diabetes mellitus, Acute gastritis, Dehydration, Metabolic acidosis Disposition: ADMITTED IP TO THIS [facility] Condition: Stable Referrals: Kevin Ruiz DO [Primary Care Provider] - 1-2 days
[2017-10-01 15:42] LABS: Basophils % (A) 0 %; Eosinophils % (A) 0 %; HCT 49.2 % (34.0-46.0); HGB 15.9 gm/dL (11.4-16.0); Lymphocytes # (A) 1.3 k/uL (1.0-4.8); Lymphocytes % (A) 8 %; MCH 24.2 pg (25.0-35.0); MCHC 32.4 g/dL (31.0-37.0); MCV 74.8 fL (80.0-100.0); Mean Platelet Volume 6.9; Microcytosis Slight; Monocytes # (A) 0.5 k/uL (0-1.0); Monocytes % (A) 3 %; Neutrophils # (A) 14.8 k/uL (1.3-7.7); Neutrophils % (A) 89 %; Platelet Count 543 k/uL (150-450); RBC 6.58 m/uL (3.80-5.40); RDW 13.9 % (11.5-15.5); WBC 16.6 k/uL (3.8-10.6)
[2017-10-01 15:52] LABS: ALT 18 U/L (9-52); AST 41 U/L (14-36); Albumin 5.2 g/dL (3.5-5.0); Alkaline Phosphatase 212 U/L (38-126); Amylase 53 U/L (30-110); Blood Urea Nitrogen 26 mg/dL (7-17); Calcium 10.9 mg/dL (8.4-10.2); Chloride 97 mmol/L (98-107); Glucose 323 mg/dL (74-99); Lipase 48 U/L (23-300); Magnesium 1.7 mg/dL (1.6-2.3); Sodium 138 mmol/L (137-145); Total Bilirubin 0.8 mg/dL (0.2-1.3); Total Protein 9.7 g/dL (6.3-8.2)
[2017-10-01 15:57] LABS: Anion Gap 35 mmol/L
[2017-10-01 16:02] LABS: Carbon Dioxide 6 mmol/L (22-30)
[2017-10-01 16:03] LABS: Potassium 4.7 mmol/L (3.5-5.1)
--- NOTE | 2017-10-01 16:11 | XR ---
EXAMINATION TYPE: XR chest 2V DATE OF EXAM: 10/01/2017 COMPARISON: 08/19/2017 TECHNIQUE: PA and lateral views submitted. HISTORY: Cough FINDINGS: The lungs are clear and there is no pneumothorax, pleural effusion, or focal pneumonia. Hypertrophi c change of the spine. IMPRESSION: 1. No acute process.
[2017-10-01 17:02] LABS: Glucose,Whole Blood 130 mg/dL (75-99)
[2017-10-01 18:09] LABS: Appearance,Urine Cloudy (Clear); Bilirubin,Urine Negative (Negative); Blood,Urine Negative (Negative); Color,Urine Yellow; Glucose,Urine (UA) 4+ (Negative); Hyaline Casts,Urine 67 /lpf (0-2); Leukocyte Esterase,Urine Negative (Negative); Mucus,Urine Rare /hpf; Nitrite,Urine Negative (Negative); PH, Urine 5.5 (5.0-8.0); Protein,Urine 2+ (Negative); RBC,Urine 1 /hpf (0-5); Specific Gravity,Urine 1.017 (1.001-1.035); Squamous Epithelial Cell,Urine 7 /hpf (0-4); WBC,Urine 3 /hpf (0-5)
[2017-10-01 18:15] LABS: Ketones,Urine 4+ (Negative)
[2017-10-01] MEDS ORDERED: SODIUM BICARB 8.4% 50 ML SYR (1 MEQ/ML) IV STA (18:20)
[2017-10-01] MEDS ORDERED: NALOXONE 0.4 MG/ML 1 ML VIAL IV PRN (18:27)
[2017-10-01 20:25] LABS: Glucose,Whole Blood 61 mg/dL (75-99)
[2017-10-01] MEDS: INSULIN ASPART 100 UNIT/ML 1 ML 10 ML VIAL SQ SCH (20:31)
[2017-10-01 21:04] LABS: Glucose,Whole Blood 82 mg/dL (75-99)
[2017-10-01] MEDS: ACETAMINOPHEN TAB 325 MG TAB PO PRN (21:49)
[2017-10-01] MEDS: METHYLPHENIDATE HCL 10 MG TAB PO SCH (21:58)
[2017-10-01 23:46] LABS: Hemoglobin A1C 10.1 % (4.0-6.0)
[2017-10-02 06:06] LABS: Glucose,Whole Blood 192 mg/dL (75-99)
[2017-10-02] MEDS: PANTOPRAZOLE 40 MG TABLET PO SCH (07:14)
[2017-10-02] MEDS: INSULIN ASPART 100 UNIT/ML 1 ML 10 ML VIAL SQ SCH ×5 (07:14→21:27)
[2017-10-02] MEDS: ACETAMINOPHEN TAB 325 MG TAB PO PRN ×3 (07:15→20:55)
[2017-10-02] MEDS: DESVENLAFAXINE SUCCINATE 50 MG TAB.ER.24H PO SCH (08:46)
[2017-10-02] MEDS: METHYLPHENIDATE HCL 10 MG TAB PO SCH ×2 (08:49→20:55)
[2017-10-02] MEDS ORDERED: INSULIN DETEMIR 100 UNIT/ML 10 ML VIAL SQ SCH (09:00)
[2017-10-02 11:38] LABS: Glucose,Whole Blood 245 mg/dL (75-99)
[2017-10-02] MEDS ORDERED: INSULIN REGULAR 100 UNIT/ML VIAL SQ ONE (14:58)
[2017-10-02 15:40] LABS: Anion Gap 10 mmol/L; Blood Urea Nitrogen 14 mg/dL (7-17); Calcium 8.8 mg/dL (8.4-10.2); Carbon Dioxide 25 mmol/L (22-30); Chloride 101 mmol/L (98-107); Glucose 144 mg/dL (74-99); Potassium 3.4 mmol/L (3.5-5.1); Sodium 136 mmol/L (137-145)
[2017-10-02] MEDS: LORATADINE-PSEUDOEPH 5-120 MG 1 EACH TAB.ER.12H PO SCH ×2 (15:47→20:55)
[2017-10-02] MEDS: ENOXAPARIN 40 MG/0.4 ML SYRINGE SQ SCH (15:47)
[2017-10-02 15:50] LABS: Glucose,Whole Blood 138 mg/dL (75-99)
--- NOTE | 2017-10-02 15:53 | HP ---
HISTORY AND PHYSICAL DATE OF ADMISSION: 10/01/17. DATE OF SERVICE: 10/02/17. PRESENT COMPLAINT: Weak and tired. HISTORY OF PRESENTING COMPLAINT: This is a very pleasant 42-year-old patient who follows with Dr. Ruiz. The patient's chronic stable medical conditions include fibromyalgia, GERD, rheumatoid arthritis, anxiety, depression. The patient is also insulin-requiring diabetic and takes Lantus 32 units. For last few days, patient has been battling a cold, not able to keep anything down and also started throwing up on and patient being following her insulin and by the time yesterday patient really got exhausted and decided to come in. The patient was found to have a bicarb of 6 and patient was admitted and put on insulin drip. The patient's appetite is very poor. Overnight the drip was held. The patient really does not really think anything tastes well. Still feels rather congested. No fever and chills, tired. REVIEW OF SYSTEMS: CONSTITUTIONAL: Weak and tired. HEENT: Nasal stuffiness, slight cough. CARDIOVASCULAR: None. GASTROINTESTINAL: None. GENITOURINARY: None. MUSCULOSKELETAL: The patient has joint pains. DERMATOLOGICAL, HEMATOLOGIC, LYMPHATIC: None. PSYCHIATRY: Slightly anxious. NEUROLOGICAL: None. PAST MEDICAL HISTORY: Fibromyalgia, GERD, diabetes mellitus type 1, rheumatoid arthritis, anxiety, depression, neurocardiogenic syncope, multiple lipomas. PAST SURGICAL HISTORY: Breast surgery, tubal ligation, uterine ablation, left eyelid lipoma removed. PSYCH HISTORY: Anxiety, depression, ADHD. SOCIAL HISTORY: . Has a bird and cats at home. No smoking. Does take marijuana at night for pain. FAMILY HISTORY: Anxiety, asthma, depression, colitis. HOME MEDICATIONS: 1. Prilosec 20 mg b.i.d. 2. Ritalin 20 mg b.i.d. 3. Lantus 32 units subcu daily. 4. Insulin Aspart. 5. Pristiq 100 mg p.o. daily. ALLERGIES: To PAXIL, ZOLOFT, CAFFEINE. PHYSICAL EXAMINATION: VITAL SIGNS ON PRESENTATION: Temperature 98.1, pulse 145, respirations 22, blood pressure 118/86, pulse ox 98% on room air. GENERAL APPEARANCE: Average build lying in bed, really tired-appearing. EYES: Conjunctivae normal. HEENT: There is erythema of the nares. Redness of the nostrils. Oral cavity is dry. NECK: JVD not raised. Mass not palpable. RESPIRATORY: Effort normal. Lungs, fair entry. CARDIOVASCULAR: First and second sounds, no edema. ABDOMEN: Soft, nontender. Liver and spleen not palpable. LYMPHATIC: No lymph node palpable in the neck or axillae. PSYCHIATRY: Alert and oriented x3. Mood and affect slightly anxious-appearing. NEUROLOGICAL: Pupils equal. Cranial nerves grossly intact. Power and sensation grossly intact. INVESTIGATIONS: White count 6.6, hemoglobin 15.9, platelets 543, potassium 4.7, bicarb 6, anion gap 35, BUN 26, creatinine 0.77, blood glucose was 323, calcium 10.9. Serum acetone negative. ASSESSMENT: 1. Diabetic ketoacidosis with anion gap of 35. The patient is not able to eat or drink much for last few days. 2. Clinically dehydrated, elevated BUN. 3. Reactive thrombocytosis. 4. Diabetes mellitus type 1, insulin-requiring. 5. Chronic fibromyalgia. 6. Gastroesophageal reflux disease. 7. Neurocardiogenic syncope. 8. Chronic anxiety and depression. 9. Viral upper respiratory tract infection with viral bronchitis. PLAN: Given that it is late afternoon will give 10 units of regular insulin 1 dose now and tonight will give 1 dose of insulin NPH 16 units. We will continue with sliding scale tomorrow morning. Patient will give 26 units subcu Levemir. We will also add Claritin- D. For the viral infection encourage oral intake. Until patient's oral intake improves it will be expected that the patient's diabetic ketoacidosis will resolve. Also repeat electrolytes have been sent off. Care was discussed the patient. Questions were answered. Copy to Dr. Ruiz. MMNICHOLASL / IJN: [id number] /
[2017-10-02] MEDS ORDERED: POTASSIUM CHLORIDE ER 20 MEQ TAB.ER PO STA (15:56)
[2017-10-02] MEDS ORDERED: INSULIN NPH 300 UNIT/3 ML VIAL SQ SCH ×2 (21:00→22:00)
[2017-10-02 21:19] LABS: Glucose,Whole Blood 88 mg/dL (75-99)
[2017-10-03 05:46] LABS: Glucose,Whole Blood 90 mg/dL (75-99)
[2017-10-03] MEDS: INSULIN ASPART 100 UNIT/ML 1 ML 10 ML VIAL SQ SCH ×2 (06:15→12:03)
[2017-10-03] MEDS: ACETAMINOPHEN TAB 325 MG TAB PO PRN (06:20)
[2017-10-03] MEDS: PANTOPRAZOLE 40 MG TABLET PO SCH (06:20)
[2017-10-03 06:26] VITALS: TEMP 98.8
[2017-10-03 06:44] LABS: Basophils % (A) 0 %; Eosinophils % (A) 1 %; HCT 34.6 % (34.0-46.0); Lymphocytes % (A) 35 %; MCH 24.5 pg (25.0-35.0); MCHC 32.9 g/dL (31.0-37.0); MCV 74.4 fL (80.0-100.0); Mean Platelet Volume 6.2; Microcytosis Slight; Monocytes # (A) 0.2 k/uL (0-1.0); Monocytes % (A) 3 %; Neutrophils # (A) 3.4 k/uL (1.3-7.7); Neutrophils % (A) 60 %; Platelet Count 322 k/uL (150-450); Poikilocytosis Slight; RBC 4.65 m/uL (3.80-5.40); WBC 5.7 k/uL (3.8-10.6)
[2017-10-03 06:48] LABS: HGB 11.4 gm/dL (11.4-16.0)
[2017-10-03] MEDS: LORATADINE-PSEUDOEPH 5-120 MG 1 EACH TAB.ER.12H PO SCH (08:43)
[2017-10-03] MEDS: DESVENLAFAXINE SUCCINATE 50 MG TAB.ER.24H PO SCH (08:43)
[2017-10-03] MEDS: ENOXAPARIN 40 MG/0.4 ML SYRINGE SQ SCH (08:43)
[2017-10-03] MEDS: METHYLPHENIDATE HCL 10 MG TAB PO SCH (08:46)
[2017-10-03 08:50] VITALS: RESP 16
[2017-10-03] MEDS ORDERED: INSULIN DETEMIR 100 UNIT/ML 10 ML VIAL SQ SCH (09:00)
[2017-10-03 11:31] LABS: Glucose,Whole Blood 294 mg/dL (75-99)
[2017-10-03 12:06] VITALS: BP 129/74; PULSE 100
--- NOTE | 2017-10-04 21:28 | DS ---
DISCHARGE SUMMARY DATE OF ADMISSION: 10/01/2017. DATE OF DISCHARGE: 10/04/2017 FINAL DIAGNOSES: 1. Diabetic ketoacidosis. 2. Clinically dehydrated with elevated BUN. 3. Reactive thrombocytosis. 4. Diabetes mellitus type 1, insulin-requiring. 5. Chronic fibromyalgia. 6. Gastroesophageal reflux disease. 7. Neurocardiogenic syncope, history of. 8. Chronic anxiety and depression. 9. Viral upper respiratory tract infection with viral bronchitis. HOSPITAL COURSE: This is a patient who has been struggling with some viral infection for a few days, is not able to keep much of her food down, presented with diabetic ketoacidosis with a very high anion gap. Responded well to insulin, fluid and some Claritin-D. By the time of discharge, doing much better. Care was discussed with the patient. Medications adjusted. EXAM: LUNGS: Fair air entry. CARDIOVASCULAR: First and second sounds normal. DISCHARGE MEDICATIONS: 1. Ritalin 20 mg p.o. b.i.d. 2. Prilosec 20 mg p.o. b.i.d. 3. Pristiq 100 mg p.o. daily. 4. NovoLog per scale. 5. Lantus 28 units subcu daily. 6. Claritin-D 5/120 one tablet p.o. q.12, 6 tablets. FOLLOWUP: With Dr. Ruiz on 10/13/2017. Follow up with Dr. Vaughn from endocrinology on 10/04/2017. ABDOMEN: Soft, nontender. Liver and spleen not palpable. MMODL / IJN: [id number] /
== END 2017-10-03 14:41 | disposition home or self-care (01) | DRG 639 ==
LOC: EC 13:25 → 6SEL 18:27
PROVIDERS: ADMIT Hospitalist; ATTEND Hospitalist
DX: E10.10 Type 1 diabetes mellitus with ketoacidosis without coma (principal); E86.0 Dehydration; F32.9 Major depressive disorder, single episode, unspecified; F41.9 Anxiety disorder, unspecified; F90.9 Attention-deficit hyperactivity disorder, unspecified type; J20.8 Acute bronchitis due to other specified organisms; K21.9 Gastro-esophageal reflux disease without esophagitis; K29.00 Acute gastritis without bleeding; M06.9 Rheumatoid arthritis, unspecified; M79.7 Fibromyalgia; Z79.4 Long term (current) use of insulin; Z79.899 Other long term (current) drug therapy; Z81.8 Family history of other mental and behavioral disorders; Z82.5 Family history of asthma and other chronic lower respiratory diseases; Z86.73 Personal history of transient ischemic attack (TIA), and cerebral infarction without residual deficits; Z88.8 Allergy status to other drugs, medicaments and biological substances; D47.3 Essential (hemorrhagic) thrombocythemia
CPT/HCPCS: 36415; 71046; 80048; 80053; 81001; 82009; 82150; 83036; 83690; 83735; 85025; 93005; 96361; 96374; 99285

== ENCOUNTER 2017-12-22 01:06 | Inpatient (IN) | payer MEDICARE, MEDICAID ==
[2017-12-22 02:37] LABS: Amphetamine Screen,Urine Not Detected (NotDetected); Barbiturate Screen,Urine Not Detected (NotDetected); Benzodiazepines Screen,Urine Not Detected (NotDetected); Cocaine Screen,Urine Not Detected (NotDetected); Methadone Screen, Urine Not Detected (NotDetected); Opiate Screen,Urine Not Detected (NotDetected); Oxycodone Screen, Urine Not Detected (NotDetected); Phencyclidine Screen,Urine Not Detected (NotDetected); Tricyclic Antidepressant,Urine Not Detected (NotDetected); Urn Cannabinoid Scrn Detected (NotDetected)
[2017-12-22 03:01] LABS: Glucose,Whole Blood 380 mg/dL (75-99)
[2017-12-22] MEDS ORDERED: INSULIN REGULAR 100 UNIT/ML VIAL SQ STA (03:09)
[2017-12-22] MEDS ORDERED: SODIUM CHLORIDE 0.9% 2,000 ML IV ONE (03:09)
[2017-12-22 03:44] LABS: Basophils % (A) 0 %; Eosinophils % (A) 1 %; HCT 37.4 % (34.0-46.0); HGB 11.4 gm/dL (11.4-16.0); Hypochromasia Marked; Lymphocytes # (A) 2.2 k/uL (1.0-4.8); Lymphocytes % (A) 33 %; MCH 23.6 pg (25.0-35.0); MCHC 30.3 g/dL (31.0-37.0); MCV 77.7 fL (80.0-100.0); Mean Platelet Volume 6.1; Monocytes # (A) 0.3 k/uL (0-1.0); Monocytes % (A) 5 %; Neutrophils # (A) 4.1 k/uL (1.3-7.7); Neutrophils % (A) 61 %; Platelet Count 379 k/uL (150-450); RBC 4.82 m/uL (3.80-5.40); RDW 14.4 % (11.5-15.5); WBC 6.8 k/uL (3.8-10.6)
[2017-12-22] MEDS ORDERED: ACETAMINOPHEN TAB 500 MG TAB PO STA (03:46)
[2017-12-22 03:53] LABS: Anion Gap 9 mmol/L; Blood Urea Nitrogen 15 mg/dL (7-17); Calcium 9.2 mg/dL (8.4-10.2); Carbon Dioxide 27 mmol/L (22-30); Chloride 98 mmol/L (98-107); Glucose 385 mg/dL (74-99); Potassium 4.6 mmol/L (3.5-5.1); Sodium 134 mmol/L (137-145)
[2017-12-22 04:53] LABS: Glucose,Whole Blood 326 mg/dL (75-99)
[2017-12-22 06:02] LABS: Glucose,Whole Blood 224 mg/dL (75-99)
[2017-12-22] MEDS ORDERED: MAG HYDROX/AL HYDROX/SIMETH 30 ML CUP PO PRN (06:22)
[2017-12-22] MEDS ORDERED: MAGNESIUM HYDROXIDE 2,400 MG/10 ML CUP PO PRN (06:22)
[2017-12-22 07:19] LABS: Glucose,Whole Blood 138 mg/dL (75-99)
[2017-12-22] MEDS: INSULIN ASPART 100 UNIT/ML 1 ML 10 ML VIAL SQ SCH ×7 (08:50→20:27)
[2017-12-22] MEDS: PANTOPRAZOLE 40 MG TABLET PO SCH (08:53)
[2017-12-22] MEDS: DESVENLAFAXINE SUCCINATE 50 MG TAB.ER.24H PO SCH (08:53)
[2017-12-22] MEDS ORDERED: DESVENLAFAXINE SUCCINATE 50 MG TAB.ER.24H PO SCH (09:00)
[2017-12-22] MEDS ORDERED: METHYLPHENIDATE HCL 10 MG TAB PO SCH ×2 (09:00)
[2017-12-22] MEDS ORDERED: INSULIN DETEMIR 100 UNIT/ML 10 ML VIAL SQ SCH (09:00)
[2017-12-22] MEDS: METHYLPHENIDATE HCL 10 MG TAB PO SCH ×2 (09:55→13:07)
[2017-12-22] MEDS: ACETAMINOPHEN TAB 325 MG TAB PO PRN ×2 (09:56→20:31)
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
[2017-12-22 12:44] LABS: Glucose,Whole Blood 266 mg/dL (75-99)
[2017-12-22 17:13] LABS: Glucose,Whole Blood 69 mg/dL (75-99)
[2017-12-22 17:43] LABS: Glucose,Whole Blood 81 mg/dL (75-99)
[2017-12-22 18:10] LABS: Glucose,Whole Blood 106 mg/dL (75-99)
[2017-12-22 20:20] LABS: Glucose,Whole Blood 241 mg/dL (75-99)
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
[2017-12-23] MEDS: ACETAMINOPHEN TAB 325 MG TAB PO PRN ×2 (00:32→08:09)
[2017-12-23] MEDS ORDERED: LORazepam 0.5 MG TAB PO STA (01:25)
[2017-12-23 03:00] LABS: Glucose,Whole Blood 132 mg/dL (75-99)
[2017-12-23 06:37] LABS: Glucose,Whole Blood 118 mg/dL (75-99)
[2017-12-23] MEDS: INSULIN ASPART 100 UNIT/ML 1 ML 10 ML VIAL SQ SCH ×7 (07:55→19:59)
[2017-12-23] MEDS: PANTOPRAZOLE 40 MG TABLET PO SCH (08:37)
[2017-12-23] MEDS: METHYLPHENIDATE HCL 10 MG TAB PO SCH ×2 (09:40→12:36)
[2017-12-23] MEDS: DULoxetine HCL 20 MG CAPSULE.DR PO SCH (09:41)
[2017-12-23] MEDS: DESVENLAFAXINE SUCCINATE 50 MG TAB.ER.24H PO SCH (09:41)
[2017-12-23] MEDS: INSULIN DETEMIR 100 UNIT/ML 10 ML VIAL SQ SCH (10:05)
[2017-12-23] MEDS: NAPROXEN 250 MG TAB PO SCH ×2 (10:52→20:58)
--- NOTE | 2017-12-23 10:55 | P.PN ---
Subjective Progress Note Date: 12/23/17 Principal diagnosis: Major depressive disorder recurrent severe without psychotic features, marital conflict, chronic pain, insulin-dependent diabetes mellitus. I reviewed the medical record, interviewed the patient and discuss her treatment and treatment plan during team meeting. She has a history of chronic depression and has been involved with mental health services for several years. She presented with complaints of depression and thoughts of suicide without intent or plan. The increasing depression and suicidal thoughts appeared to developed in the context of increasing conflict with her . She receives mental health services through our outpatient clinic and Dr. Donahue is for psychiatrist. He evaluated her yesterday and established a plan to discontinue Pristiq 50 mg daily after titrating Cymbalta to a therapeutic dose. Today she complained of conflict with her and an argument on the telephone earlier in the morning. She was pain focused and complained of headache, neck aches, backache, shoulder pain, knee pain and leg pain. She alleges that she has received no relief of the pain from the current dose of acetaminophen. She understands that the unit does not prescribed opiate pain medications for chronic nonmalignant pain. We discussed alternatives and she agreed to a trial of Naprosyn 500 mg by mouth twice a day. She also complained of insomnia and alleged that her pain worsens when she is unable to sleep. She requested a "temporary" prescription of a sleep medication reporting benefit from Ambien in the past. Later today she complained of a developing cold sore and requested a prescription for Abriva Objective - Vital Signs Vital signs: Vital Signs Temp 97.9 F 12/23/17 06:44 Pulse 92 12/23/17 06:44 Resp 18 12/23/17 06:44 BP 144/76 12/23/17 06:44 Pulse Ox 98 12/22/17 06:57 Intake & Output 12/22/17 12/23/17 12/23/17 18:59 06:59 18:59 Weight 62.142 kg - Psychiatric Psychiatric Comment(s): She presented as a disheveled and pale appearing female who was pleasant on approach. She made eye contact and appeared to attend to the interview. She had bipedal edema but no prominent physical abnormalities. She had a depressed facial expression. She was alert and oriented to person, place and time. She showed psychomotor retardation but no abnormal movements. Her speech was spontaneous with decreased rate, rhythm and volume. She had no articulation difficulties. Her affect was depressed and not reactive. She expressed feelings of hopelessness and helplessness but denied suicidal ideation or wishes. She perseverated about pain, insomnia and ongoing conflict with her . Her thinking was concrete but her associations were coherent, logical and goal directed. She denied hallucinations and did not appear to responding to internal stimuli. - Labs CBC & Chem 7: 12/22/17 03:19 12/22/17 03:19 Labs: Abnormal Lab Results - Last 24 Hours (Table) 12/22/17 12/22/17 12/22/17 Range/Units 12:39 17:08 17:56 POC Glucose (mg/dL) 266 H 69 L 106 H (75-99) mg/dL 12/22/17 12/23/17 12/23/17 Range/Units 20:15 02:56 06:30 POC Glucose (mg/dL) 241 H 132 H 118 H (75-99) mg/dL Assessment and Plan (1) Dysthymic disorder Current Visit: Yes Status: Chronic Priority: Medium Code(s): F34.1 - DYSTHYMIC DISORDER SNOMED Code(s): 48108761 (2) Major depressive disorder, recurrent severe without psychotic features Current Visit: Yes Status: Acute Priority: High Code(s): F33.2 - MAJOR DEPRESSV DISORDER, RECURRENT SEVERE W/O PSYCH FEATURES SNOMED Code(s): 49926705 (3) Insulin dependent diabetes mellitus Current Visit: Yes Status: Chronic Priority: Medium Code(s): E11.9 - TYPE 2 DIABETES MELLITUS WITHOUT COMPLICATIONS; Z79.4 - SOFTWARE QUALITY SPECIALIST (CURRENT) USE OF INSULIN SNOMED Code(s): 07184350 (4) Fibromyalgia Current Visit: Yes Status: Chronic Priority: High Code(s): M79.7 - FIBROMYALGIA SNOMED Code(s): 561527144 Plan: Continue inpatient psychiatric hospitalization. Continue duloxetine 20 mg daily and titrated according to clinical response and tolerance. Continue Pristiq temporarily. Discontinue acetaminophen and begin a trial of Naprosyn 500 mg by mouth twice a day for pain and Ambien 5 mg at bedtime when necessary for insomnia. Continue insulin and protonix as recommended by medicine service. Continue outpatient dose of Ritalin 20 mg twice a day. Encourage participation in therapeutic groups and activities. Evaluate clinical status response to treatment on a daily basis. Abreva is nonformulary only formulary alternative is valacyclovir. Will consult the hospitalist.
[2017-12-23 12:36] LABS: Glucose,Whole Blood 258 mg/dL (75-99)
[2017-12-23 15:59] LABS: Hemoglobin A1C 9.1 % (4.0-6.0)
[2017-12-23 17:21] LABS: Glucose,Whole Blood 142 mg/dL (75-99)
[2017-12-23 20:11] LABS: Glucose,Whole Blood 166 mg/dL (75-99)
[2017-12-23] MEDS: ZOLPIDEM 5 MG TAB PO PRN (20:58)
[2017-12-24 02:30] LABS: Glucose,Whole Blood 325 mg/dL (75-99)
[2017-12-24] MEDS: ACETAMINOPHEN TAB 325 MG TAB PO PRN ×2 (05:05→23:55)
[2017-12-24 06:08] LABS: Glucose,Whole Blood 331 mg/dL (75-99)
[2017-12-24] MEDS: DULoxetine HCL 20 MG CAPSULE.DR PO SCH (08:16)
[2017-12-24] MEDS: PANTOPRAZOLE 40 MG TABLET PO SCH (08:16)
[2017-12-24] MEDS: NAPROXEN 250 MG TAB PO SCH ×2 (08:16→22:14)
[2017-12-24] MEDS: METHYLPHENIDATE HCL 10 MG TAB PO SCH ×2 (08:16→12:48)
[2017-12-24] MEDS: INSULIN ASPART 100 UNIT/ML 1 ML 10 ML VIAL SQ SCH ×7 (08:17→20:20)
--- NOTE | 2017-12-24 09:12 | PN ---
PROGRESS NOTE DATE OF SERVICE: 12/23/2017 PRESENTING COMPLAINT: Swelling in the legs. INTERVAL HISTORY: This patient was seen by me yesterday evening on December 23, 2017. The patient's sugars are doing better. Some swelling in lower extremity. Tolerating a diet. Patient looks much more relaxed today. Dose of insulin was adjusted last night. The patient appears to be less anxious, sitting up on a table, doing some coloring. REVIEW OF SYSTEMS: Done for constitutional, cardiovascular, GI, pulmonary and relevant findings as above. CURRENT MEDICATIONS: Reviewed. PHYSICAL EXAMINATION: VITAL SIGNS: On examination, temperature 97.9, pulse 72, respiratory 18, blood pressure 144/76, pulse ox 98 percent on room air. GENERAL APPEARANCE: Sitting up, more comfortable. EYES: Pupils are equal. Conjunctivae normal. HEENT: External appearance of nose and ears normal. Oral cavity, poor dentition. NECK: JVD not raised. Mass not palpable. RESPIRATORY: Effort normal. LUNGS: Fair entry. CARDIOVASCULAR: 1st and second sounds normal. Mild edema. ABDOMEN: Soft, nontender. Liver and spleen not palpable. PSYCHIATRY: Alert and oriented times three. Less anxious-appearing. INVESTIGATIONS: Accu-Cheks 118, 258, 142, 166. ASSESSMENT: 1. Major depressive disorder, recurrent, severe, without psychosis. 2. Diabetes mellitus type 1 insulin-requiring, uncontrolled with both hypo and hyperglycemia on presentation, now doing better. 3. Chronic fibromyalgia. 4. Gastroesophageal reflux disease. 5. History of neurocardiogenic syncope. 6. Questionable diagnosis of rheumatoid arthritis. 7. Chronic insomnia for medical reasons. 8. Lower extremity swelling/edema some of it is non pitting. PLAN: At this point, continue current medication and treatment plan. Follow Accu-Cheks. I spoke to the nurse to give the patient OLIVA york. MMODL / IJN: [id number] /
[2017-12-24] MEDS: INSULIN DETEMIR 100 UNIT/ML 10 ML VIAL SQ SCH (09:30)
[2017-12-24] MEDS: DESVENLAFAXINE SUCCINATE 50 MG TAB.ER.24H PO SCH (09:30)
[2017-12-24 12:28] LABS: Glucose,Whole Blood 278 mg/dL (75-99)
[2017-12-24 17:09] LABS: Glucose,Whole Blood 143 mg/dL (75-99)
[2017-12-24 20:19] LABS: Glucose,Whole Blood 297 mg/dL (75-99)
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
--- NOTE | 2017-12-24 20:44 | PN ---
PROGRESS NOTE DATE OF SERVICE: 12/24/2017 PRESENT COMPLAINT: Swelling in the legs. INTERVAL HISTORY: The patient is seen by me this afternoon. The patient does report feeling down. informed her that he is going to divorce her. The patient is wearing a stocking. Otherwise, she has been tolerating a diet, did take her medications. REVIEW OF SYSTEMS: Done for constitutional, cardiovascular, GI, pulmonary and findings as above. CURRENT MEDICATIONS: Reviewed. EXAMINATION: Temperature 97.6, pulse 88, respirations 18, blood pressure 101/64. GENERAL APPEARANCE: Sitting up, comfortable. EYES: Pupils equal. Conjunctivae normal. HEENT: External nose and ears normal. Oral cavity: Poor dentition. NECK: JVD not raised. Mass not palpable. RESPIRATORY: Effort normal. Lungs are clear. CARDIOVASCULAR: First and second sounds normal. No edema. ABDOMEN: Soft. Liver and spleen not palpable. PSYCHIATRY: Alert and oriented x3. Mood and affect normal. Some edema is present. Stocking in place. INVESTIGATIONS: Accu-Cheks 331, 278, 143. ASSESSMENT: 1. Major depressive disorder, recurrent, without severe psychosis. 2. Diabetes mellitus type 1, insulin-requiring, uncontrolled with both hypo- and hyperglycemia on presentation, now doing better. 3. Chronic fibromyalgia. 4. Gastroesophageal reflux disease. 5. History of neurocardiogenic syncope. 6. Questionable diagnosis of rheumatoid arthritis. 7. Chronic insomnia for medical reasons. 8. Lower extremity pitting edema. Some of it is nonpitting. PLAN: Continue current medication and treatment plan. Patient told to keep stockings on. The patient's Levemir will be increased to 32 units starting tomorrow morning. MMODL / IJN: [id number] /
[2017-12-24] MEDS: ZOLPIDEM 5 MG TAB PO PRN (22:14)
[2017-12-25 06:50] LABS: Glucose,Whole Blood 188 mg/dL (75-99)
[2017-12-25] MEDS: ACETAMINOPHEN TAB 325 MG TAB PO PRN ×2 (06:56→21:33)
[2017-12-25] MEDS: INSULIN ASPART 100 UNIT/ML 1 ML 10 ML VIAL SQ SCH ×7 (07:57→20:25)
[2017-12-25] MEDS: PANTOPRAZOLE 40 MG TABLET PO SCH (08:46)
[2017-12-25] MEDS: NAPROXEN 250 MG TAB PO SCH ×2 (08:46→21:47)
[2017-12-25] MEDS: DULoxetine HCL 20 MG CAPSULE.DR PO SCH (08:46)
[2017-12-25] MEDS: METHYLPHENIDATE HCL 10 MG TAB PO SCH ×2 (08:46→13:17)
[2017-12-25] MEDS: DESVENLAFAXINE SUCCINATE 50 MG TAB.ER.24H PO SCH (08:46)
[2017-12-25] MEDS: INSULIN DETEMIR 100 UNIT/ML 10 ML VIAL SQ SCH (08:48)
[2017-12-25 12:36] LABS: Glucose,Whole Blood 261 mg/dL (75-99)
[2017-12-25 13:31] VITALS: BMI 24.3
[2017-12-25 17:52] LABS: Glucose,Whole Blood 109 mg/dL (75-99)
--- NOTE | 2017-12-25 18:18 | P.PN ---
Progress Note - Text Progress Note Date: 12/25/17 IDENTIFICATION DATA 42-year-old woman with history of MDD, PTSD AND ADHD was admitted through emergency room due to suicidal ideation. INTERVAL HISTORY: She reports to have slept the best yesterday. She states her current medication regimen is working well for her and claims she has been able to think clearly and does not want to be taken off of her pristiq. She reports good appetite. She states she is currently focused on finding a place to live. She is hoping that social media assistant here can get her into a low income/affordable place/apartment like [facility] or any other safe place which is affordable. MENTAL STATUS EXAMINATION: Patient is 42 year old woman. Today she was seen ambulating with a walker rather than a wheel chair. She reports having severe arthritis and uses walker to help her. She appeared in fair grooming and hygiene. Her speech and thought process are goal directed. Her mood is reported as being better and affect appropriate. She denies auditory or visual hallucinations. She denies paranoia. she is alert and oriented X 4. Denies current suicidal or homicidal ideations. Insight and judgment are improving. ASSESSMENT AND PLAN: Continue current treatment.
[2017-12-25 20:10] LABS: Glucose,Whole Blood 117 mg/dL (75-99)
[2017-12-25] MEDS: ZOLPIDEM 5 MG TAB PO PRN (21:47)
[2017-12-26 06:11] LABS: Glucose,Whole Blood 150 mg/dL (75-99)
[2017-12-26] MEDS: PANTOPRAZOLE 40 MG TABLET PO SCH (07:49)
[2017-12-26] MEDS: INSULIN ASPART 100 UNIT/ML 1 ML 10 ML VIAL SQ SCH ×7 (07:49→20:11)
[2017-12-26] MEDS: METHYLPHENIDATE HCL 10 MG TAB PO SCH ×2 (08:34→12:50)
[2017-12-26] MEDS: DESVENLAFAXINE SUCCINATE 50 MG TAB.ER.24H PO SCH (08:34)
[2017-12-26] MEDS: NAPROXEN 250 MG TAB PO SCH ×2 (08:35→21:46)
[2017-12-26] MEDS: DULoxetine HCL 20 MG CAPSULE.DR PO SCH (08:36)
[2017-12-26] MEDS: ACETAMINOPHEN TAB 325 MG TAB PO PRN ×2 (08:37→22:37)
[2017-12-26] MEDS: INSULIN DETEMIR 100 UNIT/ML 10 ML VIAL SQ SCH (09:08)
--- NOTE | 2017-12-26 09:11 | P.PN ---
Progress Note - Text Interval history: The patient is found in the hallway she follows me to an interview room. She reports that she is relieved that her and her both want a divorce. She states that she will need to find her own apartment. She is making arrangements with family and friends as to where she may stay temporarily and getting her belongings. We discussed her current psychotropic medications she reports that she feels she can tolerate the medication change as planned. She is attending groups she is experiencing some edema of her lower extremities which she believes is due to rheumatoid arthritis. Mental status exam: The patient is seated in a wheelchair. Hygiene and grooming have improved. Eye contact is appropriate speech is fluent spontaneous nonpressured. She reports her mood is still depressed she has some hopeless thinking but feels safe in the hospital. She reports no homicidal ideation intent or plan. She is endorsing no auditory or visual hallucinations or any specific delusions. She demonstrates no abnormal involuntary movements. No verbal or physical aggressiveness. She does not appear to be psychotic hypomanic or manic. She maintains a bland affect during the interview. Plan: The patient will continue on her current medication however I will discontinue the Pristiq and we will increase the Cymbalta to 60 mg daily starting tomorrow. Vital signs reviewed. Her blood sugars have improved since time of admission. We will continue to monitor for safety and encourage full participation in the milieu.
[2017-12-26 13:00] LABS: Glucose,Whole Blood 179 mg/dL (75-99)
[2017-12-26 14:57] LABS: Appearance,Urine Clear (Clear); Bilirubin,Urine Negative (Negative); Blood,Urine Negative (Negative); Color,Urine Colorless; Glucose,Urine (UA) Negative (Negative); Ketones,Urine Negative (Negative); Leukocyte Esterase,Urine Negative (Negative); Nitrite,Urine Negative (Negative); PH, Urine 6.5 (5.0-8.0); Protein,Urine Negative (Negative); Specific Gravity,Urine 1.003 (1.001-1.035); Urobilinogen,Urine <2.0 mg/dL (<2.0)
[2017-12-26 17:21] LABS: Glucose,Whole Blood 123 mg/dL (75-99)
[2017-12-26 20:05] LABS: Glucose,Whole Blood 97 mg/dL (75-99)
[2017-12-26] MEDS: ZOLPIDEM 5 MG TAB PO PRN (21:45)
[2017-12-27 06:26] LABS: Glucose,Whole Blood 225 mg/dL (75-99)
[2017-12-27] MEDS: ACETAMINOPHEN TAB 325 MG TAB PO PRN ×2 (07:06→22:01)
[2017-12-27] MEDS: NAPROXEN 250 MG TAB PO SCH ×2 (08:14→21:59)
[2017-12-27] MEDS: PANTOPRAZOLE 40 MG TABLET PO SCH (08:15)
[2017-12-27] MEDS: METHYLPHENIDATE HCL 10 MG TAB PO SCH ×2 (08:15→13:58)
[2017-12-27] MEDS: DULoxetine HCL 60 MG CAPSULE.DR PO SCH (08:15)
[2017-12-27] MEDS: INSULIN ASPART 100 UNIT/ML 1 ML 10 ML VIAL SQ SCH ×7 (08:16→21:03)
[2017-12-27] MEDS: INSULIN DETEMIR 100 UNIT/ML 10 ML VIAL SQ SCH (08:20)
--- NOTE | 2017-12-27 11:22 | P.PN ---
Progress Note - Text Interval history: The patient is found in her room she follows me to self lounge to speak. She indicates continued feelings of frustration regarding her marriage. She states her is trying to convince her to undergo a trial separation rather than proceed right to divorce. She states that they have a significant amount of marital that that he would like to settle prior to a divorce. She indicates she slept last night appetite stable. She has been participating in groups. She continues to contemplate different placement options once discharged from the mental health unit as she states she does not wish to return residing with her . Mental status exam: The patient is a female appearing older than her stated age. She is thinning hair dentition is poor. She is wearing her eyeglasses. She seated in a wheelchair. Her feet are edematous more so on the left which she feels is due to her rheumatoid arthritis. She reports that her mood is frustrated depressed. She reports feeling safe in the hospital. She endorses no homicidal ideation. She endorses no auditory or visual hallucinations or any specific delusions. She demonstrates no verbal or physical aggressiveness. Affect is constricted. Plan: The patient's will continue on her current medication. We will monitor her for safety. She is instructed to continue calling friends to see where she may stay upon discharge. She is advised to contact the housing office to get information about subsidized housing. Vital signs reviewed. We will continue to monitor her for safety and encourage full participation in the milieu.
[2017-12-27 12:38] LABS: Glucose,Whole Blood 276 mg/dL (75-99)
[2017-12-27] MEDS ORDERED: INSULIN ASPART 100 UNIT/ML 1 ML 10 ML VIAL SQ SCH (17:30)
[2017-12-27 17:54] LABS: Glucose,Whole Blood 76 mg/dL (75-99)
[2017-12-27 20:21] LABS: Glucose,Whole Blood 189 mg/dL (75-99)
[2017-12-27] MEDS: ZOLPIDEM 5 MG TAB PO PRN (22:01)
[2017-12-28 06:59] LABS: Glucose,Whole Blood 305 mg/dL (75-99)
[2017-12-28] MEDS: ACETAMINOPHEN TAB 325 MG TAB PO PRN ×2 (07:40→23:34)
[2017-12-28] MEDS: PANTOPRAZOLE 40 MG TABLET PO SCH (07:40)
[2017-12-28] MEDS: INSULIN ASPART 100 UNIT/ML 1 ML 10 ML VIAL SQ SCH ×7 (07:49→20:51)
[2017-12-28] MEDS: INSULIN DETEMIR 100 UNIT/ML 10 ML VIAL SQ SCH (08:39)
[2017-12-28] MEDS: NAPROXEN 250 MG TAB PO SCH ×2 (09:12→21:58)
[2017-12-28] MEDS: DULoxetine HCL 60 MG CAPSULE.DR PO SCH (09:13)
[2017-12-28] MEDS: METHYLPHENIDATE HCL 10 MG TAB PO SCH ×2 (09:13→12:51)
--- NOTE | 2017-12-28 09:22 | P.PN ---
Progress Note - Text Interval history: The patient is found in group she follows me to an interview room. She reports that her mood is beginning to improve. Sleep and appetite are stabilizing. She has been participating in groups regularly. She has been in contact with a friend of hers and they are agreeable to having the patient stay with them temporarily. The patient met with social work and she was given resources in terms of subsidized housing options. She continues to speak with her via phone and states that they now plan to separate for a year and then . Mental status exam: The patient is a frail-appearing female appearing older than her stated age. She continues to use a wheelchair for mobility. She reports that she is having less hopeless thinking. She reports feeling safe here in the hospital she is reporting no homicidal ideation. She denies having any auditory or visual hallucinations or specific delusions. There is no evidence of psychosis no evidence of hypomania or may. Insight and judgment improving. Affect is demonstrating appropriate range. Plan: The patient will continue on her current psychotropic medication. It appears that she is beginning to stabilize. We will consider discharging her in the next 1-2 days. Social work will arrange a support meeting. We will continue to monitor her for safety and encourage her continued participation in the milieu.
[2017-12-28 12:26] LABS: Glucose,Whole Blood 225 mg/dL (75-99)
[2017-12-28 15:35] LABS: Glucose,Whole Blood 74 mg/dL (75-99)
[2017-12-28 15:54] LABS: Glucose,Whole Blood 78 mg/dL (75-99)
[2017-12-28 17:09] LABS: Glucose,Whole Blood 94 mg/dL (75-99)
[2017-12-28 20:25] LABS: Glucose,Whole Blood 202 mg/dL (75-99)
[2017-12-28] MEDS: ZOLPIDEM 5 MG TAB PO PRN (22:00)
[2017-12-29] MEDS: ACETAMINOPHEN TAB 325 MG TAB PO PRN (06:34)
[2017-12-29 06:35] LABS: Glucose,Whole Blood 165 mg/dL (75-99)
[2017-12-29 06:53] VITALS: BP 124/69; PULSE 69; RESP 16; TEMP 98
[2017-12-29] MEDS: INSULIN ASPART 100 UNIT/ML 1 ML 10 ML VIAL SQ SCH ×4 (08:05→13:01)
[2017-12-29] MEDS: PANTOPRAZOLE 40 MG TABLET PO SCH (08:45)
[2017-12-29] MEDS: INSULIN DETEMIR 100 UNIT/ML 10 ML VIAL SQ SCH (08:45)
[2017-12-29] MEDS: DULoxetine HCL 60 MG CAPSULE.DR PO SCH (08:45)
[2017-12-29] MEDS: METHYLPHENIDATE HCL 10 MG TAB PO SCH ×2 (08:46→13:04)
[2017-12-29] MEDS: NAPROXEN 250 MG TAB PO SCH (08:47)
--- NOTE | 2017-12-29 11:04 | P.DS ---
Providers Date of admission: 12/22/17 06:13 Expected date of discharge: 12/29/17 Attending physician: Kyaw Donahue Consults: 12/22/17 06:22 Consult Physician Routine Consulting Provider: Ashvin Bundy Consult Reason/Comments: Medical management/pitting edema to bilateral feet Do you want consulting provider notified?: Yes 12/23/17 17:45 Consult Physician Routine Consulting Provider: Ashvin Bundy Consult Reason/Comments: Pt's left leg and foot swollen (edema). per pt on water pill in the past Do you want consulting provider notified?: Yes Primary care physician: Kevin Ruiz - Bhaskar Diagnosis(es) (1) Major depressive disorder, recurrent severe without psychotic features Current Visit: Yes Status: Acute Priority: High (2) Chronic post-traumatic stress disorder (PTSD) Current Visit: Yes Status: Acute Priority: Medium (3) ADHD, predominantly inattentive type Current Visit: Yes Status: Acute Priority: Medium Hospital Course: Brief summary of admission note: This patient is a 42-year-old female who was admitted to the mental health unit through the emergency room with suicidal ideation. The patient is known to my outpatient practice since 2008. She has an established diagnosis of major depressive disorder social phobia chronic PTSD and ADHD. She presented feeling overwhelmed after recent verbal altercation with her . She felt she was reexperiencing prior symptoms of PTSD. She had hopelessness thinking and suicidal ideation. For full details please refer to my psychiatric evaluation dated 12/22/2017. Summary of hospital course: The patient was admitted to the mental health unit she did sign in voluntarily. We reviewed her presenting symptoms and treatment options. We decided that we would transition her off of Pristiq and initiate Cymbalta as it may help with symptoms of depression and anxiety and physical pain. She was seen by internal medicine for routine history and physical exam. The patient attended groups and demonstrated no agitated behavior. She reported a progressive improvement of symptoms while here on the mental health unit. During her stay she decided that she wanted to separate from her and he has been agreeable per her report. She has made arrangements to stay with a friend until she is able to secure her own housing. She has reported a complete resolution of any suicidal ideation. Mental status exam: The patient is a female appearing older than her stated age. Her hair is thinning she is wearing eyeglasses dentition is poor. She does have edema of her feet bilaterally presumably due to rheumatoid arthritis pathology. She is seated in a wheelchair but is able to ambulate. She reports her mood is hopeful she states that she is no longer experiencing any hopelessness thinking or any suicidal ideation intent or plan. She is reporting no homicidal ideation intent or plan. She is reporting no auditory or visual hallucinations or any specific delusions and there is no observed evidence of psychosis. She does not appear hypomanic or manic. She remains oriented to person place and date. She demonstrates no verbal or physical aggressiveness. Affect is appropriately expresses. Impressions 1. Major depressive disorder recurrent severe without psychosis, Rodick history of post manic stress disorder, ADHD inattentive type II. Medical Trevizo include rheumatoid arthritis, diabetes and GERD 3. Stressors include marital dissatisfaction with potential separation from Plan: The patient will be discharged mental health unit today. She plans on residing with a friend upon discharge. She will continue on Cymbalta 60 mg daily and Ritalin 20 mg twice daily. She will follow up with her primary care physician as scheduled. She will follow-up with me in the outpatient clinic for ongoing psychiatric medication management. She is encouraged to meet with her individual therapist. There is no imminent safety risk she is appropriate for transition to outpatient care. She is instructed to return to the hospital with any acute safety concerns. Patient Condition at Discharge: Stable Plan - Discharge Summary Discharge Rx Participant: No New Discharge Prescriptions: New DULoxetine HCL [Cymbalta] 60 mg PO DAILY #30 capsule. Insulin Aspart [NovoLOG (formulary)] 5 unit SQ AC-TID #2 vial Continue Acetaminophen [Tylenol Arthritis] 1,300 mg PO DAILY PRN PRN Reason: Pain Insulin Glargine [Lantus] 32 unit SQ DAILY #3 vial Methylphenidate HCl [Ritalin] 20 mg PO BID #60 tablet Omeprazole [PriLOSEC] 20 mg PO BID #60 capsule. Discontinued Desvenlafaxine Succinate [Pristiq] 100 mg PO DAILY Insulin Aspart [NovoLOG (formulary)] See Protocol SQ ACHS #1 vial Insulin Aspart [NovoLOG (formulary)] 7 unit SQ AC-TID Discharge Medication List Acetaminophen [Tylenol Arthritis] 1,300 mg PO DAILY PRN 12/22/17 [History] DULoxetine HCL [Cymbalta] 60 mg PO DAILY #30 capsule. 12/29/17 [Rx] Insulin Aspart [NovoLOG (formulary)] 5 unit SQ AC-TID #2 vial 12/29/17 [Rx] Insulin Glargine [Lantus] 32 unit SQ DAILY #3 vial 12/29/17 [Rx] Methylphenidate HCl [Ritalin] 20 mg PO BID #60 tablet 12/29/17 [Rx] Omeprazole [PriLOSEC] 20 mg PO BID #60 capsule. 12/29/17 [Rx] Follow up Appointment(s)/Referral(s): Kevin Ruiz DO [Primary Care Provider] - 1 Week Kyaw Donahue DO [Medical Doctor] - 01/04/18 4:00 pm (Dr. Donahue )
[2017-12-29 12:39] LABS: Glucose,Whole Blood 180 mg/dL (75-99)
== END 2017-12-29 13:44 | disposition home or self-care (01) | DRG 885 ==
LOC: EC 01:06 → 3MHU 06:13
PROVIDERS: ADMIT Psychiatry & Neurology Psychiatry; ATTEND Psychiatry & Neurology Psychiatry
DX: F33.2 Major depressive disorder, recurrent severe without psychotic features (principal); R45.851 Suicidal ideations; B00.1 Herpesviral vesicular dermatitis; E10.649 Type 1 diabetes mellitus with hypoglycemia without coma; E10.65 Type 1 diabetes mellitus with hyperglycemia; F34.1 Dysthymic disorder; F40.10 Social phobia, unspecified; F43.12 Post-traumatic stress disorder, chronic; F51.04 Psychophysiologic insomnia; F90.0 Attention-deficit hyperactivity disorder, predominantly inattentive type; G89.29 Other chronic pain; K21.9 Gastro-esophageal reflux disease without esophagitis; M06.9 Rheumatoid arthritis, unspecified; M79.7 Fibromyalgia; Z79.4 Long term (current) use of insulin; Z81.8 Family history of other mental and behavioral disorders; Z82.5 Family history of asthma and other chronic lower respiratory diseases; Z91.410 Personal history of adult physical and sexual abuse; Z98.51 Tubal ligation status; Z79.899 Other long term (current) drug therapy; Z88.8 Allergy status to other drugs, medicaments and biological substances; Z91.048 Other nonmedicinal substance allergy status
CPT/HCPCS: 36415; 80048; 80306; 81003; 81025; 82075; 83036; 84443; 85025

== ENCOUNTER 2018-05-21 13:16 | Emergency (ER) | payer MEDICARE, OTHER ==
[2018-05-21 13:39] VITALS: RESP 16; TEMP 98.1
[2018-05-21] MEDS ORDERED: KETOROLAC 30 MG/ML 1 ML VIAL IM STA (14:20)
--- NOTE | 2018-05-21 14:30 | ED ---
General Adult HPI - General Chief complaint: Extremity Injury, Upper Stated complaint: Shoulder pain Time Seen by Provider: 05/21/18 14:02 Source: patient, RN notes reviewed Mode of arrival: ambulatory Limitations: no limitations - History of Present Illness Initial comments: 43-year-old female with a PMH of IDDM, rheumatoid arthritis, fibromyalgia presents to the emergency department for a chief complaint of left shoulder pain. Patient states this pain has been ongoing for 2 weeks. Patient states this pain started after she was lifting a toddler helping her friend out for a few days. Patient states the pain is worsened with movement of the left shoulder. She states it feels better when she does not move the left shoulder. She states the pain is mostly in the upper scapular area. She denies fevers or chills. Patient has no other complaints at this time including shortness of breath, chest pain, abdominal pain, nausea or vomiting, headache, or visual changes. - Related Data Home Medications Medication Instructions Recorded Confirmed Acetaminophen [Tylenol Arthritis] 1,300 mg PO DAILY PRN 12/22/17 05/21/18 Simvastatin 5 mg PO DAILY 05/18/18 05/21/18 Previous Rx's Medication Instructions Recorded DULoxetine HCL [Cymbalta] 60 mg PO DAILY #30 capsule. 12/29/17 Insulin Aspart [NovoLOG 5 unit SQ AC-TID #2 vial 12/29/17 (formulary)] Insulin Glargine [Lantus] 32 unit SQ DAILY #3 vial 12/29/17 Methylphenidate HCl [Ritalin] 20 mg PO BID #60 tablet 12/29/17 Omeprazole [PriLOSEC] 20 mg PO BID #60 capsule. 12/29/17 Allergies Allergy/AdvReac Type Severity Reaction Status Date / Time paroxetine HCl [From Paxil] Allergy Rash/Hives Verified 05/21/18 13:39 sertraline HCl [From Zoloft] Allergy Rash/Hives Verified 05/21/18 13:39 Review of Systems ROS Statement: Those systems with pertinent positive or pertinent negative responses have been documented in the HPI. ROS Other: All systems not noted in ROS Statement are negative. Past Medical History Past Medical History: Chest Pain / Angina, CVA/TIA, Diabetes Mellitus, Fibromyalgia, GERD/Reflux, Rheumatoid Arthritis (RA), Syncope Additional Past Medical History / Comment(s): IDDM type I, DKA, 03/08/17 TIA. rheumatoid arthritis multiple sites, "neurocardiogenic syncope"-causes sudden drop in blood pressure and pt has syncope-has not happened in a long time, multiple lipomas. History of Any Multi-Drug Resistant Organisms: None Reported Past Surgical History: Breast Surgery, Tubal Ligation, Uterine Ablation Additional Past Surgical History / Comment(s): Tilt table test, LEFT BREAST BX BENIGN, L thigh lipoma removal. Past Anesthesia/Blood Transfusion Reactions: No Reported Reaction Past Psychological History: ADD/ADHD, Anxiety, Depression Smoking Status: Never smoker - Past Family History Mother Family Medical History: Asthma Additional Family Medical History / Comment(s): depression, colitis Father History Unknown: Yes General Exam Limitations: no limitations General appearance: alert, in no apparent distress Head exam: Present: atraumatic, normocephalic, normal inspection Eye exam: Present: normal appearance, PERRL, EOMI. Absent: scleral icterus, conjunctival injection, periorbital swelling ENT exam: Present: normal exam, mucous membranes moist Neck exam: Present: normal inspection, full ROM. Absent: tenderness, meningismus, lymphadenopathy Respiratory exam: Present: normal lung sounds bilaterally. Absent: respiratory distress, wheezes, rales, rhonchi, stridor Cardiovascular Exam: Present: regular rate, normal rhythm, normal heart sounds. Absent: systolic murmur, diastolic murmur, rubs, gallop, clicks GI/Abdominal exam: Present: soft, normal bowel sounds. Absent: distended, tenderness, guarding, rebound, rigid Extremities exam: Present: tenderness (mild tenderness to supraspinatus ), normal capillary refill (cap refill <2 seconds, ), other (sensation intact in the left upper extremity. no erythema, edema, or increased warmth in the LUE). Absent: full ROM (Patient has 90 flexion and abduction of the left shoulder which induces pain.) Neurological exam: Present: alert, oriented X3, CN II-XII intact Psychiatric exam: Present: normal affect, normal mood Skin exam: Present: warm, dry, intact, normal color. Absent: rash Course Vital Signs 05/21/18 13:36 Temperature 98.1 F Pulse Rate 110 H Respiratory 16 Rate Blood Pressure 146/95 O2 Sat by Pulse 96 Oximetry Medical Decision Making - Medical Decision Making Patient presents for left shoulder pain. Neurovascular intact. Pain worsened with movement. X-ray shows impingements due to distal acromion downturn. There is also some calcification at the level of insertion of the rotator cuff tendon. Positive Lange sign positive empty can test. Clinically correlated with impingement. Patient will be given a sling and discussed range of motion exercises to prevent frozen shoulder. Discussed following up with orthopedics in one to 2 days. Disposition Clinical Impression: Shoulder impingement syndrome, Shoulder pain Disposition: HOME SELF-CARE Condition: Good Instructions (If sedation given, give patient instructions): Shoulder Pain (ED) Additional Instructions: Please use sling as needed. Please do shoulder exercises to prevent frozen shoulder. Follow-up with orthopedics in one to 2 days. Otherwise take Motrin and Tylenol for pain and return here if you have worsening symptoms. Is patient prescribed a controlled substance at d/c from ED?: No Referrals: Kevin Ruiz DO [Primary Care Provider] - 1-2 days Bjorn Morse DO [Medical Doctor] - 1-2 days Time of Disposition: 15:03
--- NOTE | 2018-05-21 14:52 | XR ---
Left shoulder HISTORY: Pain 3 views of the left shoulder Bone mineralization, joint spaces and alignment are maintained. Distal acromion is downturned. Left l roseanna apex as visualized is normal. Question some calcification at the level of insertion of the rotato r cuff tendon. IMPRESSION: Correlate for impingement, there may be calcific tendinitis of the rotator cuff.
--- NOTE | 2018-05-21 14:54 | XR ---
EXAMINATION TYPE: XR chest 2V DATE OF EXAM: 05/21/2018 COMPARISON: Prior chest x-ray 10/01/2017 HISTORY: Shoulder pain TECHNIQUE: Frontal and lateral views of the chest are obtained. FINDINGS: There is no focal air space opacity, pleural effusion, or pneumothorax seen. The cardiac silhouette size is within normal limits. The osseous structures are intact. Distal acromion is down turned. IMPRESSION: No acute cardiopulmonary process.
[2018-05-21 15:21] VITALS: BP 140/80; PULSE 98
== END 2018-05-21 15:15 | disposition home or self-care (01) ==
LOC: EC 13:16
DX: M75.42 Impingement syndrome of left shoulder (principal); M65.812 Other synovitis and tenosynovitis, left shoulder; Z86.73 Personal history of transient ischemic attack (TIA), and cerebral infarction without residual deficits; Z87.39 Personal history of other diseases of the musculoskeletal system and connective tissue; Z79.899 Other long term (current) drug therapy; Z88.8 Allergy status to other drugs, medicaments and biological substances; X50.0XXA Overexertion from strenuous movement or load, initial encounter
CPT/HCPCS: 73030; 71046; 99283; 96372; J1885

== ENCOUNTER 2018-06-15 14:34 | Inpatient (IN) | payer MEDICARE, OTHER ==
[2018-06-15] MEDS ORDERED: ONDANSETRON 4 MG/2 ML VIAL IVP STA (15:19)
[2018-06-15] MEDS ORDERED: SODIUM CHLORIDE 0.9% 2,000 ML IV STA (15:19)
[2018-06-15 16:55] LABS: Anisocytosis Slight; Basophils % (A) 0 %; Eosinophils # (A) 0.1 k/uL (0-0.7); Eosinophils % (A) 2 %; Lymphocytes # (A) 2.6 k/uL (1.0-4.8); Lymphocytes % (A) 31 %; MCH 25.8 pg (25.0-35.0); MCHC 33.3 g/dL (31.0-37.0); MCV 77.7 fL (80.0-100.0); Mean Platelet Volume 6.9; Microcytosis Slight; Monocytes # (A) 0.5 k/uL (0-1.0); Monocytes % (A) 6 %; Neutrophils % (A) 59 %; RBC 5.79 m/uL (3.80-5.40); RDW 16.7 % (11.5-15.5); WBC 8.5 k/uL (3.8-10.6)
--- NOTE | 2018-06-15 17:00 | ED ---
General Adult HPI - General Chief complaint: Recheck/Abnormal Lab/Rx Stated complaint: DKA, weakness Time Seen by Provider: 06/15/18 15:03 Source: patient, RN notes reviewed Mode of arrival: wheelchair Limitations: no limitations - History of Present Illness Initial comments: 43-year-old female presents to the emergency department for a chief complaint of possible DKA. Patient states she has felt this before as a type I diabetic. She states that about 5 days ago she started to feel weak and has been vomiting since then. She states her blood sugars have been running in the 300s. She states she thought she could manage it on her own at home but she states she seems to be getting worse. She states her primary care told her to come into the hospital. Patient denies significant abdominal pain. Patient does admit to feeling dehydrated. Patient states she took 32 units of levemir and 30 novolog this morning and has not eaten anything since. Patient has no other complaints at this time including shortness of breath, chest pain, abdominal pain, headache, or visual changes. - Related Data Home Medications Medication Instructions Recorded Confirmed Simvastatin 5 mg PO DAILY 05/18/18 06/15/18 INSULIN ASPART (NovoLOG) [NovoLOG 30 unit SQ AC-BRKFST 06/15/18 06/15/18 (formulary)] Insulin Aspart [NovoLOG] See Protocol SQ AC-BID 06/15/18 06/15/18 Insulin Detemir (Levemir) [Levemir] 32 unit SQ DAILY 06/15/18 06/15/18 Omeprazole [PriLOSEC] 20 mg PO DAILY 06/15/18 06/15/18 Orencia(Unknown Dose) 1 dose IV Q28D 06/15/18 06/15/18 Previous Rx's Medication Instructions Recorded DULoxetine HCL [Cymbalta] 60 mg PO DAILY #30 capsule. 12/29/17 Methylphenidate HCl [Ritalin] 20 mg PO BID #60 tablet 12/29/17 Allergies Allergy/AdvReac Type Severity Reaction Status Date / Time paroxetine HCl [From Paxil] Allergy Rash/Hives Verified 06/15/18 15:33 sertraline HCl [From Zoloft] Allergy Rash/Hives Verified 06/15/18 15:33 Review of Systems ROS Statement: Those systems with pertinent positive or pertinent negative responses have been documented in the HPI. ROS Other: All systems not noted in ROS Statement are negative. Past Medical History Past Medical History: Chest Pain / Angina, CVA/TIA, Diabetes Mellitus, Fibromyalgia, GERD/Reflux, Rheumatoid Arthritis (RA), Syncope Additional Past Medical History / Comment(s): IDDM type I, DKA, 03/08/17 TIA. rheumatoid arthritis multiple sites, "neurocardiogenic syncope"-causes sudden drop in blood pressure and pt has syncope-has not happened in a long time, multiple lipomas. History of Any Multi-Drug Resistant Organisms: None Reported Past Surgical History: Breast Surgery, Tubal Ligation, Uterine Ablation Additional Past Surgical History / Comment(s): Tilt table test, LEFT BREAST BX BENIGN, L thigh lipoma removal. Past Anesthesia/Blood Transfusion Reactions: No Reported Reaction Past Psychological History: ADD/ADHD, Anxiety, Depression Smoking Status: Never smoker Past Alcohol Use History: Rare Past Drug Use History: None Reported - Past Family History Mother Family Medical History: Asthma Additional Family Medical History / Comment(s): depression, colitis Father History Unknown: Yes General Exam Limitations: no limitations General appearance: alert, in no apparent distress Head exam: Present: atraumatic, normocephalic, normal inspection Eye exam: Present: normal appearance, PERRL, EOMI. Absent: scleral icterus, conjunctival injection, periorbital swelling ENT exam: Present: normal exam, mucous membranes moist Neck exam: Present: normal inspection, full ROM. Absent: tenderness, meningismus, lymphadenopathy Respiratory exam: Present: normal lung sounds bilaterally. Absent: respiratory distress, wheezes, rales, rhonchi, stridor Cardiovascular Exam: Present: regular rate, normal rhythm, normal heart sounds. Absent: systolic murmur, diastolic murmur, rubs, gallop, clicks GI/Abdominal exam: Present: soft, normal bowel sounds. Absent: distended, tenderness, guarding, rebound, rigid Neurological exam: Present: alert, oriented X3, CN II-XII intact Psychiatric exam: Present: normal affect, normal mood Course Vital Signs 06/15/18 06/15/18 14:47 16:11 Temperature 98.7 F Pulse Rate 105 H Respiratory 20 Rate Blood Pressure 126/89 O2 Sat by Pulse 97 Oximetry - Reevaluation(s) Reevaluation #1: 06/15/18 16:59 lab had to collect blood Medical Decision Making - Medical Decision Making 43-year-old female presents to the emergency department for a chief complaint of possible DKA. Patient has had nausea and vomiting for the past 5 days. CBC unremarkable although hemoglobin is elevated to 15. CMP shows a BUN of 21. Patient given 2 L of fluids. Glucose is actually low at 56. Patient took 32 units of Levemir and 30 units of NovoLog this morning and has not eaten since. However she does state that because has been running in the high 300s this week. Patient was given food which did increase glucose to 104. Anion gap 13. Patient does have 2+ ketones in the urine as well as positive acetone. Patient will be admitted to Dr. castillo with sliding scale. - Lab Data Result diagrams: 06/15/18 15:19 06/15/18 15:30 Lab Results 06/15/18 06/15/18 06/15/18 Range/Units 15:19 15:30 17:20 WBC 8.5 (3.8-10.6) k/uL RBC 5.79 H (3.80-5.40) m/uL Hgb 15.0 D (11.4-16.0) gm/dL Hct 45.0 (34.0-46.0) % MCV 77.7 L (80.0-100.0) fL MCH 25.8 (25.0-35.0) pg MCHC 33.3 (31.0-37.0) g/dL RDW 16.7 H (11.5-15.5) % Plt Count 360 (150-450) k/uL Neutrophils % 59 % Lymphocytes % 31 % Monocytes % 6 % Eosinophils % 2 % Basophils % 0 % Neutrophils # 5.0 (1.3-7.7) k/uL Lymphocytes # 2.6 (1.0-4.8) k/uL Monocytes # 0.5 (0-1.0) k/uL Eosinophils # 0.1 (0-0.7) k/uL Basophils # 0.0 (0-0.2) k/uL Manual Slide Review Performed Toxic Vacuolation Present Large Platelets Present Anisocytosis Slight Microcytosis Slight Sodium 135 L (137-145) mmol/L Potassium 4.8 (3.5-5.1) mmol/L Chloride 100 (98-107) mmol/L Carbon Dioxide 22 (22-30) mmol/L Anion Gap 13 mmol/L BUN 21 H (7-17) mg/dL Creatinine 0.36 L (0.52-1.04) mg/dL Est GFR (CKD-EPI)AfAm >90 (>60 ml/min/1.73 sqM) Est GFR (CKD-EPI)NonAf >90 (>60 ml/min/1.73 sqM) Glucose 56 L (74-99) mg/dL POC Glucose (mg/dL) (75-99) mg/dL POC Glu Sales Representative [employer] Courses ID Calcium 10.3 H (8.4-10.2) mg/dL Total Bilirubin 0.8 (0.2-1.3) mg/dL AST 26 (14-36) U/L ALT 26 (9-52) U/L Alkaline Phosphatase 191 H (38-126) U/L Total Protein 7.4 (6.3-8.2) g/dL Albumin 4.0 (3.5-5.0) g/dL Amylase 31 (30-110) U/L Lipase 64 (23-300) U/L Urine Color Urine Appearance (Clear) Urine pH (5.0-8.0) Ur Specific [place] (1.001-1.035) Urine Protein (Negative) Urine Glucose (UA) (Negative) Urine Ketones (Negative) Urine Blood (Negative) Urine Nitrite (Negative) Urine Bilirubin (Negative) Urine Urobilinogen (<2.0) mg/dL Ur Leukocyte Esterase (Negative) Urine RBC (0-5) /hpf Urine WBC (0-5) /hpf Ur Squamous Epith Cells (0-4) /hpf Urine Bacteria (None) /hpf Urine Mucus (None) /hpf Urine HCG, Qual Not Detected (Not Detectd) Acetone, Qual Positive (Negative) 06/15/18 06/15/18 06/15/18 Range/Units 17:20 17:57 18:19 WBC (3.8-10.6) k/uL RBC (3.80-5.40) m/uL Hgb (11.4-16.0) gm/dL Hct (34.0-46.0) % MCV (80.0-100.0) fL MCH (25.0-35.0) pg MCHC (31.0-37.0) g/dL RDW (11.5-15.5) % Plt Count (150-450) k/uL Neutrophils % % Lymphocytes % % Monocytes % % Eosinophils % % Basophils % % Neutrophils # (1.3-7.7) k/uL Lymphocytes # (1.0-4.8) k/uL Monocytes # (0-1.0) k/uL Eosinophils # (0-0.7) k/uL Basophils # (0-0.2) k/uL Manual Slide Review Toxic Vacuolation Large Platelets Anisocytosis Microcytosis Sodium (137-145) mmol/L Potassium (3.5-5.1) mmol/L Chloride (98-107) mmol/L Carbon Dioxide (22-30) mmol/L Anion Gap mmol/L BUN (7-17) mg/dL Creatinine (0.52-1.04) mg/dL Est GFR (CKD-EPI)AfAm (>60 ml/min/1.73 sqM) Est GFR (CKD-EPI)NonAf (>60 ml/min/1.73 sqM) Glucose (74-99) mg/dL POC Glucose (mg/dL) 49 L 58 L (75-99) mg/dL POC Glu Sales Representative Business Courses ID Petitpren, Nely Petitpren, Nely Calcium (8.4-10.2) mg/dL Total Bilirubin (0.2-1.3) mg/dL AST (14-36) U/L ALT (9-52) U/L Alkaline Phosphatase (38-126) U/L Total Protein (6.3-8.2) g/dL Albumin (3.5-5.0) g/dL Amylase (30-110) U/L Lipase (23-300) U/L Urine Color Yellow Urine Appearance Cloudy H (Clear) Urine pH 6.5 (5.0-8.0) Ur Specific [place] 1.014 (1.001-1.035) Urine Protein Trace H (Negative) Urine Glucose (UA) 3+ H (Negative) Urine Ketones 2+ H (Negative) Urine Blood Negative (Negative) Urine Nitrite Negative (Negative) Urine Bilirubin Negative (Negative) Urine Urobilinogen <2.0 (<2.0) mg/dL Ur Leukocyte Esterase Negative (Negative) Urine RBC 1 (0-5) /hpf Urine WBC 4 (0-5) /hpf Ur Squamous Epith Cells 6 H (0-4) /hpf Urine Bacteria Occasional H (None) /hpf Urine Mucus Many H (None) /hpf Urine HCG, Qual (Not Detectd) Acetone, Qual (Negative) 06/15/18 06/15/18 Range/Units 18:43 19:21 WBC (3.8-10.6) k/uL RBC (3.80-5.40) m/uL Hgb (11.4-16.0) gm/dL Hct (34.0-46.0) % MCV (80.0-100.0) fL MCH (25.0-35.0) pg MCHC (31.0-37.0) g/dL RDW (11.5-15.5) % Plt Count (150-450) k/uL Neutrophils % % Lymphocytes % % Monocytes % % Eosinophils % % Basophils % % Neutrophils # (1.3-7.7) k/uL Lymphocytes # (1.0-4.8) k/uL Monocytes # (0-1.0) k/uL Eosinophils # (0-0.7) k/uL Basophils # (0-0.2) k/uL Manual Slide Review Toxic Vacuolation Large Platelets Anisocytosis Microcytosis Sodium (137-145) mmol/L Potassium (3.5-5.1) mmol/L Chloride (98-107) mmol/L Carbon Dioxide (22-30) mmol/L Anion Gap mmol/L BUN (7-17) mg/dL Creatinine (0.52-1.04) mg/dL Est GFR (CKD-EPI)AfAm (>60 ml/min/1.73 sqM) Est GFR (CKD-EPI)NonAf (>60 ml/min/1.73 sqM) Glucose (74-99) mg/dL POC Glucose (mg/dL) 104 H 204 H (75-99) mg/dL POC Glu Sales Representative [employer] Courses ID Nely Peters Lacey Calcium (8.4-10.2) mg/dL Total Bilirubin (0.2-1.3) mg/dL AST (14-36) U/L ALT (9-52) U/L Alkaline Phosphatase (38-126) U/L Total Protein (6.3-8.2) g/dL Albumin (3.5-5.0) g/dL Amylase (30-110) U/L Lipase (23-300) U/L Urine Color Urine Appearance (Clear) Urine pH (5.0-8.0) Ur Specific [place] (1.001-1.035) Urine Protein (Negative) Urine Glucose (UA) (Negative) Urine Ketones (Negative) Urine Blood (Negative) Urine Nitrite (Negative) Urine Bilirubin (Negative) Urine Urobilinogen (<2.0) mg/dL Ur Leukocyte Esterase (Negative) Urine RBC (0-5) /hpf Urine WBC (0-5) /hpf Ur Squamous Epith Cells (0-4) /hpf Urine Bacteria (None) /hpf Urine Mucus (None) /hpf Urine HCG, Qual (Not Detectd) Acetone, Qual (Negative) Disposition Clinical Impression: DKA, type 1, Nausea and vomiting Disposition: ADMITTED IP TO THIS [facility] Condition: Fair Is patient prescribed a controlled substance at d/c from ED?: No Referrals: Kevin Ruiz DO [Primary Care Provider] - 1-2 days Time of Disposition: 20:05
[2018-06-15 17:04] LABS: Platelet Count 360 k/uL (150-450)
[2018-06-15 17:28] LABS: Large Platelets Present; Toxic Vacuolation Present
[2018-06-15 17:33] LABS: ALT 26 U/L (9-52); AST 26 U/L (14-36); Alkaline Phosphatase 191 U/L (38-126); Amylase 31 U/L (30-110); Anion Gap 13 mmol/L; Blood Urea Nitrogen 21 mg/dL (7-17); Calcium 10.3 mg/dL (8.4-10.2); Carbon Dioxide 22 mmol/L (22-30); Chloride 100 mmol/L (98-107); Glucose 56 mg/dL (74-99); Lipase 64 U/L (23-300); Potassium 4.8 mmol/L (3.5-5.1); Sodium 135 mmol/L (137-145); Total Bilirubin 0.8 mg/dL (0.2-1.3); Total Protein 7.4 g/dL (6.3-8.2)
[2018-06-15 17:58] LABS: Glucose,Whole Blood 49 mg/dL (75-99)
[2018-06-15 18:07] LABS: Appearance,Urine Cloudy (Clear); Bacteria,Urine Occasional /hpf; Bilirubin,Urine Negative (Negative); Blood,Urine Negative (Negative); Color,Urine Yellow; Glucose,Urine (UA) 3+ (Negative); Leukocyte Esterase,Urine Negative (Negative); Mucus,Urine Many /hpf; Nitrite,Urine Negative (Negative); PH, Urine 6.5 (5.0-8.0); Protein,Urine Trace (Negative); RBC,Urine 1 /hpf (0-5); Specific Gravity,Urine 1.014 (1.001-1.035); Squamous Epithelial Cell,Urine 6 /hpf (0-4); Urobilinogen,Urine <2.0 mg/dL (<2.0); WBC,Urine 4 /hpf (0-5)
[2018-06-15 18:21] LABS: Glucose,Whole Blood 58 mg/dL (75-99)
[2018-06-15 18:22] LABS: Ketones,Urine 2+ (Negative)
[2018-06-15 18:44] LABS: Glucose,Whole Blood 104 mg/dL (75-99)
[2018-06-15 19:23] LABS: Glucose,Whole Blood 204 mg/dL (75-99)
[2018-06-15] MEDS ORDERED: NALOXONE 0.4 MG/ML 1 ML VIAL IV PRN (20:05)
[2018-06-15] MEDS ORDERED: ONDANSETRON 4 MG/2 ML VIAL IVP PRN (20:05)
[2018-06-15 21:13] LABS: Glucose,Whole Blood 272 mg/dL (75-99)
[2018-06-15] MEDS: INSULIN ASPART (NovoLOG) 100 UNIT/ML VIAL SQ SCH (21:29)
[2018-06-15] MEDS: SODIUM CHLORIDE 0.9% 1,000 ML IV SCH (21:30)
[2018-06-16 00:38] LABS: Anion Gap 9 mmol/L; Blood Urea Nitrogen 21 mg/dL (7-17); Carbon Dioxide 19 mmol/L (22-30); Chloride 104 mmol/L (98-107); Glucose 343 mg/dL (74-99); Phosphorus 3.4 mg/dL (2.5-4.5); Sodium 132 mmol/L (137-145)
[2018-06-16 02:19] LABS: Glucose,Whole Blood 278 mg/dL (75-99)
[2018-06-16 04:39] LABS: Anion Gap 7 mmol/L; Blood Urea Nitrogen 19 mg/dL (7-17); Carbon Dioxide 21 mmol/L (22-30); Chloride 105 mmol/L (98-107); Glucose 309 mg/dL (74-99); Phosphorus 3.8 mg/dL (2.5-4.5); Sodium 133 mmol/L (137-145)
[2018-06-16 04:42] LABS: Potassium 4.9 mmol/L (3.5-5.1)
[2018-06-16] MEDS: SODIUM CHLORIDE 0.9% 1,000 ML IV SCH ×2 (08:04→16:07)
[2018-06-16] MEDS: INSULIN ASPART (NovoLOG) 100 UNIT/ML VIAL SQ SCH ×6 (08:06→21:53)
[2018-06-16 12:02] LABS: Glucose,Whole Blood 243 mg/dL (75-99)
[2018-06-16 12:02] LABS: Glucose,Whole Blood 460 mg/dL (75-99)
[2018-06-16 12:26] LABS: Hemoglobin A1C 9.4 % (4.0-6.0)
[2018-06-16] MEDS: PANTOPRAZOLE 40 MG TABLET PO SCH (12:35)
[2018-06-16] MEDS: ATORVASTATIN 10 MG TAB PO SCH (12:35)
[2018-06-16] MEDS: DULoxetine HCL 60 MG CAPSULE.DR PO SCH (12:35)
[2018-06-16] MEDS: INSULIN DETEMIR (LEVEMIR) 100 UNIT/ML SYR SQ SCH (12:42)
[2018-06-16 13:26] VITALS: BMI 26.5
[2018-06-16 16:36] LABS: Glucose,Whole Blood 129 mg/dL (75-99)
[2018-06-16 19:51] LABS: Glucose,Whole Blood 44 mg/dL (75-99)
[2018-06-16 19:51] LABS: Glucose,Whole Blood 49 mg/dL (75-99)
[2018-06-16 20:18] LABS: Glucose,Whole Blood 42 mg/dL (75-99)
[2018-06-16 20:33] LABS: Glucose,Whole Blood 77 mg/dL (75-99)
--- NOTE | 2018-06-16 23:15 | P.HPIM ---
History of Present Illness H&P Date: 06/16/18 Chief Complaint: Nausea and vomiting Patient is a 43-year-old female with known history of diabetes type 1 insulin- dependent, rheumatoid arthritis, fibromyalgia, GERD and previous history of DKA , anxiety/depression, ADD initially presents to the hospital with nausea and vomiting and generalized weakness. Patient says that she was at her friend's house about 5 days back when she started having nausea and vomiting. She was unable to take her insulin at night, since then patient has been having increased blood sugars at home. Patient says that she tried to manage her sugars at home and she continues to have symptoms and hyperglycemia at home and felt like when she had DKA prior. Denied any fever or chills. Patient does have some abdominal pain. No diarrhea. No chest pain or shortness of breath. No cough or sputum production. No headache or dizziness or lightheadedness. Review of Systems Constitutional: Patient denies any fever or chills . Generalized weakness and fatigue. Abdomen: Patient does have nausea and vomiting and abdominal pain. Cardiovascular: Patient denies any chest pain or short of breath no palpitations. Respiratory: patient denied any cough is from production. No shortness of breath Neurologic: Patient denied any numbness or tingling headache. Musculoskeletal: Patient denies any complaints of joint swelling or deformity. Skin: Negative Psychiatric: Negative Endocrine: No heat or cold intolerance. No recent weight gain. Genitourinary: No dysuria or hematuria. All other 14 point ROS negative except the above Past Medical History Past Medical History: Chest Pain / Angina, CVA/TIA, Diabetes Mellitus, Fibromyalgia, GERD/Reflux, Rheumatoid Arthritis (RA), Syncope Additional Past Medical History / Comment(s): IDDM type I, DKA, 03/08/17 TIA. rheumatoid arthritis multiple sites, "neurocardiogenic syncope"-causes sudden drop in blood pressure and pt has syncope-has not happened in a long time, multiple lipomas. History of Any Multi-Drug Resistant Organisms: None Reported Past Surgical History: Breast Surgery, Tubal Ligation, Uterine Ablation Additional Past Surgical History / Comment(s): Tilt table test, LEFT BREAST BX BENIGN, L thigh lipoma removal. Past Anesthesia/Blood Transfusion Reactions: No Reported Reaction Past Psychological History: ADD/ADHD, Anxiety, Depression Smoking Status: Never smoker Past Alcohol Use History: Rare Past Drug Use History: None Reported - Past Family History Mother Family Medical History: Asthma Additional Family Medical History / Comment(s): depression, colitis Father History Unknown: Yes Medications and Allergies Home Medications Medication Instructions Recorded Confirmed Type DULoxetine HCL [Cymbalta] 60 mg PO DAILY #30 capsule. 12/29/17 06/15/18 Rx Methylphenidate HCl [Ritalin] 20 mg PO BID #60 tablet 12/29/17 06/15/18 Rx Simvastatin 5 mg PO DAILY 05/18/18 06/15/18 History INSULIN ASPART (NovoLOG) [NovoLOG 30 unit SQ AC-BRKFST 06/15/18 06/15/18 History (formulary)] Insulin Aspart [NovoLOG] See Protocol SQ AC-BID 06/15/18 06/15/18 History Insulin Detemir (Levemir) [Levemir] 32 unit SQ DAILY 06/15/18 06/15/18 History Omeprazole [PriLOSEC] 20 mg PO DAILY 06/15/18 06/15/18 History Orencia(Unknown Dose) 1 dose IV Q28D 06/15/18 06/15/18 History Allergies Allergy/AdvReac Type Severity Reaction Status Date / Time paroxetine HCl [From Paxil] Allergy Rash/Hives Verified 06/15/18 15:33 sertraline HCl [From Zoloft] Allergy Rash/Hives Verified 06/15/18 15:33 Physical Exam Vitals: Vital Signs Temp Pulse Pulse Resp BP BP Pulse Ox 06/16/18 08:57 113 H 17 06/16/18 08:50 98.2 F 113 H 17 142/70 06/15/18 22:30 97.9 F 106 H 16 127/82 98 06/15/18 21:23 97.6 F 104 H 16 122/77 97 06/15/18 20:56 78 16 129/78 100 06/15/18 16:11 105 H 20 126/89 97 06/15/18 14:47 98.7 F Intake and Output 06/15/18 06/16/18 06/16/18 22:59 06:59 14:59 Intake Total 1000 Balance 1000 Intake: Intake, IV Titration 1000 Amount Sodium Chloride 0.9% 1, 1000 000 ml @ 100 mls/hr IV . Q10H EZRA Rx#:[id number] Other: Voiding Method Toilet # Voids 1 1 PHYSICAL EXAMINATION: Patient is lying in the bed comfortably, no acute distress, awake alert and oriented.. HEENT: Normocephalic. Neck is supple. Pupils reactive. Nostrils clear. Oral cavity is moist. Ears reveal no drainage. Neck reveals no JVD, carotid bruits, or thyromegaly. CHEST EXAMINATION: Trachea is central. Symmetrical expansion. Lung rodrigez clear to auscultation and percussion. CARDIAC: Normal S1, S2 with no gallops. No murmurs ABDOMEN: Soft. Bowel sounds normal. No organomegaly. No abdominal bruits. Extremities: reveal no edema. No clubbing or cyanosis Neurologically awake, alert, oriented x3 with well-coordinated movements. No focal deficits noted Skin: No rash or skin lesions. Psychiatric: Coperative. Nonsuicidal Musculoskeletal: No joint swelling or deformity. Normal range of motion. Results CBC & Chem 7: 06/15/18 15:19 06/16/18 04:17 Labs: Abnormal Lab Results - Last 24 Hours (Table) 06/15/18 06/15/18 06/15/18 Range/Units 15:19 15:30 17:20 RBC 5.79 H (3.80-5.40) m/uL MCV 77.7 L (80.0-100.0) fL RDW 16.7 H (11.5-15.5) % Sodium 135 L (137-145) mmol/L Carbon Dioxide (22-30) mmol/L BUN 21 H (7-17) mg/dL Creatinine 0.36 L (0.52-1.04) mg/dL Glucose 56 L (74-99) mg/dL POC Glucose (mg/dL) (75-99) mg/dL Hemoglobin A1c (4.0-6.0) % Calcium 10.3 H (8.4-10.2) mg/dL Alkaline Phosphatase 191 H (38-126) U/L Urine Appearance Cloudy H (Clear) Urine Protein Trace H (Negative) Urine Glucose (UA) 3+ H (Negative) Urine Ketones 2+ H (Negative) Ur Squamous Epith Cells 6 H (0-4) /hpf Urine Bacteria Occasional H (None) /hpf Urine Mucus Many H (None) /hpf 06/15/18 06/15/18 06/15/18 Range/Units 17:57 18:19 18:43 RBC (3.80-5.40) m/uL MCV (80.0-100.0) fL RDW (11.5-15.5) % Sodium (137-145) mmol/L Carbon Dioxide (22-30) mmol/L BUN (7-17) mg/dL Creatinine (0.52-1.04) mg/dL Glucose (74-99) mg/dL POC Glucose (mg/dL) 49 L 58 L 104 H (75-99) mg/dL Hemoglobin A1c (4.0-6.0) % Calcium (8.4-10.2) mg/dL Alkaline Phosphatase (38-126) U/L Urine Appearance (Clear) Urine Protein (Negative) Urine Glucose (UA) (Negative) Urine Ketones (Negative) Ur Squamous Epith Cells (0-4) /hpf Urine Bacteria (None) /hpf Urine Mucus (None) /hpf 06/15/18 06/15/18 06/16/18 Range/Units 19:21 21:12 00:01 RBC (3.80-5.40) m/uL MCV (80.0-100.0) fL RDW (11.5-15.5) % Sodium (137-145) mmol/L Carbon Dioxide (22-30) mmol/L BUN (7-17) mg/dL Creatinine (0.52-1.04) mg/dL Glucose (74-99) mg/dL POC Glucose (mg/dL) 204 H 272 H (75-99) mg/dL Hemoglobin A1c 9.4 H (4.0-6.0) % Calcium (8.4-10.2) mg/dL Alkaline Phosphatase (38-126) U/L Urine Appearance (Clear) Urine Protein (Negative) Urine Glucose (UA) (Negative) Urine Ketones (Negative) Ur Squamous Epith Cells (0-4) /hpf Urine Bacteria (None) /hpf Urine Mucus (None) /hpf 06/16/18 06/16/18 06/16/18 Range/Units 00:01 02:18 04:17 RBC (3.80-5.40) m/uL MCV (80.0-100.0) fL RDW (11.5-15.5) % Sodium 132 L 133 L (137-145) mmol/L Carbon Dioxide 19 L 21 L (22-30) mmol/L BUN 21 H 19 H (7-17) mg/dL Creatinine 0.42 L (0.52-1.04) mg/dL Glucose 343 H 309 H (74-99) mg/dL POC Glucose (mg/dL) 278 H (75-99) mg/dL Hemoglobin A1c (4.0-6.0) % Calcium (8.4-10.2) mg/dL Alkaline Phosphatase (38-126) U/L Urine Appearance (Clear) Urine Protein (Negative) Urine Glucose (UA) (Negative) Urine Ketones (Negative) Ur Squamous Epith Cells (0-4) /hpf Urine Bacteria (None) /hpf Urine Mucus (None) /hpf 06/16/18 06/16/18 Range/Units 07:07 11:25 RBC (3.80-5.40) m/uL MCV (80.0-100.0) fL RDW (11.5-15.5) % Sodium (137-145) mmol/L Carbon Dioxide (22-30) mmol/L BUN (7-17) mg/dL Creatinine (0.52-1.04) mg/dL Glucose (74-99) mg/dL POC Glucose (mg/dL) 243 H 460 H (75-99) mg/dL Hemoglobin A1c (4.0-6.0) % Calcium (8.4-10.2) mg/dL Alkaline Phosphatase (38-126) U/L Urine Appearance (Clear) Urine Protein (Negative) Urine Glucose (UA) (Negative) Urine Ketones (Negative) Ur Squamous Epith Cells (0-4) /hpf Urine Bacteria (None) /hpf Urine Mucus (None) /hpf Thrombosis Risk Factor Assmnt - DVT/VTE Prophylaxis DVT/VTE Prophylaxis: Pharmacologic Prophylaxis ordered - Choose All That Apply Any of the Below Risk Factors Present?: Yes Each Factor Represents 1 point: Age 41-60 years Other Risk Factors: No Thrombosis Risk Factor Assessment Total Risk Factor Score: 1 Thrombosis Risk Factor Assessment Level: Low Risk Assessment and Plan Assessment: Acute diabetic ketoacidosis. Acetone positive Nausea vomiting and hyperglycemia Diabetes type 1 uncontrolled with hyperglycemia. H A1c 9.4 Acute kidney injury most likely prerenal History of CVA/TIA. With no residual weakness Fibromyalgia GERD Rheumatoid arthritis ADD/ ADHD Anxiety/depression DVT prophylaxis Plan: Patient was given NovoLog in the ER. Patient will be started on home dose of insulin with Levemir 32 units daily along with sliding scale. Monitor CBG. Controlled with IV fluids. Continue with home medications and follow closely. Further recommendations based on the clinical course. Time with Patient: Greater than 30
[2018-06-17 01:10] LABS: Glucose,Whole Blood 319 mg/dL (75-99)
[2018-06-17] MEDS: HEPARIN SODIUM,PORCINE 5,000 UNIT/ML 1 ML VIAL SQ SCH ×4 (01:34→23:25)
[2018-06-17] MEDS: METHYLPHENIDATE HCL 10 MG TAB PO SCH ×3 (01:35→20:58)
[2018-06-17] MEDS: SODIUM CHLORIDE 0.9% 1,000 ML IV SCH ×3 (04:45→22:13)
[2018-06-17 06:50] LABS: Glucose,Whole Blood 291 mg/dL (75-99)
[2018-06-17] MEDS: INSULIN ASPART (NovoLOG) 100 UNIT/ML VIAL SQ SCH ×7 (07:26→20:03)
[2018-06-17] MEDS: DULoxetine HCL 60 MG CAPSULE.DR PO SCH (07:26)
[2018-06-17] MEDS: ATORVASTATIN 10 MG TAB PO SCH (07:26)
[2018-06-17] MEDS: PANTOPRAZOLE 40 MG TABLET PO SCH (07:26)
[2018-06-17] MEDS: INSULIN DETEMIR (LEVEMIR) 100 UNIT/ML SYR SQ SCH (07:36)
[2018-06-17 07:51] LABS: Anion Gap 6 mmol/L; Blood Urea Nitrogen 13 mg/dL (7-17); Calcium 8.4 mg/dL (8.4-10.2); Carbon Dioxide 27 mmol/L (22-30); Chloride 100 mmol/L (98-107); Glucose 283 mg/dL (74-99); Potassium 3.9 mmol/L (3.5-5.1); Sodium 133 mmol/L (137-145)
[2018-06-17 08:04] LABS: Anisocytosis Slight; Basophils % (A) 0 %; Eosinophils % (A) 1 %; HCT 31.8 % (34.0-46.0); Lymphocytes # (A) 2.6 k/uL (1.0-4.8); Lymphocytes % (A) 49 %; MCH 25.9 pg (25.0-35.0); MCHC 32.3 g/dL (31.0-37.0); Mean Platelet Volume 6.2; Microcytosis Slight; Monocytes # (A) 0.2 k/uL (0-1.0); Monocytes % (A) 4 %; Neutrophils # (A) 2.3 k/uL (1.3-7.7); Neutrophils % (A) 45 %; Platelet Count 235 k/uL (150-450); RBC 3.98 m/uL (3.80-5.40); RDW 16.2 % (11.5-15.5); WBC 5.2 k/uL (3.8-10.6)
[2018-06-17 08:08] LABS: HGB 10.3 gm/dL (11.4-16.0)
[2018-06-17 11:46] LABS: Glucose,Whole Blood 320 mg/dL (75-99)
[2018-06-17 13:40] LABS: Glucose,Whole Blood 126 mg/dL (75-99)
[2018-06-17 16:24] LABS: Glucose,Whole Blood 114 mg/dL (75-99)
[2018-06-17 19:08] VITALS: RESP 16
[2018-06-17 19:40] LABS: Glucose,Whole Blood 114 mg/dL (75-99)
[2018-06-17 21:47] LABS: Glucose,Whole Blood 158 mg/dL (75-99)
--- NOTE | 2018-06-17 23:50 | P.PN ---
Subjective Progress Note Date: 06/17/18 Principal diagnosis: Acute diabetic ketoacidosis Patient is a 43-year-old female with known history of diabetes type 1 insulin- dependent, rheumatoid arthritis, fibromyalgia, GERD and previous history of DKA , anxiety/depression, ADD initially presents to the hospital with nausea and vomiting and generalized weakness. Patient says that she was at her friend's house about 5 days back when she started having nausea and vomiting. She was unable to take her insulin at night, since then patient has been having increased blood sugars at home. Patient says that she tried to manage her sugars at home and she continues to have symptoms and hyperglycemia at home and felt like when she had DKA prior. Denied any fever or chills. Patient does have some abdominal pain. No diarrhea. No chest pain or shortness of breath. No cough or sputum production. No headache or dizziness or lightheadedness. 06/17/2018 Patient denied any complaints of nausea vomiting or abdominal pain. Tolerating oral diet. Otherwise pressure was elevated this morning. Patient did have hypoglycemia yesterday evening with CBG 42. Preprandial insulin is reduced from 10 units to 5 units 3 times a day before meals along with sliding scale. Continue with Levemir 32 units daily. Patient follows with endocrinology as outpatient. Otherwise no fever no chills. Patient is supposed to get infusion for rheumatoid arthritis yesterday as an outpatient. No fever no chills. No joint swelling or pain. Anticipate discharge in next 24 hours with better blood sugar control. Current medications reviewed. Objective - Vital Signs Vital signs: Vital Signs Temp 98.0 F 06/17/18 19:07 Pulse 90 06/17/18 19:07 Resp 16 06/17/18 19:07 BP 106/70 06/17/18 19:07 Pulse Ox 98 06/17/18 19:07 Intake & Output 06/17/18 06/17/18 06/18/18 06:59 18:59 06:59 Intake Total 1404 236 Balance 1404 236 Intake: Oral 1404 236 Other: Voiding Method Toilet Toilet # Voids 3 1 - Exam PHYSICAL EXAMINATION: Patient is lying in the bed comfortably, no acute distress, awake alert and oriented.. HEENT: Normocephalic. Neck is supple. Pupils reactive. Nostrils clear. Oral cavity is moist. Ears reveal no drainage. Neck reveals no JVD, carotid bruits, or thyromegaly. CHEST EXAMINATION: Trachea is central. Symmetrical expansion. Lung rodrigez clear to auscultation and percussion. CARDIAC: Normal S1, S2 with no gallops. No murmurs ABDOMEN: Soft. Bowel sounds normal. No organomegaly. No abdominal bruits. Extremities: reveal no edema. No clubbing or cyanosis Neurologically awake, alert, oriented x3 with well-coordinated movements. No focal deficits noted Skin: No rash or skin lesions. Psychiatric: Coperative. Nonsuicidal Musculoskeletal: No joint swelling or deformity. Normal range of motion. - Labs CBC & Chem 7: 06/17/18 07:07 06/17/18 07:07 Labs: Abnormal Lab Results - Last 24 Hours (Table) 06/17/18 06/17/18 06/17/18 Range/Units 01:09 06:48 07:07 Hgb 10.3 L D (11.4-16.0) gm/dL Hct 31.8 L (34.0-46.0) % RDW 16.2 H (11.5-15.5) % Sodium (137-145) mmol/L Creatinine (0.52-1.04) mg/dL Glucose (74-99) mg/dL POC Glucose (mg/dL) 319 H 291 H (75-99) mg/dL 06/17/18 06/17/18 06/17/18 Range/Units 07:07 11:45 13:38 Hgb (11.4-16.0) gm/dL Hct (34.0-46.0) % RDW (11.5-15.5) % Sodium 133 L (137-145) mmol/L Creatinine 0.37 L (0.52-1.04) mg/dL Glucose 283 H (74-99) mg/dL POC Glucose (mg/dL) 320 H 126 H (75-99) mg/dL 06/17/18 06/17/18 06/17/18 Range/Units 16:23 19:38 21:45 Hgb (11.4-16.0) gm/dL Hct (34.0-46.0) % RDW (11.5-15.5) % Sodium (137-145) mmol/L Creatinine (0.52-1.04) mg/dL Glucose (74-99) mg/dL POC Glucose (mg/dL) 114 H 114 H 158 H (75-99) mg/dL Assessment and Plan Assessment: Acute diabetic ketoacidosis. Acetone positive. Resolved Nausea vomiting and hyperglycemia. Improved Diabetes type 1 uncontrolled with hyperglycemia. H A1c 9.4 Acute kidney injury most likely prerenal History of CVA/TIA. With no residual weakness Fibromyalgia GERD Rheumatoid arthritis ADD/ ADHD Anxiety/depression DVT prophylaxis Plan: Patient was given NovoLog in the ER. Patient will be started on home dose of insulin with Levemir 32 units daily along with sliding scale. Added aspart 5 units 3 times a day before meals. Monitor CBG. Controlled with IV fluids. Continue with home medications and follow closely. Further recommendations based on the clinical course. Time with Patient: Greater than 30
[2018-06-18 01:54] LABS: Glucose,Whole Blood 290 mg/dL (75-99)
[2018-06-18 06:40] LABS: Glucose,Whole Blood 339 mg/dL (75-99)
[2018-06-18] MEDS: SODIUM CHLORIDE 0.9% 1,000 ML IV SCH (07:12)
[2018-06-18] MEDS: INSULIN ASPART (NovoLOG) 100 UNIT/ML VIAL SQ SCH ×4 (07:43→12:21)
[2018-06-18 08:12] VITALS: TEMP 97.9
[2018-06-18 08:19] VITALS: BP 120/80; PULSE 96
[2018-06-18] MEDS: INSULIN DETEMIR (LEVEMIR) 100 UNIT/ML SYR SQ SCH (08:52)
[2018-06-18] MEDS: DULoxetine HCL 60 MG CAPSULE.DR PO SCH (09:00)
[2018-06-18] MEDS: PANTOPRAZOLE 40 MG TABLET PO SCH (09:00)
[2018-06-18] MEDS: HEPARIN SODIUM,PORCINE 5,000 UNIT/ML 1 ML VIAL SQ SCH (09:00)
[2018-06-18] MEDS: METHYLPHENIDATE HCL 10 MG TAB PO SCH (09:00)
[2018-06-18] MEDS: ATORVASTATIN 10 MG TAB PO SCH (09:00)
[2018-06-18 12:03] LABS: Glucose,Whole Blood 221 mg/dL (75-99)
--- NOTE | 2018-06-19 00:38 | P.DS ---
Providers Date of admission: 06/15/18 20:29 Expected date of discharge: 06/18/18 Attending physician: Isaac Cevallos MD [facility] Course: Discharge diagnosis Acute diabetic ketoacidosis. Acetone positive. Resolved Nausea vomiting and hyperglycemia. Resolved Diabetes type 1 uncontrolled with hyperglycemia. H A1c 9.4 Acute kidney injury most likely prerenal History of CVA/TIA. With no residual weakness Fibromyalgia GERD Rheumatoid arthritis ADD/ ADHD Anxiety/depression DVT prophylaxis Hospital course Patient is a 43-year-old female with known history of diabetes type 1 insulin- dependent, rheumatoid arthritis, fibromyalgia, GERD and previous history of DKA , anxiety/depression, ADD initially presents to the hospital with nausea and vomiting and generalized weakness. Patient says that she was at her friend's house about 5 days back when she started having nausea and vomiting. She was unable to take her insulin at night, since then patient has been having increased blood sugars at home. Patient says that she tried to manage her sugars at home and she continues to have symptoms and hyperglycemia at home and felt like when she had DKA prior. Denied any fever or chills. Patient does have some abdominal pain. No diarrhea. No chest pain or shortness of breath. No cough or sputum production. No headache or dizziness or lightheadedness. 06/17/2018 Patient denied any complaints of nausea vomiting or abdominal pain. Tolerating oral diet. Otherwise pressure was elevated this morning. Patient did have hypoglycemia yesterday evening with CBG 42. Preprandial insulin is reduced from 10 units to 5 units 3 times a day before meals along with sliding scale. Continue with Levemir 32 units daily. Patient follows with endocrinology as outpatient. Otherwise no fever no chills. Patient is supposed to get infusion for rheumatoid arthritis yesterday as an outpatient. No fever no chills. No joint swelling or pain. Anticipate discharge in next 24 hours with better blood sugar control. 06/18/2018 Patient did improve symptomatically. DKA resolved. Blood sugars are elevated this morning otherwise improved now. Patient will be continued on her home insulin regimen as per admitting counselor recommendations. Patient was advised to follow-up with endocrinology within a week. No nausea vomiting. Tolerating oral diet. Patient is otherwise stable to discharge home. PHYSICAL EXAMINATION: Patient is lying in the bed comfortably, no acute distress, awake alert and oriented.. HEENT: Normocephalic. Neck is supple. Pupils reactive. Nostrils clear. Oral cavity is moist. Ears reveal no drainage. Neck reveals no JVD, carotid bruits, or thyromegaly. CHEST EXAMINATION: Trachea is central. Symmetrical expansion. Lung rodrigez clear to auscultation and percussion. CARDIAC: Normal S1, S2 with no gallops. No murmurs ABDOMEN: Soft. Bowel sounds normal. No organomegaly. No abdominal bruits. Extremities: reveal no edema. No clubbing or cyanosis Neurologically awake, alert, oriented x3 with well-coordinated movements. No focal deficits noted Skin: No rash or skin lesions. Psychiatric: Coperative. Nonsuicidal Musculoskeletal: No joint swelling or deformity. Normal range of motion. Vital Signs - 24 hr 06/18/18 07:00 Temperature 97.9 F Pulse Rate [ 96 Pulse Oximetery ] Respiratory 16 Rate Blood Pressure 120/80 [Right Arm] O2 Sat by Pulse 100 Oximetry Patient Condition at Discharge: Fair Plan - Discharge Summary Discharge Rx Participant: Yes New Discharge Prescriptions: Continue DULoxetine HCL [Cymbalta] 60 mg PO DAILY #30 capsule. Methylphenidate HCl [Ritalin] 20 mg PO BID #60 tablet Simvastatin 5 mg PO DAILY Insulin Detemir (Levemir) [Levemir] 32 unit SQ DAILY Insulin Aspart [NovoLOG] See Protocol SQ AC-BID Orencia(Unknown Dose) 1 dose IV Q28D Omeprazole [PriLOSEC] 20 mg PO DAILY INSULIN ASPART (NovoLOG) [NovoLOG (formulary)] 30 unit SQ AC-BRKFST Discharge Medication List DULoxetine HCL [Cymbalta] 60 mg PO DAILY #30 capsule. 12/29/17 [Rx] Methylphenidate HCl [Ritalin] 20 mg PO BID #60 tablet 12/29/17 [Rx] Simvastatin 5 mg PO DAILY 05/18/18 [History] INSULIN ASPART (NovoLOG) [NovoLOG (formulary)] 30 unit SQ AC-BRKFST 06/15/18 [ History] Insulin Aspart [NovoLOG] See Protocol SQ AC-BID 06/15/18 [History] Insulin Detemir (Levemir) [Levemir] 32 unit SQ DAILY 06/15/18 [History] Omeprazole [PriLOSEC] 20 mg PO DAILY 06/15/18 [History] Orencia(Unknown Dose) 1 dose IV Q28D 06/15/18 [History] Follow up Appointment(s)/Referral(s): Kevin Ruiz DO [Primary Care Provider] - 1-2 days (CALL OFFICE ON TUESDAY TO SCHEDULE APPOINTMENT, OFFICE CLOSED AT TIME OF DISCHARGE.) Christy Vaughn MD [STAFF PHYSICIAN] - 1 Week (CALL OFFICE TO SCHEDULE APPOINTMENT ON TUESDAY, OFFICE CLOSED AT TIME OF DISCHARGE.) Patient Instructions/Handouts: Diabetic Ketoacidosis (DC) Discharge Disposition: HOME SELF-CARE
--- NOTE | 2018-06-21 09:26 | CDI ---
Documentation Clarification Form Date: 06/21/18 From: Myra Emile Mira Vernell, Hydraulic Specialist Hours-8:30 am & 5 pm M-F Admit Date: 06/15/2018 8:29:00 PM Patient Name: Shayla Perkins Visit Number: [id number] Discharge Date: 06/18/2018 3:30:00 PM ATTENTION: The Clinical Documentation Specialists (CDI) and [facility] Coding Staff appreciate your assistance in clarifying documentation. Please respond to the clarification below the line at the bottom and electronically sign. The CDI & [facility] Coding staff will review the response and follow-up if needed. Please note: Queries are made part of the Legal Health Record. If you have any questions, please contact the author of this message via ITS. Dr. Anthony Torres Acute kidney injury was documented in the H&P, PN & DS. History/Risk Factors: Type I Diabetic ketoacidosis BUN: 21, 21, 19, 13 CR: .36, .58, .42, .37 GFR: >90 x 4 Treatment: IV fluid hydration, renal function KIDGO defines WENDY as the occurrence of any 1 of the following: Increase in serum creatinine level by 0.3 mg/dl, measured prospectively by at least 2 separate levels obtained within 48 hrs, or Increase in serum creatinine level to 1.5 times baseline or greater, which is known or presumed to have occurred within the prior 7 days, or A urine volume of less than 0.5 ml/kg/h for 6 hours or longer. In order to capture the severity of condition, please clarify if the condition signifies: Acute kidney injury ruled in Acute kidney injury ruled out Other, please specify Unable to determine Acute kidney injury ruled in MTDD
== END 2018-06-18 15:30 | disposition home or self-care (01) | DRG 638 ==
LOC: EC 14:34 → 4SSUR 20:29
PROVIDERS: ADMIT Internal Medicine; ATTEND Internal Medicine
DX: E10.10 Type 1 diabetes mellitus with ketoacidosis without coma (principal); N17.9 Acute kidney failure, unspecified; E10.649 Type 1 diabetes mellitus with hypoglycemia without coma; M79.7 Fibromyalgia; K21.9 Gastro-esophageal reflux disease without esophagitis; M06.9 Rheumatoid arthritis, unspecified; F90.9 Attention-deficit hyperactivity disorder, unspecified type; F32.9 Major depressive disorder, single episode, unspecified; F41.9 Anxiety disorder, unspecified; Z79.4 Long term (current) use of insulin; Z79.899 Other long term (current) drug therapy; Z86.73 Personal history of transient ischemic attack (TIA), and cerebral infarction without residual deficits; Z88.8 Allergy status to other drugs, medicaments and biological substances; Z82.5 Family history of asthma and other chronic lower respiratory diseases; Z81.8 Family history of other mental and behavioral disorders; Z83.79 Family history of other diseases of the digestive system
CPT/HCPCS: 36415; 80048; 80051; 80053; 81001; 81025; 82009; 82150; 82565; 82947; 83036; 83690; 84100; 84520; 85025; 96361; 96374; 99285

== ENCOUNTER 2018-08-17 13:24 | Emergency (ER) | payer MEDICARE, OTHER ==
[2018-08-17 13:47] VITALS: BP 121/73; PULSE 113; RESP 18; TEMP 98.2
[2018-08-17 14:03] LABS: Glucose,Whole Blood 180 mg/dL (75-99)
== END 2018-08-17 14:39 | disposition left against medical advice (07) ==
LOC: EC 13:24
CPT/HCPCS: 36415; 99499

== ENCOUNTER 2018-09-07 09:27 | Inpatient (IN) | payer MEDICARE, OTHER ==
[2018-09-07] MEDS ORDERED: ONDANSETRON 4 MG/2 ML VIAL IVP STA (10:16)
[2018-09-07] MEDS ORDERED: SODIUM CHLORIDE 0.9% 1,000 ML IV STA (10:16)
--- NOTE | 2018-09-07 10:18 | ED ---
Nausea/Vomiting/Diarrhea HPI - General Chief complaint: Nausea/Vomiting/Diarrhea Stated complaint: vomiting Time Seen by Provider: 09/07/18 10:07 Source: patient Mode of arrival: wheelchair Limitations: no limitations - History of Present Illness Initial comments: 43 year female presenting today for chief complaint of vomiting. She states she has been vomiting for the past 4 days. Patient has history of type 1 diabetes. She denies abdominal pain she denies chest pain or shortness of breath. She states this feels like when she has been in DKA in the past. She states her sugar yesterday evening was 477. She states she has not been able to correct this with insulin. Patient denies any fever or cough congestion shows headache dizziness she denies diarrhea. Remaining review of systems negative. Upon arrival pt HR elevated, remaining within except a limits P patient appears almost as acute distress. No increase in respirations. - Related Data Home Medications Medication Instructions Recorded Confirmed Insulin Aspart [NovoLOG] See Protocol SQ AC-TID 06/15/18 09/07/18 Insulin Detemir (Levemir) [Levemir] 32 unit SQ DAILY 06/15/18 09/07/18 Omeprazole [PriLOSEC] 20 mg PO DAILY 06/15/18 09/07/18 Simvastatin [Zocor] 20 mg PO HS 09/07/18 09/07/18 Previous Rx's Medication Instructions Recorded DULoxetine HCL [Cymbalta] 60 mg PO DAILY #30 capsule. 12/29/17 Methylphenidate HCl [Ritalin] 20 mg PO BID #60 tablet 12/29/17 Allergies Allergy/AdvReac Type Severity Reaction Status Date / Time paroxetine HCl [From Paxil] Allergy Rash/Hives Verified 09/07/18 09:54 sertraline HCl [From Zoloft] Allergy Rash/Hives Verified 09/07/18 09:54 Review of Systems ROS Statement: Those systems with pertinent positive or pertinent negative responses have been documented in the HPI. ROS Other: All systems not noted in ROS Statement are negative. Past Medical History Past Medical History: Chest Pain / Angina, CVA/TIA, Diabetes Mellitus, Fibromyalgia, GERD/Reflux, Rheumatoid Arthritis (RA), Syncope Additional Past Medical History / Comment(s): IDDM type I, DKA, 03/08/17 TIA. rheumatoid arthritis multiple sites, "neurocardiogenic syncope"-causes sudden drop in blood pressure and pt has syncope-has not happened in a long time, multiple lipomas. History of Any Multi-Drug Resistant Organisms: None Reported Past Surgical History: Breast Surgery, Tubal Ligation, Uterine Ablation Additional Past Surgical History / Comment(s): Tilt table test, LEFT BREAST BX BENIGN, L thigh lipoma removal. Past Anesthesia/Blood Transfusion Reactions: No Reported Reaction Past Psychological History: ADD/ADHD, Anxiety, Depression Smoking Status: Never smoker Past Alcohol Use History: None Reported Past Drug Use History: None Reported - Past Family History Mother Family Medical History: Asthma Additional Family Medical History / Comment(s): depression, colitis Father History Unknown: Yes General Exam - General Exam Comments Initial Comments: General: The patient is awake and alert, in no distress, and does not appear acutely ill. Eye: Pupils are equal, round and reactive to light, extra-ocular movements are intact. No nystagmus. There is normal conjunctiva bilaterally. No signs of icterus. Ears, nose, mouth and throat: There are moist mucous membranes and no oral lesions. Neck: The neck is supple, there is no tenderness or JVD. Cardiovascular: There is a regular rate and rhythm. No murmur, rub or gallop is appreciated. Respiratory: Lungs are clear to auscultation, respirations are non-labored, breath sounds are equal. No wheezes, stridor, rales, or rhonchi. Gastrointestinal: Soft, non-distended, non-tender abdomen without masses or organomegaly noted. There is no rebound or guarding present. No CVA tenderness. Bowel sounds are unremarkable. Musculoskeletal: Normal ROM, no tenderness. Strength 5/5. Sensation intact. Pulses equal bilaterally 2+. Neurological: A&O x 3. CN II-XII intact, There are no obvious motor or sensory deficits. Coordination appears grossly intact. Speech is normal. Skin: Skin is warm and dry and no rashes or lesions are noted. Psychiatric: Cooperative, appropriate mood & affect, normal judgment. Limitations: no limitations Course Vital Signs 09/07/18 09/07/18 09:31 13:13 Temperature 97.8 F Pulse Rate 116 H 87 Respiratory 18 18 Rate Blood Pressure 122/80 132/87 O2 Sat by Pulse 96 98 Oximetry Medical Decision Making - Medical Decision Making 43-year-old female presenting today for chief complaint of vomiting 4 days. Patient states symptoms are similar to when she's had DKA patient has had elevated blood glucose. Patient has elevated glucose at 477. Anion gap of 21. Ketones in urine. Acetone positive. ABG was obtained revealing a normal blood pH. Compensated metabolic acidosis. Pt in DKA. Patient is given IV bolus of insulin and start on a drip. Patient will be converted to D5 when per protocol. Discussed the case attained provider, at this time if the patient is stable for admission to the floor with insulin drip with further care by Dr. Bundy accepting admitting provider. Dr. Nelson spoke with Dr Bundy - Lab Data Result diagrams: 09/07/18 10:30 09/07/18 10:30 Lab Results 09/07/18 09/07/18 Range/Units 10:30 10:30 WBC 12.9 H (3.8-10.6) k/uL RBC 5.42 H (3.80-5.40) m/uL Hgb 13.6 (11.4-16.0) gm/dL Hct 43.0 (34.0-46.0) % MCV 79.4 L (80.0-100.0) fL MCH 25.2 (25.0-35.0) pg MCHC 31.7 (31.0-37.0) g/dL RDW 13.7 (11.5-15.5) % Plt Count 558 H (150-450) k/uL Neutrophils % 85 % Lymphocytes % 12 % Monocytes % 2 % Eosinophils % 1 % Basophils % 0 % Neutrophils # 11.0 H (1.3-7.7) k/uL Lymphocytes # 1.5 (1.0-4.8) k/uL Monocytes # 0.2 (0-1.0) k/uL Eosinophils # 0.1 (0-0.7) k/uL Basophils # 0.0 (0-0.2) k/uL Hypochromasia Moderate Poikilocytosis Slight Sodium 134 L (137-145) mmol/L Potassium 5.1 (3.5-5.1) mmol/L Chloride 99 (98-107) mmol/L Carbon Dioxide 14 L (22-30) mmol/L Anion Gap 21 mmol/L BUN 21 H (7-17) mg/dL Creatinine 0.42 L (0.52-1.04) mg/dL Est GFR (CKD-EPI)AfAm >90 (>60 ml/min/1.73 sqM) Est GFR (CKD-EPI)NonAf >90 (>60 ml/min/1.73 sqM) Glucose 490 H (74-99) mg/dL Calcium 10.1 (8.4-10.2) mg/dL Magnesium 1.8 (1.6-2.3) mg/dL Total Bilirubin 0.6 (0.2-1.3) mg/dL AST 17 (14-36) U/L ALT 11 (9-52) U/L Alkaline Phosphatase 198 H (38-126) U/L Total Protein 7.6 (6.3-8.2) g/dL Albumin 4.5 (3.5-5.0) g/dL Amylase 35 (30-110) U/L Lipase 54 (23-300) U/L Acetone, Qual Positive (Negative) Disposition Clinical Impression: DKA (diabetic ketoacidoses) Disposition: ADMITTED IP TO THIS [facility] Condition: Stable Is patient prescribed a controlled substance at d/c from ED?: No Time of Disposition: 12:14 Decision to Admit Reason: Admit from EC Decision Date: 09/07/18 Decision Time: 12:15
[2018-09-07] MEDS ORDERED: SODIUM CHLORIDE 0.9% 500 ML 500 ML IV ONE (10:21)
[2018-09-07 10:42] LABS: Basophils % (A) 0 %; Eosinophils # (A) 0.1 k/uL (0-0.7); Eosinophils % (A) 1 %; HGB 13.6 gm/dL (11.4-16.0); Hypochromasia Moderate; Lymphocytes # (A) 1.5 k/uL (1.0-4.8); Lymphocytes % (A) 12 %; MCH 25.2 pg (25.0-35.0); MCHC 31.7 g/dL (31.0-37.0); MCV 79.4 fL (80.0-100.0); Mean Platelet Volume 6.9; Monocytes # (A) 0.2 k/uL (0-1.0); Monocytes % (A) 2 %; Neutrophils % (A) 85 %; Platelet Count 558 k/uL (150-450); Poikilocytosis Slight; RBC 5.42 m/uL (3.80-5.40); RDW 13.7 % (11.5-15.5); WBC 12.9 k/uL (3.8-10.6)
[2018-09-07 10:51] LABS: ALT 11 U/L (9-52); AST 17 U/L (14-36); Albumin 4.5 g/dL (3.5-5.0); Alkaline Phosphatase 198 U/L (38-126); Amylase 35 U/L (30-110); Anion Gap 21 mmol/L; Blood Urea Nitrogen 21 mg/dL (7-17); Calcium 10.1 mg/dL (8.4-10.2); Carbon Dioxide 14 mmol/L (22-30); Chloride 99 mmol/L (98-107); Glucose 490 mg/dL (74-99); Lipase 54 U/L (23-300); Magnesium 1.8 mg/dL (1.6-2.3); Potassium 5.1 mmol/L (3.5-5.1); Sodium 134 mmol/L (137-145); Total Bilirubin 0.6 mg/dL (0.2-1.3); Total Protein 7.6 g/dL (6.3-8.2)
[2018-09-07] MEDS ORDERED: INSULIN REGULAR BOLUS (FROM DRIP BAG) IV ONE (10:59)
[2018-09-07] MEDS ORDERED: INSULIN REGULAR 100 UNIT in SODIUM CHLORIDE 0.9% 100 ML IV SCH (11:00)
[2018-09-07 11:40] LABS: Appearance,Urine Clear (Clear); Bilirubin,Urine Negative (Negative); Blood,Urine Negative (Negative); Color,Urine Light Yellow; Glucose,Urine (UA) 4+ (Negative); Leukocyte Esterase,Urine Negative (Negative); Nitrite,Urine Negative (Negative); Protein,Urine Negative (Negative); Specific Gravity,Urine 1.032 (1.001-1.035); Urobilinogen,Urine <2.0 mg/dL (<2.0)
[2018-09-07 11:44] LABS: Ketones,Urine 4+ (Negative)
[2018-09-07 11:48] LABS: Glucose,Whole Blood 304 mg/dL (75-99)
[2018-09-07] MEDS: SODIUM CHLORIDE 0.9% 1,000 ML IV SCH ×2 (11:51→18:18)
[2018-09-07 12:31] LABS: ABG Base Excess -5.9 mmol/L; ABG HCO3 19 mmol/L (21-25); ABG Oxygen Saturation 98.4 % (94-97); ABG PCO2 29 mmHg (35-45); ABG PH 7.42 (7.35-7.45); ABG PO2 99 mmHg (83-108); ABG TCO2 20 mmol/L (19-24)
[2018-09-07 12:39] LABS: Glucose,Whole Blood 191 mg/dL (75-99)
[2018-09-07] MEDS ORDERED: D5-0.45% NACL WITH KCL 20MEQ/L 1,000 ML IV SCH (13:00)
[2018-09-07 14:15] LABS: Glucose,Whole Blood 100 mg/dL (75-99)
[2018-09-07 15:06] LABS: Glucose,Whole Blood 84 mg/dL (75-99)
[2018-09-07 15:22] LABS: Anion Gap 8 mmol/L; Blood Urea Nitrogen 16 mg/dL (7-17); Carbon Dioxide 21 mmol/L (22-30); Chloride 107 mmol/L (98-107); Glucose 83 mg/dL (74-99); Phosphorus 2.5 mg/dL (2.5-4.5); Potassium 4.2 mmol/L (3.5-5.1); Sodium 136 mmol/L (137-145)
[2018-09-07 15:33] LABS: Glucose,Whole Blood 69 mg/dL (75-99)
[2018-09-07 15:49] LABS: Glucose,Whole Blood 73 mg/dL (75-99)
[2018-09-07 15:59] LABS: Glucose,Whole Blood 76 mg/dL (75-99)
[2018-09-07 17:01] LABS: Glucose,Whole Blood 185 mg/dL (75-99)
[2018-09-07] MEDS: METHYLPHENIDATE HCL 10 MG TAB PO SCH (18:12)
[2018-09-07] MEDS: INSULIN ASPART (NovoLOG) 100 UNIT/ML VIAL SQ SCH ×2 (18:34→20:24)
[2018-09-07] MEDS: ENOXAPARIN 40 MG/0.4 ML SYRINGE SQ SCH (18:45)
[2018-09-07 19:21] LABS: Anion Gap 11 mmol/L; Blood Urea Nitrogen 20 mg/dL (7-17); Carbon Dioxide 21 mmol/L (22-30); Chloride 101 mmol/L (98-107); Glucose 308 mg/dL (74-99); Potassium 4.6 mmol/L (3.5-5.1); Sodium 133 mmol/L (137-145)
[2018-09-07 20:16] LABS: Glucose,Whole Blood 340 mg/dL (75-99)
--- NOTE | 2018-09-07 20:31 | HP ---
HISTORY AND PHYSICAL DATE OF SERVICE: September 07, 2018. PRESENT COMPLAINT: Nausea, vomiting, tired. HISTORY OF PRESENTING COMPLAINT: This is a 42-year-old patient who follows with Dr. Ruiz. Chronic stable medical conditions include chronic fibromyalgia, GERD, rheumatoid arthritis, anxiety, depression. The patient is also insulin-requiring diabetic. Normally takes 32 units Lantus in the morning. For the last 4 days, patient has been having quite a bit of vomiting and decreased oral intake and sugar was still running high. Patient presented to the ER was found to be in diabetic ketoacidosis, was started on insulin drip and admitted including IV fluids were added. The patient normally does feel cold. There was no fever. No respiratory symptoms. No urinary symptoms. The patient admitted with insulin drip. Towards this evening, she started to feel a bit better. Did tolerate about 50% of her meal. REVIEW OF SYSTEMS: CONSTITUTIONAL: Tired, rundown. HEENT: None. RESPIRATORY: None. CARDIOVASCULAR: None. GASTROINTESTINAL as above. No abdominal pain. GENITOURINARY: None. MUSCULOSKELETAL: Chronic joint pains. DERMATOLOGICAL, HEMATOLOGIC, LYMPHATICS: None. PSYCHIATRIC: Depression, anxiety controlled. NEUROLOGICAL: None. PAST MEDICAL HISTORY: Fibromyalgia, GERD, diabetes mellitus type 1, rheumatoid arthritis, anxiety, depression, neurocardiogenic syncope, multiple lipomas. PAST SURGICAL HISTORY: Breast surgery, tubal ligation, uterine ablation, left eyelid lipoma removed. PSYCH HISTORY: History of anxiety, depression, ADHD. SOCIAL HISTORY: The patient is but for last few months. Lives with her mother. No smoking. Sometimes takes marijuana at night for chronic pain. FAMILY HISTORY: Anxiety, asthma, depression, colitis. HOME MEDICATIONS: 1. Zocor 20 mg at bedtime. 2. Prilosec 20 mg p.o. daily. 3. Ritalin 20 mg b.i.d. 4. Levemir 32 units subcu daily. 5. NovoLog per scale. 6. Cymbalta 60 mg p.o. daily. ALLERGIES: TO PAXIL AND ZOLOFT. PHYSICAL EXAMINATION: VITAL SIGNS: Vital signs on presentation: Temperature 97.8, pulse 116, respiratory 18, blood pressure 122/80, pulse ox 96% on room air. GENERAL APPEARANCE: Average built, propped up, tired-appearing. EYES: Pupil's equal. Conjunctivae normal. HEENT: External appearance of nose and ears normal. Oral cavity with dry mucous membranes. NECK: JVD unable to assess. Mass not palpable. RESPIRATORY: Effort normal. LUNGS are clear. CARDIOVASCULAR: First and second sounds normal. No edema. ABDOMEN: Soft, nontender. Liver and spleen not palpable. LYMPHATIC: No lymph nodes palpable in the neck and axilla. PSYCHIATRY: Alert and oriented x3. Mood and affect slightly anxious-appearing. NEUROLOGICAL: Pupils equal. Cranial nerves grossly intact. Power and sensation grossly intact. INVESTIGATIONS: Admission labs: White count 12.9, hemoglobin 13.6, platelets 558. Potassium 5.1, bicarb is 14, anion gap was 21, BUN 21, creatinine 0.42, blood glucose was 490. Serum acetone positive. ASSESSMENT: 1. Acute diabetic ketoacidosis in a patient that has been vomiting for last 4 days. No evidence of infection. 2. Clinical dehydration with BUN elevated to 21. 3. Diabetes mellitus type 1, insulin requiring. 4. Chronic fibromyalgia. 5. Gastroesophageal reflux disease. 6. Neurocardiogenic syncope, chronic. 7. Chronic anxiety and depression, not otherwise specified. PLAN: Patient is put on insulin drip, IV fluids. Later in the evening patient is feeling eating better. Did eat about 50% of meals. We will stop the insulin drip. Start to give the patient NPH 12 units at 9 o'clock and start the patient on Levemir tomorrow morning. Lovenox for DVT prophylaxis. Care was discussed with the patient. Questions were answered. Copy to Dr. Ruiz. JACQUELINE / DAVID: [id number] /
[2018-09-07] MEDS ORDERED: ATORVASTATIN 10 MG TAB PO SCH (21:00)
[2018-09-07] MEDS ORDERED: INSULIN NPH 300 UNIT/3 ML VIAL SQ SCH (21:00)
[2018-09-08 00:01] LABS: Glucose,Whole Blood 174 mg/dL (75-99)
[2018-09-08 03:30] LABS: Glucose,Whole Blood 164 mg/dL (75-99)
[2018-09-08 06:15] LABS: Glucose,Whole Blood 176 mg/dL (75-99)
[2018-09-08] MEDS: INSULIN ASPART (NovoLOG) 100 UNIT/ML VIAL SQ SCH ×2 (06:22→12:01)
[2018-09-08] MEDS: METHYLPHENIDATE HCL 10 MG TAB PO SCH (06:23)
[2018-09-08] MEDS ORDERED: PANTOPRAZOLE 40 MG TABLET PO SCH (07:30)
[2018-09-08 08:25] VITALS: RESP 18; TEMP 98.9
[2018-09-08] MEDS: SODIUM CHLORIDE 0.9% 1,000 ML IV SCH (08:27)
[2018-09-08] MEDS: ENOXAPARIN 40 MG/0.4 ML SYRINGE SQ SCH (08:31)
[2018-09-08 08:37] LABS: Anion Gap 12 mmol/L; Blood Urea Nitrogen 14 mg/dL (7-17); Calcium 9.4 mg/dL (8.4-10.2); Carbon Dioxide 24 mmol/L (22-30); Chloride 102 mmol/L (98-107); Glucose 128 mg/dL (74-99); Magnesium 1.5 mg/dL (1.6-2.3); Potassium 3.8 mmol/L (3.5-5.1); Sodium 138 mmol/L (137-145)
[2018-09-08] MEDS ORDERED: INSULIN DETEMIR (LEVEMIR) 100 UNIT/ML SYR SQ SCH (09:00)
[2018-09-08] MEDS ORDERED: DULoxetine HCL 60 MG CAPSULE.DR PO SCH (09:00)
[2018-09-08 11:08] VITALS: BP 131/65; PULSE 94
[2018-09-08 11:24] LABS: Glucose,Whole Blood 300 mg/dL (75-99)
--- NOTE | 2018-09-08 22:41 | DS ---
DISCHARGE SUMMARY DATE OF ADMISSION: 09/07/2018 DATE OF DISCHARGE: 09/08/2018 FINAL DIAGNOSES: 1. Acute diabetic ketoacidosis. No evidence of infection. 2. Dehydration with elevated BUN at 21. 3. Diabetes mellitus, type 1, insulin-dependent. 4. Chronic fibromyalgia. 5. Gastroesophageal reflux disease. 6. Neurocardiogenic syncope, chronic. 7. Chronic anxiety and depression not otherwise specified. HOSPITAL COURSE: This is a patient with multiple medical problems who presented with nausea and vomiting for the last 4 days. Sugar was running high. She was found to be in diabetic ketoacidosis, treated with insulin drip and fluids and did recover well. On day of discharge, sugars were doing better. Care was discussed with the patient. Questions were answered. PHYSICAL EXAMINATION: Temperature 98.9, pulse 98, respiration 18, blood pressure 112/68, pulse ox 100 % on room air. Lungs are clear. CARDIOVASCULAR: First and second sounds normal. INVESTIGATIONS: Potassium 3.8. DISCHARGE MEDICATIONS: 1. Cymbalta 60 mg p.o. daily. 2. Ritalin 20 mg b.i.d. 3. NovoLog per scale. 4. Levemir 32 units subcutaneously daily. 5. Prilosec 20 mg p.o. daily. 6. Zocor 20 mg at bedtime. Follow up with Dr. Ruiz on 09/12/2018. MMODL / IJN: [id number] /
== END 2018-09-08 13:47 | disposition home or self-care (01) | DRG 639 ==
LOC: EC 09:27 → 3SCARD 10:59
PROVIDERS: ADMIT Hospitalist; ATTEND Hospitalist
DX: E10.10 Type 1 diabetes mellitus with ketoacidosis without coma (principal); E86.0 Dehydration; M79.7 Fibromyalgia; K21.9 Gastro-esophageal reflux disease without esophagitis; M06.9 Rheumatoid arthritis, unspecified; G89.29 Other chronic pain; R55 Syncope and collapse; F32.9 Major depressive disorder, single episode, unspecified; F41.9 Anxiety disorder, unspecified; F90.9 Attention-deficit hyperactivity disorder, unspecified type; Z79.4 Long term (current) use of insulin; Z79.899 Other long term (current) drug therapy; Z86.73 Personal history of transient ischemic attack (TIA), and cerebral infarction without residual deficits; Z88.8 Allergy status to other drugs, medicaments and biological substances; Z81.8 Family history of other mental and behavioral disorders; Z82.5 Family history of asthma and other chronic lower respiratory diseases
CPT/HCPCS: 36415; 36600; 80048; 80051; 80053; 81003; 81025; 82009; 82150; 82565; 82805; 82947; 83690; 83735; 84100; 84520; 85025; 96361; 96365; 96375; 99284

== ENCOUNTER 2019-01-25 08:56 | Inpatient (IN) | payer MEDICARE, OTHER ==
[2019-01-25 09:01] LABS: Glucose,Whole Blood >600 mg/dL (75-99)
[2019-01-25] MEDS ORDERED: SODIUM CHLORIDE 0.9% 2,000 ML IV ONE (09:08)
[2019-01-25] MEDS: SODIUM CHLORIDE 0.9% 1,000 ML IV SCH ×5 (09:25→20:19)
--- NOTE | 2019-01-25 09:34 | ED ---
General Adult HPI - General Chief complaint: Recheck/Abnormal Lab/Rx Stated complaint: Diabetic Time Seen by Provider: 01/25/19 08:59 Source: family, RN notes reviewed Mode of arrival: wheelchair Limitations: no limitations - History of Present Illness Initial comments: This a 44-year-old female presents emergency Department with mother for diabetic issues. Patient reportedly has not been taking her insulin well states that she does not feel that she has been vomiting. Patient had multiple admissions for DKA in the past. Patient denies any chest pain, shortness breath. states she does not on Lasix she took insulin. Patient's blood sugar is reading high at home. Patient states takes insulin, Zocor, Cymbalta. She has no current headache no recent fevers no recent URI symptoms. - Related Data Home Medications Medication Instructions Recorded Confirmed Insulin Aspart [NovoLOG] See Protocol SQ ACHS 06/15/18 01/25/19 Insulin Detemir (Levemir) [Levemir] 32 unit SQ DAILY 06/15/18 01/25/19 Omeprazole [PriLOSEC] 20 mg PO DAILY 06/15/18 01/25/19 Abatacept [Orencia Clickject] 125 mg SQ Q7D 01/25/19 01/25/19 Simvastatin [Zocor] 40 mg PO HS 01/25/19 01/25/19 Previous Rx's Medication Instructions Recorded DULoxetine HCL [Cymbalta] 60 mg PO DAILY #30 capsule. 12/29/17 Methylphenidate HCl [Ritalin] 20 mg PO BID #60 tablet 12/29/17 Allergies Allergy/AdvReac Type Severity Reaction Status Date / Time paroxetine HCl [From Paxil] Allergy Rash/Hives Verified 11/15/18 12:49 sertraline HCl [From Zoloft] Allergy Rash/Hives Verified 11/15/18 12:49 Review of Systems ROS Statement: Those systems with pertinent positive or pertinent negative responses have been documented in the HPI. ROS Other: All systems not noted in ROS Statement are negative. Past Medical History Past Medical History: Chest Pain / Angina, CVA/TIA, Diabetes Mellitus, Fibromyalgia, GERD/Reflux, Rheumatoid Arthritis (RA), Syncope Additional Past Medical History / Comment(s): IDDM type I, DKA, 03/08/17 TIA. rheumatoid arthritis multiple sites, "neurocardiogenic syncope"-causes sudden drop in blood pressure and pt has syncope-has not happened in a long time, multiple lipomas. History of Any Multi-Drug Resistant Organisms: None Reported Past Surgical History: Breast Surgery, Tubal Ligation, Uterine Ablation Additional Past Surgical History / Comment(s): Tilt table test, LEFT BREAST BX BENIGN, L thigh lipoma removal. Past Anesthesia/Blood Transfusion Reactions: No Reported Reaction Past Psychological History: ADD/ADHD, Anxiety, Depression Smoking Status: Unknown if ever smoked Past Alcohol Use History: Rare Past Drug Use History: Marijuana - Past Family History Mother Family Medical History: Asthma Additional Family Medical History / Comment(s): depression, colitis Father History Unknown: Yes Additional Family Medical History / Comment(s): Pt does not know who her father is. General Exam Limitations: no limitations General appearance: alert, in no apparent distress Head exam: Present: atraumatic, normocephalic, normal inspection Eye exam: Present: normal appearance, PERRL, EOMI. Absent: scleral icterus, conjunctival injection, periorbital swelling ENT exam: Present: normal oropharynx, mucous membranes dry, TM's normal bilaterally. Absent: normal exam, mucous membranes moist Neck exam: Present: normal inspection. Absent: tenderness, meningismus, lymphadenopathy Respiratory exam: Present: respiratory distress (Tachypnea). Absent: normal lung sounds bilaterally, wheezes, rales, rhonchi, stridor Cardiovascular Exam: Present: normal rhythm, tachycardia, normal heart sounds. Absent: systolic murmur, diastolic murmur, rubs, gallop, clicks GI/Abdominal exam: Present: soft, normal bowel sounds. Absent: distended, tenderness, guarding, rebound, rigid Neurological exam: Present: alert, oriented X3 Skin exam: Present: warm, dry, intact, normal color. Absent: rash Course Vital Signs 01/25/19 01/25/19 08:59 10:30 Temperature 97.5 F L Pulse Rate 101 H 96 Respiratory 24 24 Rate Blood Pressure 124/98 113/73 O2 Sat by Pulse 100 100 Oximetry Medical Decision Making - Medical Decision Making Recorded to-year-old female presented for diabetic issues, lethargy, altered mental status. Patient had complete workup was found to be in severe DKA. Patient was given appropriate fluid bolus, fluid hydration, insulin drip. Patient will be admitted to ICU for further management and further care. - Lab Data Result diagrams: 01/25/19 09:20 01/25/19 09:20 Lab Results 01/25/19 01/25/19 01/25/19 Range/Units 09:00 09:20 09:20 WBC 29.3 H (3.8-10.6) k/uL RBC 5.40 (3.80-5.40) m/uL Hgb 14.4 (11.4-16.0) gm/dL Hct 52.6 H (34.0-46.0) % MCV 97.5 (80.0-100.0) fL MCH 26.8 (25.0-35.0) pg MCHC 27.4 L (31.0-37.0) g/dL RDW 13.7 (11.5-15.5) % Plt Count 706 H (150-450) k/uL Neutrophils % 86 % Lymphocytes % 9 % Monocytes % 4 % Eosinophils % 0 % Basophils % 0 % Neutrophils # 25.1 H (1.3-7.7) k/uL Lymphocytes # 2.7 (1.0-4.8) k/uL Monocytes # 1.1 H (0-1.0) k/uL Eosinophils # 0.1 (0-0.7) k/uL Basophils # 0.0 (0-0.2) k/uL Manual Slide Review Performed Toxic Granulation Present Toxic Vacuolation Present Hypochromasia Marked VBG pH (7.31-7.41) VBG pCO2 (37-51) mmHg VBG HCO3 (24-28) mmol/L Sodium 132 L (137-145) mmol/L Potassium 6.3 H* (3.5-5.1) mmol/L Chloride 89 L (98-107) mmol/L Carbon Dioxide 7 L* (22-30) mmol/L Anion Gap 36 mmol/L BUN 37 H (7-17) mg/dL Creatinine 1.91 H (0.52-1.04) mg/dL Est GFR (CKD-EPI)AfAm 37 (>60 ml/min/1.73 sqM) Est GFR (CKD-EPI)NonAf 32 (>60 ml/min/1.73 sqM) Glucose 989 H* (74-99) mg/dL POC Glucose (mg/dL) >600 H (75-99) mg/dL POC Glu Packing Room Supervisor ID Zenaida Fernandez Plasma Lactic Acid Yariel (0.7-2.0) mmol/L Calcium 9.9 (8.4-10.2) mg/dL Magnesium 2.7 H (1.6-2.3) mg/dL Total Bilirubin 0.4 (0.2-1.3) mg/dL AST 26 (14-36) U/L ALT 18 (9-52) U/L Alkaline Phosphatase 247 H (38-126) U/L Total Protein 7.8 (6.3-8.2) g/dL Albumin 4.7 (3.5-5.0) g/dL Lipase 52 (23-300) U/L Acetone, Qual Positive (Negative) 01/25/19 01/25/19 Range/Units 09:20 09:20 WBC (3.8-10.6) k/uL RBC (3.80-5.40) m/uL Hgb (11.4-16.0) gm/dL Hct (34.0-46.0) % MCV (80.0-100.0) fL MCH (25.0-35.0) pg MCHC (31.0-37.0) g/dL RDW (11.5-15.5) % Plt Count (150-450) k/uL Neutrophils % % Lymphocytes % % Monocytes % % Eosinophils % % Basophils % % Neutrophils # (1.3-7.7) k/uL Lymphocytes # (1.0-4.8) k/uL Monocytes # (0-1.0) k/uL Eosinophils # (0-0.7) k/uL Basophils # (0-0.2) k/uL Manual Slide Review Toxic Granulation Toxic Vacuolation Hypochromasia VBG pH 6.78 L* (7.31-7.41) VBG pCO2 17 L* (37-51) mmHg VBG HCO3 2 L* (24-28) mmol/L Sodium (137-145) mmol/L Potassium (3.5-5.1) mmol/L Chloride (98-107) mmol/L Carbon Dioxide (22-30) mmol/L Anion Gap mmol/L BUN (7-17) mg/dL Creatinine (0.52-1.04) mg/dL Est GFR (CKD-EPI)AfAm (>60 ml/min/1.73 sqM) Est GFR (CKD-EPI)NonAf (>60 ml/min/1.73 sqM) Glucose (74-99) mg/dL POC Glucose (mg/dL) (75-99) mg/dL POC Glu Packing Room Supervisor ID Plasma Lactic Acid Yariel 3.9 H* (0.7-2.0) mmol/L Calcium (8.4-10.2) mg/dL Magnesium (1.6-2.3) mg/dL Total Bilirubin (0.2-1.3) mg/dL AST (14-36) U/L ALT (9-52) U/L Alkaline Phosphatase (38-126) U/L Total Protein (6.3-8.2) g/dL Albumin (3.5-5.0) g/dL Lipase (23-300) U/L Acetone, Qual (Negative) Critical Care Time Critical Care Time: Yes Total Critical Care Time: 35 Critical Care Time: Total of 35 minutes of critical care time were used initially evaluated patient, reviewed past medical history, vitals, medications. Patient had labs including CBC, CMP, ABG, urinalysis, acetone and lactic acid. EKG was ordered. Patient found to be in severe DKA. Patient had initial fluid bolus of 2 L ordered with 200ml/hr hour after, insulin drip was ordered with an insulin bolus. Patient h ad a VBG of pH 6.78. Patient does have lethargy and mild altered mental status given the patient's condition. Patient lives CT her brain to rule out cerebral edema. Patient case discussed with admitting physician Dr. Bundy. Patient we placed in ICU case discussed with Dr. Suero. Disposition Clinical Impression: DKA (diabetic ketoacidoses), Dehydration, Lactic acidosis, Leukocytosis, Hyperkalemia Disposition: ADMITTED IP TO THIS HOSP Condition: Critical Referrals: Kevin Ruiz DO [Primary Care Provider] - 1-2 days
[2019-01-25 09:49] LABS: Basophils % (A) 0 %; Eosinophils # (A) 0.1 k/uL (0-0.7); Eosinophils % (A) 0 %; HCT 52.6 % (34.0-46.0); HGB 14.4 gm/dL (11.4-16.0); Hypochromasia Marked; Lymphocytes # (A) 2.7 k/uL (1.0-4.8); Lymphocytes % (A) 9 %; MCH 26.8 pg (25.0-35.0); MCHC 27.4 g/dL (31.0-37.0); MCV 97.5 fL (80.0-100.0); Monocytes # (A) 1.1 k/uL (0-1.0); Monocytes % (A) 4 %; Neutrophils # (A) 25.1 k/uL (1.3-7.7); Neutrophils % (A) 86 %; Platelet Count 706 k/uL (150-450); RDW 13.7 % (11.5-15.5); WBC 29.3 k/uL (3.8-10.6)
[2019-01-25 09:58] LABS: ALT 18 U/L (9-52); AST 26 U/L (14-36); African American GFR (CKD) 37 (>60 ml/min/1.73 sqM); Albumin 4.7 g/dL (3.5-5.0); Alkaline Phosphatase 247 U/L (38-126); Anion Gap 36 mmol/L; Blood Urea Nitrogen 37 mg/dL (7-17); Calcium 9.9 mg/dL (8.4-10.2); Chloride 89 mmol/L (98-107); Magnesium 2.7 mg/dL (1.6-2.3); Sodium 132 mmol/L (137-145); Total Bilirubin 0.4 mg/dL (0.2-1.3); Total Protein 7.8 g/dL (6.3-8.2)
[2019-01-25 10:08] LABS: VBG PH 6.78 (7.31-7.41)
[2019-01-25 10:10] LABS: Carbon Dioxide 7 mmol/L (22-30); Glucose 989 mg/dL (74-99); Potassium 6.3 mmol/L (3.5-5.1)
[2019-01-25] MEDS ORDERED: INSULIN REGULAR BOLUS (FROM DRIP BAG) IV ONE (10:11)
[2019-01-25 10:21] LABS: Toxic Granulation Present
[2019-01-25 10:22] LABS: Toxic Vacuolation Present
[2019-01-25] MEDS: INSULIN REGULAR 100 UNIT in SODIUM CHLORIDE 0.9% 100 ML IV SCH ×3 (10:37→20:19)
--- NOTE | 2019-01-25 10:46 | CT ---
EXAMINATION TYPE: CT brain wo con DATE OF EXAM: 01/25/2019 COMPARISON: 03/09/2017 HISTORY: Altered mental status. Uncontrolled blood sugar CT DLP: 1082.4 mGycm. Automated Exposure Control for Dose Reduction was Utilized. TECHNIQUE: CT scan of the head is performed without contrast. FINDINGS: There is no acute intracranial hemorrhage, mass effect, or midline shift identified. The ventricles and sulci are within normal limits in size. The globes are intact and the visualized sin uses are clear. There is an abnormal area of attenuation the right frontal white matter which was als o noted on the previous exam 03/09/2017 represent an area of previous ischemia or demyelination. Cere bellar tonsils are low-lying at the level of foramen magnum. IMPRESSION: 1. No acute intracranial hemorrhage, mass effect, or midline shift is seen. 2. Stable area of abnormal attenuation the right frontal white matter which may been the basis of an area of previous demyelination or remote ischemia. There is unchanged from the prior exam of 2016. 3. Stable low-lying cerebellar tonsils.
[2019-01-25 11:21] LABS: Appearance,Urine Cloudy (Clear); Bacteria,Urine Rare /hpf; Bilirubin,Urine Negative (Negative); Blood,Urine Trace (Negative); Budding Yeast,Urine Few /hpf; Color,Urine Light Yellow; Glucose,Urine (UA) 4+ (Negative); Hyaline Casts,Urine 31 /lpf (0-2); Leukocyte Esterase,Urine Negative (Negative); Mucus,Urine Rare /hpf; Nitrite,Urine Negative (Negative); Protein,Urine 1+ (Negative); RBC,Urine 1 /hpf (0-5); Specific Gravity,Urine 1.017 (1.001-1.035); Squamous Epithelial Cell,Urine 1 /hpf (0-4); Urobilinogen,Urine <2.0 mg/dL (<2.0)
[2019-01-25 11:32] LABS: Ketones,Urine 3+ (Negative)
[2019-01-25 11:45] LABS: Glucose,Whole Blood >600 mg/dL (75-99)
--- NOTE | 2019-01-25 12:44 | P.CNPUL ---
History of Present Illness Consult date: 01/25/19 Requesting physician: Ashvin Bundy Reason for consult: other (DKA, critical care management) Chief complaint: Nausea vomiting History of present illness: This is a 44-year-old female patient who follows with Dr. Ruiz as her primary care physician. She has a history of anxiety/depression, hyperlipidemia, marijuana use, fibromyalgia, rheumatoid arthritis taking Orencia every other week, diabetes mellitus, type I since her 20s. She is to be on Levemir 32 units daily along with NovoLog. She was brought into the emergency room this morning by her mother who had not seen her for approximately 2 weeks. She developed increasing nausea, vomiting and altered mental status. She states her with whom she is currently from found her in a bathtub delirious. She had been staying at a friend's house for the past couple of weeks. Unsure if she had been taking any of her medication. She been found to have a blood glucose of 989. Positive acetone. Positive ketones. Potassium 6.3. Bicarb 7. Anion gap 36. Creatinine 1.91. Plasma lactic acid 3.9. Venous pH 6.78. White count 29.3. Hemoglobin 14.4. She is seen today in consultation in the emergency department. She has received 2 L of fluid resuscitation thus far. Insulin drip at 6.9 units per hour. Currently 0.9 at 200 ML's per hour. She is afebrile. Heart rate in the 90s. Blood pressure is stable. 100% O2 saturation on room air. She is still somewhat altered. Moving about on the cart. Complaining of thirst. Not answering questions appropriately. Computed tomography scan of the brain showed no acute abnormalities. We will transfer her to the intensive care unit once a bed becomes available. Review of Systems ROS unobtainable: due to mental status Past Medical History Past Medical History: Chest Pain / Angina, CVA/TIA, Diabetes Mellitus, Fibromyalgia, GERD/Reflux, Rheumatoid Arthritis (RA), Syncope Additional Past Medical History / Comment(s): IDDM type I, DKA, 03/08/17 TIA. 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 History of Any Multi-Drug Resistant Organisms: None Reported Past Surgical History: Breast Surgery, Tubal Ligation, Uterine Ablation Additional Past Surgical History / Comment(s): Tilt table test, LEFT BREAST BX BENIGN, L thigh lipoma removal. Past Anesthesia/Blood Transfusion Reactions: No Reported Reaction Smoking Status: Never smoker - Past Family History Mother Family Medical History: Asthma Additional Family Medical History / Comment(s): depression, colitis Father History Unknown: Yes Additional Family Medical History / Comment(s): Pt does not know who her father is. Medications and Allergies Home Medications Medication Instructions Recorded Confirmed Type DULoxetine HCL [Cymbalta] 60 mg PO DAILY #30 capsule. 12/29/17 01/25/19 Rx Methylphenidate HCl [Ritalin] 20 mg PO BID #60 tablet 12/29/17 01/25/19 Rx Insulin Aspart [NovoLOG] See Protocol SQ ACHS 06/15/18 01/25/19 History Insulin Detemir (Levemir) [Levemir] 32 unit SQ DAILY 06/15/18 01/25/19 History Omeprazole [PriLOSEC] 20 mg PO DAILY 06/15/18 01/25/19 History Abatacept [Orencia Clickject] 125 mg SQ Q7D 01/25/19 01/25/19 History Simvastatin [Zocor] 40 mg PO HS 01/25/19 01/25/19 History Allergies Allergy/AdvReac Type Severity Reaction Status Date / Time paroxetine HCl [From Paxil] Allergy Rash/Hives Verified 11/15/18 12:49 sertraline HCl [From Zoloft] Allergy Rash/Hives Verified 11/15/18 12:49 Physical Exam Vitals: Vital Signs Temp Pulse Resp BP Pulse Ox 01/25/19 12:00 130/78 100 01/25/19 11:30 96 115/73 100 01/25/19 11:00 96 113/73 01/25/19 10:30 96 24 101/88 100 01/25/19 10:00 97 117/73 100 01/25/19 09:30 99 30 H 129/74 100 01/25/19 09:00 101 H 28 H 124/98 100 01/25/19 08:59 97.5 F L 101 H 29 H 124/98 99 Intake and Output 01/24/19 01/25/19 01/25/19 22:59 06:59 14:59 Other: Weight 68.946 kg GENERAL EXAM: Restless, altered mental status, thirsty. On room air. 100% O2 saturation. HEAD: Normocephalic. EYES: Normal reaction of pupils, equal size. NOSE: Clear with pink turbinates. THROAT: Poor dentition. Dry. No erythema or exudates. NECK: No masses, no JVD. CHEST: No chest wall deformity. LUNGS: Equal air entry with no crackles, wheeze, rhonchi or dullness. CVS: S1 and S2 normal with no audible murmur, regular rhythm. ABDOMEN: No hepatosplenomegaly, normal bowel sounds, no guarding or rigidity. SPINE: No scoliosis or deformity SKIN: No rashes CENTRAL NERVOUS SYSTEM: No focal deficits, tone is normal in all 4 extremities. EXTREMITIES: There is no peripheral edema. No clubbing, no cyanosis. Pe ripheral pulses are intact. Results - Laboratory Findings CBC and BMP: 01/25/19 09:20 01/25/19 09:20 Abnormal lab findings: Abnormal Labs 01/25/19 01/25/19 01/25/19 09:00 09:20 09:20 WBC 29.3 H Hct 52.6 H MCHC 27.4 L Plt Count 706 H Neutrophils # 25.1 H Monocytes # 1.1 H VBG pH VBG pCO2 VBG HCO3 Sodium 132 L Potassium 6.3 H* Chloride 89 L Carbon Dioxide 7 L* BUN 37 H Creatinine 1.91 H Glucose 989 H* POC Glucose (mg/dL) >600 H Plasma Lactic Acid Yariel Magnesium 2.7 H Alkaline Phosphatase 247 H Urine Appearance Urine Protein Urine Glucose (UA) Urine Ketones Urine Blood Urine WBC Urine Bacteria Hyaline Casts Urine Mucus Urine Yeast (Budding) 01/25/19 01/25/19 01/25/19 09:20 09:20 10:58 WBC Hct MCHC Plt Count Neutrophils # Monocytes # VBG pH 6.78 L* VBG pCO2 17 L* VBG HCO3 2 L* Sodium Potassium Chloride Carbon Dioxide BUN Creatinine Glucose POC Glucose (mg/dL) Plasma Lactic Acid Yariel 3.9 H* Magnesium Alkaline Phosphatase Urine Appearance Cloudy H Urine Protein 1+ H Urine Glucose (UA) 4+ H Urine Ketones 3+ H Urine Blood Trace H Urine WBC 9 H Urine Bacteria Rare H Hyaline Casts 31 H Urine Mucus Rare H Urine Yeast (Budding) Few H 01/25/19 11:44 WBC Hct MCHC Plt Count Neutrophils # Monocytes # VBG pH VBG pCO2 VBG HCO3 Sodium Potassium Chloride Carbon Dioxide BUN Creatinine Glucose POC Glucose (mg/dL) >600 H Plasma Lactic Acid Yariel Magnesium Alkaline Phosphatase Urine Appearance Urine Protein Urine Glucose (UA) Urine Ketones Urine Blood Urine WBC Urine Bacteria Hyaline Casts Urine Mucus Urine Yeast (Budding) - Diagnostic Findings Chest x-ray: image reviewed (No acute pulmonary process) Assessment and Plan Assessment: Impression: #1 Acute diabetic ketoacidosis with blood glucose 989. #2 Altered mental status secondary to above. Computed tomography scan of the brain revealed no acute abnormalities. #3 Anion gap metabolic acidosis secondary to above. #4 Hyperkalemia secondary to above. #5 Acute renal failure. #6 Leukocytosis. #7 Diabetes mellitus, type I since her 20s. Question of medication compliance. #8 Rheumatoid arthritis receiving Orencia every other week. #9 Fibromyalgia. #10 Hyperlipidemia. #11 History of depression, currently from her . #12 Marijuana use. Plan: The patient was seen and evaluated by Dr. Suero. The patient will be trans ferred to the intensive care unit. Continued on the DKA protocol. Currently on insulin drip. 0.9 normal saline at 200 ML's per hour. Continue to monitor her glucose levels and electrolytes closely. Nothing by mouth for now. We will continue to follow and make further recommendations based on her clinical status. I, the cosigning physician, performed a history & physical examination of the patient. Lungs sounds are clear. Maintaining good O2 saturations in the 90s on room air. I discussed the assessment and plan of care with my nurse practitioner, Lindsey Menon. I attest to the above consultation as dictated by her. Time with Patient: Greater than 30
[2019-01-25 12:47] LABS: Glucose,Whole Blood >600 mg/dL (75-99)
[2019-01-25 13:21] LABS: Glucose,Whole Blood >600 mg/dL (75-99)
[2019-01-25 14:13] LABS: African American GFR (CKD) 57 (>60 ml/min/1.73 sqM); Blood Urea Nitrogen 38 mg/dL (7-17); Chloride 106 mmol/L (98-107); Phosphorus 6.9 mg/dL (2.5-4.5); Potassium 5.1 mmol/L (3.5-5.1); Sodium 139 mmol/L (137-145)
[2019-01-25 14:25] LABS: Carbon Dioxide <5 mmol/L (22-30); Glucose 626 mg/dL (74-99)
[2019-01-25 14:26] LABS: Glucose,Whole Blood 548 mg/dL (75-99)
[2019-01-25 15:16] LABS: Glucose,Whole Blood 405 mg/dL (75-99)
[2019-01-25 16:08] LABS: Glucose,Whole Blood 425 mg/dL (75-99)
[2019-01-25 17:05] LABS: Glucose,Whole Blood 373 mg/dL (75-99)
[2019-01-25 18:10] LABS: Glucose,Whole Blood 301 mg/dL (75-99)
[2019-01-25 18:42] LABS: African American GFR (CKD) >90 (>60 ml/min/1.73 sqM); Blood Urea Nitrogen 36 mg/dL (7-17); Chloride 111 mmol/L (98-107); Glucose 328 mg/dL (74-99); Sodium 139 mmol/L (137-145)
[2019-01-25 18:48] LABS: Carbon Dioxide <5 mmol/L (22-30)
[2019-01-25 19:11] LABS: Glucose,Whole Blood 253 mg/dL (75-99)
[2019-01-25 20:26] LABS: Glucose,Whole Blood 185 mg/dL (75-99)
[2019-01-25] MEDS: D5-0.45% NACL WITH KCL 20MEQ/L 1,000 ML IV SCH (20:43)
--- NOTE | 2019-01-25 20:50 | P.HPIM ---
History of Present Illness H&P Date: 01/25/19 Chief Complaint: Not feeling well. History of presenting complaint: This is a 44-year-old patient of Dr. Ruiz. Chronic stable medical conditions include chronic fibromyalgia, GERD, rheumatoid arthritis, anxiety depression. Patient long-standing insulin requiring diabetic. Patient presents to the ER, was brought in by the mother. Apparently patient not been feeling well. Insulin was missed. Patient started having nausea vomiting. Patient somewhat lethargic. Does not reported fever or chills. Patient was severely hypothermic in the ER. Found to be severely acidotic and in diabetic ketoacidosis. Patient was significantly low. Patient started on IV fluids on the DKA protocol and insulin drip. Admitted to the ICU. Patient still lethargic arousable but not really able to answer much questions. Admitting review of systems cannot be obtained as patient rather lethargic. Relevant findings as above Past medical history: Fibromyalgia, GERD, diabetes mellitus type 1, rheumatoid arthritis, anxiety, depression,, multiple lipomas Past surgical history: Breast surgery, tubal ligation, uterine ablation, left eyelid lymphoma report,. Past psych history: -anxiety, depression, ADHD Social history: Patient lives with her mother. No smoking. History of doing marijuana in the past. Physical examination: VITAL SIGNS: 91.6, 94, 22, 122/67, 100% room air GENERAL: BMI 23.8, laying in bed lethargic but arousable. EYES: Pupils equal. Conjunctiva normal. HEENT: External appearance of nose and ears normal, oral cavity dry mucous membrane. NECK: JVD unable to assess; masses not palpable. HEART: First and second heart sounds are normal; no edema. LUNGS: Respiratory rate increased, clear to auscultation. ABDOMEN: Soft, nontender, liver spleen not palpable, no masses palpable. PSYCH: Lethargic but arousablel. NEUROLOGICAL: Cranial nerves grossly intact; no facial asymmetry, is moving her limbs. LYMPHATICS: No lymph nodes palpable in the axilla and neck INVESTIGATIONS, reviewed in the clinical context: White count 29.3 hemoglobin 14.4 platelets 706 Venous blood gas: PH 6.78 pCO2 17 bicarb to Potassium 6.3 bicarb 7 BUN 37 creatinine 1.91 Blood glucose 989 UA negative for leukoesterase and nitrite EKG tracing personally reviewed by me-normal sinus rhythm, prolonged QT Computed tomography scan of the brain-unremarkable Assessment: -Diabetic ketoacidosis, severe -Severe hypokalemia possibly from DKA -Leukocytosis that can be manifestation of DKA from one contraction. Currently no clinical evidence of infection -Chronic fibromyalgia -GERD -Diabetes mellitus type 1 on insulin -Rheumatoid arthritis -Anxiety depression otherwise specified -Acute metabolic encephalopathy from DKA. -Lactic acidosis type II Plan: Patient is rather ill. Admitted to the ICU. Started on DKA protocol. Lovenox for DVT prophylaxis. We'll give GI prophylaxis. No family is currently present. Pulses guarded. Continue with the DKA protocol. Follow strict follow electrolytes Past Medical History Past Medical History: Chest Pain / Angina, CVA/TIA, Diabetes Mellitus, Fibromyalgia, GERD/Reflux, Rheumatoid Arthritis (RA), Syncope Additional Past Medical History / Comment(s): IDDM type I, DKA, 03/08/17 TIA. 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 History of Any Multi-Drug Resistant Organisms: None Reported Past Surgical History: Breast Surgery, Tubal Ligation, Uterine Ablation Additional Past Surgical History / Comment(s): Tilt table test, LEFT BREAST BX BENIGN, L thigh lipoma removal. Past Anesthesia/Blood Transfusion Reactions: No Reported Reaction Smoking Status: Never smoker - Past Family History Mother Family Medical History: Asthma Additional Family Medical History / Comment(s): depression, colitis Father History Unknown: Yes Additional Family Medical History / Comment(s): Pt does not know who her father is. Medications and Allergies Home Medications Medication Instructions Recorded Confirmed Type DULoxetine HCL [Cymbalta] 60 mg PO DAILY #30 capsule. 12/29/17 01/25/19 Rx Methylphenidate HCl [Ritalin] 20 mg PO BID #60 tablet 12/29/17 01/25/19 Rx Insulin Aspart [NovoLOG] See Protocol SQ ACHS 06/15/18 01/25/19 History Insulin Detemir (Levemir) [Levemir] 32 unit SQ DAILY 06/15/18 01/25/19 History Omeprazole [PriLOSEC] 20 mg PO DAILY 06/15/18 01/25/19 History Abatacept [Orencia Clickject] 125 mg SQ Q7D 01/25/19 01/25/19 History Simvastatin [Zocor] 40 mg PO HS 01/25/19 01/25/19 History Allergies Allergy/AdvReac Type Severity Reaction Status Date / Time paroxetine HCl [From Paxil] Allergy Rash/Hives Verified 11/15/18 12:49 sertraline HCl [From Zoloft] Allergy Rash/Hives Verified 11/15/18 12:49 Physical Exam Vitals: Vital Signs Temp Pulse Resp BP Pulse Ox 01/25/19 19:00 125 H 26 H 107/67 100 01/25/19 18:00 118 H 23 114/66 100 01/25/19 17:00 96.3 F L 109 H 22 120/67 100 01/25/19 16:00 93.4 F L 101 H 20 117/107 100 01/25/19 15:00 94 25 H 119/69 100 01/25/19 14:00 96 24 120/76 100 01/25/19 13:30 91.6 F L 94 22 122/67 100 01/25/19 12:48 100 24 128/72 100 01/25/19 12:00 130/78 100 01/25/19 11:30 96 115/73 100 01/25/19 11:00 96 113/73 01/25/19 10:30 96 24 101/88 100 01/25/19 10:00 97 117/73 100 01/25/19 09:30 99 30 H 129/74 100 01/25/19 09:00 101 H 28 H 124/98 100 01/25/19 08:59 97.5 F L 101 H 29 H 124/98 99 Intake and Output 01/25/19 01/25/19 01/25/19 06:59 14:59 22:59 Intake Total 910.747 6503.60 Output Total 1410 1005 Balance -992.242 59.60 Intake: IV 400 1000 Sodium Chloride 0.9% 1, 400 1000 000 ml @ 200 mls/hr IV . Q5H EZRA Rx#:[id number] Intake, IV Titration 17.758 64.60 Amount Insulin Regular 100 unit 17.758 64.60 In Sodium Chloride 0.9% 100 ml @ 0.1 UNITS/KG/HR 6.964 mls/hr IV .[id number] EZRA Rx#:[id number] Output: Urine 1410 1005 Other: Voiding Method Indwelling Catheter Weight 68.946 kg Results CBC & Chem 7: 01/25/19 09:20 01/25/19 17:57 Labs: Abnormal Lab Results - Last 24 Hours (Table) 01/25/19 01/25/19 01/25/19 Range/Units 09:00 09:20 09:20 WBC 29.3 H (3.8-10.6) k/uL Hct 52.6 H (34.0-46.0) % MCHC 27.4 L (31.0-37.0) g/dL Plt Count 706 H (150-450) k/uL Neutrophils # 25.1 H (1.3-7.7) k/uL Monocytes # 1.1 H (0-1.0) k/uL VBG pH (7.31-7.41) VBG pCO2 (37-51) mmHg VBG HCO3 (24-28) mmol/L Sodium 132 L (137-145) mmol/L Potassium 6.3 H* (3.5-5.1) mmol/L Chloride 89 L (98-107) mmol/L Carbon Dioxide 7 L* (22-30) mmol/L BUN 37 H (7-17) mg/dL Creatinine 1.91 H (0.52-1.04) mg/dL Glucose 989 H* (74-99) mg/dL POC Glucose (mg/dL) >600 H (75-99) mg/dL Plasma Lactic Acid Yariel (0.7-2.0) mmol/L Phosphorus (2.5-4.5) mg/dL Magnesium 2.7 H (1.6-2.3) mg/dL Alkaline Phosphatase 247 H (38-126) U/L Urine Appearance (Clear) Urine Protein (Negative) Urine Glucose (UA) (Negative) Urine Ketones (Negative) Urine Blood (Negative) Urine WBC (0-5) /hpf Urine Bacteria (None) /hpf Hyaline Casts (0-2) /lpf Urine Mucus (None) /hpf Urine Yeast (Budding) (None) /hpf 01/25/19 01/25/19 01/25/19 Range/Units 09:20 09:20 10:58 WBC (3.8-10.6) k/uL Hct (34.0-46.0) % MCHC (31.0-37.0) g/dL Plt Count (150-450) k/uL Neutrophils # (1.3-7.7) k/uL Monocytes # (0-1.0) k/uL VBG pH 6.78 L* (7.31-7.41) VBG pCO2 17 L* (37-51) mmHg VBG HCO3 2 L* (24-28) mmol/L Sodium (137-145) mmol/L Potassium (3.5-5.1) mmol/L Chloride (98-107) mmol/L Carbon Dioxide (22-30) mmol/L BUN (7-17) mg/dL Creatinine (0.52-1.04) mg/dL Glucose (74-99) mg/dL POC Glucose (mg/dL) (75-99) mg/dL Plasma Lactic Acid Yariel 3.9 H* (0.7-2.0) mmol/L Phosphorus (2.5-4.5) mg/dL Magnesium (1.6-2.3) mg/dL Alkaline Phosphatase (38-126) U/L Urine Appearance Cloudy H (Clear) Urine Protein 1+ H (Negative) Urine Glucose (UA) 4+ H (Negative) Urine Ketones 3+ H (Negative) Urine Blood Trace H (Negative) Urine WBC 9 H (0-5) /hpf Urine Bacteria Rare H (None) /hpf Hyaline Casts 31 H (0-2) /lpf Urine Mucus Rare H (None) /hpf Urine Yeast (Budding) Few H (None) /hpf 01/25/19 01/25/19 01/25/19 Range/Units 11:44 12:45 13:19 WBC (3.8-10.6) k/uL Hct (34.0-46.0) % MCHC (31.0-37.0) g/dL Plt Count (150-450) k/uL Neutrophils # (1.3-7.7) k/uL Monocytes # (0-1.0) k/uL VBG pH (7.31-7.41) VBG pCO2 (37-51) mmHg VBG HCO3 (24-28) mmol/L Sodium (137-145) mmol/L Potassium (3.5-5.1) mmol/L Chloride (98-107) mmol/L Carbon Dioxide (22-30) mmol/L BUN (7-17) mg/dL Creatinine (0.52-1.04) mg/dL Glucose (74-99) mg/dL POC Glucose (mg/dL) >600 H >600 H >600 H (75-99) mg/dL Plasma Lactic Acid Yariel (0.7-2.0) mmol/L Phosphorus (2.5-4.5) mg/dL Magnesium (1.6-2.3) mg/dL Alkaline Phosphatase (38-126) U/L Urine Appearance (Clear) Urine Protein (Negative) Urine Glucose (UA) (Negative) Urine Ketones (Negative) Urine Blood (Negative) Urine WBC (0-5) /hpf Urine Bacteria (None) /hpf Hyaline Casts (0-2) /lpf Urine Mucus (None) /hpf Urine Yeast (Budding) (None) /hpf 01/25/19 01/25/19 01/25/19 Range/Units 13:40 14:15 15:09 WBC (3.8-10.6) k/uL Hct (34.0-46.0) % MCHC (31.0-37.0) g/dL Plt Count (150-450) k/uL Neutrophils # (1.3-7.7) k/uL Monocytes # (0-1.0) k/uL VBG pH (7.31-7.41) VBG pCO2 (37-51) mmHg VBG HCO3 (24-28) mmol/L Sodium (137-145) mmol/L Potassium (3.5-5.1) mmol/L Chloride (98-107) mmol/L Carbon Dioxide <5 L* (22-30) mmol/L BUN 38 H (7-17) mg/dL Creatinine 1.33 H (0.52-1.04) mg/dL Glucose 626 H* (74-99) mg/dL POC Glucose (mg/dL) 548 H 405 H (75-99) mg/dL Plasma Lactic Acid Yariel (0.7-2.0) mmol/L Phosphorus 6.9 H (2.5-4.5) mg/dL Magnesium (1.6-2.3) mg/dL Alkaline Phosphatase (38-126) U/L Urine Appearance (Clear) Urine Protein (Negative) Urine Glucose (UA) (Negative) Urine Ketones (Negative) Urine Blood (Negative) Urine WBC (0-5) /hpf Urine Bacteria (None) /hpf Hyaline Casts (0-2) /lpf Urine Mucus (None) /hpf Urine Yeast (Budding) (None) /hpf 01/25/19 01/25/19 01/25/19 Range/Units 16:07 17:04 17:57 WBC (3.8-10.6) k/uL Hct (34.0-46.0) % MCHC (31.0-37.0) g/dL Plt Count (150-450) k/uL Neutrophils # (1.3-7.7) k/uL Monocytes # (0-1.0) k/uL VBG pH (7.31-7.41) VBG pCO2 (37-51) mmHg VBG HCO3 (24-28) mmol/L Sodium (137-145) mmol/L Potassium (3.5-5.1) mmol/L Chloride 111 H (98-107) mmol/L Carbon Dioxide <5 L* (22-30) mmol/L BUN 36 H (7-17) mg/dL Creatinine (0.52-1.04) mg/dL Glucose 328 H (74-99) mg/dL POC Glucose (mg/dL) 425 H 373 H (75-99) mg/dL Plasma Lactic Acid Yariel (0.7-2.0) mmol/L Phosphorus 2.0 L (2.5-4.5) mg/dL Magnesium (1.6-2.3) mg/dL Alkaline Phosphatase (38-126) U/L Urine Appearance (Clear) Urine Protein (Negative) Urine Glucose (UA) (Negative) Urine Ketones (Negative) Urine Blood (Negative) Urine WBC (0-5) /hpf Urine Bacteria (None) /hpf Hyaline Casts (0-2) /lpf Urine Mucus (None) /hpf Urine Yeast (Budding) (None) /hpf 01/25/19 01/25/19 01/25/19 Range/Units 18:08 19:10 20:25 WBC (3.8-10.6) k/uL Hct (34.0-46.0) % MCHC (31.0-37.0) g/dL Plt Count (150-450) k/uL Neutrophils # (1.3-7.7) k/uL Monocytes # (0-1.0) k/uL VBG pH (7.31-7.41) VBG pCO2 (37-51) mmHg VBG HCO3 (24-28) mmol/L Sodium (137-145) mmol/L Potassium (3.5-5.1) mmol/L Chloride (98-107) mmol/L Carbon Dioxide (22-30) mmol/L BUN (7-17) mg/dL Creatinine (0.52-1.04) mg/dL Glucose (74-99) mg/dL POC Glucose (mg/dL) 301 H 253 H 185 H (75-99) mg/dL Plasma Lactic Acid Yariel (0.7-2.0) mmol/L Phosphorus (2.5-4.5) mg/dL Magnesium (1.6-2.3) mg/dL Alkaline Phosphatase (38-126) U/L Urine Appearance (Clear) Urine Protein (Negative) Urine Glucose (UA) (Negative) Urine Ketones (Negative) Urine Blood (Negative) Urine WBC (0-5) /hpf Urine Bacteria (None) /hpf Hyaline Casts (0-2) /lpf Urine Mucus (None) /hpf Urine Yeast (Budding) (None) /hpf Thrombosis Risk Factor Assmnt - Choose All That Apply Any of the Below Risk Factors Present?: Yes Each Factor Represents 1 point: Age 41-60 years, Medical pt on bed rest Other Risk Factors: Yes Each Risk Factor Represents 2 Points: Patient confined to bed Other congenital or acquired thrombophilia - If yes, enter type in comment: No Thrombosis Risk Factor Assessment Total Risk Factor Score: 4 Thrombosis Risk Factor Assessment Level: Moderate Risk
[2019-01-25] MEDS: FAMOTIDINE 20 MG/2 ML VIAL IV SCH (20:56)
[2019-01-25] MEDS: ENOXAPARIN 40 MG/0.4 ML SYRINGE SQ SCH (20:56)
[2019-01-25 21:28] LABS: Glucose,Whole Blood 157 mg/dL (75-99)
[2019-01-25 22:06] LABS: Glucose,Whole Blood 162 mg/dL (75-99)
[2019-01-25 22:21] LABS: African American GFR (CKD) >90 (>60 ml/min/1.73 sqM); Anion Gap 20 mmol/L; Blood Urea Nitrogen 34 mg/dL (7-17); Chloride 115 mmol/L (98-107); Sodium 141 mmol/L (137-145)
[2019-01-25 22:22] LABS: Carbon Dioxide 6 mmol/L (22-30); Potassium 5.3 mmol/L (3.5-5.1)
[2019-01-25 23:02] LABS: Glucose,Whole Blood 157 mg/dL (75-99)
[2019-01-25] MEDS ORDERED: ACETAMINOPHEN TAB 325 MG TAB PO PRN (23:57)
[2019-01-26 00:14] LABS: Glucose,Whole Blood 136 mg/dL (75-99)
[2019-01-26 01:18] LABS: Glucose,Whole Blood 123 mg/dL (75-99)
[2019-01-26 02:20] LABS: Glucose,Whole Blood 134 mg/dL (75-99)
[2019-01-26] MEDS: SODIUM CHLORIDE 0.9% 1,000 ML IV SCH ×8 (02:21→17:05)
[2019-01-26 03:04] LABS: Glucose,Whole Blood 124 mg/dL (75-99)
[2019-01-26 03:44] LABS: African American GFR (CKD) >90 (>60 ml/min/1.73 sqM); Blood Urea Nitrogen 30 mg/dL (7-17)
[2019-01-26 04:04] LABS: Anion Gap 17 mmol/L; Chloride 116 mmol/L (98-107); Potassium 4.8 mmol/L (3.5-5.1); Sodium 141 mmol/L (137-145)
[2019-01-26 04:06] LABS: Carbon Dioxide 8 mmol/L (22-30)
[2019-01-26 04:21] LABS: Glucose,Whole Blood 141 mg/dL (75-99)
[2019-01-26 05:31] LABS: Glucose,Whole Blood 181 mg/dL (75-99)
[2019-01-26] MEDS: D5-0.45% NACL WITH KCL 20MEQ/L 1,000 ML IV SCH ×3 (05:38→17:06)
[2019-01-26 06:09] LABS: African American GFR (CKD) >90 (>60 ml/min/1.73 sqM); Anion Gap 14 mmol/L; Blood Urea Nitrogen 28 mg/dL (7-17); Carbon Dioxide 10 mmol/L (22-30); Chloride 116 mmol/L (98-107); Sodium 140 mmol/L (137-145)
[2019-01-26 06:14] LABS: Potassium 4.6 mmol/L (3.5-5.1)
[2019-01-26 06:51] LABS: Glucose,Whole Blood 225 mg/dL (75-99)
[2019-01-26 07:58] LABS: Glucose,Whole Blood 293 mg/dL (75-99)
[2019-01-26 09:22] LABS: Glucose,Whole Blood 265 mg/dL (75-99)
[2019-01-26] MEDS ORDERED: ONDANSETRON 4 MG/2 ML VIAL IVP PRN (09:35)
[2019-01-26] MEDS: FAMOTIDINE 20 MG/2 ML VIAL IV SCH ×2 (09:38→21:17)
[2019-01-26 09:54] VITALS: BMI 21.7
[2019-01-26 10:00] LABS: Glucose,Whole Blood 264 mg/dL (75-99)
[2019-01-26 10:12] LABS: Glucose,Whole Blood 273 mg/dL (75-99)
[2019-01-26 10:30] LABS: HCT 34.7 % (34.0-46.0); HGB 11.6 gm/dL (11.4-16.0); MCH 26.7 pg (25.0-35.0); MCHC 33.5 g/dL (31.0-37.0); Mean Platelet Volume 6.4; Platelet Count 377 k/uL (150-450); RBC 4.35 m/uL (3.80-5.40); RDW 14.7 % (11.5-15.5)
[2019-01-26 10:32] LABS: MCV 79.9 fL (80.0-100.0)
[2019-01-26 10:43] LABS: African American GFR (CKD) >90 (>60 ml/min/1.73 sqM); Anion Gap 12 mmol/L; Blood Urea Nitrogen 19 mg/dL (7-17); Carbon Dioxide 13 mmol/L (22-30); Chloride 112 mmol/L (98-107); Glucose 291 mg/dL (74-99); Phosphorus 1.4 mg/dL (2.5-4.5); Potassium 3.7 mmol/L (3.5-5.1); Sodium 137 mmol/L (137-145)
[2019-01-26 11:18] LABS: Glucose,Whole Blood 247 mg/dL (75-99)
--- NOTE | 2019-01-26 11:53 | P.PN ---
Subjective Progress Note Date: 01/26/19 Principal diagnosis: Acute diabetic ketoacidosis This is a 44-year-old female patient who follows with Dr. Ruiz as her primary care physician. She has a history of anxiety/depression, hyperlipidemia, marijuana use, fibromyalgia, rheumatoid arthritis taking Orencia every other week, diabetes mellitus, type I since her 20s. She is to be on Levemir 32 units daily along with NovoLog. She was brought into the emergency room this morning by her mother who had not seen her for approximately 2 weeks. She developed increasing nausea, vomiting and altered mental status. She states her with whom she is currently from found her in a bathtub delirious. She had been staying at a friend's house for the past couple of weeks. Unsure if she had been taking any of her medication. She been found to have a blood glucose of 989. Positive acetone. Positive ketones. Potassium 6.3. Bicarb 7. Anion gap 36. Creatinine 1.91. Plasma lactic acid 3.9. Venous pH 6.78. White count 29.3. Hemoglobin 14.4. She is seen today in consultation in the emergency department. She has received 2 L of fluid resuscitation thus far. Insulin drip at 6.9 units per hour. Currently 0.9 at 200 ML's per hour. She is afebrile. Heart rate in the 90s. Blood pressure is stable. 100% O2 saturation on room air. She is still somewhat altered. Moving about on the cart. Complaining of thirst. Not answering questions appropriately. Computed tomography scan of the brain showed no acute abnormalities. We will transfer her to the intensive care unit once a bed becomes available. Patient was reevaluated today on 01/26/2019, patient remains in the ICU, remains on the protocol for DKA treatment. She had significant episodes of nausea and vomiting last night, and she was placed on Zofran by the admitting physician. Remains on IV fluids, remains on insulin presently at 3.3 units per hour. Continues to have on iron gap metabolic acidosis, and her bicarb today is 13, potassium is 3.7. Blood sugar is 291. Objective - Vital Signs Vital signs: Vital Signs Temp 98.0 F 01/26/19 08:00 Pulse 114 H 01/26/19 10:00 Resp 19 01/26/19 10:00 BP 144/70 01/26/19 10:00 Pulse Ox 98 01/26/19 10:00 Intake & Output 01/25/19 01/26/19 01/26/19 18:59 06:59 18:59 Intake Total 3633.684 7924.489 454.630 Output Total 2240 1365 375 Balance -1003.292 735.489 79.630 Weight 68.946 kg 63.1 kg 63.1 kg Intake: IV 1200 2000 450 D5-0.45% NaCl with KCl 1800 450 20Meq/l 1,000 ml @ 150 mls/hr IV .[id number] EZRA Rx# :[id number] Sodium Chloride 0.9% 1, 1200 200 000 ml @ 200 mls/hr IV . Q5H EZRA Rx#:[id number] Intake, IV Titration 36.708 100.489 4.630 Amount Insulin Regular 100 unit 36.708 100.489 4.630 In Sodium Chloride 0.9% 100 ml @ 0.1 UNITS/KG/HR 6.964 mls/hr IV .[id number] EZRA Rx#:[id number] Output: Urine 2240 1365 375 Other: Voiding Method Indwelling Catheter Indwelling Catheter Indwelling Catheter - Exam Physical Exam: Revealed a 44-year-old female lethargic, however she is arousable, follows simple instructions, on room air, in no distress. Head: Atraumatic, normocephalic. HEENT:[Neck is supple.] [No neck masses.] [No thyromegaly.] [No JVD.] Chest: [Clear throughout, no crackles, no rhonchi, no wheezes.] Cardiac Exam: [Normal S1 and S2, no S3 gallop, no murmur.] Abdomen: [Soft, nontender, no megaly, no rebound, no guarding, normal bowel sounds.] Extremities: [No clubbing, no edema, no cyanosis.] Neurological Exam: Lethargic, arousable, follows instructions, Lymphatics: No lymphadenopathy. Skin: No rashes. Musculoskeletal good muscular tone, no deformities. - Labs CBC & Chem 7: 01/26/19 09:59 01/26/19 09:59 Labs: Abnormal Lab Results - Last 24 Hours (Table) 01/25/19 01/25/1919 Range/Units 09:20 12:45 13:19 WBC (3.8-10.6) k/uL MCV (80.0-100.0) fL Potassium (3.5-5.1) mmol/L Chloride (98-107) mmol/L Carbon Dioxide (22-30) mmol/L BUN (7-17) mg/dL Creatinine (0.52-1.04) mg/dL Glucose (74-99) mg/dL POC Glucose (mg/dL) >600 H >600 H (75-99) mg/dL Hemoglobin A1c 10.0 H (4.0-6.0) % Phosphorus (2.5-4.5) mg/dL 01/25/19 01/25/19 01/25/19 Range/Units 13:40 14:15 15:09 WBC (3.8-10.6) k/uL MCV (80.0-100.0) fL Potassium (3.5-5.1) mmol/L Chloride (98-107) mmol/L Carbon Dioxide <5 L* (22-30) mmol/L BUN 38 H (7-17) mg/dL Creatinine 1.33 H (0.52-1.04) mg/dL Glucose 626 H* (74-99) mg/dL POC Glucose (mg/dL) 548 H 405 H (75-99) mg/dL Hemoglobin A1c (4.0-6.0) % Phosphorus 6.9 H (2.5-4.5) mg/dL 01/25/19 01/25/19 01/25/19 Range/Units 16:07 17:04 17:57 WBC (3.8-10.6) k/uL MCV (80.0-100.0) fL Potassium (3.5-5.1) mmol/L Chloride 111 H (98-107) mmol/L Carbon Dioxide <5 L* (22-30) mmol/L BUN 36 H (7-17) mg/dL Creatinine (0.52-1.04) mg/dL Glucose 328 H (74-99) mg/dL POC Glucose (mg/dL) 425 H 373 H (75-99) mg/dL Hemoglobin A1c (4.0-6.0) % Phosphorus 2.0 L (2.5-4.5) mg/dL 10/03/19 10/03/19 10/03/19 Range/Units 18:08 19:10 20:25 WBC (3.8-10.6) k/uL MCV (80.0-100.0) fL Potassium (3.5-5.1) mmol/L Chloride (98-107) mmol/L Carbon Dioxide (22-30) mmol/L BUN (7-17) mg/dL Creatinine (0.52-1.04) mg/dL Glucose (74-99) mg/dL POC Glucose (mg/dL) 301 H 253 H 185 H (75-99) mg/dL Hemoglobin A1c (4.0-6.0) % Phosphorus (2.5-4.5) mg/dL 01/25/19 01/25/19 01/25/19 Range/Units 21:20 21:27 22:05 WBC (3.8-10.6) k/uL MCV (80.0-100.0) fL Potassium 5.3 H (3.5-5.1) mmol/L Chloride 115 H (98-107) mmol/L Carbon Dioxide 6 L* (22-30) mmol/L BUN 34 H (7-17) mg/dL Creatinine (0.52-1.04) mg/dL Glucose (74-99) mg/dL POC Glucose (mg/dL) 157 H 162 H (75-99) mg/dL Hemoglobin A1c (4.0-6.0) % Phosphorus (2.5-4.5) mg/dL 01/25/19 01/26/19 01/26/19 Range/Units 23:01 00:12 01:16 WBC (3.8-10.6) k/uL MCV (80.0-100.0) fL Potassium (3.5-5.1) mmol/L Chloride (98-107) mmol/L Carbon Dioxide (22-30) mmol/L BUN (7-17) mg/dL Creatinine (0.52-1.04) mg/dL Glucose (74-99) mg/dL POC Glucose (mg/dL) 157 H 136 H 123 H (75-99) mg/dL Hemoglobin A1c (4.0-6.0) % Phosphorus (2.5-4.5) mg/dL 10/08/1101/26/19 01/26/19 Range/Units 02:18 02:29 03:02 WBC (3.8-10.6) k/uL MCV (80.0-100.0) fL Potassium (3.5-5.1) mmol/L Chloride 116 H (98-107) mmol/L Carbon Dioxide 8 L* (22-30) mmol/L BUN 30 H (7-17) mg/dL Creatinine 0.51 L (0.52-1.04) mg/dL Glucose (74-99) mg/dL POC Glucose (mg/dL) 134 H 124 H (75-99) mg/dL Hemoglobin A1c (4.0-6.0) % Phosphorus (2.5-4.5) mg/dL 01/26/19 01/26/19 01/26/19 Range/Units 04:19 04:38 05:29 WBC (3.8-10.6) k/uL MCV (80.0-100.0) fL Potassium (3.5-5.1) mmol/L Chloride 116 H (98-107) mmol/L Carbon Dioxide 10 L (22-30) mmol/L BUN 28 H (7-17) mg/dL Creatinine (0.52-1.04) mg/dL Glucose (74-99) mg/dL POC Glucose (mg/dL) 141 H 181 H (75-99) mg/dL Hemoglobin A1c (4.0-6.0) % Phosphorus (2.5-4.5) mg/dL 01/26/19 01/26/19 01/26/19 Range/Units 06:50 07:57 09:21 WBC (3.8-10.6) k/uL MCV (80.0-100.0) fL Potassium (3.5-5.1) mmol/L Chloride (98-107) mmol/L Carbon Dioxide (22-30) mmol/L BUN (7-17) mg/dL Creatinine (0.52-1.04) mg/dL Glucose (74-99) mg/dL POC Glucose (mg/dL) 225 H 293 H 265 H (75-99) mg/dL Hemoglobin A1c (4.0-6.0) % Phosphorus (2.5-4.5) mg/dL 01/26/19 01/26/19 01/26/19 Range/Units 09:58 09:59 09:59 WBC 15.0 H (3.8-10.6) k/uL MCV 79.9 L D (80.0-100.0) fL Potassium (3.5-5.1) mmol/L Chloride 112 H (98-107) mmol/L Carbon Dioxide 13 L (22-30) mmol/L BUN 19 H (7-17) mg/dL Creatinine 0.45 L (0.52-1.04) mg/dL Glucose 291 H (74-99) mg/dL POC Glucose (mg/dL) 264 H (75-99) mg/dL Hemoglobin A1c (4.0-6.0) % Phosphorus 1.4 L (2.5-4.5) mg/dL 01/26/19 01/26/19 Range/Units 10:10 11:16 WBC (3.8-10.6) k/uL MCV (80.0-100.0) fL Potassium (3.5-5.1) mmol/L Chloride (98-107) mmol/L Carbon Dioxide (22-30) mmol/L BUN (7-17) mg/dL Creatinine (0.52-1.04) mg/dL Glucose (74-99) mg/dL POC Glucose (mg/dL) 273 H 247 H (75-99) mg/dL Hemoglobin A1c (4.0-6.0) % Phosphorus (2.5-4.5) mg/dL Assessment and Plan Assessment: #1 Acute diabetic ketoacidosis with blood glucose 989. Mostly secondary to noncompliance. #2 Altered mental status secondary to above. Computed tomography scan of the brain revealed no acute abnormalities. #3 Anion gap metabolic acidosis secondary to above. #4 Hyperkalemia secondary to above. Resolved. #5 Acute renal failure. #6 Leukocytosis. #7 Diabetes mellitus, type I since her 20s. Question of medication compliance. #8 Rheumatoid arthritis receiving Orencia every other week. #9 Fibromyalgia. #10 Hyperlipidemia. #11 History of depression, currently from her . #12 Marijuana use. Recommendation: Continue present treatment plan, continue the protocol for DKA, continue insulin drip, continue IV fluids, patient will remain in the ICU, and we will continue to follow. Time with Patient: Less than 30
[2019-01-26] MEDS: ENOXAPARIN 40 MG/0.4 ML SYRINGE SQ SCH (12:42)
[2019-01-26] MEDS ORDERED: Phosphorus Replacement Protoco 1 EACH MISC MISCELLANE PRN (12:45)
[2019-01-26 12:53] LABS: Glucose,Whole Blood 187 mg/dL (75-99)
[2019-01-26] MEDS: DULoxetine HCL 60 MG CAPSULE.DR PO SCH (13:31)
[2019-01-26 13:43] LABS: Glucose,Whole Blood 173 mg/dL (75-99)
[2019-01-26] MEDS: SODIUM PHOSPHATE 10 MMOL in SODIUM CHLORIDE 0.9% 250 ML IVPB SCH ×3 (13:46→20:57)
[2019-01-26 14:16] LABS: Glucose,Whole Blood 175 mg/dL (75-99)
[2019-01-26 15:03] LABS: African American GFR (CKD) >90 (>60 ml/min/1.73 sqM); Anion Gap 8 mmol/L; Blood Urea Nitrogen 15 mg/dL (7-17); Calcium 8.8 mg/dL (8.4-10.2); Carbon Dioxide 17 mmol/L (22-30); Chloride 112 mmol/L (98-107); Glucose 170 mg/dL (74-99); Potassium 3.3 mmol/L (3.5-5.1); Sodium 137 mmol/L (137-145)
[2019-01-26 15:07] LABS: Glucose,Whole Blood 158 mg/dL (75-99)
[2019-01-26 17:10] LABS: Glucose,Whole Blood 142 mg/dL (75-99)
[2019-01-26 18:14] LABS: Glucose,Whole Blood 132 mg/dL (75-99)
[2019-01-26 19:01] LABS: Glucose,Whole Blood 137 mg/dL (75-99)
[2019-01-26 19:16] LABS: African American GFR (CKD) >90 (>60 ml/min/1.73 sqM); Anion Gap 9 mmol/L; Blood Urea Nitrogen 11 mg/dL (7-17); Calcium 8.5 mg/dL (8.4-10.2); Carbon Dioxide 19 mmol/L (22-30); Chloride 111 mmol/L (98-107); Glucose 149 mg/dL (74-99); Potassium 3.4 mmol/L (3.5-5.1); Sodium 139 mmol/L (137-145)
[2019-01-26 20:02] LABS: Glucose,Whole Blood 142 mg/dL (75-99)
[2019-01-26] MEDS: INSULIN REGULAR 100 UNIT in SODIUM CHLORIDE 0.9% 100 ML IV SCH (20:11)
[2019-01-26] MEDS ORDERED: INSULN ASP PRT/INSULIN ASPART 100 UNIT/ML 10 ML VIAL SQ ONE (20:36)
[2019-01-26] MEDS ORDERED: Potassium Replacement Protocol 1 EACH MISC MISCELLANE PRN (20:54)
[2019-01-26] MEDS ORDERED: ATORVASTATIN 20 MG TAB PO SCH (21:00)
[2019-01-26 21:12] LABS: Glucose,Whole Blood 195 mg/dL (75-99)
[2019-01-26] MEDS: POTASSIUM CHLORIDE ER 20 MEQ TAB.ER PO SCH (21:17)
[2019-01-26] MEDS: INSULIN ASPART (NovoLOG) 100 UNIT/ML VIAL SQ SCH (21:17)
--- NOTE | 2019-01-26 21:50 | P.PN ---
Progress Note - Text Progress Note Date: 01/26/19 History of presenting complaint: This is a 44-year-old patient of Dr. Ruiz. Chronic stable medical conditions include chronic fibromyalgia, GERD, rheumatoid arthritis, anxiety depression. Patient long-standing insulin requiring diabetic. Patient presents to the ER, was brought in by the mother. Apparently patient not been feeling well. Insulin was missed. Patient started having nausea vomiting. Patient somewhat lethargic. Does not reported fever or chills. Patient was severely hypothermic in the ER. Found to be severely acidotic and in diabetic ketoacidosis. Patient was significantly low. Patient started on IV fluids on the DKA protocol and insulin drip. Admitted to the ICU. Today-in the morning remained on insulin drip. He still acidotic. Still had a high anion gap. By this evening feeling much better. Anion gap to close. Wanted to eat. Had been on drip. Patient does state that she was running low on insulin and probably does leading up to the present presentation Review of systems: Was done for constitutional, cardiovascular, GI, pulmonary. relevant finding as above Active Medications Acetaminophen (Tylenol Tab) 650 mg PO Q4HR PRN PRN Reason: Fever and/ or Pain Atorvastatin Calcium (Lipitor) 20 mg PO HS [facility] Last Admin: 01/26/19 21:17 Dose: 20 mg Documented by: Duloxetine HCl (Cymbalta) 60 mg PO DAILY [facility] Last Admin: 01/26/19 13:31 Dose: Not Given Documented by: Enoxaparin Sodium (Lovenox) 40 mg SQ DAILY [facility] Last Admin: 01/26/19 12:42 Dose: 40 mg Documented by: Famotidine (Pepcid) 20 mg IV Q12HR [facility] Last Admin: 01/26/19 21:17 Dose: 20 mg Documented by: Potassium Chloride/Dextrose/Sod Cl (D5%-1/2ns-Kcl 20 Meq/L Iv Solution) 1,000 mls @ 50 mls/hr IV .Q20H [facility] Insulin Aspart (Novolog) 0 unit SQ ACHS EZRA; Protocol Last Admin: 01/26/19 21:17 Dose: Not Given Documented by: Insulin Detemir (Levemir) 32 unit SQ DAILY@0700 [facility] Miscellaneous Information (Phosphorus Per Protocol) 1 each MISCELLANE DAILY PRN; Protocol PRN Reason: Per Protocol Miscellaneous Information (Potassium Per Protocol) 1 each MISCELLANE DAILY PRN; Protocol PRN Reason: Per Protocol Ondansetron HCl (Zofran) 4 mg IVP Q6HR PRN PRN Reason: Nausea And Vomiting Last Admin: 01/26/19 13:42 Dose: 4 mg Documented by: Potassium Chloride (K-Dur 20) 20 meq PO Q1HR EZAR; Protocol Stop: 01/26/19 22:01 Last Admin: 01/26/19 21:17 Dose: 20 meq Documented by: Physical examination: VITAL SIGNS: 99.5, 98, 18, 141/81, 100% room air GENERAL: Sitting in bed, more awake a bit tired EYES: Pupils equal. Conjunctiva normal. HEENT: External appearance of nose and ears normal, oral cavity dry mucous membrane. NECK: JVD unable to assess; masses not palpable. HEART: First and second heart sounds are normal; no edema. LUNGS: Respiratory rate increased, clear to auscultation. ABDOMEN: Soft, nontender, liver spleen not palpable, no masses palpable. PSYCH: Awake answering questions. NEUROLOGICAL: Cranial nerves grossly intact; no facial asymmetry, is moving her limbs. INVESTIGATIONS, reviewed in the clinical context: Potassium 3.4 bicarb 19 creatinine 0.35 Accu-Cheks 142 195 Admission labs: White count 29.3 hemoglobin 14.4 platelets 706 Venous blood gas: PH 6.78 pCO2 17 bicarb to Potassium 6.3 bicarb 7 BUN 37 creatinine 1.91 Blood glucose 989 UA negative for leukoesterase and nitrite EKG tracing personally reviewed by me-normal sinus rhythm, prolonged QT Computed tomography scan of the brain-unremarkable Assessment: -Diabetic ketoacidosis, severe, improved -Severe hyperkalemia possibly from DKA, improved -Leukocytosis that can be manifestation of DKA from one contraction. Currently no clinical evidence of infection -Chronic fibromyalgia -GERD -Diabetes mellitus type 1 on insulin -Rheumatoid arthritis -Anxiety depression otherwise specified -Acute metabolic encephalopathy from DKA. -Lactic acidosis type II Plan: Patient's anion gap is closed this evening. Insulin drip is being stopped. Patient wants to eat We'll give the patient 22 units of Novolin 70/30. In the morning. The patient's home dose of Levemir. Care was discussed with the patient. Questions were answered. Follow electrolytes.
[2019-01-27 00:51] LABS: Appearance,Urine Turbid (Clear); Bacteria,Urine Few /hpf; Bilirubin,Urine Negative (Negative); Blood,Urine Large (Negative); Color,Urine Light Red; Glucose,Urine (UA) 1+ (Negative); Ketones,Urine Trace (Negative); Leukocyte Esterase,Urine Small (Negative); Nitrite,Urine Negative (Negative); Protein,Urine 2+ (Negative); RBC,Urine >182 /hpf (0-5); Specific Gravity,Urine 1.019 (1.001-1.035); Urobilinogen,Urine <2.0 mg/dL (<2.0)
[2019-01-27 02:29] LABS: Glucose,Whole Blood 188 mg/dL (75-99)
[2019-01-27] MEDS: POTASSIUM CHLORIDE ER 20 MEQ TAB.ER PO SCH ×3 (03:38→12:29)
[2019-01-27 05:55] LABS: Basophils % (A) 0 %; Eosinophils % (A) 0 %; HCT 32.5 % (34.0-46.0); HGB 10.8 gm/dL (11.4-16.0); Lymphocytes # (A) 2.2 k/uL (1.0-4.8); Lymphocytes % (A) 25 %; MCH 26.7 pg (25.0-35.0); MCHC 33.2 g/dL (31.0-37.0); MCV 80.4 fL (80.0-100.0); Mean Platelet Volume 5.6; Monocytes # (A) 0.3 k/uL (0-1.0); Monocytes % (A) 4 %; Neutrophils % (A) 70 %; Platelet Count 283 k/uL (150-450); RBC 4.05 m/uL (3.80-5.40); RDW 14.5 % (11.5-15.5); WBC 8.6 k/uL (3.8-10.6)
[2019-01-27 06:37] LABS: African American GFR (CKD) >90 (>60 ml/min/1.73 sqM); Anion Gap 7 mmol/L; Blood Urea Nitrogen 8 mg/dL (7-17); Calcium 8.3 mg/dL (8.4-10.2); Carbon Dioxide 22 mmol/L (22-30); Chloride 107 mmol/L (98-107); Glucose 206 mg/dL (74-99); Potassium 3.4 mmol/L (3.5-5.1); Sodium 136 mmol/L (137-145)
[2019-01-27] MEDS ORDERED: INSULIN DETEMIR (LEVEMIR) 100 UNIT/ML SYR SQ SCH (07:00)
[2019-01-27 07:05] LABS: Glucose,Whole Blood 203 mg/dL (75-99)
[2019-01-27] MEDS: INSULIN ASPART (NovoLOG) 100 UNIT/ML VIAL SQ SCH ×3 (07:14→17:14)
[2019-01-27 08:23] VITALS: BP 130/78; PULSE 93; RESP 16; TEMP 99.7
[2019-01-27] MEDS: ENOXAPARIN 40 MG/0.4 ML SYRINGE SQ SCH (08:26)
[2019-01-27] MEDS: FAMOTIDINE 20 MG/2 ML VIAL IV SCH (08:26)
[2019-01-27] MEDS: DULoxetine HCL 60 MG CAPSULE.DR PO SCH (09:39)
[2019-01-27] MEDS: SODIUM PHOSPHATE 10 MMOL in SODIUM CHLORIDE 0.9% 250 ML IVPB SCH ×2 (10:30→12:41)
[2019-01-27] MEDS: D5-0.45% NACL WITH KCL 20MEQ/L 1,000 ML IV SCH ×2 (10:34→17:16)
[2019-01-27 11:54] LABS: Glucose,Whole Blood 137 mg/dL (75-99)
--- NOTE | 2019-01-27 13:35 | P.PN ---
Subjective Progress Note Date: 01/27/19 Principal diagnosis: Acute diabetic ketoacidosis This is a 44-year-old female patient who follows with Dr. Ruiz as her primary care physician. She has a history of anxiety/depression, hyperlipidemia, marijuana use, fibromyalgia, rheumatoid arthritis taking Orencia every other week, diabetes mellitus, type I since her 20s. She is to be on Levemir 32 units daily along with NovoLog. She was brought into the emergency room this morning by her mother who had not seen her for approximately 2 weeks. She developed increasing nausea, vomiting and altered mental status. She states her with whom she is currently from found her in a bathtub delirious. She had been staying at a friend's house for the past couple of weeks. Unsure if she had been taking any of her medication. She been found to have a blood glucose of 989. Positive acetone. Positive ketones. Potassium 6.3. Bicarb 7. Anion gap 36. Creatinine 1.91. Plasma lactic acid 3.9. Venous pH 6.78. White count 29.3. Hemoglobin 14.4. She is seen today in consultation in the emergency department. She has received 2 L of fluid resuscitation thus far. Insulin drip at 6.9 units per hour. Currently 0.9 at 200 ML's per hour. She is afebrile. Heart rate in the 90s. Blood pressure is stable. 100% O2 saturation on room air. She is still somewhat altered. Moving about on the cart. Complaining of thirst. Not answering questions appropriately. Computed tomography scan of the brain showed no acute abnormalities. We will transfer her to the intensive care unit once a bed becomes available. Patient was reevaluated today on 01/26/2019, patient remains in the ICU, remains on the protocol for DKA treatment. She had significant episodes of nausea and vomiting last night, and she was placed on Zofran by the admitting physician. Remains on IV fluids, remains on insulin presently at 3.3 units per hour. Continues to have on iron gap metabolic acidosis, and her bicarb today is 13, potassium is 3.7. Blood sugar is 291. Reevaluated today on 01/27/2019, remains in the ICU, her on iron gap has completely closed, patient is feeling much better, she is off insulin drip, and all her labs were reviewed and discussed with the patient. Hence I plan to transfer the patient out of the ICU, she may be considered for discharge planning by the admitting physician. Objective - Vital Signs Vital signs: Vital Signs Temp 99.7 F H 01/27/19 08:00 Pulse 93 01/27/19 08:00 Resp 16 01/27/19 08:00 BP 130/78 01/27/19 08:00 Pulse Ox 98 01/27/19 08:00 Intake & Output 01/26/19 01/27/19 01/27/19 18:59 06:59 18:59 Intake Total 3651.146 8946.197 Output Total 1170 260 Balance 511.221 841.197 Weight 63.1 kg 63.9 kg Intake: IV 1650 1000 D5-0.45% NaCl with KCl 1650 300 20Meq/l 1,000 ml @ 150 mls/hr IV .Q6H40M EZRA Rx# :[id number] D5-0.45% NaCl with KCl 450 20Meq/l 1,000 ml @ 50 mls /hr IV .Q20H EZRA Rx#: [id number] Sodium Chloride 0.9% 1, 0 000 ml @ 200 mls/hr IV . Q5H EZRA Rx#:[id number] Sodium Phosphate 10 mmol 250 In Sodium Chloride 0.9% 250 ml @ 125 mls/hr IVPB Q2H EZRA Rx#:[id number] Intake, IV Titration 31.221 1.197 Amount Insulin Regular 100 unit 31.221 1.197 In Sodium Chloride 0.9% 100 ml @ 0.1 UNITS/KG/HR 6.964 mls/hr IV .[id number] EZRA Rx#:[id number] Oral 100 Output: Urine 1170 260 Other: Voiding Method Indwelling Catheter Toilet Toilet # Voids 2 # Emeses 2 - Exam Physical Exam: Revealed a 44-year-old female in no form of distress, alert oriented 3. Head: Atraumatic, normocephalic. HEENT:[Neck is supple.] [No neck masses.] [No thyromegaly.] [No JVD.] Chest: [Clear throughout, no crackles, no rhonchi, no wheezes.] Cardiac Exam: [Normal S1 and S2, no S3 gallop, no murmur.] Abdomen: [Soft, nontender, no megaly, no rebound, no guarding, normal bowel sounds.] Extremities: [No clubbing, no edema, no cyanosis.] Neurological Exam: Alert oriented 3, no gross focal neurologic deficits. Lymphatics: No lymphadenopathy. Skin: No rashes. Musculoskeletal good muscular tone, no deformities. - Labs CBC & Chem 7: 01/27/19 05:12 01/27/19 05:12 Labs: Abnormal Lab Results - Last 24 Hours (Table) 01/26/19 01/26/19 01/26/19 Range/Units 13:41 14:14 14:40 Hgb (11.4-16.0) gm/dL Hct (34.0-46.0) % Sodium (137-145) mmol/L Potassium 3.3 L (3.5-5.1) mmol/L Chloride 112 H (98-107) mmol/L Carbon Dioxide 17 L (22-30) mmol/L Creatinine 0.37 L (0.52-1.04) mg/dL Glucose 170 H (74-99) mg/dL POC Glucose (mg/dL) 173 H 175 H (75-99) mg/dL Calcium (8.4-10.2) mg/dL Phosphorus (2.5-4.5) mg/dL Urine Appearance (Clear) Urine Protein (Negative) Urine Glucose (UA) (Negative) Urine Ketones (Negative) Urine Blood (Negative) Ur Leukocyte Esterase (Negative) Urine RBC (0-5) /hpf Urine Bacteria (None) /hpf 01/26/19 01/26/19 01/26/19 Range/Units 15:05 17:08 18:12 Hgb (11.4-16.0) gm/dL Hct (34.0-46.0) % Sodium (137-145) mmol/L Potassium (3.5-5.1) mmol/L Chloride (98-107) mmol/L Carbon Dioxide (22-30) mmol/L Creatinine (0.52-1.04) mg/dL Glucose (74-99) mg/dL POC Glucose (mg/dL) 158 H 142 H 132 H (75-99) mg/dL Calcium (8.4-10.2) mg/dL Phosphorus (2.5-4.5) mg/dL Urine Appearance (Clear) Urine Protein (Negative) Urine Glucose (UA) (Negative) Urine Ketones (Negative) Urine Blood (Negative) Ur Leukocyte Esterase (Negative) Urine RBC (0-5) /hpf Urine Bacteria (None) /hpf 01/26/19 01/26/19 01/26/19 Range/Units 18:47 18:59 20:01 Hgb (11.4-16.0) gm/dL Hct (34.0-46.0) % Sodium (137-145) mmol/L Potassium 3.4 L (3.5-5.1) mmol/L Chloride 111 H (98-107) mmol/L Carbon Dioxide 19 L (22-30) mmol/L Creatinine 0.35 L (0.52-1.04) mg/dL Glucose 149 H (74-99) mg/dL POC Glucose (mg/dL) 137 H 142 H (75-99) mg/dL Calcium (8.4-10.2) mg/dL Phosphorus (2.5-4.5) mg/dL Urine Appearance (Clear) Urine Protein (Negative) Urine Glucose (UA) (Negative) Urine Ketones (Negative) Urine Blood (Negative) Ur Leukocyte Esterase (Negative) Urine RBC (0-5) /hpf Urine Bacteria (None) /hpf 01/26/19 01/27/19 01/27/19 Range/Units 21:10 00:15 02:27 Hgb (11.4-16.0) gm/dL Hct (34.0-46.0) % Sodium (137-145) mmol/L Potassium (3.5-5.1) mmol/L Chloride (98-107) mmol/L Carbon Dioxide (22-30) mmol/L Creatinine (0.52-1.04) mg/dL Glucose (74-99) mg/dL POC Glucose (mg/dL) 195 H 188 H (75-99) mg/dL Calcium (8.4-10.2) mg/dL Phosphorus (2.5-4.5) mg/dL Urine Appearance Turbid H (Clear) Urine Protein 2+ H (Negative) Urine Glucose (UA) 1+ H (Negative) Urine Ketones Trace H (Negative) Urine Blood Large H (Negative) Ur Leukocyte Esterase Small H (Negative) Urine RBC >182 H (0-5) /hpf Urine Bacteria Few H (None) /hpf 01/27/19 01/27/19 01/27/19 Range/Units 05:12 05:12 05:12 Hgb 10.8 L (11.4-16.0) gm/dL Hct 32.5 L (34.0-46.0) % Sodium 136 L (137-145) mmol/L Potassium 3.4 L (3.5-5.1) mmol/L Chloride (98-107) mmol/L Carbon Dioxide (22-30) mmol/L Creatinine 0.35 L (0.52-1.04) mg/dL Glucose 206 H (74-99) mg/dL POC Glucose (mg/dL) (75-99) mg/dL Calcium 8.3 L (8.4-10.2) mg/dL Phosphorus 1.7 L (2.5-4.5) mg/dL Urine Appearance (Clear) Urine Protein (Negative) Urine Glucose (UA) (Negative) Urine Ketones (Negative) Urine Blood (Negative) Ur Leukocyte Esterase (Negative) Urine RBC (0-5) /hpf Urine Bacteria (None) /hpf 01/27/19 01/27/19 Range/Units 07:04 11:52 Hgb (11.4-16.0) gm/dL Hct (34.0-46.0) % Sodium (137-145) mmol/L Potassium (3.5-5.1) mmol/L Chloride (98-107) mmol/L Carbon Dioxide (22-30) mmol/L Creatinine (0.52-1.04) mg/dL Glucose (74-99) mg/dL POC Glucose (mg/dL) 203 H 137 H (75-99) mg/dL Calcium (8.4-10.2) mg/dL Phosphorus (2.5-4.5) mg/dL Urine Appearance (Clear) Urine Protein (Negative) Urine Glucose (UA) (Negative) Urine Ketones (Negative) Urine Blood (Negative) Ur Leukocyte Esterase (Negative) Urine RBC (0-5) /hpf Urine Bacteria (None) /hpf Assessment and Plan Assessment: #1 Acute diabetic ketoacidosis with blood glucose 989. Mostly secondary to noncompliance. Has resolved and fully treated based on the labs today and based on her clinical findings. #2 Altered mental status secondary to above. Computed tomography scan of the brain revealed no acute abnormalities. #3 Anion gap metabolic acidosis secondary to above. Resolved as per labs today. #4 Hyperkalemia secondary to above. Resolved. #5 Acute renal failure. Resolved, renal functioning is normal today per #6 Leukocytosis. #7 Diabetes mellitus, type I since her 20s. Question of medication compliance. #8 Rheumatoid arthritis receiving Orencia every other week. #9 Fibromyalgia. #10 Hyperlipidemia. #11 History of depression, currently from her . #12 Marijuana use. Recommendation: Transfer patient out of the ICU, continue treatment of her diabetes, counseled about being compliant with her treatment for diabetes, we will sign off and see the patient on when necessary basis. Will transfer out of the ICU and possibly discharge the patient home today. Time with Patient: Less than 30
[2019-01-27 15:37] LABS: Glucose,Whole Blood 46 mg/dL (75-99)
[2019-01-27 15:38] LABS: Glucose,Whole Blood 54 mg/dL (75-99)
[2019-01-27 15:53] LABS: Glucose,Whole Blood 61 mg/dL (75-99)
[2019-01-27 16:12] LABS: Glucose,Whole Blood 65 mg/dL (75-99)
[2019-01-27 16:25] LABS: Glucose,Whole Blood 59 mg/dL (75-99)
[2019-01-27 16:28] LABS: Glucose,Whole Blood 56 mg/dL (75-99)
[2019-01-27 16:44] LABS: Glucose,Whole Blood 72 mg/dL (75-99)
[2019-01-27 16:54] LABS: Glucose,Whole Blood 74 mg/dL (75-99)
[2019-01-27 17:02] LABS: Glucose,Whole Blood 78 mg/dL (75-99)
[2019-01-27 17:18] LABS: Glucose,Whole Blood 84 mg/dL (75-99)
[2019-01-27 17:34] LABS: Glucose,Whole Blood 78 mg/dL (75-99)
[2019-01-27 18:11] LABS: Glucose,Whole Blood 96 mg/dL (75-99)
[2019-01-27 19:09] LABS: Glucose,Whole Blood 79 mg/dL (75-99)
[2019-01-27 19:09] LABS: Glucose,Whole Blood 86 mg/dL (75-99)
[2019-01-27 20:20] LABS: Glucose,Whole Blood 68 mg/dL (75-99)
[2019-01-27] MEDS ORDERED: CALCIUM CARBONATE 500 MG CHEWABLE PO PRN (20:27)
[2019-01-27] MEDS ORDERED: FAMOTIDINE 20 MG TAB PO SCH (21:00)
[2019-01-27 21:05] LABS: Glucose,Whole Blood 93 mg/dL (75-99)
[2019-01-27 22:00] LABS: Glucose,Whole Blood 93 mg/dL (75-99)
--- NOTE | 2019-01-27 23:57 | P.DS ---
Providers Date of admission: 01/25/19 10:27 Expected date of discharge: 01/27/19 Attending physician: Ashvin Bundy Consults: 01/25/19 10:28 Consult Physician Stat Consulting Provider: Roderick Suero Reason/Comments: ICU management Do you want consulting provider notified?: Already Contacted Primary care physician: Kevin Alanissaint joseph londonpadma [facility] Course: Hospital course: This is a 44-year-old patient of Dr. Ruiz. Chronic stable medical conditions include chronic fibromyalgia, GERD, rheumatoid arthritis, anxiety depression. Patient long-standing insulin requiring diabetic. Patient presents to the ER, was brought in by the mother. Apparently patient not been feeling well. Insulin was missed. Patient started having nausea vomiting. Patient somewhat lethargic. Does not reported fever or chills. Patient was severely hypothermic in the ER. Found to be severely acidotic and in diabetic ketoacidosis. Patient was significantly low. Patient started on IV fluids on the DKA protocol and insulin drip. Admitted to the ICU. Treated with DKA protocol. Today doing much better. Switch to her home dose of Lantus. Had some decreased appetite late afternoon had some low sugars. And patient started eating better. Mother was here. Dose of Lantus to go home was decreased for tomorrow. Patient taking oral diet. Told to follow Accu-Cheks. Consultation: Dr. Pinky Fortune from [employer] Physical examination: VITAL SIGNS: 93, 16, 1:30 was 78, 98% room air GENERAL: Sitting up, comfortable EYES: Pupils equal. Conjunctiva normal. HEENT: External appearance of nose and ears normal, oral cavity dry mucous membrane. NECK: JVD unable to assess; masses not palpable. HEART: First and second heart sounds are normal; no edema. LUNGS: Respiratory rate increased, clear to auscultation. ABDOMEN: Soft, nontender, liver spleen not palpable, no masses palpable. PSYCH: Show 3, motor affect normal INVESTIGATIONS, reviewed in the clinical context: White count 8.6 potassium 3.4 creatinine 0.35 Accu-Cheks 142 195 Admission labs: White count 29.3 hemoglobin 14.4 platelets 706 Venous blood gas: PH 6.78 pCO2 17 bicarb to Potassium 6.3 bicarb 7 BUN 37 creatinine 1.91 Blood glucose 989 UA negative for leukoesterase and nitrite EKG tracing personally reviewed by me-normal sinus rhythm, prolonged QT Computed tomography scan of the brain-unremarkable Discharge diagnosis: -Diabetic ketoacidosis, severe, improved -Severe hyperkalemia possibly from DKA, improved -Leukocytosis from DKA from volume contraction. Currently no clinical evidence of infection -Chronic fibromyalgia -GERD -Diabetes mellitus type 1 on insulin -Rheumatoid arthritis -Anxiety depression otherwise specified -Acute metabolic encephalopathy from DKA., Resolved -Lactic acidosis type II Disposition: Home with mother Patient Condition at Discharge: Stable Plan - Discharge Summary Discharge Rx Participant: Yes New Discharge Prescriptions: Continue DULoxetine HCL [Cymbalta] 60 mg PO DAILY #30 capsule. Methylphenidate HCl [Ritalin] 20 mg PO BID #60 tablet Insulin Aspart [NovoLOG] See Protocol SQ ACHS Simvastatin [Zocor] 40 mg PO HS Abatacept [Orencia Clickject] 125 mg SQ Q7D Insulin Detemir (Levemir) [Levemir] 22 unit SQ DAILY #1 syr Changed Omeprazole [PriLOSEC] 20 mg PO BID #0 Discontinued Insulin Detemir (Levemir) [Levemir] 32 unit SQ DAILY Discharge Medication List DULoxetine HCL [Cymbalta] 60 mg PO DAILY #30 capsule. 12/29/17 [Rx] Methylphenidate HCl [Ritalin] 20 mg PO BID #60 tablet 12/29/17 [Rx] Insulin Aspart [NovoLOG] See Protocol SQ ACHS 06/15/18 [History] Abatacept [Orencia Clickject] 125 mg SQ Q7D 01/25/19 [History] Simvastatin [Zocor] 40 mg PO HS 01/25/19 [History] Insulin Detemir (Levemir) [Levemir] 22 unit SQ DAILY #1 syr 01/27/19 [Rx] Omeprazole [PriLOSEC] 20 mg PO BID #0 01/27/19 [Rx] Follow up Appointment(s)/Referral(s): Kevin Ruiz DO [Primary Care Provider] - 1-2 days (Please call and make appointment) Patient Instructions/Handouts: Diabetic Gastroparesis (DC), Diabetic Ketoacidosis (DC), Managing Diabetes During Sick Days (GEN), Diabetic Kidney Disease (DC), Diabetes and Your Skin (DC), Hemoglobin A1c (GEN) Discharge Disposition: HOME SELF-CARE
== END 2019-01-27 22:15 | disposition home or self-care (01) | DRG 637 ==
LOC: EC 08:56 → 2SICU 10:27
PROVIDERS: ADMIT Hospitalist; ATTEND Hospitalist
PROC: 05HC33Z Insertion of Infusion Device into Left Basilic Vein, Percutaneous Approach (ICD-10-PCS; principal; 2019-01-25 15:05)
DX: E10.10 Type 1 diabetes mellitus with ketoacidosis without coma (principal); G93.41 Metabolic encephalopathy; N17.9 Acute kidney failure, unspecified; E87.5 Hyperkalemia; D72.829 Elevated white blood cell count, unspecified; E78.5 Hyperlipidemia, unspecified; E86.0 Dehydration; E87.6 Hypokalemia; F90.9 Attention-deficit hyperactivity disorder, unspecified type; K21.9 Gastro-esophageal reflux disease without esophagitis; M06.9 Rheumatoid arthritis, unspecified; M79.7 Fibromyalgia; F32.9 Major depressive disorder, single episode, unspecified; F41.9 Anxiety disorder, unspecified; T38.3X6A Underdosing of insulin and oral hypoglycemic [antidiabetic] drugs, initial encounter; Z91.138 Patient's unintentional underdosing of medication regimen for other reason; Z79.4 Long term (current) use of insulin; Z79.899 Other long term (current) drug therapy; Z88.8 Allergy status to other drugs, medicaments and biological substances; Z86.73 Personal history of transient ischemic attack (TIA), and cerebral infarction without residual deficits; Z98.51 Tubal ligation status; Z82.5 Family history of asthma and other chronic lower respiratory diseases; Z81.8 Family history of other mental and behavioral disorders
CPT/HCPCS: 36410; 36415; 70450; 76937; 77001; 80048; 80051; 80053; 81001; 82009; 82565; 82803; 82947; 83036; 83605; 83690; 83735; 84100; 84520; 85025; 85027; 93005; 96360; 96361; 99291

== ENCOUNTER 2020-03-19 01:35 | Emergency (ER) | payer MEDICARE, OTHER ==
[2020-03-19] MEDS ORDERED: SODIUM CHLORIDE 0.9% 1,000 ML IV STA (01:57)
[2020-03-19] MEDS ORDERED: MORPHINE SULFATE 4 MG/ML SYRINGE IV STA (01:57)
--- NOTE | 2020-03-19 02:01 | ED ---
General Adult HPI - General Chief complaint: Abdominal Pain Stated complaint: Pelvic Pain Time Seen by Provider: 03/19/20 01:47 Source: patient, RN notes reviewed, old records reviewed Mode of arrival: ambulatory Limitations: no limitations - History of Present Illness Initial comments: 45-year-old female visiting for sudden onset left lower abdominal pain. Patient believes this is related to her left ovary. She states it was sudden in onset. And it does radiate to her groin. She denies flank pain. She denies hematuria. Denies dysuria. She denies vaginal bleeding or vaginal discharge. She is a type I diabetic. No history of kidney stones. No fever. She has some nausea without vomiting. - Related Data Home Medications Medication Instructions Recorded Confirmed Insulin Aspart [NovoLOG] See Protocol SQ ACHS 06/15/18 02/23/19 Abatacept [Orencia Clickject] 125 mg SQ Q7D 01/25/19 02/23/19 Simvastatin [Zocor] 40 mg PO HS 01/25/19 02/23/19 Pantoprazole Sodium [Protonix] 20 mg PO DAILY 02/23/19 02/23/19 Previous Rx's Medication Instructions Recorded DULoxetine HCL [Cymbalta] 60 mg PO DAILY #30 capsule. 12/29/17 Methylphenidate HCl [Ritalin] 20 mg PO BID #60 tablet 12/29/17 Insulin Detemir (Levemir) [Levemir] 22 unit SQ DAILY #1 syr 01/27/19 Omeprazole [PriLOSEC] 20 mg PO BID #0 01/27/19 Allergies Allergy/AdvReac Type Severity Reaction Status Date / Time paroxetine HCl [From Paxil] Allergy Rash/Hives Verified 03/19/20 01:40 sertraline HCl [From Zoloft] Allergy Rash/Hives Verified 03/19/20 01:40 Review of Systems ROS Statement: Those systems with pertinent positive or pertinent negative responses have been documented in the HPI. ROS Other: All systems not noted in ROS Statement are negative. Past Medical History Past Medical History: Chest Pain / Angina, CVA/TIA, Diabetes Mellitus, Fibromya lgia, GERD/Reflux, Rheumatoid Arthritis (RA), Syncope Additional Past Medical History / Comment(s): IDDM type I, DKA, 03/08/17 TIA. 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 History of Any Multi-Drug Resistant Organisms: None Reported Past Surgical History: Breast Surgery, Tubal Ligation, Uterine Ablation Additional Past Surgical History / Comment(s): Tilt table test, LEFT BREAST BX BENIGN, L thigh lipoma removal. Past Anesthesia/Blood Transfusion Reactions: No Reported Reaction Past Psychological History: ADD/ADHD, Anxiety, Depression Past Alcohol Use History: Rare Past Drug Use History: Marijuana - Past Family History Mother Family Medical History: Asthma Additional Family Medical History / Comment(s): depression, colitis Father History Unknown: Yes Additional Family Medical History / Comment(s): Pt does not know who her father is. General Exam Limitations: no limitations General appearance: alert, in no apparent distress Head exam: Present: atraumatic, normocephalic Eye exam: Present: normal appearance, PERRL ENT exam: Present: normal exam Respiratory exam: Present: normal lung sounds bilaterally. Absent: respiratory distress Cardiovascular Exam: Present: normal rhythm, tachycardia GI/Abdominal exam: Present: soft, tenderness (Left lower quadrant tenderness palpation). Absent: distended Extremities exam: Present: normal inspection, normal capillary refill. Absent: pedal edema Neurological exam: Present: alert, oriented X3 Psychiatric exam: Present: normal affect, normal mood Skin exam: Present: warm, dry, intact. Absent: cyanosis, diaphoretic Course Vital Signs 03/19/20 03/19/20 01:38 04:32 Temperature 97.1 F L Pulse Rate 115 H 91 Respiratory 20 16 Rate Blood Pressure 138/88 110/67 O2 Sat by Pulse 97 97 Oximetry Medical Decision Making - Medical Decision Making 45-year-old female type I diabetic presenting with left lower quadrant abdominal pain. Workup reveals initial lactic of 4.0 which does normalize with 1 L of IV hydration. She has elevated blood sugar 300. CT shows cystic lesion on the left ovary as well as trace fluid may be physiologic. Patient was given 1 dose of IV morphine and had improvement in symptoms. She will monitor her sugar at home. She will return with worsening or changing symptoms. - Lab Data Result diagrams: 03/19/20 02:06 03/19/20 02:06 Lab Results 11/25/20 11/25/20 11/25/20 Range/Units 02:06 02:06 02:06 WBC 7.9 (3.8-10.6) k/uL RBC 4.60 (3.80-5.40) m/uL Hgb 12.7 (11.4-16.0) gm/dL Hct 37.7 (34.0-46.0) % MCV 81.8 (80.0-100.0) fL MCH 27.6 (25.0-35.0) pg MCHC 33.7 (31.0-37.0) g/dL RDW 13.1 (11.5-15.5) % Plt Count 297 (150-450) k/uL MPV 6.9 Neutrophils % 59 % Lymphocytes % 35 % Monocytes % 4 % Eosinophils % 0 % Basophils % 0 % Neutrophils # 4.7 (1.3-7.7) k/uL Lymphocytes # 2.8 (1.0-4.8) k/uL Monocytes # 0.3 (0-1.0) k/uL Eosinophils # 0.0 (0-0.7) k/uL Basophils # 0.0 (0-0.2) k/uL Sodium 131 L (137-145) mmol/L Potassium 3.9 (3.5-5.1) mmol/L Chloride 97 L (98-107) mmol/L Carbon Dioxide 23 (22-30) mmol/L Anion Gap 11 mmol/L BUN 17 (7-17) mg/dL Creatinine 0.36 L (0.52-1.04) mg/dL Est GFR (CKD-EPI)AfAm >90 (>60 ml/min/1.73 sqM) Est GFR (CKD-EPI)NonAf >90 (>60 ml/min/1.73 sqM) Glucose 332 H (74-99) mg/dL Lactic Ac Sepsis Rflx Plasma Lactic Acid Yariel (0.7-2.0) mmol/L Calcium 9.4 (8.4-10.2) mg/dL Total Bilirubin 0.3 (0.2-1.3) mg/dL AST 20 (14-36) U/L ALT 24 (4-34) U/L Alkaline Phosphatase 232 H (38-126) U/L Total Protein 6.5 (6.3-8.2) g/dL Albumin 3.8 (3.5-5.0) g/dL Amylase 31 (30-110) U/L Lipase 121 (23-300) U/L Urine Color Colorless Urine Appearance Clear (Clear) Urine pH 5.0 (5.0-8.0) Ur Specific [place] 1.034 (1.001-1.035) Urine Protein Negative (Negative) Urine Glucose (UA) 4+ H (Negative) Urine Ketones 1+ H (Negative) Urine Blood Negative (Negative) Urine Nitrite Negative (Negative) Urine Bilirubin Negative (Negative) Urine Urobilinogen <2.0 (<2.0) mg/dL Ur Leukocyte Esterase Negative (Negative) 03/19/20 03/19/20 03/19/20 Range/Units 02:06 03:17 05:23 WBC (3.8-10.6) k/uL RBC (3.80-5.40) m/uL Hgb (11.4-16.0) gm/dL Hct (34.0-46.0) % MCV (80.0-100.0) fL MCH (25.0-35.0) pg MCHC (31.0-37.0) g/dL RDW (11.5-15.5) % Plt Count (150-450) k/uL MPV Neutrophils % % Lymphocytes % % Monocytes % % Eosinophils % % Basophils % % Neutrophils # (1.3-7.7) k/uL Lymphocytes # (1.0-4.8) k/uL Monocytes # (0-1.0) k/uL Eosinophils # (0-0.7) k/uL Basophils # (0-0.2) k/uL Sodium (137-145) mmol/L Potassium (3.5-5.1) mmol/L Chloride (98-107) mmol/L Carbon Dioxide (22-30) mmol/L Anion Gap mmol/L BUN (7-17) mg/dL Creatinine (0.52-1.04) mg/dL Est GFR (CKD-EPI)AfAm (>60 ml/min/1.73 sqM) Est GFR (CKD-EPI)NonAf (>60 ml/min/1.73 sqM) Glucose (74-99) mg/dL Lactic Ac Sepsis Rflx Y Plasma Lactic Acid Yariel 4.6 H* 1.0 (0.7-2.0) mmol/L Calcium (8.4-10.2) mg/dL Total Bilirubin (0.2-1.3) mg/dL AST (14-36) U/L ALT (4-34) U/L Alkaline Phosphatase (38-126) U/L Total Protein (6.3-8.2) g/dL Albumin (3.5-5.0) g/dL Amylase (30-110) U/L Lipase (23-300) U/L Urine Color Urine Appearance (Clear) Urine pH (5.0-8.0) Ur Specific [place] (1.001-1.035) Urine Protein (Negative) Urine Glucose (UA) (Negative) Urine Ketones (Negative) Urine Blood (Negative) Urine Nitrite (Negative) Urine Bilirubin (Negative) Urine Urobilinogen (<2.0) mg/dL Ur Leukocyte Esterase (Negative) Disposition Clinical Impression: Dehydration, Lactic acidosis, Abdominal pain Disposition: HOME SELF-CARE Condition: Good Instructions (If sedation given, give patient instructions): Abdominal Pain (ED), Ovarian Cyst (ED) Is patient prescribed a controlled substance at d/c from ED?: No Referrals: Kevin Ruiz DO [Primary Care Provider] - 1-2 days Time of Disposition: 06:22
[2020-03-19 02:51] LABS: Basophils % (A) 0 %; Eosinophils % (A) 0 %; HCT 37.7 % (34.0-46.0); HGB 12.7 gm/dL (11.4-16.0); Lymphocytes # (A) 2.8 k/uL (1.0-4.8); Lymphocytes % (A) 35 %; MCH 27.6 pg (25.0-35.0); MCHC 33.7 g/dL (31.0-37.0); MCV 81.8 fL (80.0-100.0); Mean Platelet Volume 6.9; Monocytes # (A) 0.3 k/uL (0-1.0); Monocytes % (A) 4 %; Neutrophils # (A) 4.7 k/uL (1.3-7.7); Neutrophils % (A) 59 %; Platelet Count 297 k/uL (150-450); RDW 13.1 % (11.5-15.5); WBC 7.9 k/uL (3.8-10.6)
[2020-03-19 03:03] LABS: AST 20 U/L (14-36); African American GFR (CKD) >90 (>60 ml/min/1.73 sqM); Albumin 3.8 g/dL (3.5-5.0); Alkaline Phosphatase 232 U/L (38-126); Amylase 31 U/L (30-110); Anion Gap 11 mmol/L; Blood Urea Nitrogen 17 mg/dL (7-17); Calcium 9.4 mg/dL (8.4-10.2); Carbon Dioxide 23 mmol/L (22-30); Chloride 97 mmol/L (98-107); Glucose 332 mg/dL (74-99); Lipase 121 U/L (23-300); Non-African American GFR(CKD) >90 (>60 ml/min/1.73 sqM); Potassium 3.9 mmol/L (3.5-5.1); Sodium 131 mmol/L (137-145); Total Bilirubin 0.3 mg/dL (0.2-1.3); Total Protein 6.5 g/dL (6.3-8.2)
[2020-03-19 03:10] LABS: ALT 24 U/L (4-34)
--- NOTE | 2020-03-19 03:23 | XR ---
EXAM: XR Abdomen, 2 Views CLINICAL HISTORY: ITS.REASON XR Reason: Left-sided abdominal pain TECHNIQUE: Frontal view of the abdomen/pelvis with upright view of the abdomen. COMPARISON: 02/16/16 FINDINGS: Intraperitoneal space: No free air. Gastrointestinal tract: Moderate amount of stool is seen within the colon. No significant bowel dilatation. Bones/joints: Unremarkable. Soft tissues: Surgical clips seen within the pelvis which may be tubal ligation clips. Other findings: No abnormal mass or calcification. IMPRESSION: Moderate amount of stool is seen within the colon. No significant bowel dilatation.
[2020-03-19 03:39] LABS: Appearance,Urine Clear (Clear); Bilirubin,Urine Negative (Negative); Blood,Urine Negative (Negative); Color,Urine Colorless; Glucose,Urine (UA) 4+ (Negative); Ketones,Urine 1+ (Negative); Leukocyte Esterase,Urine Negative (Negative); Nitrite,Urine Negative (Negative); Protein,Urine Negative (Negative); Specific Gravity,Urine 1.034 (1.001-1.035); Urobilinogen,Urine <2.0 mg/dL (<2.0)
[2020-03-19 04:33] VITALS: RESP 16
--- NOTE | 2020-03-19 05:16 | CT ---
EXAM: CT Abdomen and Pelvis With Intravenous Contrast CLINICAL HISTORY: ITS.REASON CT Reason: llq ab pain TECHNIQUE: Axial computed tomography images of the abdomen and pelvis with intravenous contrast. CTDI is 20.67 mGy and DLP is 1091.10 mGy-cm. This CT exam was performed using one or more of the following dose reduction techniques: automated exposure control, adjustment of the mA and/or kV according to patient size, and/or use of iterative reconstruction technique. Delayed imaging was performed. Coronal and sagittal reformatted images were created and reviewed. COMPARISON: Radiographs performed earlier, radiographs dated 02/16/[address] abdomen pelvis dated 03/31/12 FINDINGS: Lung bases: Right lower lobe 4 mm lung nodule. ABDOMEN: Liver: Unremarkable. No mass. Gallbladder and bile ducts: Common bile duct is slightly enlarged measures up to 7.3 mm in diameter. This previously measured up to 6.1 mm. No calcified stones. Pancreas: Unremarkable. No mass. No ductal dilation. Spleen: Splenic granulomas. Adrenals: Unremarkable. No mass. Kidneys and ureters: Unremarkable. No solid mass. No hydronephrosis. Stomach and bowel: Unremarkable. No obstruction. No mucosal thickening. PELVIS: Appendix: No findings to suggest acute appendicitis. Bladder: Unremarkable. No mass. Reproductive: Left ovarian 2.3 cm cystic lesion. The uterus demonstrates bilateral tubal ligation clips as well as exophytic partially calcified lesions which may reflect myomas. ABDOMEN and PELVIS: Intraperitoneal space: Trace amount of free fluid within the pelvis which may be physiologic. No free air. Bones/joints: Degenerative changes of the spine. No acute fracture. No dislocation. Soft tissues: Nonspecific subcutaneous fat infiltration and skin thickening in the right midabdomen, question due to injection trauma or scarring. Vasculature: Unremarkable. No abdominal aortic aneurysm. Lymph nodes: Unremarkable. No enlarged lymph nodes. IMPRESSION: 1. Left ovarian 2.3 cm cystic lesion. 2. The uterus demonstrates bilateral tubal ligation clips as well as exophytic partially calcified lesions which may reflect myomas. 3. Common bile duct is slightly enlarged measures up to 7.3 mm in diameter. This previously measured up to 6.1 mm. Clinically correlate. 4. Trace amount of free fluid within the pelvis which may be physiologic. 5. Right lower lobe 4 mm lung nodule. Fleischner Society Guidelines in low-risk patients (minimal or absent history of smoking or other known risk factors), no follow-up is necessary. For high-risk patients (history of smoking or other known risk factors), an optional chest CT at 12 months could be performed. 6. Nonspecific subcutaneous fat infiltration and skin thickening in the right midabdomen, question due to injection trauma or scarring.
[2020-03-19 06:24] VITALS: BP 98/51; PULSE 86; TEMP 97.9
== END 2020-03-19 06:30 | disposition home or self-care (01) ==
LOC: EC 01:35
DX: R10.32 Left lower quadrant pain (principal); E86.0 Dehydration; R00.0 Tachycardia, unspecified; E10.65 Type 1 diabetes mellitus with hyperglycemia; K21.9 Gastro-esophageal reflux disease without esophagitis; M06.9 Rheumatoid arthritis, unspecified; Z79.4 Long term (current) use of insulin; Z79.899 Other long term (current) drug therapy; Z88.8 Allergy status to other drugs, medicaments and biological substances; Z86.73 Personal history of transient ischemic attack (TIA), and cerebral infarction without residual deficits
CPT/HCPCS: 99285 ×2; 96374 ×2; 96361 ×2; 36415; 80053; 82150; 83605; 83690; 85025; 81003; 74018; 74177; J2270; Q9967

== ENCOUNTER 2020-05-20 12:24 | Emergency (ER) | payer MEDICARE, OTHER ==
[2020-05-20 12:30] VITALS: TEMP 97.5
[2020-05-20 12:39] LABS: Glucose,Whole Blood 463 mg/dL (75-99)
[2020-05-20] MEDS ORDERED: ONDANSETRON 4 MG/2 ML VIAL IVP STA (12:47)
[2020-05-20] MEDS ORDERED: SODIUM CHLORIDE 0.9% 1,000 ML IV STA (12:47)
[2020-05-20 13:11] LABS: Glucose,Whole Blood 378 mg/dL (75-99)
--- NOTE | 2020-05-20 13:20 | ED ---
Weakness HPI - General Chief complaint: Weakness Stated complaint: high sugar Time Seen by Provider: 05/20/20 12:25 Source: patient Mode of arrival: wheelchair Limitations: no limitations - History of Present Illness Initial comments: Patient is a 45-year-old female with past medical history of diabetes mellitus, CVA, rheumatoid arthritis who presents to the emergency department with reported high sugars. Patient recently started using an insulin pump one month ago. States that her sugars have been within 2 to 300s. She will this morning with a reading of greater than 600. She has had multiple admissions for DKA and therefore came into the emergency department for evaluation. She replace her insulin pump site last night and again this morning. She bolused herself 9 units at 5:30 AM and an additional 13 units at 11 AM. She called her rep who told her to come into the emergency room. She admits to nausea without vomiting. No fevers or chills. Denies any chest pain or shortness of breath. No abdominal pain. No changes in her bowel or bladder habits. Does admit to a mild sore throat. No cough. No other alleviating, precipitating or modifying factors - Related Data Home Medications Medication Instructions Recorded Confirmed Abatacept [Orencia Clickject] 125 mg SQ MO 01/25/19 05/20/20 Insulin Aspart (For Pump) [NovoLOG 0.01 unit SQ-PUMP CONTINUOUS 05/20/20 05/20/20 (For Pump)] L.acidoph,Paracasei, B.lactis 1 cap PO DAILY 05/20/20 05/20/20 [Probiotic] Omeprazole [PriLOSEC] 20 mg PO DAILY 05/20/20 05/20/20 Pnv,Calcium 72/Iron/Folic Acid 1 tab PO DAILY 05/20/20 05/20/20 [ Plus Tablet] Simvastatin [Zocor] 20 mg PO HS 05/20/20 05/20/20 Previous Rx's Medication Instructions Recorded DULoxetine HCL [Cymbalta] 60 mg PO DAILY #30 capsule. 12/29/17 Allergies Allergy/AdvReac Type Severity Reaction Status Date / Time paroxetine HCl [From Paxil] Allergy Rash/Hives Verified 05/20/20 14:05 sertraline HCl [From Zoloft] Allergy Rash/Hives Verified 05/20/20 14:05 Review of Systems ROS Statement: Those systems with pertinent positive or pertinent negative responses have been documented in the HPI. ROS Other: All systems not noted in ROS Statement are negative. Past Medical History Past Medical History: Chest Pain / Angina, CVA/TIA, Diabetes Mellitus, Fibromyalgia, GERD/Reflux, Rheumatoid Arthritis (RA), Syncope Additional Past Medical History / Comment(s): IDDM type I, DKA, 03/08/17 TIA. 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 History of Any Multi-Drug Resistant Organisms: None Reported Past Surgical History: Breast Surgery, Tubal Ligation, Uterine Ablation Additional Past Surgical History / Comment(s): Tilt table test, LEFT BREAST BX BENIGN, L thigh lipoma removal. Past Anesthesia/Blood Transfusion Reactions: No Reported Reaction Past Psychological History: ADD/ADHD, Anxiety, Depression Smoking Status: Never smoker Past Alcohol Use History: Rare Past Drug Use History: Marijuana - Past Family History Mother Family Medical History: Asthma Additional Family Medical History / Comment(s): depression, colitis Father History Unknown: Yes Additional Family Medical History / Comment(s): Pt does not know who her father is. General Exam Limitations: no limitations General appearance: alert, in no apparent distress Head exam: Present: atraumatic, normocephalic, normal inspection Eye exam: Present: normal appearance, PERRL, EOMI. Absent: scleral icterus, conjunctival injection, periorbital swelling ENT exam: Present: normal exam, mucous membranes moist Neck exam: Present: normal inspection. Absent: tenderness, meningismus, lymphadenopathy Respiratory exam: Present: normal lung sounds bilaterally. Absent: respiratory distress, wheezes, rales, rhonchi, stridor Cardiovascular Exam: Present: regular rate, normal rhythm, normal heart sounds. Absent: systolic murmur, diastolic murmur, rubs, gallop, clicks GI/Abdominal exam: Present: soft, normal bowel sounds. Absent: distended, tenderness, guarding, rebound, rigid Extremities exam: Present: normal inspection, full ROM, normal capillary refill. Absent: tenderness, pedal edema, joint swelling, calf tenderness Back exam: Present: normal inspection Neurological exam: Present: alert, oriented X3, CN II-XII intact Psychiatric exam: Present: normal affect, normal mood Skin exam: Present: warm, dry, intact, normal color. Absent: rash Course Vital Signs 05/20/20 05/20/20 12:25 16:18 Temperature 97.5 F L Pulse Rate 98 80 Respiratory 18 16 Rate Blood Pressure 137/86 107/68 O2 Sat by Pulse 100 98 Oximetry - Reevaluation(s) Reevaluation #1: 05/20/20 15:18 Patient re-evaluated and now complaining of abd pain. Requesting ultrasound EKG Findings - EKG Comments: EKG Findings:: EKG demonstrates normal sinus rhythm with a ventricular rate of 93. FL interval 154. QRS 96. QTC of 455. No acute ST segment elevations or depressions concerning for ischemic changes Medical Decision Making - Medical Decision Making Upon arrival patient is placed into room 7. A thorough history and physical exam was performed. Accu-Chek is obtained and the patient's blood glucose is 378. IV is established the patient is given a liter bolus of normal saline. Lab studies are conducted in the patient provide the urine sample. Lab studies did demonstrate a gap of 8. CO2 29. Glucose 269. Lactic acid 2.7. Urinalysis demonstrates 2+ ketones. Acetone is negative. Strep is negative after the liter of normal saline we did perform another check of the patient's blood sugar and it is down to 120. I did discuss results with the patient. She is now complaining of abdominal pain which she states is consistent with her previous issues with ovarian cysts. Because of that she is requesting an ultrasound of her abdomen prior to discharge. This is ordered and reviewed which demonstrates a heterogeneous fibroid uterus. No sonographic evidence for ovarian torsion or or ovarian cysts. These results are discussed with the patient's. She was given a dose of Toradol followed by a dose of morphine. Patient now has resolution of her abdominal pain at this time. Patient will be discharged home. Follow-up with her primary care doctor in regards to her hyperglycemia. 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 Return to the emergency room for any new or worsening symptoms. Patient was discharged home in stable condition - Lab Data Result diagrams: 05/20/20 13:58 05/20/20 13:58 Lab Results 05/20/20 05/20/20 05/20/20 Range/Units 12:37 13:00 13:17 WBC (3.8-10.6) k/uL RBC (3.80-5.40) m/uL Hgb (11.4-16.0) gm/dL Hct (34.0-46.0) % MCV (80.0-100.0) fL MCH (25.0-35.0) pg MCHC (31.0-37.0) g/dL RDW (11.5-15.5) % Plt Count (150-450) k/uL MPV Neutrophils % % Lymphocytes % % Monocytes % % Eosinophils % % Basophils % % Neutrophils # (1.3-7.7) k/uL Lymphocytes # (1.0-4.8) k/uL Monocytes # (0-1.0) k/uL Eosinophils # (0-0.7) k/uL Basophils # (0-0.2) k/uL PT (9.0-12.0) sec INR (<1.2) APTT (22.0-30.0) sec Sodium (137-145) mmol/L Potassium (3.5-5.1) mmol/L Chloride (98-107) mmol/L Carbon Dioxide (22-30) mmol/L Anion Gap mmol/L BUN (7-17) mg/dL Creatinine (0.52-1.04) mg/dL Est GFR (CKD-EPI)AfAm (>60 ml/min/1.73 sqM) Est GFR (CKD-EPI)NonAf (>60 ml/min/1.73 sqM) Glucose (74-99) mg/dL POC Glucose (mg/dL) 463 H 378 H (75-99) mg/dL POC Glu Laboratory Coordinator ID Jamee Watson, Priscilla Lactic Ac Sepsis Rflx Plasma Lactic Acid Yariel (0.7-2.0) mmol/L Calcium (8.4-10.2) mg/dL Magnesium (1.6-2.3) mg/dL Total Bilirubin (0.2-1.3) mg/dL AST (14-36) U/L ALT (4-34) U/L Alkaline Phosphatase (38-126) U/L Total Protein (6.3-8.2) g/dL Albumin (3.5-5.0) g/dL Lipase (23-300) U/L Urine Color Light Yellow Urine Appearance Clear (Clear) Urine pH 5.0 (5.0-8.0) Ur Specific [place] 1.029 (1.001-1.035) Urine Protein Negative (Negative) Urine Glucose (UA) 4+ H (Negative) Urine Ketones 2+ H (Negative) Urine Blood Negative (Negative) Urine Nitrite Negative (Negative) Urine Bilirubin Negative (Negative) Urine Urobilinogen <2.0 (<2.0) mg/dL Ur Leukocyte Esterase Negative (Negative) Urine HCG, Qual (Not Detectd) Acetone, Qual (Negative) Group A Strep Rapid (Negative) 05/20/20 05/20/20 05/20/20 Range/Units 13:17 13:17 13:58 WBC 6.4 (3.8-10.6) k/uL RBC 4.69 (3.80-5.40) m/uL Hgb 12.4 (11.4-16.0) gm/dL Hct 38.3 (34.0-46.0) % MCV 81.7 (80.0-100.0) fL MCH 26.5 (25.0-35.0) pg MCHC 32.4 (31.0-37.0) g/dL RDW 13.6 (11.5-15.5) % Plt Count 281 (150-450) k/uL MPV 7.3 Neutrophils % 63 % Lymphocytes % 30 % Monocytes % 5 % Eosinophils % 0 % Basophils % 0 % Neutrophils # 4.1 (1.3-7.7) k/uL Lymphocytes # 1.9 (1.0-4.8) k/uL Monocytes # 0.3 (0-1.0) k/uL Eosinophils # 0.0 (0-0.7) k/uL Basophils # 0.0 (0-0.2) k/uL PT (9.0-12.0) sec INR (<1.2) APTT (22.0-30.0) sec Sodium (137-145) mmol/L Potassium (3.5-5.1) mmol/L Chloride (98-107) mmol/L Carbon Dioxide (22-30) mmol/L Anion Gap mmol/L BUN (7-17) mg/dL Creatinine (0.52-1.04) mg/dL Est GFR (CKD-EPI)AfAm (>60 ml/min/1.73 sqM) Est GFR (CKD-EPI)NonAf (>60 ml/min/1.73 sqM) Glucose (74-99) mg/dL POC Glucose (mg/dL) (75-99) mg/dL POC Glu Laboratory Coordinator ID Lactic Ac Sepsis Rflx Plasma Lactic Acid Yariel (0.7-2.0) mmol/L Calcium (8.4-10.2) mg/dL Magnesium (1.6-2.3) mg/dL Total Bilirubin (0.2-1.3) mg/dL AST (14-36) U/L ALT (4-34) U/L Alkaline Phosphatase (38-126) U/L Total Protein (6.3-8.2) g/dL Albumin (3.5-5.0) g/dL Lipase (23-300) U/L Urine Color Urine Appearance (Clear) Urine pH (5.0-8.0) Ur Specific [place] (1.001-1.035) Urine Protein (Negative) Urine Glucose (UA) (Negative) Urine Ketones (Negative) Urine Blood (Negative) Urine Nitrite (Negative) Urine Bilirubin (Negative) Urine Urobilinogen (<2.0) mg/dL Ur Leukocyte Esterase (Negative) Urine HCG, Qual Not Detected (Not Detectd) Acetone, Qual (Negative) Group A Strep Rapid Negative (Negative) 05/20/20 05/20/20 05/20/20 Range/Units 13:58 13:58 13:58 WBC (3.8-10.6) k/uL RBC (3.80-5.40) m/uL Hgb (11.4-16.0) gm/dL Hct (34.0-46.0) % MCV (80.0-100.0) fL MCH (25.0-35.0) pg MCHC (31.0-37.0) g/dL RDW (11.5-15.5) % Plt Count (150-450) k/uL MPV Neutrophils % % Lymphocytes % % Monocytes % % Eosinophils % % Basophils % % Neutrophils # (1.3-7.7) k/uL Lymphocytes # (1.0-4.8) k/uL Monocytes # (0-1.0) k/uL Eosinophils # (0-0.7) k/uL Basophils # (0-0.2) k/uL PT 9.4 (9.0-12.0) sec INR 0.9 (<1.2) APTT 22.6 (22.0-30.0) sec Sodium 132 L (137-145) mmol/L Potassium 3.8 (3.5-5.1) mmol/L Chloride 95 L (98-107) mmol/L Carbon Dioxide 29 (22-30) mmol/L Anion Gap 8 mmol/L BUN 23 H (7-17) mg/dL Creatinine 0.47 L (0.52-1.04) mg/dL Est GFR (CKD-EPI)AfAm >90 (>60 ml/min/1.73 sqM) Est GFR (CKD-EPI)NonAf >90 (>60 ml/min/1.73 sqM) Glucose 269 H (74-99) mg/dL POC Glucose (mg/dL) (75-99) mg/dL POC Glu Laboratory Coordinator ID Lactic Ac Sepsis Rflx Plasma Lactic Acid Yariel 2.7 H* (0.7-2.0) mmol/L Calcium 9.8 (8.4-10.2) mg/dL Magnesium 1.8 (1.6-2.3) mg/dL Total Bilirubin 0.5 (0.2-1.3) mg/dL AST 24 (14-36) U/L ALT 23 (4-34) U/L Alkaline Phosphatase 218 H (38-126) U/L Total Protein 6.8 (6.3-8.2) g/dL Albumin 3.9 (3.5-5.0) g/dL Lipase 120 (23-300) U/L Urine Color Urine Appearance (Clear) Urine pH (5.0-8.0) Ur Specific [place] (1.001-1.035) Urine Protein (Negative) Urine Glucose (UA) (Negative) Urine Ketones (Negative) Urine Blood (Negative) Urine Nitrite (Negative) Urine Bilirubin (Negative) Urine Urobilinogen (<2.0) mg/dL Ur Leukocyte Esterase (Negative) Urine HCG, Qual (Not Detectd) Acetone, Qual Negative (Negative) Group A Strep Rapid (Negative) 05/20/20 05/20/20 Range/Units 14:35 14:56 WBC (3.8-10.6) k/uL RBC (3.80-5.40) m/uL Hgb (11.4-16.0) gm/dL Hct (34.0-46.0) % MCV (80.0-100.0) fL MCH (25.0-35.0) pg MCHC (31.0-37.0) g/dL RDW (11.5-15.5) % Plt Count (150-450) k/uL MPV Neutrophils % % Lymphocytes % % Monocytes % % Eosinophils % % Basophils % % Neutrophils # (1.3-7.7) k/uL Lymphocytes # (1.0-4.8) k/uL Monocytes # (0-1.0) k/uL Eosinophils # (0-0.7) k/uL Basophils # (0-0.2) k/uL PT (9.0-12.0) sec INR (<1.2) APTT (22.0-30.0) sec Sodium (137-145) mmol/L Potassium (3.5-5.1) mmol/L Chloride (98-107) mmol/L Carbon Dioxide (22-30) mmol/L Anion Gap mmol/L BUN (7-17) mg/dL Creatinine (0.52-1.04) mg/dL Est GFR (CKD-EPI)AfAm (>60 ml/min/1.73 sqM) Est GFR (CKD-EPI)NonAf (>60 ml/min/1.73 sqM) Glucose (74-99) mg/dL POC Glucose (mg/dL) 120 H (75-99) mg/dL POC Glu Laboratory Coordinator ID Tena, Priscilla Lactic Ac Sepsis Rflx Y Plasma Lactic Acid Yariel (0.7-2.0) mmol/L Calcium (8.4-10.2) mg/dL Magnesium (1.6-2.3) mg/dL Total Bilirubin (0.2-1.3) mg/dL AST (14-36) U/L ALT (4-34) U/L Alkaline Phosphatase (38-126) U/L Total Protein (6.3-8.2) g/dL Albumin (3.5-5.0) g/dL Lipase (23-300) U/L Urine Color Urine Appearance (Clear) Urine pH (5.0-8.0) Ur Specific [place] (1.001-1.035) Urine Protein (Negative) Urine Glucose (UA) (Negative) Urine Ketones (Negative) Urine Blood (Negative) Urine Nitrite (Negative) Urine Bilirubin (Negative) Urine Urobilinogen (<2.0) mg/dL Ur Leukocyte Esterase (Negative) Urine HCG, Qual (Not Detectd) Acetone, Qual (Negative) Group A Strep Rapid (Negative) Disposition Clinical Impression: Hyperglycemia due to type 1 diabetes mellitus Disposition: HOME SELF-CARE Condition: Stable Instructions (If sedation given, give patient instructions): Diabetic Hyperglycemia (ED) Additional Instructions: Please follow up with your primary care doctor in 2 to 4 days. Return to the emergency room for any new or worsening symptoms Is patient prescribed a controlled substance at d/c from ED?: No Referrals: Kevin Ruiz DO [Primary Care Provider] - 1-2 days Time of Disposition: 16:18
[2020-05-20 13:30] LABS: Appearance,Urine Clear (Clear); Bilirubin,Urine Negative (Negative); Blood,Urine Negative (Negative); Color,Urine Light Yellow; Glucose,Urine (UA) 4+ (Negative); Leukocyte Esterase,Urine Negative (Negative); Nitrite,Urine Negative (Negative); Protein,Urine Negative (Negative); Specific Gravity,Urine 1.029 (1.001-1.035); Urobilinogen,Urine <2.0 mg/dL (<2.0)
[2020-05-20 13:35] LABS: Ketones,Urine 2+ (Negative)
[2020-05-20 14:21] LABS: ALT 23 U/L (4-34); AST 24 U/L (14-36); African American GFR (CKD) >90 (>60 ml/min/1.73 sqM); Albumin 3.9 g/dL (3.5-5.0); Alkaline Phosphatase 218 U/L (38-126); Anion Gap 8 mmol/L; Blood Urea Nitrogen 23 mg/dL (7-17); Calcium 9.8 mg/dL (8.4-10.2); Carbon Dioxide 29 mmol/L (22-30); Chloride 95 mmol/L (98-107); Glucose 269 mg/dL (74-99); Lipase 120 U/L (23-300); Magnesium 1.8 mg/dL (1.6-2.3); Non-African American GFR(CKD) >90 (>60 ml/min/1.73 sqM); Potassium 3.8 mmol/L (3.5-5.1); Sodium 132 mmol/L (137-145); Total Bilirubin 0.5 mg/dL (0.2-1.3); Total Protein 6.8 g/dL (6.3-8.2)
[2020-05-20 14:23] LABS: INR 0.9 (<1.2); Partial Thromboplastin Time 22.6 sec (22.0-30.0); Prothrombin Time 9.4 sec (9.0-12.0)
[2020-05-20 14:25] LABS: Basophils % (A) 0 %; Eosinophils % (A) 0 %; HCT 38.3 % (34.0-46.0); HGB 12.4 gm/dL (11.4-16.0); Lymphocytes # (A) 1.9 k/uL (1.0-4.8); Lymphocytes % (A) 30 %; MCH 26.5 pg (25.0-35.0); MCHC 32.4 g/dL (31.0-37.0); MCV 81.7 fL (80.0-100.0); Mean Platelet Volume 7.3; Monocytes # (A) 0.3 k/uL (0-1.0); Monocytes % (A) 5 %; Neutrophils # (A) 4.1 k/uL (1.3-7.7); Neutrophils % (A) 63 %; Platelet Count 281 k/uL (150-450); RBC 4.69 m/uL (3.80-5.40); RDW 13.6 % (11.5-15.5); WBC 6.4 k/uL (3.8-10.6)
[2020-05-20] MEDS ORDERED: KETOROLAC 15 MG/ML 1 ML VIAL IVP STA (14:50)
[2020-05-20 14:58] LABS: Glucose,Whole Blood 120 mg/dL (75-99)
--- NOTE | 2020-05-20 15:57 | US ---
EXAMINATION TYPE: US transvaginal plus Doppler DATE OF EXAM: 05/20/2020 COMPARISON: ct 03/19/2020 CLINICAL HISTORY: 45 year-old female abdominal pain, history of ablation. RLQ pain TECHNIQUE: Transvaginal sonographic images of the pelvis were acquired. Color Doppler and spectral w aveform analysis of the ovarian arteries and veins. Date of LMP: UNsure FINDINGS: EXAM MEASUREMENTS: Uterus: 8.6 x 4.8 x 5.7 cm Endometrial Stripe: Unable to visualize Right Ovary: 2.4 x 2.2 x 1.6 cm Left Ovary: 2.9 x 1.6 x 1.6 cm 1. Uterus: Anteverted. Heterogeneous with multiple fibroids, largest measuring 3.0 cm and the left uterine body 2. Endometrium: Not visualized to due fibroids. No abnormal fluid collection seen within the uterus status post ablation. 3. Right Ovary: wnl as visualized 4. Left Ovary: wnl Spectral, color and waveform doppler imaging shows good arterial and venous flow within the ovaries ; there is no evidence for ovarian torsion. 5. Bilateral Adnexa: wnl 6. Posterior cul-de-sac: wnl IMPRESSION: 1. Heterogeneous fibroid uterus. Multiple fibroids measuring up to 3.0 cm obscure the endometrial str ipe. 2. No sonographic evidence for ovarian torsion.
[2020-05-20] MEDS ORDERED: MORPHINE SULFATE 4 MG/ML SYRINGE IVP STA (16:06)
[2020-05-20 16:19] VITALS: BP 107/68; PULSE 80; RESP 16
== END 2020-05-20 16:32 | disposition home or self-care (01) ==
LOC: EC 12:24
DX: E10.65 Type 1 diabetes mellitus with hyperglycemia (principal); D25.9 Leiomyoma of uterus, unspecified; R10.31 Right lower quadrant pain; M06.9 Rheumatoid arthritis, unspecified; K21.9 Gastro-esophageal reflux disease without esophagitis; Z79.4 Long term (current) use of insulin; Z79.899 Other long term (current) drug therapy; Z88.8 Allergy status to other drugs, medicaments and biological substances; Z98.51 Tubal ligation status; Z96.41 Presence of insulin pump (external) (internal); Z86.73 Personal history of transient ischemic attack (TIA), and cerebral infarction without residual deficits
CPT/HCPCS: 99285 ×2; 96374 ×2; 96375 ×3; 96361 ×2; 36415; 93005; 80053; 82009; 83605; 83690; 83735; 85025; 85610; 85730; 81003; 81025; 87081; 87430; 93975; 76830; J2270; J2405; J1885

== ENCOUNTER → 2020-07-10 | Outpatient (CLI) | payer MEDICARE, OTHER ==
--- NOTE | 2020-07-10 15:24 | US ---
EXAMINATION TYPE: US mass soft tissue chest/back DATE OF EXAM: 07/10/2020 COMPARISON: NONE CLINICAL HISTORY: D17.9 BENIGN LIPOMATOUS NEOPLASM. Left and right buttocks scanned, left shows hyperechoic mass measuring 0.7 x 0.3 x 0.6cm. Right shows 2.3 x 1.8 x 2.8cm hyperechoic mass. Probable lipomas. Differential diagnosis could include liposarcoma. MRI with contrast recommended for additional evaluation. IMPRESSION: 1. Ill-defined hyperechoic areas within the region of the buttocks corresponding to the palpable abno rmalities. Lipomas are likely within the differential. Recommend MRI with contrast for additional edwar luation.
== END ==
LOC: RADUSWWP 14:44
PROVIDERS: ATTEND Surgery Plastic and Reconstructive Surgery
DX: R22.2 Localized swelling, mass and lump, trunk (principal)

== ENCOUNTER 2020-08-01 06:05 | Day surgery (SDC) | payer MEDICARE, OTHER ==
[2020-07-28 11:17] VITALS: BMI 33.6
[~2020-08-01 06:05] MED LIST: DEXAMETHASONE SOD PHOSPHATE 4 MG/ML 1 ML VIAL IV ONE; HEPARIN SODIUM,PORCINE/PF 5,000 UNIT/0.5 ML SYRINGE SQ PRN; LACTATED RINGERS 1,000 ML IV SCH; MIDAZOLAM 2 MG/2 ML VIAL IV PRN; ONDANSETRON 4 MG/2 ML VIAL IVP ONE; Pre Op ABX Message 1 EACH MISC MISCELLANE ONE; SCOPOLAMINE 1.5MG/72HR PATCH TRANSDERM ONE
[2020-08-01 06:50] VITALS: RESP 16
[2020-08-01 06:56] LABS: Glucose,Whole Blood 192 mg/dL (75-99)
[2020-08-01] MEDS ORDERED: HYDROmorphone 0.5 MG/0.5 ML SYRINGE IVP PRN (07:00)
[2020-08-01] MEDS ORDERED: KETOROLAC 15 MG/ML 1 ML VIAL ONE (07:36)
[2020-08-01] MEDS ORDERED: SUCCINYLCHOLINE CHLORIDE 100 MG/5 ML SYR IV ONE (07:36)
[2020-08-01] MEDS ORDERED: MIDAZOLAM 2 MG/2 ML VIAL ONE (07:36)
[2020-08-01] MEDS ORDERED: fentaNYL (PF) 50 MCG/ML 2 ML AMP ONE (07:36)
[2020-08-01] MEDS ORDERED: LIDOCAINE 1% INJ 10MG/ML (20 ML MDV) ONE (07:36)
[2020-08-01] MEDS ORDERED: PROPOFOL 10 MG/ML 20 ML VIAL IV ONE (07:36)
[2020-08-01] MEDS ORDERED: SODIUM CHLORIDE 0.9% 50 ML with ceFAZolin 2,000 MG IV ONE ×2 (07:41)
--- NOTE | 2020-08-01 07:43 | P.GSHP ---
History of Present Illness H&P Date: 08/01/20 CHIEF COMPLAINT: Painful lesions along the bilateral buttocks HISTORY OF PRESENT ILLNESS: The patient is a 45 year-old female with history of painful lipomas of the bilateral buttocks. She presents today for surgical excision. PAST MEDICAL HISTORY: Please see list. PAST SURGICAL HISTORY: Please see list. MEDICATIONS: Please see list. ALLERGIES: Please see list. SOCIAL HISTORY: No illicit drug use FAMILY HISTORY: No reports of Crohn disease or ulcerative colitis. REVIEW OF ORGAN SYSTEMS: CONSTITUTIONAL: No reports of fevers or chills. GI: Denies any blood in stools or constipation. PHYSICAL EXAM: VITAL SIGNS: Stable Musculoskeletal: Approximately 3 cm lipoma, deep along the bilateral lateral right buttock. Approximately 1 cm lesion deep along the left buttock. SKIN: Lesion identified along bilateral buttocks. No clubbing cyanosis or edema. GENERAL: Well developed and in no acute distress. Pleasant. HEENT: No sclera icterus. Extraocular movements grossly intact. Moist buccal mucosa. Head is atraumatic, normocephalic. Hears conversational speech. No nasal drainage. NECK: Supple without lymphadenopathy. No JV distention. CHEST: Non-labored respirations and equal bilateral excursions. CARDIOVASCULAR: Regular rate and rhythm. Palpable 2+ radial pulses. ABDOMEN: Soft. Non-tender. Nondistended. NEUROLOGIC: No focal or lateralizing signs. PSYCH: Appropriate affect. Alert and oriented to person, place and time. ASSESSMENT: 1. Lipomas along the bilateral buttocks PLAN: 1. Will proceed of excision of deep subcutaneous tumor along the right buttock given its size and severity of pain. 2. DVT prophylaxis. 3. Antibiotic prophylaxis. 4. Time of recovery, at least one week. Past Medical History Past Medical History: Chest Pain / Angina, CVA/TIA, Diabetes Mellitus, Fibromyalgia, GERD/Reflux, Rheumatoid Arthritis (RA), Syncope Additional Past Medical History / Comment(s): IDDM type I, hx DKA, hx TIA. "Neurocardiogenic Syncope -causes sudden drop in blood pressure syncope-has not happened in about 6 months". Multiple lipomas. History of Any Multi-Drug Resistant Organisms: None Reported Past Surgical History: Breast Surgery, Tubal Ligation, Uterine Ablation Additional Past Surgical History / Comment(s): Tilt table test, LEFT BREAST BIOPSY - BENIGN, left thigh lipoma removal X2, left breast lipoma removal X1. Past Anesthesia/Blood Transfusion Reactions: No Reported Reaction Past Psychological History: ADD/ADHD, Anxiety, Depression Smoking Status: Never smoker Past Alcohol Use History: Rare Past Drug Use History: Marijuana Additional Drug Use History / Comment(s): Pt states she smokes marijuana nightly for pain control. Aware no Marijuana 24 hrs prior to procedure. - Past Family History Mother Family Medical History: Asthma Additional Family Medical History / Comment(s): Depression, Colitis. Father History Unknown: Yes Family Medical History: Unable to Obtain Additional Family Medical History / Comment(s): Pt does not know who her father is. Medications and Allergies Home Medications Medication Instructions Recorded Confirmed Type Abatacept [Orencia Clickject] 125 mg SQ MO 01/25/19 08/01/20 History Insulin Aspart (For Pump) [NovoLOG 0.01 unit SQ-PUMP CONTINUOUS 05/20/20 08/01/20 History (For Pump)] L.acidoph,Paracasei, B.lactis 1 cap PO DAILY 05/20/20 08/01/20 History [Probiotic] Omeprazole [PriLOSEC] 20 mg PO QAM 05/20/20 08/01/20 History Pnv,Calcium 72/Iron/Folic Acid 1 tab PO DAILY 05/20/20 07/28/20 History [ Plus Tablet] Simvastatin [Zocor] 20 mg PO DAILY 05/20/20 08/01/20 History DULoxetine HCL [Cymbalta] 60 mg PO QAM 07/28/20 08/01/20 History Allergies Allergy/AdvReac Type Severity Reaction Status Date / Time paroxetine HCl [From Paxil] Allergy Rash/Hives Verified 07/28/20 11:04 sertraline HCl [From Zoloft] Allergy Rash/Hives Verified 07/28/20 11:04 Surgical - Exam Vital Signs Pulse Resp BP Pulse Ox 100 16 125/77 98 08/01/20 06:41 08/01/20 06:41 08/01/20 06:41 08/01/20 06:41 Results - Labs Abnormal Lab Results - Last 24 Hours (Table) 08/01/20 Range/Units 06:54 POC Glucose (mg/dL) 192 H (75-99) mg/dL
[2020-08-01] MEDS ORDERED: BUPIVACAINE (PF) 0.25% 30 ML VIAL SQ ONE (08:11)
[2020-08-01 08:46] LABS: Glucose,Whole Blood 166 mg/dL (75-99)
--- NOTE | 2020-08-01 08:51 | P.OP ---
Date of Procedure: 08/01/20 Description of Procedure: SURGEON: KRISTA ARRIETA MD WALL STEAMER: None. PREOPERATIVE DIAGNOSES: 1. Right buttock soft tissue tumor 2. Insulin-dependent diabetes type 2 with retinopathy 3. Obesity due to excess calories, BMI 33.7 4. Gastroesophageal reflux disease 5. Hyperlipidemia 6. Depressive disorder POSTOPERATIVE DIAGNOSES: 1. Right buttock soft tissue tumor, 4 cm 2. Insulin-dependent diabetes type 2 with retinopathy 3. Obesity due to excess calories, BMI 33.7 4. Gastroesophageal reflux disease 5. Hyperlipidemia 6. Depressive disorder PROCEDURES PERFORMED: 1. Excision of deep subcutaneous right buttock mass, 4 cm 2. Complex closure right buttock incision, 6-cm Anesthesia: GETA, local Estimated Blood Loss (ml): 5 Pathology: 1. Right buttock mass Condition: stable Disposition: Same-day COMPLICATIONS: None. Operative Findings: 1. Deep subcutaneous buttock tumor right 4 x 3 cm INDICATIONS: The patient is a 45-year-old female who presents with symptomatic bilateral buttock tumors. Benefits and risks of surgical intervention were described including bleeding, infection, seroma, pain, wound dehiscence and recurrence. Informed consent was obtained. DESCRIPTION OR PROCEDURE: Patient was brought into the operating room. After general induction, she was positioned in left lateral decubitus position. The right buttock wasprepped and draped in a standard sterile fashion with ChloraPrep. Timeout protocol was confirmed with the surgical team regarding the patient's name, procedure to be performed including preoperative medications. DVT prophylaxis was confirmed. A field block was placed of the buttocks. A transverse incision using #10 blade was made along the marking into the dermis and subcutaneous tissue. Electro- Bovie cautery was used to enter deep into the subcutaneous tissue of the right buttock where a tumor of 4 cm was excised. Complex closure using bilateral skin flaps were raised with undermining to allow for tension-free skin closure. The tumor was excised in total. 0 Vicryl for the deep subcutaneous tissue was placed. For the dermis, 3-0 Monocryl in a subcuticular running fashion was placed closing the skin completely. Final length of the incisional closure is 6- cm. The skin was cleansed and Exofin tape with liquid glue was applied. The incision was covered with Optifoam dressing. At the end of the procedure, needle, sponge, and instrument count was verified correct by plating technician. The patient was transferred into the postanesthesia care unit in stable condition. Plan - Discharge Summary Discharge Rx Participant: Yes New Discharge Prescriptions: New Ibuprofen [Motrin] 600 mg PO Q8HR PRN #30 tab PRN Reason: Pain Acetaminophen Tab [Tylenol Tab] 1,000 mg PO Q6HR PRN #30 tablet PRN Reason: Pain Continue Abatacept [Orencia Clickject] 125 mg SQ MO L.acidoph,Paracasei, B.lactis [Probiotic] 1 cap PO DAILY Simvastatin [Zocor] 20 mg PO DAILY Insulin Aspart (For Pump) [NovoLOG (For Pump)] 0.01 unit SQ-PUMP CONTINUOUS Pnv,Calcium 72/Iron/Folic Acid [ Plus Tablet] 1 tab PO DAILY Omeprazole [PriLOSEC] 20 mg PO QAM DULoxetine HCL [Cymbalta] 60 mg PO QAM Discharge Medication List Abatacept [Orencia Clickject] 125 mg SQ MO 01/25/19 [History] Insulin Aspart (For Pump) [NovoLOG (For Pump)] 0.01 unit SQ-PUMP CONTINUOUS 05/20/20 [History] L.acidoph,Paracasei, B.lactis [Probiotic] 1 cap PO DAILY 05/20/20 [History] Omeprazole [PriLOSEC] 20 mg PO QAM 05/20/20 [History] Pnv,Calcium 72/Iron/Folic Acid [ Plus Tablet] 1 tab PO DAILY 05/20/20 [History] Simvastatin [Zocor] 20 mg PO DAILY 05/20/20 [History] DULoxetine HCL [Cymbalta] 60 mg PO QAM 07/28/20 [History] Acetaminophen Tab [Tylenol Tab] 1,000 mg PO Q6HR PRN #30 tablet 08/01/20 [Rx] Ibuprofen [Motrin] 600 mg PO Q8HR PRN #30 tab 08/01/20 [Rx] Follow up Appointment(s)/Referral(s): Krista Arrieta MD [STAFF PHYSICIAN] - 08/05/20 Patient Instructions/Handouts: Soft Tissue Mass (ED), Lipoma (ED), Lipoma Removal (DC) Activity/Diet/Wound Care/Special Instructions: DO NOT REMOVE DRESSING. AVOID DEEP BENDING/FLEXION OF THE KNEES SHIFT WEIGHT ONTO THE LEFT BUTTOCK. May shower. No bath tub soaks for 2 weeks until August 15 Diet as tolerated. Use Tylenol and ibuprofen scheduled for the next 24-48 hours for best pain relief. Use ice along incisions for today to prevent swelling. Discharge Disposition: HOME SELF-CARE
[2020-08-01 08:53] VITALS: TEMP 97
[2020-08-01 10:38] VITALS: BP 105/72; PULSE 84
--- NOTE | 2020-08-05 15:45 | CDI ---
Date 08.05.20 CDS/Manager Account Management Name: Ronda Caruso Phone: If any questions, call Magda Vazquez, Access Service Representative at Patient Name: Shayla Perkins Discharge Date: 08.01.2020 ATTENTION: The [facility] Coding Staff appreciate your assistance in clarifying documentation. Please respond to the clarification below the line at the bottom and electronically sign. The [facility] Coding staff will review the response and follow-up if needed. Please note: Queries are made part of the Legal Health Record. If you have any questions, please contact the Access Service Representative. Dear Dr. Arrieta In order to code to the greatest specificity and for the greatest reimbursement I need the following information: You have documented in your H&P under past hx, IDDM type I and in your procedure note you have documented Insulin-dependent diabetes type 2 w/retinopathy. Please clarify type of DM. Thank you for your kind consideration. PREOPERATIVE DIAGNOSES: 1. Right buttock soft tissue tumor 2. Insulin-dependent diabetes type 1 with retinopathy 3. Obesity due to excess calories, BMI 33.7 4. Gastroesophageal reflux disease 5. Hyperlipidemia 6. Depressive disorder POSTOPERATIVE DIAGNOSES: 1. Right buttock soft tissue tumor, 4 cm 2. Insulin-dependent diabetes type 1 with retinopathy 3. Obesity due to excess calories, BMI 33.7 4. Gastroesophageal reflux disease 5. Hyperlipidemia 6. Depressive disorder MTDD
== END 2020-08-01 10:55 | disposition home or self-care (01) ==
LOC: OR 06:05
PROVIDERS: ATTEND Surgery Plastic and Reconstructive Surgery
DX: D17.1 Benign lipomatous neoplasm of skin and subcutaneous tissue of trunk (principal); E10.319 Type 1 diabetes mellitus with unspecified diabetic retinopathy without macular edema; E66.01 Morbid (severe) obesity due to excess calories; K21.9 Gastro-esophageal reflux disease without esophagitis; E78.5 Hyperlipidemia, unspecified; F32.9 Major depressive disorder, single episode, unspecified; M79.7 Fibromyalgia; M06.9 Rheumatoid arthritis, unspecified; F90.9 Attention-deficit hyperactivity disorder, unspecified type; F41.9 Anxiety disorder, unspecified; K08.89 Other specified disorders of teeth and supporting structures; F17.290 Nicotine dependence, other tobacco product, uncomplicated; Z96.41 Presence of insulin pump (external) (internal); Z86.73 Personal history of transient ischemic attack (TIA), and cerebral infarction without residual deficits; Z86.39 Personal history of other endocrine, nutritional and metabolic disease; Z86.018 Personal history of other benign neoplasm; Z98.890 Other specified postprocedural states; Z98.51 Tubal ligation status; Z79.899 Other long term (current) drug therapy; Z79.4 Long term (current) use of insulin; Z88.8 Allergy status to other drugs, medicaments and biological substances; Z87.898 Personal history of other specified conditions; Z68.33 Body mass index [BMI] 33.0-33.9, adult; Z82.5 Family history of asthma and other chronic lower respiratory diseases; Z81.8 Family history of other mental and behavioral disorders; Z83.79 Family history of other diseases of the digestive system
CPT/HCPCS: 13101; 27043; 81025; 88304; J2250; J1100; J2405; J0690; J2001; J3010; J1885; J0330; J2704; J1644

== ENCOUNTER 2020-09-18 13:10 | Emergency (ER) | payer MEDICARE, OTHER ==
[2020-09-18 13:26] LABS: Glucose,Whole Blood 475 mg/dL (75-99)
[2020-09-18 13:27] VITALS: TEMP 97.6
[2020-09-18] MEDS ORDERED: SODIUM CHLORIDE 0.9% 1,000 ML IV STA (14:51)
--- NOTE | 2020-09-18 15:04 | ED ---
General Adult HPI - General Chief complaint: Recheck/Abnormal Lab/Rx Stated complaint: hyperglycemia Time Seen by Provider: 09/18/20 13:49 Source: patient, family, RN notes reviewed Mode of arrival: ambulatory Limitations: no limitations - History of Present Illness Initial comments: 45-year-old, alert and oriented, well-appearing white female presents to the emergency room with complaints of increased blood sugar in the 600s at home. Patient states her protocol is to change her pump site which she did at 11:30 today and gave herself 3.3 units bolus. Patient states has been having a hard time getting her blood glucose levels controlled and call Dr. Vaughn her psychiatric np but was unable to get an appointment. Patient states has been feeling sick with weakness and fatigue since receiving her second Covid vaccination on August 27. States that she did see her doctor last week and was prescribed Zofran for nausea. Patient states at that time had a thick green productive cough with a runny nose but was not given antibiotics. Patient states was taking Mucinex last week and has resolved. Patient denies any fevers. Did have a Covid test last week and was told Tuesday it was negative. Patient denies any abdominal pain, states she does have dry heaves with nausea but no actual vomiting. Patient denies any dysuria. Denies a productive cough at this time. Denies chest pain. Patient states she has rheumatoid arthritis and has chronic pain, she also has ADHD, PTSD, syncope, insulin-dependent diabetes. Her primary care doctor is Dr. Ruiz. -: week(s) (3) Radiation: non-radiation Consistency: constant Improves with: rest Worsens with: none Associated Symptoms: malaise (Mucinex and Zofran), nausea/vomiting Treatments Prior to Arrival: other - Related Data Home Medications Medication Instructions Recorded Confirmed Abatacept [Orencia Clickject] 125 mg SQ MO 01/25/19 09/18/20 Insulin Aspart (For Pump) [NovoLOG 0.01 unit SQ-PUMP CONTINUOUS 05/20/20 09/18/20 (For Pump)] Omeprazole [PriLOSEC] 20 mg PO QAM 05/20/20 09/18/20 Pnv,Calcium 72/Iron/Folic Acid 1 tab PO DAILY 05/20/20 09/18/20 [ Plus Tablet] Simvastatin [Zocor] 20 mg PO DAILY 05/20/20 09/18/20 DULoxetine HCL [Cymbalta] 60 mg PO QAM 07/28/20 09/18/20 Acetaminophen [Tylenol Arthritis] 650 mg PO Q8H PRN 09/18/20 09/18/20 Allergies Allergy/AdvReac Type Severity Reaction Status Date / Time paroxetine HCl [From Paxil] Allergy Rash/Hives Verified 09/18/20 14:03 sertraline HCl [From Zoloft] Allergy Rash/Hives Verified 09/18/20 14:03 Review of Systems ROS Statement: Those systems with pertinent positive or pertinent negative responses have been documented in the HPI. ROS Other: All systems not noted in ROS Statement are negative. Past Medical History Past Medical History: Chest Pain / Angina, CVA/TIA, Diabetes Mellitus, Fibromyalgia, GERD/Reflux, Rheumatoid Arthritis (RA), Syncope Additional Past Medical History / Comment(s): IDDM type I, hx DKA, hx TIA. "Neurocardiogenic Syncope -causes sudden drop in blood pressure syncope-has not happened in about 6 months". Multiple lipomas. History of Any Multi-Drug Resistant Organisms: None Reported Past Surgical History: Breast Surgery, Tubal Ligation, Uterine Ablation Additional Past Surgical History / Comment(s): Tilt table test, LEFT BREAST BIOPSY - BENIGN, left thigh lipoma removal X2, left breast lipoma removal X1. Past Anesthesia/Blood Transfusion Reactions: No Reported Reaction Past Psychological History: ADD/ADHD, Anxiety, Depression Smoking Status: Never smoker Past Alcohol Use History: Rare Past Drug Use History: Marijuana - Past Family History Mother Family Medical History: Asthma Additional Family Medical History / Comment(s): Depression, Colitis. Father History Unknown: Yes Family Medical History: Unable to Obtain Additional Family Medical History / Comment(s): Pt does not know who her father is. General Exam Limitations: no limitations General appearance: alert, in no apparent distress Head exam: Present: atraumatic, normocephalic, normal inspection Eye exam: Present: normal appearance, PERRL, EOMI. Absent: scleral icterus, conjunctival injection, periorbital swelling ENT exam: Present: normal exam, normal oropharynx, mucous membranes moist Neck exam: Present: normal inspection. Absent: tenderness, meningismus, lymphadenopathy Respiratory exam: Present: normal lung sounds bilaterally. Absent: respiratory distress, wheezes, rales, rhonchi, stridor, chest wall tenderness, accessory muscle use, decreased breath sounds Cardiovascular Exam: Present: normal rhythm, tachycardia, normal heart sounds. Absent: systolic murmur, diastolic murmur, rubs, gallop, clicks, JVD GI/Abdominal exam: Present: soft, normal bowel sounds, other (Insulin pump right upper quadrant). Absent: distended, tenderness, guarding, rebound, rigid Rectal exam: Present: deferred Extremities exam: Present: normal inspection, full ROM, normal capillary refill. Absent: tenderness, pedal edema, joint swelling, calf tenderness Back exam: Present: normal inspection. Absent: CVA tenderness (R), CVA tenderness (L), rash noted Neurological exam: Present: alert, oriented X3, CN II-XII intact Psychiatric exam: Present: normal affect, normal mood Skin exam: Present: warm, dry, intact, normal color. Absent: rash, cyanosis, diaphoretic, erythema, petechiae, pallor, mottled Course Vital Signs 09/18/20 09/18/20 09/18/20 13:23 15:43 18:03 Temperature 97.6 F Pulse Rate 105 H 85 84 Respiratory 18 18 18 Rate Blood Pressure 130/84 113/67 116/72 O2 Sat by Pulse 99 99 97 Oximetry 09/18/20 19:52 Temperature Pulse Rate 92 Respiratory 16 Rate Blood Pressure 99/52 O2 Sat by Pulse 97 Oximetry - Reevaluation(s) Reevaluation #1: 09/18/20 16:44 Patient feeling a little bit better after 800 mL normal saline, due to elevated ketones in her urine and sodium of 129 and glucose of 367 will repeat a 1 L bolus and reassess Time: 16:44 EKG Findings - EKG Results: EKG: sinus rhythm (Ventricular rate of 82, [place] interval 0.158, QRS 0.106, QTC of 0.469) Medical Decision Making - Medical Decision Making EKG shows normal sinus rhythm, blood glucose level 367, there is positive ketones in the urine. Patient hyponatremic with sodium of 129. Chest x-ray negative for infiltrates or effusions. PH is 7.46, acetone is negative, glucose was down to 251. Repeat BMP shows a glucose down to 163 and sodium of 134. Pt acceptable to being discharged home and following up with the primary care doctor. Case discussed with Dr. Landaverde - Lab Data Result diagrams: 09/18/20 15:24 09/18/20 19:03 Lab Results 09/18/20 09/18/20 09/18/20 Range/Units 13:25 15:24 15:24 WBC 7.5 (3.8-10.6) k/uL RBC 4.61 (3.80-5.40) m/uL Hgb 11.6 (11.4-16.0) gm/dL Hct 35.7 (34.0-46.0) % MCV 77.4 L (80.0-100.0) fL MCH 25.1 (25.0-35.0) pg MCHC 32.4 (31.0-37.0) g/dL RDW 14.1 (11.5-15.5) % Plt Count 342 (150-450) k/uL MPV 6.9 Neutrophils % 57 % Lymphocytes % 38 % Monocytes % 3 % Eosinophils % 0 % Basophils % 0 % Neutrophils # 4.2 (1.3-7.7) k/uL Lymphocytes # 2.9 (1.0-4.8) k/uL Monocytes # 0.2 (0-1.0) k/uL Eosinophils # 0.0 (0-0.7) k/uL Basophils # 0.0 (0-0.2) k/uL PT 9.6 (9.0-12.0) sec INR 0.9 (<1.2) APTT 21.9 L (22.0-30.0) sec VBG pH (7.31-7.41) VBG pCO2 (37-51) mmHg VBG HCO3 (24-28) mmol/L Sodium (137-145) mmol/L Potassium (3.5-5.1) mmol/L Chloride (98-107) mmol/L Carbon Dioxide (22-30) mmol/L Anion Gap mmol/L BUN (7-17) mg/dL Creatinine (0.52-1.04) mg/dL Est GFR (CKD-EPI)AfAm (>60 ml/min/1.73 sqM) Est GFR (CKD-EPI)NonAf (>60 ml/min/1.73 sqM) Glucose (74-99) mg/dL POC Glucose (mg/dL) 475 H (75-99) mg/dL POC Glu Php Website Developer ID Elder Montero Plasma Lactic Acid Yariel (0.7-2.0) mmol/L Calcium (8.4-10.2) mg/dL Magnesium (1.6-2.3) mg/dL Total Bilirubin (0.2-1.3) mg/dL AST (14-36) U/L ALT (4-34) U/L Alkaline Phosphatase (38-126) U/L Total Protein (6.3-8.2) g/dL Albumin (3.5-5.0) g/dL Urine Color Urine Appearance (Clear) Urine pH (5.0-8.0) Ur Specific [place] (1.001-1.035) Urine Protein (Negative) Urine Glucose (UA) (Negative) Urine Ketones (Negative) Urine Blood (Negative) Urine Nitrite (Negative) Urine Bilirubin (Negative) Urine Urobilinogen (<2.0) mg/dL Ur Leukocyte Esterase (Negative) Acetone, Qual (Negative) 09/18/20 09/18/20 09/18/20 Range/Units 15:24 15:24 15:24 WBC (3.8-10.6) k/uL RBC (3.80-5.40) m/uL Hgb (11.4-16.0) gm/dL Hct (34.0-46.0) % MCV (80.0-100.0) fL MCH (25.0-35.0) pg MCHC (31.0-37.0) g/dL RDW (11.5-15.5) % Plt Count (150-450) k/uL MPV Neutrophils % % Lymphocytes % % Monocytes % % Eosinophils % % Basophils % % Neutrophils # (1.3-7.7) k/uL Lymphocytes # (1.0-4.8) k/uL Monocytes # (0-1.0) k/uL Eosinophils # (0-0.7) k/uL Basophils # (0-0.2) k/uL PT (9.0-12.0) sec INR (<1.2) APTT (22.0-30.0) sec VBG pH (7.31-7.41) VBG pCO2 (37-51) mmHg VBG HCO3 (24-28) mmol/L Sodium 129 L (137-145) mmol/L Potassium 4.3 (3.5-5.1) mmol/L Chloride 90 L (98-107) mmol/L Carbon Dioxide 30 (22-30) mmol/L Anion Gap 9 mmol/L BUN 12 (7-17) mg/dL Creatinine 0.42 L (0.52-1.04) mg/dL Est GFR (CKD-EPI)AfAm >90 (>60 ml/min/1.73 sqM) Est GFR (CKD-EPI)NonAf >90 (>60 ml/min/1.73 sqM) Glucose 367 H (74-99) mg/dL POC Glucose (mg/dL) (75-99) mg/dL POC Glu Php Website Developer ID Plasma Lactic Acid Yariel 1.1 (0.7-2.0) mmol/L Calcium 9.6 (8.4-10.2) mg/dL Magnesium 1.6 (1.6-2.3) mg/dL Total Bilirubin 0.3 (0.2-1.3) mg/dL AST 18 (14-36) U/L ALT 12 (4-34) U/L Alkaline Phosphatase 181 H (38-126) U/L Total Protein 6.7 (6.3-8.2) g/dL Albumin 3.9 (3.5-5.0) g/dL Urine Color Colorless Urine Appearance Clear (Clear) Urine pH 5.0 (5.0-8.0) Ur Specific [place] 1.023 (1.001-1.035) Urine Protein Negative (Negative) Urine Glucose (UA) 4+ H (Negative) Urine Ketones 4+ H (Negative) Urine Blood Negative (Negative) Urine Nitrite Negative (Negative) Urine Bilirubin Negative (Negative) Urine Urobilinogen <2.0 (<2.0) mg/dL Ur Leukocyte Esterase Negative (Negative) Acetone, Qual (Negative) 09/18/20 09/18/20 09/18/20 Range/Units 18:04 19:03 19:03 WBC (3.8-10.6) k/uL RBC (3.80-5.40) m/uL Hgb (11.4-16.0) gm/dL Hct (34.0-46.0) % MCV (80.0-100.0) fL MCH (25.0-35.0) pg MCHC (31.0-37.0) g/dL RDW (11.5-15.5) % Plt Count (150-450) k/uL MPV Neutrophils % % Lymphocytes % % Monocytes % % Eosinophils % % Basophils % % Neutrophils # (1.3-7.7) k/uL Lymphocytes # (1.0-4.8) k/uL Monocytes # (0-1.0) k/uL Eosinophils # (0-0.7) k/uL Basophils # (0-0.2) k/uL PT (9.0-12.0) sec INR (<1.2) APTT (22.0-30.0) sec VBG pH 7.46 H (7.31-7.41) VBG pCO2 39 (37-51) mmHg VBG HCO3 27 (24-28) mmol/L Sodium (137-145) mmol/L Potassium (3.5-5.1) mmol/L Chloride (98-107) mmol/L Carbon Dioxide (22-30) mmol/L Anion Gap mmol/L BUN (7-17) mg/dL Creatinine (0.52-1.04) mg/dL Est GFR (CKD-EPI)AfAm (>60 ml/min/1.73 sqM) Est GFR (CKD-EPI)NonAf (>60 ml/min/1.73 sqM) Glucose (74-99) mg/dL POC Glucose (mg/dL) 251 H (75-99) mg/dL POC Glu Php Website Developer ID Willing, Ashlee Plasma Lactic Acid Yariel (0.7-2.0) mmol/L Calcium (8.4-10.2) mg/dL Magnesium (1.6-2.3) mg/dL Total Bilirubin (0.2-1.3) mg/dL AST (14-36) U/L ALT (4-34) U/L Alkaline Phosphatase (38-126) U/L Total Protein (6.3-8.2) g/dL Albumin (3.5-5.0) g/dL Urine Color Urine Appearance (Clear) Urine pH (5.0-8.0) Ur Specific [place] (1.001-1.035) Urine Protein (Negative) Urine Glucose (UA) (Negative) Urine Ketones (Negative) Urine Blood (Negative) Urine Nitrite (Negative) Urine Bilirubin (Negative) Urine Urobilinogen (<2.0) mg/dL Ur Leukocyte Esterase (Negative) Acetone, Qual Negative (Negative) 09/18/20 Range/Units 19:03 WBC (3.8-10.6) k/uL RBC (3.80-5.40) m/uL Hgb (11.4-16.0) gm/dL Hct (34.0-46.0) % MCV (80.0-100.0) fL MCH (25.0-35.0) pg MCHC (31.0-37.0) g/dL RDW (11.5-15.5) % Plt Count (150-450) k/uL MPV Neutrophils % % Lymphocytes % % Monocytes % % Eosinophils % % Basophils % % Neutrophils # (1.3-7.7) k/uL Lymphocytes # (1.0-4.8) k/uL Monocytes # (0-1.0) k/uL Eosinophils # (0-0.7) k/uL Basophils # (0-0.2) k/uL PT (9.0-12.0) sec INR (<1.2) APTT (22.0-30.0) sec VBG pH (7.31-7.41) VBG pCO2 (37-51) mmHg VBG HCO3 (24-28) mmol/L Sodium 134 L (137-145) mmol/L Potassium 3.9 (3.5-5.1) mmol/L Chloride 99 (98-107) mmol/L Carbon Dioxide 27 (22-30) mmol/L Anion Gap 8 mmol/L BUN 9 (7-17) mg/dL Creatinine 0.35 L (0.52-1.04) mg/dL Est GFR (CKD-EPI)AfAm >90 (>60 ml/min/1.73 sqM) Est GFR (CKD-EPI)NonAf >90 (>60 ml/min/1.73 sqM) Glucose 163 H (74-99) mg/dL POC Glucose (mg/dL) (75-99) mg/dL POC Glu Php Website Developer ID Plasma Lactic Acid Yariel (0.7-2.0) mmol/L Calcium 8.9 (8.4-10.2) mg/dL Magnesium (1.6-2.3) mg/dL Total Bilirubin (0.2-1.3) mg/dL AST (14-36) U/L ALT (4-34) U/L Alkaline Phosphatase (38-126) U/L Total Protein (6.3-8.2) g/dL Albumin (3.5-5.0) g/dL Urine Color Urine Appearance (Clear) Urine pH (5.0-8.0) Ur Specific [place] (1.001-1.035) Urine Protein (Negative) Urine Glucose (UA) (Negative) Urine Ketones (Negative) Urine Blood (Negative) Urine Nitrite (Negative) Urine Bilirubin (Negative) Urine Urobilinogen (<2.0) mg/dL Ur Leukocyte Esterase (Negative) Acetone, Qual (Negative) Disposition Clinical Impression: Hyponatremia, Hyperglycemia due to type 1 diabetes mellitus Disposition: HOME SELF-CARE Condition: Fair Is patient prescribed a controlled substance at d/c from ED?: No Referrals: Kevin Ruiz DO [Primary Care Provider] - 1-2 days Time of Disposition: 20:21
[2020-09-18 15:35] LABS: Basophils % (A) 0 %; Eosinophils % (A) 0 %; HCT 35.7 % (34.0-46.0); HGB 11.6 gm/dL (11.4-16.0); Lymphocytes # (A) 2.9 k/uL (1.0-4.8); Lymphocytes % (A) 38 %; MCH 25.1 pg (25.0-35.0); MCHC 32.4 g/dL (31.0-37.0); MCV 77.4 fL (80.0-100.0); Mean Platelet Volume 6.9; Monocytes # (A) 0.2 k/uL (0-1.0); Monocytes % (A) 3 %; Neutrophils # (A) 4.2 k/uL (1.3-7.7); Neutrophils % (A) 57 %; Platelet Count 342 k/uL (150-450); RBC 4.61 m/uL (3.80-5.40); RDW 14.1 % (11.5-15.5); WBC 7.5 k/uL (3.8-10.6)
[2020-09-18 15:44] LABS: ALT 12 U/L (4-34); AST 18 U/L (14-36); African American GFR (CKD) >90 (>60 ml/min/1.73 sqM); Albumin 3.9 g/dL (3.5-5.0); Alkaline Phosphatase 181 U/L (38-126); Anion Gap 9 mmol/L; Blood Urea Nitrogen 12 mg/dL (7-17); Calcium 9.6 mg/dL (8.4-10.2); Carbon Dioxide 30 mmol/L (22-30); Chloride 90 mmol/L (98-107); Glucose 367 mg/dL (74-99); Magnesium 1.6 mg/dL (1.6-2.3); Non-African American GFR(CKD) >90 (>60 ml/min/1.73 sqM); Potassium 4.3 mmol/L (3.5-5.1); Sodium 129 mmol/L (137-145); Total Bilirubin 0.3 mg/dL (0.2-1.3); Total Protein 6.7 g/dL (6.3-8.2)
[2020-09-18 15:50] LABS: INR 0.9 (<1.2); Partial Thromboplastin Time 21.9 sec (22.0-30.0); Prothrombin Time 9.6 sec (9.0-12.0)
[2020-09-18 16:10] LABS: Appearance,Urine Clear (Clear); Bilirubin,Urine Negative (Negative); Blood,Urine Negative (Negative); Color,Urine Colorless; Glucose,Urine (UA) 4+ (Negative); Leukocyte Esterase,Urine Negative (Negative); Nitrite,Urine Negative (Negative); Protein,Urine Negative (Negative); Specific Gravity,Urine 1.023 (1.001-1.035); Urobilinogen,Urine <2.0 mg/dL (<2.0)
[2020-09-18 16:13] LABS: Ketones,Urine 4+ (Negative)
--- NOTE | 2020-09-18 16:18 | XR ---
EXAMINATION TYPE: XR chest 2V DATE OF EXAM: 09/18/2020 COMPARISON: Chest x-ray May 21, 2018 HISTORY: Weakness. TECHNIQUE: Frontal and lateral views of the chest are obtained. FINDINGS: Elevated and eventrated anterior aspect right hemidiaphragm. There is no focal air space op acity, pleural effusion, or pneumothorax seen. The cardiac silhouette size is stable enhanced within normal limits. The osseous structures are intact. IMPRESSION: No acute cardiopulmonary process. No significant change from prior.
[2020-09-18] MEDS ORDERED: SODIUM CHLORIDE 0.9% 1,000 ML IV ONE (16:42)
[2020-09-18] MEDS ORDERED: IBUPROFEN 800 MG TAB PO STA (17:18)
[2020-09-18 18:06] LABS: Glucose,Whole Blood 251 mg/dL (75-99)
[2020-09-18 19:18] LABS: VBG PH 7.46 (7.31-7.41)
[2020-09-18 19:47] LABS: African American GFR (CKD) >90 (>60 ml/min/1.73 sqM); Anion Gap 8 mmol/L; Blood Urea Nitrogen 9 mg/dL (7-17); Calcium 8.9 mg/dL (8.4-10.2); Carbon Dioxide 27 mmol/L (22-30); Chloride 99 mmol/L (98-107); Glucose 163 mg/dL (74-99); Non-African American GFR(CKD) >90 (>60 ml/min/1.73 sqM); Sodium 134 mmol/L (137-145)
[2020-09-18 19:53] VITALS: BP 99/52; PULSE 92; RESP 16
[2020-09-18 20:14] LABS: Potassium 3.9 mmol/L (3.5-5.1)
== END 2020-09-18 20:45 | disposition home or self-care (01) ==
LOC: EC 13:10
DX: E87.1 Hypo-osmolality and hyponatremia (principal); E10.65 Type 1 diabetes mellitus with hyperglycemia; K21.9 Gastro-esophageal reflux disease without esophagitis; M06.9 Rheumatoid arthritis, unspecified; M79.7 Fibromyalgia; Z86.73 Personal history of transient ischemic attack (TIA), and cerebral infarction without residual deficits; F90.9 Attention-deficit hyperactivity disorder, unspecified type; F32.9 Major depressive disorder, single episode, unspecified; F12.90 Cannabis use, unspecified, uncomplicated; R05 Cough; R09.89 Other specified symptoms and signs involving the circulatory and respiratory systems
CPT/HCPCS: 36415; 71046; 80048; 80053; 81003; 82009; 82803; 83605; 83735; 85025; 85610; 85730; 93005; 96360; 96361; 99285

== ENCOUNTER → 2020-10-14 | Outpatient (CLI) | payer MEDICARE, OTHER ==
--- NOTE | 2020-10-14 13:53 | MM ---
Reason for exam: screening (asymptomatic). Last mammogram was performed 22 years and 3 months ago. History: Patient is nulliparous. Benign excisional biopsy of the left breast, 1998. Took hormonal contraceptives for 1 year. Physical Findings: A clinical breast exam by your physician is recommended on an annual basis and results should be correlated with mammographic findings. MG 3D Screening Mammo W/Cad Bilateral CC and MLO view(s) were taken. Prior study comparison: February 14, 2008, mammogram, performed at [facility]. March 30, 2007, mammogram, performed at [facility]. There are scattered fibroglandular densities. Bilateral scattered densities. ASSESSMENT: Benign, BI-RAD 2 RECOMMENDATION: Routine screening mammogram of both breasts in 1 year.
== END | disposition home or self-care (01) ==
LOC: RADMAMWWP 11:19
PROVIDERS: ATTEND Obstetrics & Gynecology
DX: Z12.31 Encounter for screening mammogram for malignant neoplasm of breast (principal)
CPT/HCPCS: 77063; 77067

== ENCOUNTER 2020-12-09 21:48 | Inpatient (IN) | payer MEDICARE, MEDICAID ==
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
[2020-12-10 07:49] LABS: Glucose,Whole Blood 294 mg/dL (75-99)
[2020-12-10] MEDS ORDERED: MAGNESIUM HYDROXIDE 2,400 MG/10 ML CUP PO PRN (09:14)
[2020-12-10] MEDS ORDERED: LORazepam 1 MG TAB PO PRN (09:14)
[2020-12-10] MEDS ORDERED: MAG HYDROX/AL HYDROX/SIMETH 30 ML CUP PO PRN (09:14)
[2020-12-10] MEDS ORDERED: LORazepam 2 MG/ML INJ IM PRN (09:33)
[2020-12-10] MEDS ORDERED: HALOPERIDOL LACTATE 5 MG/ML 1 ML VIAL IM PRN (09:34)
[2020-12-10 12:48] LABS: Glucose,Whole Blood 338 mg/dL (75-99)
[2020-12-10] MEDS: INSULIN ASPART (NovoLOG) 100 UNIT/ML VIAL SQ SCH ×5 (12:55→20:24)
[2020-12-10] MEDS ORDERED: INSULIN NPH 300 UNIT/3 ML VIAL SQ STA (13:51)
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
[2020-12-10 17:57] LABS: Glucose,Whole Blood 223 mg/dL (75-99)
[2020-12-10 20:05] LABS: Glucose,Whole Blood 396 mg/dL (75-99)
[2020-12-10 20:07] LABS: Glucose,Whole Blood 373 mg/dL (75-99)
[2020-12-10] MEDS: INSULIN DETEMIR (LEVEMIR) 100 UNIT/ML SYR SQ SCH (20:19)
[2020-12-10] MEDS: ACETAMINOPHEN TAB 325 MG TAB PO PRN (21:11)
[2020-12-11 07:45] LABS: Glucose,Whole Blood 123 mg/dL (75-99)
[2020-12-11] MEDS: INSULIN ASPART (NovoLOG) 100 UNIT/ML VIAL SQ SCH ×7 (07:58→20:11)
[2020-12-11] MEDS: ATORVASTATIN 10 MG TAB PO SCH (08:03)
[2020-12-11] MEDS: PANTOPRAZOLE 40 MG TABLET PO SCH (08:03)
[2020-12-11] MEDS: DULoxetine HCL 30 MG CAPSULE.DR PO SCH (08:03)
[2020-12-11 12:12] LABS: Glucose,Whole Blood 185 mg/dL (75-99)
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
[2020-12-11 17:37] LABS: Glucose,Whole Blood 262 mg/dL (75-99)
[2020-12-11 20:03] LABS: Glucose,Whole Blood 234 mg/dL (75-99)
[2020-12-11] MEDS: INSULIN DETEMIR (LEVEMIR) 100 UNIT/ML SYR SQ SCH (20:27)
[2020-12-11] MEDS: ACETAMINOPHEN TAB 325 MG TAB PO PRN (20:28)
[2020-12-11] MEDS ORDERED: MELATONIN 5 MG TABLET PO SCH (21:00)
[2020-12-12] MEDS: IBUPROFEN 600 MG TAB PO PRN ×2 (01:42→20:56)
[2020-12-12 07:52] LABS: Glucose,Whole Blood 124 mg/dL (75-99)
[2020-12-12] MEDS: INSULIN ASPART (NovoLOG) 100 UNIT/ML VIAL SQ SCH ×7 (08:03→20:03)
[2020-12-12] MEDS: PANTOPRAZOLE 40 MG TABLET PO SCH (08:43)
[2020-12-12] MEDS: DULoxetine HCL 30 MG CAPSULE.DR PO SCH (08:43)
[2020-12-12] MEDS: ATORVASTATIN 10 MG TAB PO SCH (08:43)
[2020-12-12] MEDS: ACETAMINOPHEN TAB 325 MG TAB PO PRN ×2 (10:02→20:56)
[2020-12-12] MEDS ORDERED: diphenhydrAMINE 25 MG CAP PO PRN (11:38)
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
[2020-12-12 12:53] LABS: Glucose,Whole Blood 162 mg/dL (75-99)
[2020-12-12 17:34] LABS: Glucose,Whole Blood 222 mg/dL (75-99)
[2020-12-12 19:51] LABS: Glucose,Whole Blood 122 mg/dL (75-99)
[2020-12-12] MEDS: INSULIN DETEMIR (LEVEMIR) 100 UNIT/ML SYR SQ SCH (20:04)
[2020-12-12] MEDS: MELATONIN 5 MG TABLET PO SCH (20:56)
[2020-12-13] MEDS: IBUPROFEN 600 MG TAB PO PRN ×2 (06:19→21:31)
[2020-12-13 07:38] LABS: Glucose,Whole Blood 93 mg/dL (75-99)
[2020-12-13] MEDS: INSULIN ASPART (NovoLOG) 100 UNIT/ML VIAL SQ SCH ×7 (07:43→20:15)
[2020-12-13] MEDS: DULoxetine HCL 60 MG CAPSULE.DR PO SCH (07:49)
[2020-12-13] MEDS: ATORVASTATIN 10 MG TAB PO SCH (07:49)
[2020-12-13] MEDS: PANTOPRAZOLE 40 MG TABLET PO SCH (07:49)
[2020-12-13 12:40] LABS: Glucose,Whole Blood 115 mg/dL (75-99)
[2020-12-13 14:11] LABS: Glucose,Whole Blood 204 mg/dL (75-99)
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
[2020-12-13 17:36] LABS: Glucose,Whole Blood 252 mg/dL (75-99)
[2020-12-13 19:57] LABS: Glucose,Whole Blood 178 mg/dL (75-99)
[2020-12-13] MEDS: INSULIN DETEMIR (LEVEMIR) 100 UNIT/ML SYR SQ SCH (20:22)
[2020-12-13] MEDS: ACETAMINOPHEN TAB 325 MG TAB PO PRN (21:29)
[2020-12-13] MEDS: MELATONIN 5 MG TABLET PO SCH (21:29)
[2020-12-14 01:43] LABS: Glucose,Whole Blood 231 mg/dL (75-99)
[2020-12-14] MEDS: ACETAMINOPHEN TAB 325 MG TAB PO PRN (02:01)
[2020-12-14 07:47] LABS: Glucose,Whole Blood 59 mg/dL (75-99)
[2020-12-14] MEDS: INSULIN ASPART (NovoLOG) 100 UNIT/ML VIAL SQ SCH ×8 (07:53→20:30)
[2020-12-14 08:05] LABS: Glucose,Whole Blood 76 mg/dL (75-99)
[2020-12-14] MEDS: DULoxetine HCL 60 MG CAPSULE.DR PO SCH (08:41)
[2020-12-14] MEDS: ATORVASTATIN 10 MG TAB PO SCH (08:41)
[2020-12-14] MEDS: PANTOPRAZOLE 40 MG TABLET PO SCH (08:41)
[2020-12-14 10:11] LABS: Glucose,Whole Blood 308 mg/dL (75-99)
--- NOTE | 2020-12-14 10:54 | P.PN ---
Progress Note - Text Progress Note Date: 12/14/20 Clinical Problems: Major depressive disorder recurrent without psychotic features, PTSD, cannabis use disorder mild, rule out personality disorder NOS Interim history: I reviewed the medical record and interviewed the patient. She complained of increasing pain today. She talks about having "rheumatoid arthritis was "that affects multiple joints including her ankles, knees, hips shoulders back and neck. She described the pain as a tight squeezing sensation involving the hips and lower back and extending down behind her legs. The pain is interfering didn't sleep and minimally relief with both Tylenol and Motrin. We discuss treatment alternatives and she agreed to a trial of Neurontin at night time. She did not focusing on depression but remains preoccupied about her living situation. She is hoping to secure a studio apartment so that she can move out of her parents home. She attended therapeutic groups and activities yesterday. The therapist described her spontaneous, attentive and animated. Nursing staff note she had difficulty falling asleep and only slept 3 hours last night. Mental status exam:. She presented as a disheveled appearing 45-year-old female who was pleasant on approach. She made eye contact and attended to interview. She had a blunted facial expression. She had slight psychomotor retardation but no abnormal involuntary movements. Her speech was spontaneous with slight decrease in rate and rhythm. Affect was depressed but reactive. She denied suicidal ideation or wishes. She denied homicidal ideation. She tells helplessness regarding her social situation but denied helplessness or worthlessness. She ruminated about her social circumstances. She did not express ideas reference, paranoid ideation or delusions. Her thinking was concrete but her associations were coherent, logical and goal directed. Assessment: She is complaining of increasing pain is interfering with sleep. She is chronically mentally ill but much improved from admission. She has multiple social problems and is currently without supportive mental health services. Plan: Continue inpatient treatment. Safety precautions. Continue Cymbalta 60 mg daily, and melatonin 10 mg at bedtime. Continue acetaminophen 650 mg every 4 hours when necessary and Motrin 600 mg every 8 hours when necessary for pain. Begin Neurontin 3 mg at bedtime for pain. Continue other medications including Lipitor, NovoLog, Levimir and Protonix. drop pit worker to coordinate discharge and aftercare including referral to [facility] for ongoing mental health services. Encourage participation in therapeutic groups and activities. Evaluate clinical status response to treatment daily basis.
[2020-12-14 12:21] LABS: Glucose,Whole Blood 266 mg/dL (75-99)
[2020-12-14 16:33] LABS: Glucose,Whole Blood 64 mg/dL (75-99)
[2020-12-14 16:51] LABS: Glucose,Whole Blood 68 mg/dL (75-99)
[2020-12-14 17:07] LABS: Glucose,Whole Blood 96 mg/dL (75-99)
[2020-12-14 18:07] LABS: Glucose,Whole Blood 233 mg/dL (75-99)
[2020-12-14 20:30] LABS: Glucose,Whole Blood 332 mg/dL (75-99)
[2020-12-14] MEDS: GABAPENTIN 300 MG CAP PO SCH (20:30)
[2020-12-14] MEDS: INSULIN DETEMIR (LEVEMIR) 100 UNIT/ML SYR SQ SCH (20:30)
[2020-12-14] MEDS: MELATONIN 5 MG TABLET PO SCH (22:05)
[2020-12-15 00:35] VITALS: TEMP 97.8
[2020-12-15 07:42] LABS: Glucose,Whole Blood 121 mg/dL (75-99)
[2020-12-15] MEDS: INSULIN ASPART (NovoLOG) 100 UNIT/ML VIAL SQ SCH ×7 (07:45→20:47)
[2020-12-15] MEDS: PANTOPRAZOLE 40 MG TABLET PO SCH (07:46)
[2020-12-15] MEDS: ATORVASTATIN 10 MG TAB PO SCH (07:47)
[2020-12-15] MEDS: DULoxetine HCL 60 MG CAPSULE.DR PO SCH (07:48)
--- NOTE | 2020-12-15 10:24 | P.PN ---
Progress Note - Text Progress Note Date: 12/15/20 Interval History: Patient was seen taking part in group activities today and was directable and agreeable to speak with pattern chart writer in the office. Patient appears to have mild improvement in her hygiene and grooming today. she did mention that she had a difficult weekend and described significant mood fluctuations and feeling "depressed at the tip of a hat". She states that today she does not feel comfortable going home and feels unsafe on how shes going to react if that does occur again today. She states that she would come straight back to the hospital. we spoke about her medications and she was agreeable to try lamictal. She spoke briefly about going to groups and working on her coping skills. She states that she was able to sleep well last night with the neurontin. She states that she feels the Cymbalta has been helping her. At this time patient denies any suicidal or homical ideations, intent or plan. Patient denies any auditory, visual hallucinations and denies any paranoia or delusions. Patient denies any side effects from the medications and has been compliant with meds. Mental Status Exam: General Appearance: Patient appears to be overweight, stated age is alert, directable. Patient appears to have improving hygiene and grooming. Behavior: Patient is seated without any agitated behavior. not tearful today Speech: Patient's speech is fluent and nonpressured. Mood/Affect: Patient reports their mood is improving mildly, affect is congruent and constricted. Suicidality/Homicidality: Patient denies having any suicidal or homicidal ideation intent or plan. Perceptions: Patient denies any visual hallucinations and denies any auditory hallucinations Though content/process: There is no evidence of any delusional thought content and thought process is linear and goal-directed. rambles at times. focused on her symptoms. Memory and concentration: AOX3, grossly intact for the purposes of this session. Judgment and insight: improving mildly Assessment Major depressive disorder without psychotic features PTSD cannabis use disorder, mild personality disorder NOS Plan: -Patient is admitted under voluntary status to [facility]HU for stabilization of psychiatric symptoms and safety. Patient has signed adult voluntary form and medication consent and is placed in patient's chart. -Medications : Cymbalta 60mg daily for mood/anxiety, melatonin 10 mg daily at bedtime for insomnia. benadryl 25 mg qhs prn for insomnia. added lamictal 25 mg bid for mood stabilization. -Ativan and Haldol PRN for agitation/aggression -NRT - nicotine patch -SW on board for discharge planning. Encourage patient to participate in groups to work on coping skills. likely discharge back home tomorrow.
[2020-12-15] MEDS: lamoTRIgine 25 MG TAB PO SCH ×2 (12:05→21:15)
[2020-12-15 12:59] LABS: Glucose,Whole Blood 98 mg/dL (75-99)
[2020-12-15 17:49] LABS: Glucose,Whole Blood 242 mg/dL (75-99)
[2020-12-15 17:49] LABS: Glucose,Whole Blood 227 mg/dL (75-99)
[2020-12-15 20:09] LABS: Glucose,Whole Blood 69 mg/dL (75-99)
[2020-12-15 20:21] LABS: Glucose,Whole Blood 68 mg/dL (75-99)
[2020-12-15 20:40] LABS: Glucose,Whole Blood 86 mg/dL (75-99)
[2020-12-15] MEDS: INSULIN DETEMIR (LEVEMIR) 100 UNIT/ML SYR SQ SCH (20:47)
[2020-12-15] MEDS: GABAPENTIN 300 MG CAP PO SCH (21:15)
[2020-12-15] MEDS: MELATONIN 5 MG TABLET PO SCH (21:15)
[2020-12-16] MEDS: IBUPROFEN 600 MG TAB PO PRN (01:46)
[2020-12-16 06:30] VITALS: BP 107/56; PULSE 73; RESP 18
[2020-12-16 07:35] LABS: Glucose,Whole Blood 281 mg/dL (75-99)
[2020-12-16] MEDS: PANTOPRAZOLE 40 MG TABLET PO SCH (07:35)
[2020-12-16] MEDS: DULoxetine HCL 60 MG CAPSULE.DR PO SCH (07:36)
[2020-12-16] MEDS: ATORVASTATIN 10 MG TAB PO SCH (07:36)
[2020-12-16] MEDS: lamoTRIgine 25 MG TAB PO SCH (07:36)
[2020-12-16] MEDS: INSULIN ASPART (NovoLOG) 100 UNIT/ML VIAL SQ SCH ×2 (08:02)
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
== END 2020-12-16 10:18 | disposition home or self-care (01) | DRG 885 ==
LOC: EC 21:48 → 3MHU 12-10 09:07
PROVIDERS: ADMIT Psychiatry & Neurology Psychiatry; ATTEND Psychiatry & Neurology Psychiatry
DX: F33.9 Major depressive disorder, recurrent, unspecified (principal); R45.851 Suicidal ideations; E10.65 Type 1 diabetes mellitus with hyperglycemia; F12.10 Cannabis abuse, uncomplicated; F41.8 Other specified anxiety disorders; F43.10 Post-traumatic stress disorder, unspecified; F60.9 Personality disorder, unspecified; G47.00 Insomnia, unspecified; K21.9 Gastro-esophageal reflux disease without esophagitis; M06.9 Rheumatoid arthritis, unspecified; M19.90 Unspecified osteoarthritis, unspecified site; M79.7 Fibromyalgia; Z79.4 Long term (current) use of insulin; Z79.899 Other long term (current) drug therapy; Z81.8 Family history of other mental and behavioral disorders; Z82.5 Family history of asthma and other chronic lower respiratory diseases; Z96.41 Presence of insulin pump (external) (internal); Z86.73 Personal history of transient ischemic attack (TIA), and cerebral infarction without residual deficits; Z63.5 Disruption of family by separation and divorce; Z91.410 Personal history of adult physical and sexual abuse; D17.9 Benign lipomatous neoplasm, unspecified; Z98.51 Tubal ligation status; Z98.890 Other specified postprocedural states
CPT/HCPCS: 36415; 82075; 99285

== ENCOUNTER 2021-01-15 09:16 | Emergency (ER) | payer MEDICARE, OTHER ==
[2021-01-15 09:21] VITALS: RESP 18
[2021-01-15] MEDS ORDERED: ONDANSETRON 4 MG/2 ML VIAL IVP STA (09:37)
[2021-01-15 09:59] LABS: Basophils % (A) 0 %; Eosinophils % (A) 0 %; HCT 41.8 % (34.0-46.0); HGB 13.9 gm/dL (11.4-16.0); Lymphocytes # (A) 1.8 k/uL (1.0-4.8); Lymphocytes % (A) 25 %; MCH 25.4 pg (25.0-35.0); MCHC 33.2 g/dL (31.0-37.0); MCV 76.6 fL (80.0-100.0); Mean Platelet Volume 7.4; Monocytes # (A) 0.3 k/uL (0-1.0); Monocytes % (A) 4 %; Neutrophils # (A) 5.1 k/uL (1.3-7.7); Neutrophils % (A) 70 %; Platelet Count 333 k/uL (150-450); RBC 5.45 m/uL (3.80-5.40); RDW 14.1 % (11.5-15.5); WBC 7.3 k/uL (3.8-10.6)
[2021-01-15 10:21] LABS: African American GFR (CKD) >90 (>60 ml/min/1.73 sqM); Anion Gap 14 mmol/L; Blood Urea Nitrogen 8 mg/dL (7-17); Calcium 9.5 mg/dL (8.4-10.2); Carbon Dioxide 19 mmol/L (22-30); Chloride 101 mmol/L (98-107); Glucose 248 mg/dL (74-99); Non-African American GFR(CKD) >90 (>60 ml/min/1.73 sqM); Potassium 4.1 mmol/L (3.5-5.1); Sodium 134 mmol/L (137-145)
--- NOTE | 2021-01-15 10:24 | XR ---
EXAMINATION TYPE: XR chest 2V DATE OF EXAM: 01/15/2021 COMPARISON: 09/18/2020 HISTORY: Chest pain TECHNIQUE: Frontal and lateral views of the chest are obtained. FINDINGS: There is no focal air space opacity. No evidence for pneumothorax. No pleural effusion. The cardiac silhouette size is within normal limits. The osseous structures are grossly intact. IMPRESSION: 1. No acute cardiopulmonary process.
--- NOTE | 2021-01-15 11:15 | ED ---
URI HPI - General Chief Complaint: Upper Respiratory Infection Stated Complaint: cough/vomiting/high blood sugar Time Seen by Provider: 01/15/21 09:27 Source: patient, RN notes reviewed Mode of arrival: ambulatory Limitations: no limitations - History of Present Illness Initial Comments: Patient is a 46-year-old female that presents to the emergency department complaining of upper respiratory tract symptoms for the past several days. She notes that she's had a cough and runny nose and some nausea. She notes that she has not been tested for covert in a while and that she is vaccinated. She was otherwise a well-appearing 46-year-old female with a history of diabetes that she takes insulin for. She notes her sugar was high this morning prior taking insulin. She denied any other issues or complaints. She denied any chest pain headache nausea vomiting diarrhea constipation fever fatigue chills. - Related Data Home Medications Medication Instructions Recorded Confirmed Insulin Aspart (For Pump) [NovoLOG 0.01 unit SQ-PUMP CONTINUOUS 05/20/20 12/10/20 (For Pump)] Omeprazole [PriLOSEC] 20 mg PO QAM 05/20/20 12/10/20 Simvastatin [Zocor] 20 mg PO DAILY 05/20/20 12/10/20 Methylphenidate HCl [Ritalin] 20 mg PO BID 12/10/20 12/10/20 Previous Rx's Medication Instructions Recorded DULoxetine HCL [Cymbalta] 60 mg PO DAILY 30 Days capsule. 12/16/20 Gabapentin [Neurontin] 300 mg PO HS 30 Days #30 cap 12/16/20 Ibuprofen [Motrin] 600 mg PO Q8H PRN tab 12/16/20 Melatonin 10 mg PO HS 30 Days tablet 12/16/20 lamoTRIgine [LaMICtal] 25 mg PO BID 30 Days tab 12/16/20 Allergies Allergy/AdvReac Type Severity Reaction Status Date / Time paroxetine HCl [From Paxil] Allergy Rash/Hives Verified 01/15/21 09:18 sertraline HCl [From Zoloft] Allergy Rash/Hives Verified 01/15/21 09:18 Review of Systems ROS Statement: Those systems with pertinent positive or pertinent negative responses have been documented in the HPI. ROS Other: All systems not noted in ROS Statement are negative. Past Medical History Past Medical History: Chest Pain / Angina, CVA/TIA, Diabetes Mellitus, Fibromyalgia, GERD/Reflux, Rheumatoid Arthritis (RA), Syncope Additional Past Medical History / Comment(s): IDDM type I, hx DKA, hx TIA. "Neurocardiogenic Syncope -causes sudden drop in blood pressure syncope-has not happened in about 6 months". Multiple lipomas. History of Any Multi-Drug Resistant Organisms: None Reported Past Surgical History: Breast Surgery, Tubal Ligation, Uterine Ablation Additional Past Surgical History / Comment(s): Tilt table test, LEFT BREAST BIOPSY - BENIGN, left thigh lipoma removal X2, left breast lipoma removal X1. Past Anesthesia/Blood Transfusion Reactions: No Reported Reaction Past Psychological History: ADD/ADHD, Anxiety, Depression Smoking Status: Never smoker Past Alcohol Use History: Rare Past Drug Use History: Marijuana - Past Family History Mother Family Medical History: Asthma Additional Family Medical History / Comment(s): Depression, Colitis. Father History Unknown: Yes Family Medical History: Unable to Obtain Additional Family Medical History / Comment(s): Pt does not know who her father is. General Exam Limitations: no limitations General appearance: alert, in no apparent distress, obese Head exam: Present: atraumatic, normocephalic, normal inspection Eye exam: Present: normal appearance, PERRL, EOMI. Absent: scleral icterus, conjunctival injection, periorbital swelling ENT exam: Present: normal exam, mucous membranes moist Neck exam: Present: normal inspection Respiratory exam: Present: normal lung sounds bilaterally. Absent: respiratory distress, wheezes, rales, rhonchi, stridor Cardiovascular Exam: Present: regular rate, normal rhythm, normal heart sounds. Absent: systolic murmur, diastolic murmur, rubs, gallop, clicks GI/Abdominal exam: Present: soft, normal bowel sounds. Absent: distended, tenderness, guarding, rebound, rigid Extremities exam: Present: normal inspection, full ROM, normal capillary refill. Absent: tenderness, pedal edema, joint swelling, calf tenderness Neurological exam: Present: alert, oriented X3 Psychiatric exam: Present: normal affect, normal mood Skin exam: Present: warm, dry, intact, normal color. Absent: rash Course Vital Signs 01/15/21 09:18 Temperature 97.7 F Pulse Rate 103 H Respiratory 18 Rate Blood Pressure 123/86 O2 Sat by Pulse 99 Oximetry Medical Decision Making - Medical Decision Making 46-year-old female complaining of upper respiratory tract symptoms for the past 2-3 days involving cough for any nose some nausea. Basic labs, Covid test, chest x-ray ordered. Labs unremarkable. Covid test negative. Chest x-ray negative for any acute cardio pulmonary process. Patient most likely has an upper respiratory tract infection. Case discussed with Dr. Carter, patient discharge home. - Lab Data Result diagrams: 01/15/21 09:35 01/15/21 09:35 Lab Results 01/15/21 01/15/21 01/15/21 Range/Units 09:35 09:35 09:35 WBC 7.3 (3.8-10.6) k/uL RBC 5.45 H (3.80-5.40) m/uL Hgb 13.9 (11.4-16.0) gm/dL Hct 41.8 (34.0-46.0) % MCV 76.6 L (80.0-100.0) fL MCH 25.4 (25.0-35.0) pg MCHC 33.2 (31.0-37.0) g/dL RDW 14.1 (11.5-15.5) % Plt Count 333 (150-450) k/uL MPV 7.4 Neutrophils % 70 % Lymphocytes % 25 % Monocytes % 4 % Eosinophils % 0 % Basophils % 0 % Neutrophils # 5.1 (1.3-7.7) k/uL Lymphocytes # 1.8 (1.0-4.8) k/uL Monocytes # 0.3 (0-1.0) k/uL Eosinophils # 0.0 (0-0.7) k/uL Basophils # 0.0 (0-0.2) k/uL Sodium 134 L (137-145) mmol/L Potassium 4.1 (3.5-5.1) mmol/L Chloride 101 (98-107) mmol/L Carbon Dioxide 19 L (22-30) mmol/L Anion Gap 14 mmol/L BUN 8 (7-17) mg/dL Creatinine 0.34 L (0.52-1.04) mg/dL Est GFR (CKD-EPI)AfAm >90 (>60 ml/min/1.73 sqM) Est GFR (CKD-EPI)NonAf >90 (>60 ml/min/1.73 sqM) Glucose 248 H (74-99) mg/dL Calcium 9.5 (8.4-10.2) mg/dL Coronavirus (PCR) Not Detected (Not Detectd) - Radiology Data Radiology results: report reviewed, image reviewed Chest x-ray: No acute cardiopulmonary process. Disposition Clinical Impression: Acute upper respiratory infection Disposition: HOME SELF-CARE Condition: Stable Instructions (If sedation given, give patient instructions): Upper Respiratory Infection (ED) Additional Instructions: Please return to the Emergency Department if symptoms worsen or any other concerns. Follow-up with primary care 1-2 days. Take Tylenol and Motrin as needed for fever. Get plenty or rest, drink more fluids. Is patient prescribed a controlled substance at d/c from ED?: No Referrals: Kevin Ruiz DO [Primary Care Provider] - 1-2 days Time of Disposition: 11:22
[2021-01-15 11:40] VITALS: BP 133/92; PULSE 90; TEMP 97.9
== END 2021-01-15 11:38 | disposition home or self-care (01) ==
LOC: EC 09:16
DX: J06.9 Acute upper respiratory infection, unspecified (principal); E10.10 Type 1 diabetes mellitus with ketoacidosis without coma; K21.9 Gastro-esophageal reflux disease without esophagitis; M79.7 Fibromyalgia; M06.9 Rheumatoid arthritis, unspecified; F32.9 Major depressive disorder, single episode, unspecified; F41.9 Anxiety disorder, unspecified; Z79.1 Long term (current) use of non-steroidal anti-inflammatories (NSAID); Z79.4 Long term (current) use of insulin; Z86.73 Personal history of transient ischemic attack (TIA), and cerebral infarction without residual deficits; Z79.899 Other long term (current) drug therapy
CPT/HCPCS: 36415; 80048; 85025; 87635; 71046; 96374; 99283; J2405

== ENCOUNTER 2021-10-08 15:59 | Emergency (ER) | payer MEDICARE, OTHER ==
--- NOTE | 2021-10-08 17:17 | ED ---
General Adult HPI <Magda Landaverde - Last Filed: 10/08/21 17:15> <Kyaw Villarreal - Last Filed: 10/08/21 20:52> - General Stated complaint: Dizzy,Nausea - History of Present Illness Initial comments: Shayla is a 46yo F with PMH of IDDM who presents to the ER with complaint that she is out of insulin. Last blood glucose was 540 @ 300pm, Last dose of insulin was this morning, she did short acting and long acting insulin at that time. Patient reports she is feeling faint, lightheaded and unwell. (Magda Landaverde) 46-year-old diabetic female presents emergency Department with the above chief complaint. Patient out of her short acting insulin cannot get into her doctor until October. Was told to go to the ER if she needed insulin. Patient states she does have some nausea and generalized fatigue. Patient also states that she was a bit "out of it," this morning. No headache, no fever or chills, no changes in vision or hearing, no sore throat or difficulty with speech, no neck pain, no chest pain or shortness of breath, no abdominal pain, no vomiting, no changes in urination or bowel movements, no numbness or tingling, no extremity pain, no skin rashes or lesions. (Kyaw Villarreal) - Related Data Home Medications Medication Instructions Recorded Confirmed Omeprazole [PriLOSEC] 20 mg PO DAILY 05/20/20 10/08/21 INSULIN ASPART (NovoLOG) [NovoLOG See Protocol SQ ACHS 10/08/21 10/08/21 (formulary)] Insulin Detemir (Levemir) [Levemir] 35 unit SQ DAILY 10/08/21 10/08/21 lamoTRIgine [LaMICtal] 25 mg PO DAILY 10/08/21 10/08/21 Previous Rx's Medication Instructions Recorded DULoxetine HCL [Cymbalta] 60 mg PO DAILY 30 Days capsule. 12/16/20 Insulin Aspart See Protocol SQ TID-W/MEALS #10 ml 10/08/21 Allergies Allergy/AdvReac Type Severity Reaction Status Date / Time paroxetine HCl [From Paxil] Allergy Rash/Hives Verified 10/08/21 19:37 sertraline HCl [From Zoloft] Allergy Rash/Hives Verified 10/08/21 19:37 Review of Systems ROS Other: All systems not noted in ROS Statement are negative. <Magda Landaverde - Last Filed: 10/08/21 17:15> ROS Other: All systems not noted in ROS Statement are negative. <Kyaw Villarreal - Last Filed: 10/08/21 20:52> ROS Statement: Those systems with pertinent positive or pertinent negative responses have been documented in the HPI. Past Medical History Past Medical History: Chest Pain / Angina, CVA/TIA, Diabetes Mellitus, Fibromyalgia, GERD/Reflux, Rheumatoid Arthritis (RA), Syncope Additional Past Medical History / Comment(s): IDDM type I, hx DKA, hx TIA. "Neurocardiogenic Syncope -causes sudden drop in blood pressure syncope-has not happened in about 6 months". Multiple lipomas. History of Any Multi-Drug Resistant Organisms: None Reported Past Surgical History: Breast Surgery, Tubal Ligation, Uterine Ablation Additional Past Surgical History / Comment(s): Tilt table test, LEFT BREAST BIOPSY - BENIGN, left thigh lipoma removal X2, left breast lipoma removal X1. Past Anesthesia/Blood Transfusion Reactions: No Reported Reaction Past Psychological History: ADD/ADHD, Anxiety, Depression Smoking Status: Never smoker Past Alcohol Use History: Rare Past Drug Use History: Marijuana - Past Family History Mother Family Medical History: Asthma Additional Family Medical History / Comment(s): Depression, Colitis. Father History Unknown: Yes Family Medical History: Unable to Obtain Additional Family Medical History / Comment(s): Pt does not know who her father is. <Magda Landaverde - Last Filed: 10/08/21 17:15> General Exam General appearance: alert, in no apparent distress Head exam: Present: atraumatic, normocephalic, normal inspection Eye exam: Present: normal appearance, PERRL, EOMI. Absent: scleral icterus, conjunctival injection, periorbital swelling ENT exam: Present: normal exam, mucous membranes dry, mucous membranes moist, normal external ear exam. Absent: normal oropharynx Neck exam: Present: normal inspection, full ROM. Absent: tenderness, meningismus, lymphadenopathy Respiratory exam: Present: normal lung sounds bilaterally. Absent: respiratory distress, wheezes, rales, rhonchi, stridor, chest wall tenderness, accessory muscle use Cardiovascular Exam: Present: regular rate, normal rhythm, normal heart sounds. Absent: systolic murmur, diastolic murmur, rubs, gallop, clicks GI/Abdominal exam: Present: soft, normal bowel sounds. Absent: distended, tenderness, guarding, rebound, rigid Extremities exam: Present: normal inspection, full ROM, normal capillary refill. Absent: tenderness, pedal edema, joint swelling, calf tenderness Back exam: Present: normal inspection Neurological exam: Present: alert, oriented X3, CN II-XII intact Psychiatric exam: Present: normal affect, normal mood Skin exam: Present: warm, dry, intact, normal color. Absent: rash <Kyaw Villarreal - Last Filed: 10/08/21 20:52> - General Exam Comments Initial Comments: 26-year-old female does not appear to be ill or toxic. Vital signs are reviewed. Blood sugar in triage was 537. (Kyaw Villarreal) Course <Kyaw Villarreal - Last Filed: 10/08/21 20:52> Vital Signs 10/08/21 17:15 Temperature 98.0 F Pulse Rate 85 Respiratory 18 Rate Blood Pressure 105/69 O2 Sat by Pulse 100 Oximetry - Reevaluation(s) Reevaluation #1: 10/08/21 19:02 Answered 598 on CMP. Negative acetone. Sodium 126. White count 94. (Kyaw Villarreal) Reevaluation #2: 10/08/21 20:51 Medical record is reviewed Symptoms are improved here in the emergency department Patient is informed of results and questions answered Patient in no distress (Kyaw Villarreal) Medical Decision Making - Lab Data Result diagrams: 10/08/21 19:20 10/08/21 18:04 <Kyaw Villarreal - Last Filed: 10/08/21 20:52> - Medical Decision Making Patient percents of hypoglycemia. Out of her short acting insulin. Diabetic workup initiated. Blood sugar was 378 prior to patient being discharged. Patient did have a low sodium which is inspected with the elevated blood sugar. Anion gap 7. Acetone was negative. Patient was in no distress. The case was discussed in detail with ED attending physician. Presentation, findings, treatment plan discussed in detail. Patient was told to return to the ER for any signs or symptoms worsen. Told to return immediately if any other problems arise. All questions answered. Treatment plan discussed. Patient in agreement Every effort has been made to ensure accuracy of this dictation. However, due to the limitations of electronic medical records and dictation devices, errors in charting still occur. Merchandise Handler, Dr. Nelson ([facility]) - Lab Data Lab Results 10/08/21 10/08/21 10/08/21 Range/Units 17:21 18:04 19:20 WBC 5.0 (3.8-10.6) k/uL RBC 5.03 (3.80-5.40) m/uL Hgb 11.7 (11.4-16.0) gm/dL Hct 39.3 (34.0-46.0) % MCV 78.1 L (80.0-100.0) fL MCH 23.3 L (25.0-35.0) pg MCHC 29.8 L (31.0-37.0) g/dL RDW 15.9 H (11.5-15.5) % Plt Count 202 (150-450) k/uL MPV 7.8 Neutrophils % 54 % Lymphocytes % 41 % Monocytes % 4 % Eosinophils % 1 % Basophils % 1 % Neutrophils # 2.7 (1.3-7.7) k/uL Lymphocytes # 2.0 (1.0-4.8) k/uL Monocytes # 0.2 (0-1.0) k/uL Eosinophils # 0.0 (0-0.7) k/uL Basophils # 0.0 (0-0.2) k/uL Hypochromasia Marked PT (9.0-12.0) sec INR (<1.2) APTT (22.0-30.0) sec VBG pH (7.31-7.41) VBG pCO2 (37-51) mmHg VBG HCO3 (24-28) mmol/L Sodium 126 L (137-145) mmol/L Potassium 5.1 (3.5-5.1) mmol/L Chloride 94 L (98-107) mmol/L Carbon Dioxide 25 (22-30) mmol/L Anion Gap 7 mmol/L BUN 13 (7-17) mg/dL Creatinine 0.42 L (0.52-1.04) mg/dL Est GFR (CKD-EPI)AfAm >90 (>60 ml/min/1.73 sqM) Est GFR (CKD-EPI)NonAf >90 (>60 ml/min/1.73 sqM) Glucose 598 H* (74-99) mg/dL POC Glucose (mg/dL) 537 H (70-110) mg/dL POC Glu Media Senior Recruiter ID Taras Alatorre Plasma Lactic Acid Yariel (0.7-2.0) mmol/L Calcium 8.5 (8.4-10.2) mg/dL Total Bilirubin 0.5 (0.2-1.3) mg/dL AST 24 (14-36) U/L ALT 15 (4-34) U/L Alkaline Phosphatase 187 H (38-126) U/L Total Protein 6.6 (6.3-8.2) g/dL Albumin 3.9 (3.5-5.0) g/dL Acetone, Qual Negative (Negative) 10/08/21 10/08/21 10/08/21 Range/Units 19:20 19:20 19:20 WBC (3.8-10.6) k/uL RBC (3.80-5.40) m/uL Hgb (11.4-16.0) gm/dL Hct (34.0-46.0) % MCV (80.0-100.0) fL MCH (25.0-35.0) pg MCHC (31.0-37.0) g/dL RDW (11.5-15.5) % Plt Count (150-450) k/uL MPV Neutrophils % % Lymphocytes % % Monocytes % % Eosinophils % % Basophils % % Neutrophils # (1.3-7.7) k/uL Lymphocytes # (1.0-4.8) k/uL Monocytes # (0-1.0) k/uL Eosinophils # (0-0.7) k/uL Basophils # (0-0.2) k/uL Hypochromasia PT 10.1 (9.0-12.0) sec INR 0.9 (<1.2) APTT 24.4 (22.0-30.0) sec VBG pH 7.33 (7.31-7.41) VBG pCO2 52 H (37-51) mmHg VBG HCO3 27 (24-28) mmol/L Sodium (137-145) mmol/L Potassium (3.5-5.1) mmol/L Chloride (98-107) mmol/L Carbon Dioxide (22-30) mmol/L Anion Gap mmol/L BUN (7-17) mg/dL Creatinine (0.52-1.04) mg/dL Est GFR (CKD-EPI)AfAm (>60 ml/min/1.73 sqM) Est GFR (CKD-EPI)NonAf (>60 ml/min/1.73 sqM) Glucose (74-99) mg/dL POC Glucose (mg/dL) (70-110) mg/dL POC Glu Media Senior Recruiter ID Plasma Lactic Acid Yariel 0.9 (0.7-2.0) mmol/L Calcium (8.4-10.2) mg/dL Total Bilirubin (0.2-1.3) mg/dL AST (14-36) U/L ALT (4-34) U/L Alkaline Phosphatase (38-126) U/L Total Protein (6.3-8.2) g/dL Albumin (3.5-5.0) g/dL Acetone, Qual (Negative) 10/08/21 Range/Units 20:12 WBC (3.8-10.6) k/uL RBC (3.80-5.40) m/uL Hgb (11.4-16.0) gm/dL Hct (34.0-46.0) % MCV (80.0-100.0) fL MCH (25.0-35.0) pg MCHC (31.0-37.0) g/dL RDW (11.5-15.5) % Plt Count (150-450) k/uL MPV Neutrophils % % Lymphocytes % % Monocytes % % Eosinophils % % Basophils % % Neutrophils # (1.3-7.7) k/uL Lymphocytes # (1.0-4.8) k/uL Monocytes # (0-1.0) k/uL Eosinophils # (0-0.7) k/uL Basophils # (0-0.2) k/uL Hypochromasia PT (9.0-12.0) sec INR (<1.2) APTT (22.0-30.0) sec VBG pH (7.31-7.41) VBG pCO2 (37-51) mmHg VBG HCO3 (24-28) mmol/L Sodium (137-145) mmol/L Potassium (3.5-5.1) mmol/L Chloride (98-107) mmol/L Carbon Dioxide (22-30) mmol/L Anion Gap mmol/L BUN (7-17) mg/dL Creatinine (0.52-1.04) mg/dL Est GFR (CKD-EPI)AfAm (>60 ml/min/1.73 sqM) Est GFR (CKD-EPI)NonAf (>60 ml/min/1.73 sqM) Glucose (74-99) mg/dL POC Glucose (mg/dL) 378 H (70-110) mg/dL POC Glu Media Senior Recruiter ID Thong Sahu Plasma Lactic Acid Yariel (0.7-2.0) mmol/L Calcium (8.4-10.2) mg/dL Total Bilirubin (0.2-1.3) mg/dL AST (14-36) U/L ALT (4-34) U/L Alkaline Phosphatase (38-126) U/L Total Protein (6.3-8.2) g/dL Albumin (3.5-5.0) g/dL Acetone, Qual (Negative) Disposition <Magda Landaverde - Last Filed: 10/08/21 17:15> Is patient prescribed a controlled substance at d/c from ED?: No Time of Disposition: 20:51 <Kyaw Villarreal - Last Filed: 10/08/21 20:52> Clinical Impression: Hyperglycemia due to diabetes mellitus Disposition: HOME SELF-CARE Condition: Good Instructions (If sedation given, give patient instructions): Diabetic Hyperglycemia (ED) Additional Instructions: Follow-up with your regular physician as directed. Return to the ER immediately if any symptoms worsen, new symptoms arise, or any other problems develop. Make sure to call your regular physician tomorrow. Monitor your blood sugars as directed by her regular physician. Use the sliding scale as directed by your regular physician. Refrain from eating concentrated sugars. Prescriptions: Insulin Aspart See Protocol SQ TID-W/MEALS #10 ml Referrals: Kevin Ruiz, [Primary Care Provider] - As Soon As Possible
[2021-10-08 17:18] VITALS: RESP 18; TEMP 98
[2021-10-08 17:23] LABS: Glucose,Whole Blood 537 mg/dL (70-110)
[2021-10-08 18:45] LABS: ALT 15 U/L (4-34); AST 24 U/L (14-36); African American GFR (CKD) >90 (>60 ml/min/1.73 sqM); Albumin 3.9 g/dL (3.5-5.0); Alkaline Phosphatase 187 U/L (38-126); Anion Gap 7 mmol/L; Blood Urea Nitrogen 13 mg/dL (7-17); Calcium 8.5 mg/dL (8.4-10.2); Carbon Dioxide 25 mmol/L (22-30); Chloride 94 mmol/L (98-107); Non-African American GFR(CKD) >90 (>60 ml/min/1.73 sqM); Potassium 5.1 mmol/L (3.5-5.1); Sodium 126 mmol/L (137-145); Total Bilirubin 0.5 mg/dL (0.2-1.3); Total Protein 6.6 g/dL (6.3-8.2)
[2021-10-08 18:56] LABS: Glucose 598 mg/dL (74-99)
[2021-10-08] MEDS ORDERED: INSULIN REGULAR 100 UNIT/ML VIAL (IV) IV ONE (19:01)
[2021-10-08] MEDS: SODIUM CHLORIDE 0.9% 500 ML 500 ML IV SCH ×3 (19:09→19:29)
[2021-10-08 19:36] LABS: Basophils % (A) 1 %; Eosinophils % (A) 1 %; HCT 39.3 % (34.0-46.0); HGB 11.7 gm/dL (11.4-16.0); Hypochromasia Marked; Lymphocytes % (A) 41 %; MCH 23.3 pg (25.0-35.0); MCHC 29.8 g/dL (31.0-37.0); MCV 78.1 fL (80.0-100.0); Mean Platelet Volume 7.8; Monocytes # (A) 0.2 k/uL (0-1.0); Monocytes % (A) 4 %; Neutrophils # (A) 2.7 k/uL (1.3-7.7); Neutrophils % (A) 54 %; Platelet Count 202 k/uL (150-450); RBC 5.03 m/uL (3.80-5.40); RDW 15.9 % (11.5-15.5)
[2021-10-08 19:39] LABS: INR 0.9 (<1.2); Partial Thromboplastin Time 24.4 sec (22.0-30.0); Prothrombin Time 10.1 sec (9.0-12.0)
[2021-10-08 19:57] LABS: VBG PH 7.33 (7.31-7.41)
[2021-10-08 20:13] LABS: Glucose,Whole Blood 378 mg/dL (70-110)
[2021-10-08 21:06] VITALS: BP 124/68; PULSE 78
== END 2021-10-08 21:05 | disposition home or self-care (01) ==
LOC: EC 15:59
DX: E11.65 Type 2 diabetes mellitus with hyperglycemia (principal); K21.9 Gastro-esophageal reflux disease without esophagitis; Z79.83 Long term (current) use of bisphosphonates; Z86.73 Personal history of transient ischemic attack (TIA), and cerebral infarction without residual deficits; Z88.8 Allergy status to other drugs, medicaments and biological substances; Z88.9 Allergy status to unspecified drugs, medicaments and biological substances
CPT/HCPCS: 36415; 80053; 82009; 82803; 83605; 85025; 85610; 85730

== ENCOUNTER → 2022-04-23 | Outpatient (CLI) | payer MEDICARE, OTHER ==
[2022-04-23 13:19] LABS: African American GFR (CKD) >90 (>60 ml/min/1.73 sqM); Blood Urea Nitrogen 12 mg/dL (7-17); Non-African American GFR(CKD) >90 (>60 ml/min/1.73 sqM)
--- NOTE | 2022-04-23 14:07 | CT ---
Exam: CT Chest with contrast Date: 04/23/2022. Comparison: CT abdomen and pelvis on 03/19/2020. History: Pulmonary nodule Technique: CT examination of the chest was performed with contrast. 70 mL of Isovue-300 was given int ravenously. Coronal and sagittal reformats were performed. CT dose lowering techniques were used, to include: automated exposure control, adjustment for patient size, and/or use of iterative reconstruct ion. FINDINGS: Mediastinum and Vita: There is no axillary, mediastinal or hilar lymphadenopathy. There is a calcifie d lymph node in the AP window. Pleural and Pericardial spaces: There are no pleural or pericardial effusions. Upper Abdomen: The visualized upper abdomen is unremarkable. Cardiovascular: The thoracic aorta is normal in size without evidence of aneurysm or dissection. Pulmonary Artery: There are no central pulmonary arterial abnormalities. The examination was not per formed to evaluate for pulmonary embolism. Lung Parenchyma and Airways: 4 mm nodule in the right lower lobe on series 4 image 27 is unchanged. N o further follow-up would be needed for this nodule. There is a calcified granuloma in the left upper lobe. No additional suspicious nodules are seen. The lungs otherwise appear clear. Bones: No fracture or aggressive osseous lesion. IMPRESSION: 1. Unchanged right lower lobe pulmonary nodule. No further follow-up recommended at this time. 2. Evidence of prior granulomatous disease. 3. No evidence of pneumonia, pleural or pericardial effusions.
== END | disposition home or self-care (01) ==
LOC: RADCTMAIN 12:08
PROVIDERS: ATTEND Family Medicine
DX: R91.1 Solitary pulmonary nodule (principal)
CPT/HCPCS: 82565; 84520; 71260; 36415; Q9967

== ENCOUNTER 2022-11-16 04:02 | Inpatient (IN) | payer MEDICARE, OTHER ==
[2022-11-16 04:14] LABS: Glucose,Whole Blood 413 mg/dL (70-110)
[2022-11-16] MEDS ORDERED: ONDANSETRON 4 MG/2 ML VIAL IVP STA (04:15)
[2022-11-16] MEDS ORDERED: PANTOPRAZOLE 40 MG/10 ML VIAL IVP STA (04:15)
--- NOTE | 2022-11-16 04:23 | ED ---
General Adult HPI - General Chief complaint: Recheck/Abnormal Lab/Rx Stated complaint: Hyperglycemia Time Seen by Provider: 11/16/22 04:03 Source: family, RN notes reviewed, old records reviewed Mode of arrival: wheelchair Limitations: no limitations - History of Present Illness Initial comments: 47-year-old female presenting for evaluation of nausea vomiting. She's had multiple episodes of vomiting prior to arrival. She has history of type 1 diabetes and recurrent episodes of DKA. She states that she has an insulin pump. She has not been eating today secondary to nausea and vomiting. She also has a burning central chest pain. No fever. - Related Data Home Medications Medication Instructions Recorded Confirmed Omeprazole [PriLOSEC] 20 mg PO DAILY 05/20/20 10/08/21 INSULIN ASPART (NovoLOG) [NovoLOG See Protocol SQ ACHS 10/08/21 10/08/21 (formulary)] Insulin Detemir (Levemir) [Levemir] 35 unit SQ DAILY 10/08/21 10/08/21 lamoTRIgine [LaMICtal] 25 mg PO DAILY 10/08/21 10/08/21 Previous Rx's Medication Instructions Recorded DULoxetine HCL [Cymbalta] 60 mg PO DAILY 30 Days capsule. 12/16/20 Insulin Aspart See Protocol SQ TID-W/MEALS #10 ml 10/08/21 Allergies Allergy/AdvReac Type Severity Reaction Status Date / Time paroxetine HCl [From Paxil] Allergy Rash/Hives Verified 11/16/22 04:08 sertraline HCl [From Zoloft] Allergy Rash/Hives Verified 11/16/22 04:08 Review of Systems ROS Statement: Those systems with pertinent positive or pertinent negative responses have been documented in the HPI. ROS Other: All systems not noted in ROS Statement are negative. Past Medical History Past Medical History: Chest Pain / Angina, CVA/TIA, Diabetes Mellitus, Fibromyalgia, GERD/Reflux, Rheumatoid Arthritis (RA), Syncope Additional Past Medical History / Comment(s): IDDM type I, hx DKA, hx TIA. "Neurocardiogenic Syncope -causes sudden drop in blood pressure syncope-has not happened in about 6 months". Multiple lipomas. History of Any Multi-Drug Resistant Organisms: None Reported Past Surgical History: Breast Surgery, Tubal Ligation, Uterine Ablation Additional Past Surgical History / Comment(s): Tilt table test, LEFT BREAST BIOPSY - BENIGN, left thigh lipoma removal X2, left breast lipoma removal X1. Past Anesthesia/Blood Transfusion Reactions: No Reported Reaction Past Psychological History: ADD/ADHD, Anxiety, Depression Smoking Status: Never smoker Past Alcohol Use History: Rare Past Drug Use History: Marijuana - Past Family History Mother Family Medical History: Asthma Additional Family Medical History / Comment(s): Depression, Colitis. Father History Unknown: Yes Family Medical History: Unable to Obtain Additional Family Medical History / Comment(s): Pt does not know who her father is. General Exam Limitations: no limitations General appearance: lethargic, in distress Head exam: Present: atraumatic, normocephalic Eye exam: Present: normal appearance, PERRL ENT exam: Present: mucous membranes dry Neck exam: Present: normal inspection. Absent: tenderness, meningismus Respiratory exam: Present: normal lung sounds bilaterally. Absent: respiratory distress, wheezes Cardiovascular Exam: Present: regular rate, normal rhythm GI/Abdominal exam: Present: soft, tenderness. Absent: distended Extremities exam: Present: normal inspection, normal capillary refill Neurological exam: Present: alert. Absent: motor sensory deficit Psychiatric exam: Present: anxious Skin exam: Present: diaphoretic, pallor Course Vital Signs 11/16/22 11/16/22 11/16/22 04:05 04:32 05:08 Temperature 97.5 F L Pulse Rate 91 86 93 Respiratory 18 20 16 Rate Blood Pressure 121/81 106/89 150/80 O2 Sat by Pulse 98 100 100 Oximetry Medical Decision Making - Medical Decision Making Was pt. sent in by a medical professional or institution (, PA, STRETCHING PRESS OPERATOR, urgent care, hospital, or residential...) When possible be specific @ -No Did you speak to anyone other than the patient for history (EMS, parent, family, police, friend...)? What history was obtained from this source @ -Patient's mother Did you review nursing and triage notes (agree or disagree)? Why? @ -I reviewed and agree with nursing and triage notes Were old charts reviewed (outside hosp., previous admission, EMS record, old EKG, old radiological studies, urgent care reports/EKG's, residential records)? Report findings @ -No old charts were reviewed Differential Diagnosis (chest pain, altered mental status, abdominal pain women, abdominal pain men, vaginal bleeding, weakness, fever, dyspnea, syncope, headache, dizziness, GI bleed, back pain, seizure, CVA, palpatations, mental health, musculoskeletal)? @ -Hyperglycemia, DKA EKG interpreted by me (3pts min.). @ -EKG: Sinus rhythm, left axis, rate of [address] segment elevation NM interval 162, QRS duration 120, QTC 459 X-rays interpreted by me (1pt min.). @ -[No focal pneumonia or acute findings CT interpreted by me (1pt min.). @ -None done U/S interpreted by me (1pt. min.). @ -None done What testing was considered but not performed or refused? (CT, X-rays, U/S, lab s)? Why? @ -None What meds were considered but not given or refused? Why? @ -None Did you discuss the management of the patient with other professionals (professionals i.e. , PA, STRETCHING PRESS OPERATOR, lab, RT, psych nurse, social psychologist, contact center engineer, teacher, staff mine warfare officer, case managers)? Give summary @ -[ Sheet Was smoking cessation discussed for >3mins.? @ -No Was critical care preformed (if so, how long)? @ -[Yes, 35 minutes Were there social determinants of health that impacted care today? How? (Homelessness, low income, unemployed, alcoholism, drug addiction, transportation, low edu. Level, literacy, decrease access to med. care, alf, rehab)? @ -No Was there de-escalation of care discussed even if they declined (Discuss DNR or withdrawal of care, Hospice)? DNR status @ -No What co-morbidities impacted this encounter? (DM, HTN, Smoking, COPD, CAD, Cancer, CVA, ARF, Chemo, Hep., AIDS, mental health diagnosis, sleep apnea, morbid obesity)? @ -[Type I diabetic Was patient admitted / discharged? Hospital course, mention meds given and route, prescriptions, significant lab abnormalities, going to OR and other pertinent info. @ -27-year-old female presenting with vomiting, chest discomfort, history of DKA. There is concern for DKA, laboratory studies are obtained and the patient is hyperglycemic with a blood sugar 475 per chest and anion gap metabolic acidosis with a CO2 of 5. Her pH is 7.17. Urinalysis and acetone are pending. She is given 2 L normal saline and started on to her cc an hour she's given an insulin bolus and placed on a continuous insulin infusion. She will be admitted to internal medicine for DKA. Undiagnosed new problem with uncertain prognosis? @ -No Drug Therapy requiring intensive monitoring for toxicity (Heparin, Nitro, Insulin, Cardizem)? @ -No Were any procedures done? @ -No Diagnosis/symptom? @ -DKA Acute, or Chronic, or Acute on Chronic? @ -[Acute Uncomplicated (without systemic symptoms) or Complicated (systemic symptoms)? @ -[complicated Side effects of treatment? @ -No Exacerbation, Progression, or Severe Exacerbation? @ -No Poses a threat to life or bodily function? How? (Chest pain, [place], [place], pneumonia, PE, COPD, DKA, ARF, appy, cholecystitis, CVA, Diverticulitis, Homicidal, Suicidal, threat to staff... and all critical care pts) @ -yes, volume loss, electrolyte abnormality, DKA - Lab Data Result diagrams: 11/16/22 04:35 11/16/22 04:35 Lab Results 11/16/22 11/16/22 11/16/22 Range/Units 04:09 04:14 04:35 WBC (3.8-10.6) k/uL RBC (3.80-5.40) m/uL Hgb (11.4-16.0) gm/dL Hct (34.0-46.0) % MCV (80.0-100.0) fL MCH (25.0-35.0) pg MCHC (31.0-37.0) g/dL RDW (11.5-15.5) % Plt Count (150-450) k/uL MPV Neutrophils % % Lymphocytes % % Monocytes % % Eosinophils % % Basophils % % Neutrophils # (1.3-7.7) k/uL Lymphocytes # (1.0-4.8) k/uL Monocytes # (0-1.0) k/uL Eosinophils # (0-0.7) k/uL Basophils # (0-0.2) k/uL Hypochromasia PT (9.0-12.0) sec INR (<1.2) APTT (22.0-30.0) sec VBG pH (7.31-7.41) VBG pCO2 (37-51) mmHg VBG HCO3 (24-28) mmol/L Sodium (137-145) mmol/L Potassium (3.5-5.1) mmol/L Chloride (98-107) mmol/L Carbon Dioxide (22-30) mmol/L Anion Gap mmol/L BUN (7-17) mg/dL Creatinine (0.52-1.04) mg/dL Est GFR (CKD-EPI)AfAm (>60 ml/min/1.73 sqM) Est GFR (CKD-EPI)NonAf (>60 ml/min/1.73 sqM) Glucose (74-99) mg/dL POC Glucose (mg/dL) 413 H (70-110) mg/dL POC Glu Field Enumerator ID Jazmyn Farnsworth Plasma Lactic Acid Yariel 2.0 (0.7-2.0) mmol/L Calcium (8.4-10.2) mg/dL Magnesium (1.6-2.3) mg/dL Total Bilirubin (0.2-1.3) mg/dL AST (14-36) U/L ALT (4-34) U/L Alkaline Phosphatase (38-126) U/L Troponin I <0.012 (0.000-0.034) ng/mL Total Protein (6.3-8.2) g/dL Albumin (3.5-5.0) g/dL 11/16/22 11/16/22 11/16/22 Range/Units 04:35 04:35 04:35 WBC 11.2 H (3.8-10.6) k/uL RBC 5.47 H (3.80-5.40) m/uL Hgb 14.2 (11.4-16.0) gm/dL Hct 46.0 (34.0-46.0) % MCV 84.0 (80.0-100.0) fL MCH 25.9 (25.0-35.0) pg MCHC 30.8 L (31.0-37.0) g/dL RDW 15.2 (11.5-15.5) % Plt Count 273 (150-450) k/uL MPV 8.5 Neutrophils % 85 % Lymphocytes % 13 % Monocytes % 2 % Eosinophils % 0 % Basophils % 0 % Neutrophils # 9.5 H (1.3-7.7) k/uL Lymphocytes # 1.4 (1.0-4.8) k/uL Monocytes # 0.2 (0-1.0) k/uL Eosinophils # 0.0 (0-0.7) k/uL Basophils # 0.0 (0-0.2) k/uL Hypochromasia Marked PT 10.1 (9.0-12.0) sec INR 0.9 (<1.2) APTT 22.7 (22.0-30.0) sec VBG pH 7.17 L* (7.31-7.41) VBG pCO2 22 L (37-51) mmHg VBG HCO3 8 L* (24-28) mmol/L Sodium (137-145) mmol/L Potassium (3.5-5.1) mmol/L Chloride (98-107) mmol/L Carbon Dioxide (22-30) mmol/L Anion Gap mmol/L BUN (7-17) mg/dL Creatinine (0.52-1.04) mg/dL Est GFR (CKD-EPI)AfAm (>60 ml/min/1.73 sqM) Est GFR (CKD-EPI)NonAf (>60 ml/min/1.73 sqM) Glucose (74-99) mg/dL POC Glucose (mg/dL) (70-110) mg/dL POC Glu Field Enumerator ID Plasma Lactic Acid Yariel (0.7-2.0) mmol/L Calcium (8.4-10.2) mg/dL Magnesium (1.6-2.3) mg/dL Total Bilirubin (0.2-1.3) mg/dL AST (14-36) U/L ALT (4-34) U/L Alkaline Phosphatase (38-126) U/L Troponin I (0.000-0.034) ng/mL Total Protein (6.3-8.2) g/dL Albumin (3.5-5.0) g/dL 11/16/22 11/16/22 Range/Units 04:35 04:35 WBC (3.8-10.6) k/uL RBC (3.80-5.40) m/uL Hgb (11.4-16.0) gm/dL Hct (34.0-46.0) % MCV (80.0-100.0) fL MCH (25.0-35.0) pg MCHC (31.0-37.0) g/dL RDW (11.5-15.5) % Plt Count (150-450) k/uL MPV Neutrophils % % Lymphocytes % % Monocytes % % Eosinophils % % Basophils % % Neutrophils # (1.3-7.7) k/uL Lymphocytes # (1.0-4.8) k/uL Monocytes # (0-1.0) k/uL Eosinophils # (0-0.7) k/uL Basophils # (0-0.2) k/uL Hypochromasia PT (9.0-12.0) sec INR (<1.2) APTT (22.0-30.0) sec VBG pH (7.31-7.41) VBG pCO2 (37-51) mmHg VBG HCO3 (24-28) mmol/L Sodium 136 L (137-145) mmol/L Potassium 5.0 (3.5-5.1) mmol/L Chloride 104 (98-107) mmol/L Carbon Dioxide 5 L* (22-30) mmol/L Anion Gap 27 mmol/L BUN 15 (7-17) mg/dL Creatinine 0.63 (0.52-1.04) mg/dL Est GFR (CKD-EPI)AfAm >90 (>60 ml/min/1.73 sqM) Est GFR (CKD-EPI)NonAf >90 (>60 ml/min/1.73 sqM) Glucose 475 H (74-99) mg/dL POC Glucose (mg/dL) 436 H (70-110) mg/dL POC Glu Field Enumerator ID Chery Lopez Plasma Lactic Acid Yariel (0.7-2.0) mmol/L Calcium 9.5 (8.4-10.2) mg/dL Magnesium 1.9 (1.6-2.3) mg/dL Total Bilirubin 0.8 (0.2-1.3) mg/dL AST 26 (14-36) U/L ALT 21 (4-34) U/L Alkaline Phosphatase 206 H (38-126) U/L Troponin I (0.000-0.034) ng/mL Total Protein 7.9 (6.3-8.2) g/dL Albumin 4.5 (3.5-5.0) g/dL Critical Care Time Critical Care Time: Yes Total Critical Care Time: 35 Disposition Clinical Impression: DKA (diabetic ketoacidoses) Disposition: ADMITTED IP TO THIS [facility] Condition: Serious Is patient prescribed a controlled substance at d/c from ED?: No Referrals: Kevin Ruiz DO [Primary Care Provider] - 1-2 days Time of Disposition: 05:43
[2022-11-16] MEDS: SODIUM CHLORIDE 0.9% 1,000 ML IV ONE ×2 (04:31→04:38)
[2022-11-16 04:36] LABS: Glucose,Whole Blood 436 mg/dL (70-110)
[2022-11-16 05:17] LABS: Basophils % (A) 0 %; Eosinophils % (A) 0 %; HGB 14.2 gm/dL (11.4-16.0); Hypochromasia Marked; Lymphocytes # (A) 1.4 k/uL (1.0-4.8); Lymphocytes % (A) 13 %; MCH 25.9 pg (25.0-35.0); MCHC 30.8 g/dL (31.0-37.0); Mean Platelet Volume 8.5; Monocytes # (A) 0.2 k/uL (0-1.0); Monocytes % (A) 2 %; Neutrophils # (A) 9.5 k/uL (1.3-7.7); Neutrophils % (A) 85 %; Platelet Count 273 k/uL (150-450); RBC 5.47 m/uL (3.80-5.40); RDW 15.2 % (11.5-15.5); WBC 11.2 k/uL (3.8-10.6)
[2022-11-16 05:19] LABS: VBG PH 7.17 (7.31-7.41)
[2022-11-16] MEDS ORDERED: SODIUM CHLORIDE 0.9% 1,000 ML IV ONE (05:21)
[2022-11-16 05:28] LABS: ALT 21 U/L (4-34); AST 26 U/L (14-36); African American GFR (CKD) >90 (>60 ml/min/1.73 sqM); Albumin 4.5 g/dL (3.5-5.0); Alkaline Phosphatase 206 U/L (38-126); Anion Gap 27 mmol/L; Blood Urea Nitrogen 15 mg/dL (7-17); Calcium 9.5 mg/dL (8.4-10.2); Chloride 104 mmol/L (98-107); Glucose 475 mg/dL (74-99); Magnesium 1.9 mg/dL (1.6-2.3); Non-African American GFR(CKD) >90 (>60 ml/min/1.73 sqM); Sodium 136 mmol/L (137-145); Total Bilirubin 0.8 mg/dL (0.2-1.3); Total Protein 7.9 g/dL (6.3-8.2)
[2022-11-16 05:29] LABS: INR 0.9 (<1.2); Partial Thromboplastin Time 22.7 sec (22.0-30.0); Prothrombin Time 10.1 sec (9.0-12.0)
[2022-11-16 05:37] LABS: Carbon Dioxide 5 mmol/L (22-30)
[2022-11-16] MEDS ORDERED: INSULIN REGULAR BOLUS (FROM DRIP BAG) IV ONE (05:41)
[2022-11-16 06:03] LABS: Glucose,Whole Blood 378 mg/dL (70-110)
[2022-11-16] MEDS: INSULIN REGULAR 100 UNIT in SODIUM CHLORIDE 0.9% 100 ML IV SCH ×2 (06:07→20:39)
--- NOTE | 2022-11-16 06:18 | XR ---
EXAM: XR Chest, 1 View CLINICAL HISTORY: ITS.REASON XR Reason: chest pain TECHNIQUE: Frontal view of the chest. COMPARISON: Single view of the chest dated January 15, 2021 IMPRESSION: 1. No acute cardiopulmonary abnormality.
[2022-11-16 06:35] LABS: Appearance,Urine Clear (Clear); Bilirubin,Urine Negative (Negative); Blood,Urine Negative (Negative); Color,Urine Colorless; Glucose,Urine (UA) 4+ (Negative); Leukocyte Esterase,Urine Negative (Negative); Nitrite,Urine Negative (Negative); Protein,Urine Negative (Negative); Specific Gravity,Urine 1.014 (1.001-1.035); Urobilinogen,Urine <2.0 mg/dL (<2.0)
[2022-11-16 07:20] LABS: Glucose,Whole Blood 397 mg/dL (70-110)
[2022-11-16 07:38] LABS: Ketones,Urine 4+ (Negative)
[2022-11-16 08:23] LABS: Glucose,Whole Blood 287 mg/dL (70-110)
[2022-11-16 09:01] LABS: Glucose,Whole Blood 219 mg/dL (70-110)
[2022-11-16 10:04] LABS: Glucose,Whole Blood 161 mg/dL (70-110)
[2022-11-16] MEDS: D5-0.45% NACL WITH KCL 20MEQ/L 1,000 ML IV SCH ×2 (10:12→18:52)
[2022-11-16 11:11] LABS: Glucose,Whole Blood 168 mg/dL (70-110)
[2022-11-16 11:51] VITALS: BMI 30.1
[2022-11-16 12:02] LABS: Glucose,Whole Blood 150 mg/dL (70-110)
--- NOTE | 2022-11-16 12:15 | P.HPIM ---
History of Present Illness 47-year-old female came in with nausea vomiting found to be in a diabetic Keto acidosis.patient is on insulin pump. Patient is probably noncompliant and does have psychiatric issues. Patient has severe anion gap metabolic acidosis with anion gap of 27 and serum bicarbonate of 5. REVIEW OF SYSTEMS: Unable to obtain much of the history from the patient except those mentioned above PHYSICAL EXAMINATION: GENERAL: The patient is alert and oriented x3, not in any acute distress. Well developed, well nourished. Does have mental issues HEENT: Pupils are round and equally reacting to light. EOMI. No scleral icterus. No conjunctival pallor. Normocephalic, atraumatic. No pharyngeal erythema. No thyromegaly. CARDIOVASCULAR: S1 and S2 present. No murmurs, rubs, or gallops. PULMONARY: Chest is clear to auscultation, no wheezing or crackles. ABDOMEN: Soft, nontender, nondistended, normoactive bowel sounds. No palpable organomegaly. MUSCULOSKELETAL: No joint swelling or deformity. EXTREMITIES: No cyanosis, clubbing, or pedal edema. NEUROLOGICAL: Gross neurological examination did not reveal any focal deficits. SKIN: No rashes. Assessment and plan Diabetic keto acidosis: Probably due to noncompliance patient will be in DKA protocol will be transitioned to normal saline on subcutaneous insulin or pump was a anion gap resolves. Patient will BNP 1-10. -Gases visual reflux disease patient will be continued on Pepcid -ADHD/depression resume medications DVT prophylaxis: Early ambulation Past Medical History Past Medical History: Chest Pain / Angina, CVA/TIA, Diabetes Mellitus, Fibromyalgia, GERD/Reflux, Rheumatoid Arthritis (RA), Syncope Additional Past Medical History / Comment(s): IDDM type I, hx DKA, hx TIA. "Neurocardiogenic Syncope -causes sudden drop in blood pressure syncope-has not happened in about 6 months". Multiple lipomas. History of Any Multi-Drug Resistant Organisms: None Reported Past Surgical History: Breast Surgery, Tubal Ligation, Uterine Ablation Additional Past Surgical History / Comment(s): Tilt table test, LEFT BREAST BIOPSY - BENIGN, left thigh lipoma removal X2, left breast lipoma removal X1. Past Anesthesia/Blood Transfusion Reactions: No Reported Reaction Past Psychological History: ADD/ADHD, Anxiety, Depression Smoking Status: Never smoker Past Alcohol Use History: Rare Past Drug Use History: Marijuana - Past Family History Mother Family Medical History: Asthma Additional Family Medical History / Comment(s): Depression, Colitis. Father History Unknown: Yes Family Medical History: Unable to Obtain Additional Family Medical History / Comment(s): Pt does not know who her father is. Medications and Allergies Home Medications Medication Instructions Recorded Confirmed Type Omeprazole [PriLOSEC] 20 mg PO DAILY 05/20/20 11/16/22 History DULoxetine HCL [Cymbalta] 60 mg PO DAILY 30 Days capsule. 12/16/20 11/16/22 Rx lamoTRIgine [LaMICtal] 25 mg PO BID 10/08/21 11/16/22 History Glucagon [Gvoke Pfs 1-Pack Syringe] 1 mg SQ DIRECTED PRN 11/16/22 11/16/22 History Insulin Aspart (For Pump) [NovoLOG 0.01 unit SQ-PUMP CONTINUOUS 11/16/22 11/16/22 History (For Pump)] Methylphenidate HCl 20 mg PO BID 11/16/22 11/16/22 History Allergies Allergy/AdvReac Type Severity Reaction Status Date / Time paroxetine HCl [From Paxil] Allergy Rash/Hives Verified 11/16/22 07:04 sertraline HCl [From Zoloft] Allergy Rash/Hives Verified 11/16/22 07:04 Physical Exam Vitals: Vital Signs Temp Pulse Pulse Resp BP BP Pulse Ox 11/16/22 07:50 97.8 F 104 H 18 166/87 99 11/16/22 07:25 97.1 F L 104 H 20 147/72 100 11/16/22 06:00 97 18 126/93 100 11/16/22 05:08 93 16 150/80 100 11/16/22 04:32 86 20 106/89 100 11/16/22 04:05 97.5 F L 91 18 121/81 98 Intake and Output 11/15/22 11/16/22 11/16/22 22:59 06:59 14:59 Intake Total 25.278 Balance 25.278 Intake: Intake, IV Titration 25.278 Amount Insulin Regular 100 unit 25.278 In Sodium Chloride 0.9% 100 ml @ 0.1 UNITS/KG/HR 7.788 mls/hr IV .[id number] [facility] Rx#:[id number] Other: Weight 77.111 kg 77.111 kg Results CBC & Chem 7: 11/16/22 04:35 11/16/22 04:35 Labs: Abnormal Lab Results - Last 24 Hours (Table) 11/16/22 11/16/22 11/16/22 Range/Units 04:09 04:14 04:35 WBC (3.8-10.6) k/uL RBC (3.80-5.40) m/uL MCHC (31.0-37.0) g/dL Neutrophils # (1.3-7.7) k/uL VBG pH 7.17 L* (7.31-7.41) VBG pCO2 22 L (37-51) mmHg VBG HCO3 8 L* (24-28) mmol/L Sodium (137-145) mmol/L Carbon Dioxide (22-30) mmol/L Glucose (74-99) mg/dL POC Glucose (mg/dL) 413 H (70-110) mg/dL Alkaline Phosphatase (38-126) U/L Urine Glucose (UA) 4+ H (Negative) Urine Ketones 4+ H (Negative) 11/16/22 11/16/22 11/16/22 Range/Units 04:35 04:35 04:35 WBC 11.2 H (3.8-10.6) k/uL RBC 5.47 H (3.80-5.40) m/uL MCHC 30.8 L (31.0-37.0) g/dL Neutrophils # 9.5 H (1.3-7.7) k/uL VBG pH (7.31-7.41) VBG pCO2 (37-51) mmHg VBG HCO3 (24-28) mmol/L Sodium 136 L (137-145) mmol/L Carbon Dioxide 5 L* (22-30) mmol/L Glucose 475 H (74-99) mg/dL POC Glucose (mg/dL) 436 H (70-110) mg/dL Alkaline Phosphatase 206 H (38-126) U/L Urine Glucose (UA) (Negative) Urine Ketones (Negative) 11/16/22 11/16/22 11/16/22 Range/Units 06:01 07:18 08:07 WBC (3.8-10.6) k/uL RBC (3.80-5.40) m/uL MCHC (31.0-37.0) g/dL Neutrophils # (1.3-7.7) k/uL VBG pH (7.31-7.41) VBG pCO2 (37-51) mmHg VBG HCO3 (24-28) mmol/L Sodium (137-145) mmol/L Carbon Dioxide (22-30) mmol/L Glucose (74-99) mg/dL POC Glucose (mg/dL) 378 H 397 H 287 H (70-110) mg/dL Alkaline Phosphatase (38-126) U/L Urine Glucose (UA) (Negative) Urine Ketones (Negative) 11/16/22 11/16/22 11/16/22 Range/Units 08:57 10:01 10:58 WBC (3.8-10.6) k/uL RBC (3.80-5.40) m/uL MCHC (31.0-37.0) g/dL Neutrophils # (1.3-7.7) k/uL VBG pH (7.31-7.41) VBG pCO2 (37-51) mmHg VBG HCO3 (24-28) mmol/L Sodium (137-145) mmol/L Carbon Dioxide (22-30) mmol/L Glucose (74-99) mg/dL POC Glucose (mg/dL) 219 H 161 H 168 H (70-110) mg/dL Alkaline Phosphatase (38-126) U/L Urine Glucose (UA) (Negative) Urine Ketones (Negative) 11/16/22 Range/Units 11:59 WBC (3.8-10.6) k/uL RBC (3.80-5.40) m/uL MCHC (31.0-37.0) g/dL Neutrophils # (1.3-7.7) k/uL VBG pH (7.31-7.41) VBG pCO2 (37-51) mmHg VBG HCO3 (24-28) mmol/L Sodium (137-145) mmol/L Carbon Dioxide (22-30) mmol/L Glucose (74-99) mg/dL POC Glucose (mg/dL) 150 H (70-110) mg/dL Alkaline Phosphatase (38-126) U/L Urine Glucose (UA) (Negative) Urine Ketones (Negative)
[2022-11-16] MEDS: ONDANSETRON 4 MG/2 ML VIAL IVP PRN ×2 (12:24→17:24)
[2022-11-16 12:30] LABS: African American GFR (CKD) >90 (>60 ml/min/1.73 sqM); Anion Gap 20 mmol/L; Blood Urea Nitrogen 12 mg/dL (7-17); Chloride 115 mmol/L (98-107); Glucose 159 mg/dL (74-99); Non-African American GFR(CKD) >90 (>60 ml/min/1.73 sqM); Potassium 4.3 mmol/L (3.5-5.1); Sodium 140 mmol/L (137-145)
[2022-11-16 12:42] LABS: Carbon Dioxide 5 mmol/L (22-30)
[2022-11-16 13:10] LABS: Glucose,Whole Blood 132 mg/dL (70-110)
[2022-11-16 14:06] LABS: Glucose,Whole Blood 138 mg/dL (70-110)
[2022-11-16 15:04] LABS: Glucose,Whole Blood 145 mg/dL (70-110)
[2022-11-16 15:30] LABS: African American GFR (CKD) >90 (>60 ml/min/1.73 sqM); Anion Gap 15 mmol/L; Blood Urea Nitrogen 10 mg/dL (7-17); Calcium 8.5 mg/dL (8.4-10.2); Carbon Dioxide 10 mmol/L (22-30); Chloride 114 mmol/L (98-107); Glucose 168 mg/dL (74-99); Non-African American GFR(CKD) >90 (>60 ml/min/1.73 sqM); Phosphorus 2.7 mg/dL (2.5-4.5); Potassium 4.3 mmol/L (3.5-5.1); Sodium 139 mmol/L (137-145)
[2022-11-16 16:06] LABS: Glucose,Whole Blood 214 mg/dL (70-110)
[2022-11-16 17:02] LABS: Glucose,Whole Blood 240 mg/dL (70-110)
[2022-11-16] MEDS: MAG HYDROX/AL HYDROX/SIMETH 30 ML CUP PO PRN (17:52)
[2022-11-16] MEDS: PANTOPRAZOLE 40 MG/10 ML VIAL IVP SCH ×2 (17:52→20:32)
[2022-11-16] MEDS ORDERED: METOCLOPRAMIDE 5 MG/ML 2 ML VIAL IVP SCH (18:00)
[2022-11-16 18:05] LABS: Glucose,Whole Blood 291 mg/dL (70-110)
[2022-11-16] MEDS ORDERED: METOCLOPRAMIDE 5 MG/ML 2 ML VIAL IVP PRN (18:15)
[2022-11-16 19:02] LABS: Glucose,Whole Blood 316 mg/dL (70-110)
[2022-11-16 19:59] LABS: Glucose,Whole Blood 290 mg/dL (70-110)
[2022-11-16] MEDS: SODIUM CHLORIDE 0.9% 1,000 ML IV SCH ×2 (20:16→20:24)
[2022-11-16] MEDS: FAMOTIDINE 20 MG/2 ML VIAL IV SCH (20:32)
[2022-11-16] MEDS: METHYLPHENIDATE HCL 10 MG TAB PO SCH (20:32)
[2022-11-16] MEDS: lamoTRIgine 25 MG TAB PO SCH (20:32)
[2022-11-16 21:02] LABS: Glucose,Whole Blood 274 mg/dL (70-110)
[2022-11-16 21:53] LABS: African American GFR (CKD) >90 (>60 ml/min/1.73 sqM); Anion Gap 18 mmol/L; Blood Urea Nitrogen 10 mg/dL (7-17); Calcium 8.9 mg/dL (8.4-10.2); Chloride 113 mmol/L (98-107); Glucose 296 mg/dL (74-99); Non-African American GFR(CKD) >90 (>60 ml/min/1.73 sqM); Sodium 138 mmol/L (137-145)
[2022-11-16 21:57] LABS: Glucose,Whole Blood 244 mg/dL (70-110)
[2022-11-16 22:01] LABS: Carbon Dioxide 7 mmol/L (22-30); Potassium 5.8 mmol/L (3.5-5.1)
[2022-11-16 22:59] LABS: Glucose,Whole Blood 215 mg/dL (70-110)
[2022-11-17 00:06] LABS: Glucose,Whole Blood 206 mg/dL (70-110)
[2022-11-17 01:02] LABS: Glucose,Whole Blood 168 mg/dL (70-110)
[2022-11-17 01:44] LABS: African American GFR (CKD) >90 (>60 ml/min/1.73 sqM); Anion Gap 13 mmol/L; Blood Urea Nitrogen 9 mg/dL (7-17); Calcium 8.9 mg/dL (8.4-10.2); Carbon Dioxide 12 mmol/L (22-30); Chloride 110 mmol/L (98-107); Glucose 164 mg/dL (74-99); Non-African American GFR(CKD) >90 (>60 ml/min/1.73 sqM); Potassium 4.1 mmol/L (3.5-5.1); Sodium 135 mmol/L (137-145)
[2022-11-17 01:59] LABS: Glucose,Whole Blood 132 mg/dL (70-110)
[2022-11-17] MEDS: D5-0.45% NACL WITH KCL 20MEQ/L 1,000 ML IV SCH ×4 (02:20→20:09)
[2022-11-17 03:03] LABS: Glucose,Whole Blood 123 mg/dL (70-110)
[2022-11-17 04:02] LABS: Glucose,Whole Blood 137 mg/dL (70-110)
[2022-11-17 05:04] LABS: Glucose,Whole Blood 165 mg/dL (70-110)
[2022-11-17 06:03] LABS: Glucose,Whole Blood 194 mg/dL (70-110)
[2022-11-17 07:09] LABS: Glucose,Whole Blood 208 mg/dL (70-110)
[2022-11-17 07:46] LABS: African American GFR (CKD) >90 (>60 ml/min/1.73 sqM); Anion Gap 13 mmol/L; Blood Urea Nitrogen 7 mg/dL (7-17); Calcium 8.4 mg/dL (8.4-10.2); Carbon Dioxide 14 mmol/L (22-30); Chloride 110 mmol/L (98-107); Glucose 244 mg/dL (74-99); Non-African American GFR(CKD) >90 (>60 ml/min/1.73 sqM); Sodium 137 mmol/L (137-145)
[2022-11-17 08:03] LABS: Glucose,Whole Blood 295 mg/dL (70-110)
[2022-11-17 08:06] LABS: Potassium 5.2 mmol/L (3.5-5.1)
[2022-11-17 09:24] LABS: Glucose,Whole Blood 312 mg/dL (70-110)
[2022-11-17] MEDS ORDERED: SODIUM ZIRCONIUM CYCLOSILICATE 10 GM PACKET PO ONE (10:00)
[2022-11-17 10:08] LABS: Glucose,Whole Blood 341 mg/dL (70-110)
[2022-11-17] MEDS: FAMOTIDINE 20 MG/2 ML VIAL IV SCH ×2 (10:21→20:13)
[2022-11-17] MEDS: PANTOPRAZOLE 40 MG/10 ML VIAL IVP SCH ×2 (10:21→20:13)
[2022-11-17] MEDS: MAG HYDROX/AL HYDROX/SIMETH 30 ML CUP PO PRN ×2 (10:31→16:31)
[2022-11-17 11:07] LABS: Glucose,Whole Blood 269 mg/dL (70-110)
[2022-11-17 11:59] LABS: Glucose,Whole Blood 213 mg/dL (70-110)
[2022-11-17] MEDS: lamoTRIgine 25 MG TAB PO SCH ×2 (12:09→20:12)
[2022-11-17] MEDS: DULoxetine HCL 60 MG CAPSULE.DR PO SCH (12:09)
[2022-11-17] MEDS: METHYLPHENIDATE HCL 10 MG TAB PO SCH ×2 (12:09→20:12)
[2022-11-17 13:05] LABS: Glucose,Whole Blood 210 mg/dL (70-110)
[2022-11-17 13:08] LABS: Glucose,Whole Blood 237 mg/dL (70-110)
[2022-11-17 13:13] LABS: Potassium 3.6 mmol/L (3.5-5.1)
[2022-11-17 13:14] LABS: African American GFR (CKD) >90 (>60 ml/min/1.73 sqM); Anion Gap 10 mmol/L; Blood Urea Nitrogen 4 mg/dL (7-17); Calcium 8.3 mg/dL (8.4-10.2); Carbon Dioxide 17 mmol/L (22-30); Chloride 106 mmol/L (98-107); Glucose 242 mg/dL (74-99); Non-African American GFR(CKD) >90 (>60 ml/min/1.73 sqM); Sodium 133 mmol/L (137-145)
[2022-11-17] MEDS ORDERED: MAG HYDROX/AL HYDROX/SIMETH 30 ML CUP PO STA (13:45)
[2022-11-17 13:59] LABS: Glucose,Whole Blood 189 mg/dL (70-110)
[2022-11-17 14:58] LABS: Glucose,Whole Blood 169 mg/dL (70-110)
[2022-11-17 16:01] LABS: Glucose,Whole Blood 168 mg/dL (70-110)
[2022-11-17] MEDS: INSULIN REGULAR 100 UNIT in SODIUM CHLORIDE 0.9% 100 ML IV SCH ×2 (16:48→20:20)
[2022-11-17 16:57] LABS: Glucose,Whole Blood 231 mg/dL (70-110)
[2022-11-17 17:19] LABS: African American GFR (CKD) >90 (>60 ml/min/1.73 sqM); Anion Gap 13 mmol/L; Blood Urea Nitrogen 5 mg/dL (7-17); Calcium 9.1 mg/dL (8.4-10.2); Carbon Dioxide 11 mmol/L (22-30); Chloride 112 mmol/L (98-107); Glucose 210 mg/dL (74-99); Non-African American GFR(CKD) >90 (>60 ml/min/1.73 sqM); Sodium 136 mmol/L (137-145)
[2022-11-17 17:23] LABS: Potassium 5.4 mmol/L (3.5-5.1)
[2022-11-17 18:04] LABS: Glucose,Whole Blood 224 mg/dL (70-110)
[2022-11-17 18:58] LABS: Glucose,Whole Blood 205 mg/dL (70-110)
[2022-11-17] MEDS ORDERED: METOCLOPRAMIDE 5 MG/ML 2 ML VIAL IVP SCH (19:30)
[2022-11-17 19:56] LABS: Glucose,Whole Blood 176 mg/dL (70-110)
[2022-11-17] MEDS: METOCLOPRAMIDE 5 MG/ML 2 ML VIAL IVP SCH (20:13)
[2022-11-17] MEDS: SODIUM CHLORIDE 0.9% 1,000 ML IV SCH (20:19)
[2022-11-17 21:01] LABS: Glucose,Whole Blood 133 mg/dL (70-110)
[2022-11-17 21:53] LABS: African American GFR (CKD) >90 (>60 ml/min/1.73 sqM); Anion Gap 10 mmol/L; Blood Urea Nitrogen 3 mg/dL (7-17); Calcium 8.3 mg/dL (8.4-10.2); Carbon Dioxide 18 mmol/L (22-30); Chloride 105 mmol/L (98-107); Glucose 135 mg/dL (74-99); Non-African American GFR(CKD) >90 (>60 ml/min/1.73 sqM); Potassium 3.7 mmol/L (3.5-5.1); Sodium 133 mmol/L (137-145)
[2022-11-17 22:09] LABS: Glucose,Whole Blood 108 mg/dL (70-110)
[2022-11-17] MEDS: INSULIN DETEMIR (LEVEMIR) 100 UNIT/ML SYR SQ SCH (22:48)
[2022-11-18] MEDS: MAG HYDROX/AL HYDROX/SIMETH 30 ML CUP PO PRN ×3 (01:09→15:44)
[2022-11-18 01:45] LABS: Glucose,Whole Blood 309 mg/dL (70-110)
[2022-11-18] MEDS: INSULIN ASPART (NovoLOG) 100 UNIT/ML VIAL SQ SCH ×3 (01:49→12:13)
[2022-11-18] MEDS: METOCLOPRAMIDE 5 MG/ML 2 ML VIAL IVP SCH ×3 (04:03→21:11)
[2022-11-18 06:02] LABS: Glucose,Whole Blood 148 mg/dL (70-110)
--- NOTE | 2022-11-18 06:09 | P.PN ---
Subjective Progress Note Date: 11/17/22 47-year-old female came in with nausea vomiting found to be in a diabetic Keto acidosis.patient is on insulin pump. Patient is probably noncompliant and does have psychiatric issues. Patient has severe anion gap metabolic acidosis with anion gap of 27 and serum bicarbonate of 5. 11/17/2022 Patient is seen and evaluated and follow-up and is continued on DKA protocol. Patient continues to have nausea and vomiting and anion gap is not quite closed. Patient was having elevated potassium and was maintained on D5 with potassium infusion and will discontinue and change fluids to normal saline. Awaiting repeat BMP this afternoon with hopeful for transitioning off insulin drip. Patient does have a pump and would encourage reapplying insulin pump was anion gap has closed. Patient is afebrile denies chest pain or shortness of breath. Patient is reporting some acid reflux from vomiting and okay for Maalox. Patient does have Protonix ordered. Review of systems: Constitutional: No reports of fatigue, fever, or chills Cardiovascular: No reports of chest pain or palpitations Respiratory: No reports of shortness of breath or cough GI: reports of nausea with vomiting, no diarrhea : No reports of dysuria or retention Neurovascular: No reports of weakness or numbness All medications have been reviewed PHYSICAL EXAMINATION: GENERAL: The patient is alert and oriented x3, not in any acute distress. Well developed, well nourished. Does have mental issues HEENT: Pupils are round and equally reacting to light. EOMI. No scleral icterus. No conjunctival pallor. Normocephalic, atraumatic. No pharyngeal erythema. No thyromegaly. CARDIOVASCULAR: S1 and S2 present. No murmurs, rubs, or gallops. PULMONARY: Chest is clear to auscultation, no wheezing or crackles. ABDOMEN: Soft, nontender, nondistended, normoactive bowel sounds. No palpable organomegaly. MUSCULOSKELETAL: No joint swelling or deformity. EXTREMITIES: No cyanosis, clubbing, or pedal edema. NEUROLOGICAL: Gross neurological examination did not reveal any focal deficits. SKIN: No rashes. Assessment: Diabetic ketoacidosis: Probably due to noncompliance patient continues on DKA protocol will be transitioned to normal saline and continued insulin drip -Gastroesophageal reflux disease -ADHD/depression -Obesity with a BMI of 30.1 -DVT prophylaxis: Early ambulation Plan: Patient will continue on DKA protocol and transition once gap is closed. Awaiting repeat evening labs is anion gap was 13. Patient will continue on insulin drip currently nothing by mouth Patient continues with nausea and vomiting and will make Reglan scheduled and continue with as needed Zofran Potassium mildly elevated and was given a dose of lokelma. Discontinue D5 with potassium and will add normal saline Repeat labs ordered for this evening as well as tomorrow Patient is transition to clear liquid diet and slowly advance as tolerated was nausea has improved Encouraged pump use and will reevaluate in the morning once patient is off insulin drip Possible discharge in the next 24-48 hours The impression and plan of care has been dictated by Magda Santamaria, Nurse Practitioner as directed. Dr. Ortega MD I have performed a history and examination and MDM of this patient, discussed the same with the dictator, and agree with the dictator's assessment and plan as written ,documented as a scribe. Based on total visit time, I have performed more than 50% of the visit. Objective - Vital Signs Vital signs: Vital Signs Temp 98.0 F 11/17/22 08:06 Pulse 95 11/17/22 08:06 Resp 18 11/17/22 08:06 BP 123/71 11/17/22 08:06 Pulse Ox 98 11/17/22 08:06 FiO2 Intake & Output 11/16/22 11/17/22 11/17/22 18:59 06:59 18:59 Intake Total 63.685 190.153 3.160 Balance 63.685 190.153 3.160 Weight 77.111 kg Intake: Intake, IV Titration 63.685 190.153 3.160 Amount D5-0.45% NaCl with KCl 150 20Meq/l 1,000 ml @ 150 mls/hr IV .[id number] [facility] Rx# :[id number] Insulin Regular 100 unit 63.685 40.153 3.160 In Sodium Chloride 0.9% 100 ml @ 0.1 UNITS/KG/HR 7.788 mls/hr IV .[id number] [facility] Rx#:[id number] Other: Voiding Method Toilet # Voids 1 2 - Labs CBC & Chem 7: 11/16/22 04:35 11/17/22 21:13 Labs: Abnormal Lab Results - Last 24 Hours (Table) 11/16/22 11/16/22 11/16/22 Range/Units 10:01 10:58 11:17 Sodium (137-145) mmol/L Potassium (3.5-5.1) mmol/L Chloride 115 H (98-107) mmol/L Carbon Dioxide 5 L* (22-30) mmol/L Creatinine 0.49 L (0.52-1.04) mg/dL Glucose 159 H (74-99) mg/dL POC Glucose (mg/dL) 161 H 168 H (70-110) mg/dL 11/16/22 11/16/22 11/16/22 Range/Units 11:59 13:07 14:03 Sodium (137-145) mmol/L Potassium (3.5-5.1) mmol/L Chloride (98-107) mmol/L Carbon Dioxide (22-30) mmol/L Creatinine (0.52-1.04) mg/dL Glucose (74-99) mg/dL POC Glucose (mg/dL) 150 H 132 H 138 H (70-110) mg/dL 11/16/22 11/16/22 11/16/22 Range/Units 15:02 15:03 16:04 Sodium (137-145) mmol/L Potassium (3.5-5.1) mmol/L Chloride 114 H (98-107) mmol/L Carbon Dioxide 10 L (22-30) mmol/L Creatinine 0.44 L (0.52-1.04) mg/dL Glucose 168 H (74-99) mg/dL POC Glucose (mg/dL) 145 H 214 H (70-110) mg/dL 11/16/22 11/16/22 11/16/22 Range/Units 17:00 18:02 19:00 Sodium (137-145) mmol/L Potassium (3.5-5.1) mmol/L Chloride (98-107) mmol/L Carbon Dioxide (22-30) mmol/L Creatinine (0.52-1.04) mg/dL Glucose (74-99) mg/dL POC Glucose (mg/dL) 240 H 291 H 316 H (70-110) mg/dL 11/16/22 11/16/22 11/16/22 Range/Units 19:57 20:59 21:00 Sodium (137-145) mmol/L Potassium 5.8 H (3.5-5.1) mmol/L Chloride 113 H (98-107) mmol/L Carbon Dioxide 7 L* (22-30) mmol/L Creatinine 0.47 L (0.52-1.04) mg/dL Glucose 296 H (74-99) mg/dL POC Glucose (mg/dL) 290 H 274 H (70-110) mg/dL 11/16/22 11/16/22 11/17/22 Range/Units 21:55 22:58 00:04 Sodium (137-145) mmol/L Potassium (3.5-5.1) mmol/L Chloride (98-107) mmol/L Carbon Dioxide (22-30) mmol/L Creatinine (0.52-1.04) mg/dL Glucose (74-99) mg/dL POC Glucose (mg/dL) 244 H 215 H 206 H (70-110) mg/dL 11/17/22 11/17/22 11/17/22 Range/Units 00:55 01:00 01:58 Sodium 135 L (137-145) mmol/L Potassium (3.5-5.1) mmol/L Chloride 110 H (98-107) mmol/L Carbon Dioxide 12 L (22-30) mmol/L Creatinine 0.42 L (0.52-1.04) mg/dL Glucose 164 H (74-99) mg/dL POC Glucose (mg/dL) 168 H 132 H (70-110) mg/dL 11/17/22 11/17/22 11/17/22 Range/Units 02:59 04:01 05:02 Sodium (137-145) mmol/L Potassium (3.5-5.1) mmol/L Chloride (98-107) mmol/L Carbon Dioxide (22-30) mmol/L Creatinine (0.52-1.04) mg/dL Glucose (74-99) mg/dL POC Glucose (mg/dL) 123 H 137 H 165 H (70-110) mg/dL 11/17/22 11/17/22 11/17/22 Range/Units 06:01 06:55 07:07 Sodium (137-145) mmol/L Potassium 5.2 H (3.5-5.1) mmol/L Chloride 110 H (98-107) mmol/L Carbon Dioxide 14 L (22-30) mmol/L Creatinine 0.44 L (0.52-1.04) mg/dL Glucose 244 H (74-99) mg/dL POC Glucose (mg/dL) 194 H 208 H (70-110) mg/dL 11/17/22 11/17/22 Range/Units 08:02 09:08 Sodium (137-145) mmol/L Potassium (3.5-5.1) mmol/L Chloride (98-107) mmol/L Carbon Dioxide (22-30) mmol/L Creatinine (0.52-1.04) mg/dL Glucose (74-99) mg/dL POC Glucose (mg/dL) 295 H 312 H (70-110) mg/dL
[2022-11-18] MEDS: PANTOPRAZOLE 40 MG/10 ML VIAL IVP SCH ×2 (09:09→21:11)
[2022-11-18] MEDS: DULoxetine HCL 60 MG CAPSULE.DR PO SCH (09:09)
[2022-11-18] MEDS: FAMOTIDINE 20 MG/2 ML VIAL IV SCH ×2 (09:09→21:11)
[2022-11-18] MEDS: METHYLPHENIDATE HCL 10 MG TAB PO SCH ×2 (09:09→21:10)
[2022-11-18] MEDS: lamoTRIgine 25 MG TAB PO SCH ×2 (09:09→21:11)
[2022-11-18 10:04] LABS: African American GFR (CKD) >90 (>60 ml/min/1.73 sqM); Anion Gap 12 mmol/L; Blood Urea Nitrogen 3 mg/dL (7-17); Calcium 8.1 mg/dL (8.4-10.2); Carbon Dioxide 16 mmol/L (22-30); Chloride 105 mmol/L (98-107); Glucose 191 mg/dL (74-99); Non-African American GFR(CKD) >90 (>60 ml/min/1.73 sqM); Sodium 133 mmol/L (137-145)
[2022-11-18] MEDS ORDERED: INSULIN ASPART (NovoLOG) 100 UNIT/ML VIAL SQ PRN (10:07)
[2022-11-18] MEDS ORDERED: INSULIN PUMP BASAL RATES 1 EACH MISC MISCELLANE PRN (10:07)
[2022-11-18] MEDS ORDERED: INSPUCOR MISCELLANE PRN (10:07)
[2022-11-18 10:14] LABS: Potassium 4.2 mmol/L (3.5-5.1)
[2022-11-18 11:27] LABS: Glucose,Whole Blood 215 mg/dL (70-110)
[2022-11-18] MEDS: INSULIN PUMP MEAL BOLUS 1 UNIT MISC MISCELLANE SCH ×2 (12:13→16:43)
[2022-11-18 16:18] LABS: Glucose,Whole Blood 198 mg/dL (70-110)
[2022-11-18 17:51] VITALS: RESP 16
--- NOTE | 2022-11-18 18:38 | P.PN ---
Subjective Progress Note Date: 11/18/22 47-year-old female came in with nausea vomiting found to be in a diabetic Keto acidosis.patient is on insulin pump. Patient is probably noncompliant and does have psychiatric issues. Patient has severe anion gap metabolic acidosis with anion gap of 27 and serum bicarbonate of 5. 11/17/2022 Patient is seen and evaluated and follow-up and is continued on DKA protocol. Patient continues to have nausea and vomiting and anion gap is not quite closed. Patient was having elevated potassium and was maintained on D5 with potassium infusion and will discontinue and change fluids to normal saline. Awaiting repeat BMP this afternoon with hopeful for transitioning off insulin drip. Patient does have a pump and would encourage reapplying insulin pump was anion gap has closed. Patient is afebrile denies chest pain or shortness of breath. Patient is reporting some acid reflux from vomiting and okay for Maalox. Patient does have Protonix ordered. 11/18/2022 Patient is seen and evaluated in follow-up this morning has been transitioned off insulin drip and was continued on long-acting along with sliding scale and pre-meal insulins. Patient does have insulin pump with her and instructed nurs ing staff and patient to resume insulin pump. Blood sugars controlled although somewhat elevated. Patient continues report nausea and did have one episode of vomiting this morning. Patient is on clear liquids and advancing as tolerated. Patient requesting increase in diet and okay as not having any further nausea or vomiting. Patient scheduled to be discharged although patient and mother repo rts she is not well enough with continued nausea be discharged home. Patient will be monitored overnight for improvement in nausea and vomiting with probable discharge in 24 hours. Continue with Maalox as needed. Review of systems: Constitutional: No reports of fatigue, fever, or chills Cardiovascular: No reports of chest pain or palpitations Respiratory: No reports of shortness of breath or cough GI: reports of nausea with one episode of vomiting, no diarrhea : No reports of dysuria or retention Neurovascular: No reports of weakness or numbness All medications have been reviewed PHYSICAL EXAMINATION: GENERAL: The patient is alert and oriented x3, not in any acute distress. Well d eveloped, well nourished. Does have mental issues HEENT: Pupils are round and equally reacting to light. EOMI. No scleral icterus. No conjunctival pallor. Normocephalic, atraumatic. No pharyngeal erythema. No thyromegaly. CARDIOVASCULAR: S1 and S2 present. No murmurs, rubs, or gallops. PULMONARY: Chest is clear to auscultation, no wheezing or crackles. ABDOMEN: Soft, nontender, nondistended, normoactive bowel sounds. No palpable organomegaly. MUSCULOSKELETAL: No joint swelling or deformity. EXTREMITIES: No cyanosis, clubbing, or pedal edema. NEUROLOGICAL: Gross neurological examination did not reveal any focal deficits. SKIN: No rashes. Assessment: -Diabetic ketoacidosis: Probably due to noncompliance, improved and off insulin drip, patient's insulin pump has been resumed -Continued nausea with vomiting, acute gastritis -Gastroesophageal reflux disease -ADHD/depression -Obesity with a BMI of 30.1 -DVT prophylaxis: Early ambulation -GI prophylaxis Plan: Patient will continue on her insulin pump which has been resumed and will continue gentle IV hydration as patient continues to be nauseated and had an episode of vomiting. Patient requesting increase in diet as she feels worse with clear liquids requesting and advance. Will slowly advance as tolerated and will continue with anti-nausea medications. Discussed discharge planning with the patient and patient continues to have nausea with vomiting will observe overnight and continue current regimen with probable discharge in 24 hours A.m. labs ordered Probable discharge in 24 hours if patient is tolerating diet with decreased nausea and vomiting The impression and plan of care has been dictated by Magda Santamaria, Nurse Practitioner as directed. Dr. Ortega MD I have performed a history and examination and MDM of this patient, discussed the same with the dictator, and agree with the dictator's assessment and plan as written ,documented as a scribe. Based on total visit time, I have performed more than 50% of the visit. Objective - Vital Signs Vital signs: Vital Signs Temp 98.2 F 11/18/22 09:07 Pulse 90 11/18/22 16:00 Resp 16 11/18/22 16:00 BP 112/62 11/18/22 16:00 Pulse Ox 98 11/18/22 16:00 FiO2 Intake & Output 11/17/22 11/18/22 11/18/22 18:59 06:59 18:59 Intake Total 45.140 689.642 Balance 45.140 689.642 Weight 77.111 kg 77.111 kg Intake: Intake, IV Titration 45.140 689.642 Amount Insulin Regular 100 unit 45.140 14.642 In Sodium Chloride 0.9% 100 ml @ 0.1 UNITS/KG/HR 7.788 mls/hr IV .[id number] [facility] Rx#:[id number] Sodium Chloride 0.9% 1, 675 000 ml @ 75 mls/hr IV . [id number] [facility] Rx#:[id number] Other: Voiding Method Toilet Toilet Toilet # Voids 1 1 2 - Labs CBC & Chem 7: 11/16/22 04:35 11/18/22 09:10 Labs: Abnormal Lab Results - Last 24 Hours (Table) 11/17/22 11/17/22 11/17/22 Range/Units 18:57 19:55 20:59 Sodium (137-145) mmol/L Carbon Dioxide (22-30) mmol/L BUN (7-17) mg/dL Creatinine (0.52-1.04) mg/dL Glucose (74-99) mg/dL POC Glucose (mg/dL) 205 H 176 H 133 H (70-110) mg/dL Calcium (8.4-10.2) mg/dL 11/17/22 11/18/22 11/18/22 Range/Units 21:13 01:44 06:01 Sodium 133 L (137-145) mmol/L Carbon Dioxide 18 L (22-30) mmol/L BUN 3 L (7-17) mg/dL Creatinine 0.34 L (0.52-1.04) mg/dL Glucose 135 H (74-99) mg/dL POC Glucose (mg/dL) 309 H 148 H (70-110) mg/dL Calcium 8.3 L (8.4-10.2) mg/dL 11/18/22 11/18/22 11/18/22 Range/Units 09:10 11:25 16:17 Sodium 133 L (137-145) mmol/L Carbon Dioxide 16 L (22-30) mmol/L BUN 3 L (7-17) mg/dL Creatinine 0.35 L (0.52-1.04) mg/dL Glucose 191 H (74-99) mg/dL POC Glucose (mg/dL) 215 H 198 H (70-110) mg/dL Calcium 8.1 L (8.4-10.2) mg/dL
[2022-11-18] MEDS: SODIUM CHLORIDE 0.9% 1,000 ML IV SCH ×2 (19:07→21:12)
[2022-11-18 20:04] LABS: Glucose,Whole Blood 112 mg/dL (70-110)
[2022-11-19] MEDS: INSULIN PUMP MEAL BOLUS 1 UNIT MISC MISCELLANE SCH ×3 (00:12→12:20)
[2022-11-19 00:13] LABS: Glucose,Whole Blood 92 mg/dL (70-110)
[2022-11-19 02:25] LABS: Glucose,Whole Blood 112 mg/dL (70-110)
[2022-11-19] MEDS: INSULIN DETEMIR (LEVEMIR) 100 UNIT/ML SYR SQ SCH (03:56)
[2022-11-19] MEDS: METOCLOPRAMIDE 5 MG/ML 2 ML VIAL IVP SCH ×2 (04:00→11:03)
[2022-11-19 06:12] LABS: Glucose,Whole Blood 103 mg/dL (70-110)
[2022-11-19] MEDS: METHYLPHENIDATE HCL 10 MG TAB PO SCH (09:01)
[2022-11-19] MEDS: FAMOTIDINE 20 MG/2 ML VIAL IV SCH (09:02)
[2022-11-19] MEDS: MAG HYDROX/AL HYDROX/SIMETH 30 ML CUP PO PRN (09:02)
[2022-11-19] MEDS: PANTOPRAZOLE 40 MG/10 ML VIAL IVP SCH (09:02)
[2022-11-19] MEDS: DULoxetine HCL 60 MG CAPSULE.DR PO SCH (09:02)
[2022-11-19] MEDS: lamoTRIgine 25 MG TAB PO SCH (09:02)
[2022-11-19 09:26] VITALS: TEMP 98.1
[2022-11-19] MEDS: SODIUM CHLORIDE 0.9% 1,000 ML IV SCH (10:31)
[2022-11-19 11:16] VITALS: BP 136/83; PULSE 92
[2022-11-19 11:42] LABS: African American GFR (CKD) >90 (>60 ml/min/1.73 sqM); Anion Gap 8 mmol/L; Blood Urea Nitrogen 7 mg/dL (7-17); Calcium 8.6 mg/dL (8.4-10.2); Carbon Dioxide 26 mmol/L (22-30); Chloride 102 mmol/L (98-107); Glucose 114 mg/dL (74-99); Non-African American GFR(CKD) >90 (>60 ml/min/1.73 sqM); Potassium 3.5 mmol/L (3.5-5.1); Sodium 136 mmol/L (137-145)
[2022-11-19 11:45] LABS: Glucose,Whole Blood 128 mg/dL (70-110)
[2022-11-19] MEDS: ONDANSETRON 4 MG/2 ML VIAL IVP PRN (12:20)
[2022-11-19] MEDS ORDERED: LOPERAMIDE 2 MG CAP PO STA (13:16)
--- NOTE | 2022-11-19 21:19 | P.DS ---
Providers Date of admission: 11/16/22 05:42 Expected date of discharge: 11/19/22 Attending physician: Isaac Cevallos MD Primary care physician: Kevin Ruiz Hospital Course: Final diagnosis -Diabetic ketoacidosis: Probably due to noncompliance, improved and off insulin drip, patient's insulin pump has been resumed -Continued nausea with vomiting, acute gastritis -Gastroesophageal reflux disease -ADHD/depression -Noncompliance of medications -Obesity with a BMI of 30.1 -DVT prophylaxis: Early ambulation -GI prophylaxis Discharge disposition Patient is being discharged in a stable condition with guarded prognosis to home. Patient will follow-up with Dr. Ruiz in the outpatient setting upon discharge. Patient is to continue with close outpatient follow up with endocrine Dr. Vaughn as scheduled. Total time taken is greater than 35 minutes. Hospital course This is a 47-year-old female who was recently admitted with diabetic ketoacidosis being closely monitored. Patient does have insulin pump and most likely due to noncompliance patient with uncontrolled blood sugars started developing nausea and vomiting with acute gastritis. Patient with significant acid reflux and requesting Maalox. Patient maintained on DKA protocol and has been transitioned and back on insulin pump and blood sugars have been closely monitored. Patient encouraged to follow-up with endocrine Dr. Vaughn this week as well as primary care provider. Patient continues is some nausea but no further vomiting and tolerating advanced diet. Will continue with as needed Zofran and/or Reglan and also encouraged patient to follow-up with primary care provider this week. Patient reports she has necessary supplies and insulin at home. Currently no reports of chest pain, shortness of breath, or palpitations. Patient is afebrile. No reports of nausea or vomiting and patient is tolerating diet. Patient will be discharged home today. Guarded prognosis and high risk for readmissions given patient's continued noncompliance with medications and uncontrolled diabetes. Physical exam: Gen: This is a 47-year-old female who is awake, alert and oriented 3, well- developed, well-nourished, obese HEENT: Head is atraumatic, normocephalic. Pupils equal, round. Sclerae is anicteric. NECK: Supple. No JVD. No lymphadenopathy. No thyromegaly. LUNGS: Clear to auscultation. No wheezes or rhonchi. No intercostal retractions. HEART: Regular rate and rhythm. No murmur. ABDOMEN: Soft. Bowel sounds are present. No masses. No tenderness. EXTREMITIES: No pedal edema. No calf tenderness. NEUROLOGICAL: Patient is awake, alert and oriented x3. Cranial nerves 2 through 12 are grossly intact. Please refer to medication reconciliation sheet for a list of medications. The impression and plan of care has been dictated by Magda Santaamria, Nurse Practitioner as directed. Dr. Ortega MD I have performed a history and examination and MDM of this patient, discussed the same with the dictator, and agree with the dictator's assessment and plan as written ,documented as a scribe. Based on total visit time, I have performed more than 50% of the visit. Patient Condition at Discharge: Fair Plan - Discharge Summary Discharge Rx Participant: No New Discharge Prescriptions: New Mag Hydrox/Al Hydrox/Simeth [Maalox] 30 ml PO QID PRN #360 ml PRN Reason: Gi Upset Loperamide [Imodium] 2 mg PO QID PRN #20 capsule PRN Reason: Diarrhea Ondansetron Odt [Zofran Odt] 4 mg PO Q8HR PRN #20 tab PRN Reason: Nausea Metoclopramide [Reglan] 5 mg PO TID PRN #20 tab PRN Reason: Nausea Continue Omeprazole [PriLOSEC] 20 mg PO DAILY DULoxetine HCL [Cymbalta] 60 mg PO DAILY 30 Days capsule. Insulin Aspart (For Pump) [NovoLOG (For Pump)] 0.01 unit SQ-PUMP CONTINUOUS lamoTRIgine [LaMICtal] 25 mg PO BID Methylphenidate HCl 20 mg PO BID Glucagon [Gvoke Pfs 1-Pack Syringe] 1 mg SQ DIRECTED PRN PRN Reason: Hypoglycemia Discharge Medication List Omeprazole [PriLOSEC] 20 mg PO DAILY 05/20/20 [History] DULoxetine HCL [Cymbalta] 60 mg PO DAILY 30 Days capsule. 12/16/20 [Rx] lamoTRIgine [LaMICtal] 25 mg PO BID 10/08/21 [History] Glucagon [Gvoke Pfs 1-Pack Syringe] 1 mg SQ DIRECTED PRN 11/16/22 [History] Insulin Aspart (For Pump) [NovoLOG (For Pump)] 0.01 unit SQ-PUMP CONTINUOUS 11/16/22 [History] Methylphenidate HCl 20 mg PO BID 11/16/22 [History] Mag Hydrox/Al Hydrox/Simeth [Maalox] 30 ml PO QID PRN #360 ml 11/18/22 [Rx] Metoclopramide [Reglan] 5 mg PO TID PRN #20 tab 11/18/22 [Rx] Loperamide [Imodium] 2 mg PO QID PRN #20 capsule 11/19/22 [Rx] Ondansetron Odt [Zofran Odt] 4 mg PO Q8HR PRN #20 tab 11/19/22 [Rx] Follow up Appointment(s)/Referral(s): Kevin Ruiz DO [Primary Care Provider] - 1-2 days (No appointments available; office placed you on cancellation list and will call you HAMIDA when an appointment is available.) Patient Instructions/Handouts: Diabetic Ketoacidosis (DC), Acute Nausea and Vomiting (DC) Activity/Diet/Wound Care/Special Instructions: Activity Limited until follow-up Follow-up with primary care provider on discharge Follow up with endocrine outpatient in one week Continue to take medications as prescribed including insulins Continue strict diabetic diet Discharge Disposition: HOME SELF-CARE
== END 2022-11-19 15:07 | disposition home or self-care (01) | DRG 639 ==
LOC: EC 04:02 → 3SCARD 05:42
PROVIDERS: ADMIT Internal Medicine; ATTEND Internal Medicine
DX: E10.10 Type 1 diabetes mellitus with ketoacidosis without coma (principal); M06.9 Rheumatoid arthritis, unspecified; F32.A Depression, unspecified; E66.9 Obesity, unspecified; K21.9 Gastro-esophageal reflux disease without esophagitis; M79.7 Fibromyalgia; F90.9 Attention-deficit hyperactivity disorder, unspecified type; T38.3X6A Underdosing of insulin and oral hypoglycemic [antidiabetic] drugs, initial encounter; K29.00 Acute gastritis without bleeding; Z96.41 Presence of insulin pump (external) (internal); Z91.148 Patient's other noncompliance with medication regimen for other reason; Z68.30 Body mass index [BMI] 30.0-30.9, adult; Z79.4 Long term (current) use of insulin; Z79.899 Other long term (current) drug therapy; Z88.8 Allergy status to other drugs, medicaments and biological substances; Z86.73 Personal history of transient ischemic attack (TIA), and cerebral infarction without residual deficits
CPT/HCPCS: 36415; 71045; 80048; 80051; 80053; 81003; 82009; 82565; 82803; 82947; 83605; 83735; 84100; 84484; 84520; 85025; 85610; 85730; 93005; 94760; 96361; 96374; 96375; 99291

== ENCOUNTER 2022-11-27 17:47 | Inpatient (IN) | payer MEDICARE, MEDICAID ==
--- NOTE | 2022-11-27 20:37 | ED ---
General Adult HPI - General Source: patient, EMS Mode of arrival: EMS Limitations: no limitations <Farida Cordova - Last Filed: 11/28/22 00:19> <Ariel Bhatt - Last Filed: 11/28/22 05:46> - General Chief complaint: Psychiatric Symptoms Stated complaint: Mental Health Time Seen by Provider: 11/27/22 17:58 - History of Present Illness Initial comments: 47-year-old female presents to the emergency department chief complaint of suicidal ideation. She reports that she has been under a significant amount of stress lately with her boyfriend. She states that she started experiencing feelings of wanting to harm herself recently. She reports a plan to hurt herself. She denies homicidal ideation. Denies hallucinations or delusions. She reports that she has been hospitalized in the past. (Farida Cordova) - Related Data Home Medications Medication Instructions Recorded Confirmed Omeprazole [PriLOSEC] 20 mg PO DAILY 05/20/20 11/16/22 lamoTRIgine [LaMICtal] 25 mg PO BID 10/08/21 11/16/22 Glucagon [Gvoke Pfs 1-Pack Syringe] 1 mg SQ DIRECTED PRN 11/16/22 11/16/22 Insulin Aspart (For Pump) [NovoLOG 0.01 unit SQ-PUMP CONTINUOUS 11/16/22 11/16/22 (For Pump)] Methylphenidate HCl 20 mg PO BID 11/16/22 11/16/22 Previous Rx's Medication Instructions Recorded DULoxetine HCL [Cymbalta] 60 mg PO DAILY 30 Days capsule. 12/16/20 Mag Hydrox/Al Hydrox/Simeth 30 ml PO QID PRN #360 ml 11/18/22 [Maalox] Metoclopramide [Reglan] 5 mg PO TID PRN #20 tab 11/18/22 Loperamide [Imodium] 2 mg PO QID PRN #20 capsule 11/19/22 Ondansetron Odt [Zofran Odt] 4 mg PO Q8HR PRN #20 tab 11/19/22 Allergies Allergy/AdvReac Type Severity Reaction Status Date / Time paroxetine HCl [From Paxil] Allergy Rash/Hives Verified 11/27/22 18:00 sertraline HCl [From Zoloft] Allergy Rash/Hives Verified 11/27/22 18:00 Review of Systems ROS Other: All systems not noted in ROS Statement are negative. <Farida Cordova - Last Filed: 11/28/22 00:19> ROS Other: All systems not noted in ROS Statement are negative. <Ariel Bhatt - Last Filed: 11/28/22 05:46> ROS Statement: Those systems with pertinent positive or pertinent negative responses have been documented in the HPI. Past Medical History Past Medical History: Chest Pain / Angina, CVA/TIA, Diabetes Mellitus, Fibromyalgia, GERD/Reflux, Rheumatoid Arthritis (RA), Syncope Additional Past Medical History / Comment(s): IDDM type I, hx DKA, hx TIA. "Neurocardiogenic Syncope -causes sudden drop in blood pressure syncope-has not happened in about 6 months". Multiple lipomas. History of Any Multi-Drug Resistant Organisms: None Reported Past Surgical History: Breast Surgery, Tubal Ligation, Uterine Ablation Additional Past Surgical History / Comment(s): Tilt table test, LEFT BREAST BIOPSY - BENIGN, left thigh lipoma removal X2, left breast lipoma removal X1. Past Anesthesia/Blood Transfusion Reactions: No Reported Reaction Past Psychological History: ADD/ADHD, Anxiety, Depression Smoking Status: Never smoker Past Alcohol Use History: Rare Past Drug Use History: Marijuana - Past Family History Mother Family Medical History: Asthma Additional Family Medical History / Comment(s): Depression, Colitis. Father History Unknown: Yes Family Medical History: Unable to Obtain Additional Family Medical History / Comment(s): Pt does not know who her father is. <Farida Cordova - Last Filed: 11/28/22 00:19> General Exam Limitations: no limitations General appearance: alert, in no apparent distress, anxious Head exam: Present: atraumatic, normocephalic, normal inspection Eye exam: Present: normal appearance, PERRL, EOMI. Absent: scleral icterus, conjunctival injection, periorbital swelling ENT exam: Present: normal exam, mucous membranes moist Neck exam: Present: normal inspection. Absent: tenderness, meningismus, lymphadenopathy Respiratory exam: Present: normal lung sounds bilaterally. Absent: respiratory distress, wheezes, rales, rhonchi, stridor Cardiovascular Exam: Present: regular rate, normal rhythm, normal heart sounds. Absent: systolic murmur, diastolic murmur, rubs, gallop, clicks GI/Abdominal exam: Present: soft, normal bowel sounds. Absent: distended, tenderness, guarding, rebound, rigid Extremities exam: Present: normal inspection, full ROM, normal capillary refill. Absent: tenderness, pedal edema, joint swelling, calf tenderness Back exam: Present: normal inspection Neurological exam: Present: alert, oriented X3 Psychiatric exam: Present: anxious, suicidal ideation Skin exam: Present: warm, dry, intact, normal color. Absent: rash <Farida Cordova - Last Filed: 11/28/22 00:19> Course Vital Signs 11/27/22 17:49 Pulse Rate 97 Respiratory 18 Rate Blood Pressure 131/74 O2 Sat by Pulse 99 Oximetry Medical Decision Making <Farida Cordova - Last Filed: 11/28/22 00:19> <Ariel Bhatt - Last Filed: 11/28/22 05:46> - Medical Decision Making Was pt. sent in by a medical professional or institution (, PA, DIRECTOR NURSING SERVICE, urgent care, hospital, or group home...) When possible be specific @ -[No] Did you speak to anyone other than the patient for history (EMS, parent, family, police, friend...)? What history was obtained from this source @ -[No] Did you review nursing and triage notes (agree or disagree)? Why? @ -[I reviewed and agree with nursing and triage notes] Were old charts reviewed (outside hosp., previous admission, EMS record, old EKG, old radiological studies, urgent care reports/EKG's, group home records)? Report findings @ -[No old charts were reviewed] Differential Diagnosis (chest pain, altered mental status, abdominal pain women, abdominal pain men, vaginal bleeding, weakness, fever, dyspnea, syncope, headache, dizziness, GI bleed, back pain, seizure, CVA, palpatations, mental health, musculoskeletal)? @ -[Differential Mental Health Depression, anxiety, bipolar, psychosis, schizophrenia, borderline personality, situational depression, adjustment disorder, behavioral disorder, brain tumor, malingering, substance abuse, encephalopathy, medication reaction, dementia, hypothyroidism, degenerative neurologic disorder, lupus.... This is not meant to be all-inclusive list] EKG interpreted by me (3pts min.). @ -[none] X-rays interpreted by me (1pt min.). @ -[None done] CT interpreted by me (1pt min.). @ -[None done] U/S interpreted by me (1pt. min.). @ -[None done] What testing was considered but not performed or refused? (CT, X-rays, U/S, labs)? Why? @ -[None] What meds were considered but not given or refused? Why? @ -[None] Did you discuss the management of the patient with other professionals (professionals i.e. , PA, DIRECTOR NURSING SERVICE, lab, RT, psych nurse, clinical social work therapist, yoghurt maker, teacher, corporate trust officer, case packer and sealer)? Give summary @ -[No] Was smoking cessation discussed for >3mins.? @ -[No] Was critical care preformed (if so, how long)? @ -[No] Were there social determinants of health that impacted care today? How? (Homelessness, low income, unemployed, alcoholism, drug addiction, transport ation, low edu. Level, literacy, decrease access to med. care, assisted, rehab)? @ -[No] Was there de-escalation of care discussed even if they declined (Discuss DNR or withdrawal of care, Hospice)? DNR status @ -[No] What co-morbidities impacted this encounter? (DM, HTN, Smoking, COPD, CAD, Cancer, CVA, ARF, Chemo, Hep., AIDS, mental health diagnosis, sleep apnea, morbid obesity)? @ -[None] Was patient admitted / discharged? Hospital course, mention meds given and route, prescriptions, significant lab abnormalities, going to OR and other pertinent info. @ -[Patient presented to emergency department for evaluation of suicidal ideation. She reports that recently she has been under a lot of stress and feels that she would be better off that. She denies hallucinations, delusions. She has been hospitalized in the past for her mental health. Patient is pendin g evaluation by EPS for recommendation.] Undiagnosed new problem with uncertain prognosis? @ -[No] Drug Therapy requiring intensive monitoring for toxicity (Heparin, Nitro, Insulin, Cardizem)? @ -[No] Were any procedures done? @ -[No] Diagnosis/symptom? @ -[default] Acute, or Chronic, or Acute on Chronic? @ -[default] Uncomplicated (without systemic symptoms) or Complicated (systemic symptoms)? @ -[default] Side effects of treatment? @ -[No] Exacerbation, Progression, or Severe Exacerbation? @ -[No] Poses a threat to life or bodily function? How? (Chest pain, USA, ID, pneumonia, PE, COPD, DKA, ARF, appy, cholecystitis, CVA, Diverticulitis, Homicidal, Suicidal, threat to staff... and all critical care pts) @ -[No] (Farida Cordova) Patient signed out to me pending EPS evaluation. Was medically cleared by previous provider. Presents with suicidal ideations. Has required previous hospitalizations. EPS evaluated the patient and patient will be admitted to inpatient psychiatry. Diagnosis/symptom? @ -Suicidal ideation, encounter for psychiatric evaluation Acute, or Chronic, or Acute on Chronic? @ -Acute Uncomplicated (without systemic symptoms) or Complicated (systemic symptoms)? @ -Complicated Side effects of treatment? @ -none Exacerbation, Progression, or Severe Exacerbation] @ -no Poses a threat to life or bodily function? @ -Yes (Ariel Bhatt) - Lab Data Lab Results 11/27/22 11/27/22 11/28/22 Range/Units 22:40 23:30 01:55 POC Glucose (mg/dL) 472 H 355 H (70-110) mg/dL POC Glu Business Applications Developer ID Jia Dennison T Hock, Daniel Urine Opiates Screen Not Detected (NotDetected) Ur Oxycodone Screen Not Detected (NotDetected) Urine Methadone Screen Not Detected (NotDetected) Ur Propoxyphene Screen Not Detected (NotDetected) Ur Barbiturates Screen Not Detected (NotDetected) U Tricyclic Antidepress Not Detected (NotDetected) Ur Phencyclidine Scrn Not Detected (NotDetected) Ur Amphetamines Screen Detected H (NotDetected) U Methamphetamines Scrn Detected H (NotDetected) U Benzodiazepines Scrn Not Detected (NotDetected) Urine Cocaine Screen Not Detected (NotDetected) U Marijuana (THC) Screen Detected H (NotDetected) Coronavirus (PCR) (Not Detectd) 11/28/22 Range/Units 03:29 POC Glucose (mg/dL) (70-110) mg/dL POC Glu Business Applications Developer ID Urine Opiates Screen (NotDetected) Ur Oxycodone Screen (NotDetected) Urine Methadone Screen (NotDetected) Ur Propoxyphene Screen (NotDetected) Ur Barbiturates Screen (NotDetected) U Tricyclic Antidepress (NotDetected) Ur Phencyclidine Scrn (NotDetected) Ur Amphetamines Screen (NotDetected) U Methamphetamines Scrn (NotDetected) U Benzodiazepines Scrn (NotDetected) Urine Cocaine Screen (NotDetected) U Marijuana (THC) Screen (NotDetected) Coronavirus (PCR) Not Detected (Not Detectd) Disposition <Farida Cordova - Last Filed: 11/28/22 00:19> <Ariel Bhatt - Last Filed: 11/28/22 05:46> Clinical Impression: Suicidal ideation, Encounter for psychiatric assessment Disposition: TRANSFER TO PSYCH HOSP/UNIT Condition: Stable
[2022-11-27 23:14] LABS: Cocaine Screen,Urine Not Detected (NotDetected); Phencyclidine Screen,Urine Not Detected (NotDetected); Urn Cannabinoid Scrn Detected (NotDetected)
[2022-11-27 23:15] LABS: Amphetamine Screen,Urine Detected (NotDetected); Barbiturate Screen,Urine Not Detected (NotDetected); Benzodiazepines Screen,Urine Not Detected (NotDetected); Methadone Screen, Urine Not Detected (NotDetected); Opiate Screen,Urine Not Detected (NotDetected); Oxycodone Screen, Urine Not Detected (NotDetected); Tricyclic Antidepressant,Urine Not Detected (NotDetected)
[2022-11-27 23:32] LABS: Glucose,Whole Blood 472 mg/dL (70-110)
[2022-11-27] MEDS ORDERED: DEXTROSE 50% SYRINGE 50 ML IVP PRN ×2 (23:56)
[2022-11-28] MEDS: INSULIN ASPART (NovoLOG) 100 UNIT/ML VIAL SQ SCH ×7 (00:34→20:37)
[2022-11-28] MEDS ORDERED: IBUPROFEN 800 MG TAB PO STA (01:45)
[2022-11-28 01:57] LABS: Glucose,Whole Blood 355 mg/dL (70-110)
[2022-11-28] MEDS ORDERED: haloperidoL 5 MG TAB PO PRN (02:48)
[2022-11-28] MEDS ORDERED: LORazepam 1 MG TAB PO PRN (02:48)
[2022-11-28] MEDS ORDERED: ACETAMINOPHEN TAB 325 MG TAB PO PRN (02:48)
[2022-11-28] MEDS ORDERED: LORazepam 2 MG/ML INJ IM PRN (02:48)
[2022-11-28] MEDS ORDERED: HALOPERIDOL LACTATE 5 MG/ML 1 ML VIAL IM PRN (02:48)
[2022-11-28] MEDS ORDERED: MAGNESIUM HYDROXIDE 2,400 MG/30 ML CUP PO PRN (02:48)
[2022-11-28 07:52] LABS: Glucose,Whole Blood 391 mg/dL (70-110)
[2022-11-28 07:56] LABS: Appearance,Urine Clear (Clear); Bilirubin,Urine Negative (Negative); Blood,Urine Negative (Negative); Color,Urine Yellow; Glucose,Urine (UA) 4+ (Negative); Leukocyte Esterase,Urine Negative (Negative); Nitrite,Urine Negative (Negative); Protein,Urine Negative (Negative); Specific Gravity,Urine 1.027 (1.001-1.035); Urobilinogen,Urine <2.0 mg/dL (<2.0)
[2022-11-28] MEDS: NICOTINE 14MG/24HR PATCH TRANSDERM SCH (08:56)
[2022-11-28 09:09] LABS: Ketones,Urine 2+ (Negative)
[2022-11-28] MEDS ORDERED: INSULIN DETEMIR (LEVEMIR) 100 UNIT/ML SYR SQ SCH (10:00)
[2022-11-28] MEDS ORDERED: LOPERAMIDE 2 MG CAP PO PRN (11:12)
[2022-11-28] MEDS ORDERED: ONDANSETRON ODT 4 MG TAB PO PRN (11:12)
[2022-11-28] MEDS: PANTOPRAZOLE 40 MG TABLET PO SCH (11:53)
[2022-11-28 12:54] LABS: Glucose,Whole Blood 245 mg/dL (70-110)
[2022-11-28 13:10] LABS: Basophils % (A) 0 %; Eosinophils % (A) 0 %; HCT 34.8 % (34.0-46.0); Hypochromasia Slight; Lymphocytes # (A) 1.9 k/uL (1.0-4.8); Lymphocytes % (A) 47 %; MCH 25.6 pg (25.0-35.0); Mean Platelet Volume 7.8; Monocytes # (A) 0.3 k/uL (0-1.0); Monocytes % (A) 6 %; Neutrophils # (A) 1.8 k/uL (1.3-7.7); Neutrophils % (A) 44 %; Platelet Count 221 k/uL (150-450); RBC 4.34 m/uL (3.80-5.40); RDW 15.7 % (11.5-15.5)
[2022-11-28 13:18] LABS: HGB 11.1 gm/dL (11.4-16.0)
[2022-11-28 13:26] LABS: ALT 20 U/L (4-34); AST 20 U/L (14-36); African American GFR (CKD) >90 (>60 ml/min/1.73 sqM); Albumin 3.2 g/dL (3.5-5.0); Alkaline Phosphatase 141 U/L (38-126); Anion Gap 5 mmol/L; Blood Urea Nitrogen 16 mg/dL (7-17); Calcium 8.3 mg/dL (8.4-10.2); Carbon Dioxide 25 mmol/L (22-30); Chloride 101 mmol/L (98-107); Glucose 305 mg/dL (74-99); Non-African American GFR(CKD) >90 (>60 ml/min/1.73 sqM); Potassium 4.1 mmol/L (3.5-5.1); Sodium 131 mmol/L (137-145); Total Bilirubin 0.4 mg/dL (0.2-1.3); Total Protein 5.5 g/dL (6.3-8.2)
[2022-11-28] MEDS ORDERED: lamoTRIgine 25 MG TAB PO STA (13:39)
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
--- NOTE | 2022-11-28 14:39 | P.CONS ---
History of Present Illness - Reason for Consult Consult date: 11/28/22 - History of Present Illness This is a 47-year-old female with medical history of diabetes mellitus, fibromyalgia, rheumatoid arthritis, GERD, TIA. Patient is a type I diabetic and uses an insulin pump. Also has history of anxiety depression ADD with occasional alcohol and daily marijuana use. Patient reports 2 prior admissions to the mental health unit and states she felt like she was being pulled in multiple directions and felt worsening depression and decided to come to the hospital to seek help. She had complaints of suicidal ideation upon presentation to the for psychiatric evaluation. Currently she is denying any suicidal or homicidal ideations. Patient reports living by herself and on disability, does n ot work. There is conflict between her and her parents regarding her ex boyfriend patients states she has PPO against but wants to work things out and her parents are in disagreement and states they will "cut her off". Additionally there is a court case she is involved in which is also stressing her out. She is denying and chest pain, no shortness of breath. Having some nausea and heart burn requesting medication for this. Also requesting pain mediation for her sciatica as she uses THC at home and unable to take at the hospital. Workup showed normocytic anemia with a hemoglobin of 11.1. Sodium 131 patient is hyperglycemic with a blood sugar of 472 on admission, this low sodium can be due to the elevated blood glucose. Patient is off her insulin pump currently and will receive a dose of Levemir with scheduled and sliding scale insulin for this. Her urinalysis does show 4+ glucose and 2+ ketones this would be expected to be improved with treatment of hyperglycemia. Urine drug toxicology shows amphetamines and methamphetamines and marijuana. Covid is negative. Patient was admitted to the hospital for psychiatric evaluation with medicine consultation. REVIEW OF SYSTEMS: CONSTITUTIONAL: No fever, no malaise, no fatigue. HEENT: No recent visual problems or hearing problems. Denied any sore throat. CARDIOVASCULAR: No chest pain, orthopnea, PND, no palpitations, no syncope. PULMONARY: No shortness of breath, no cough, no hemoptysis. GASTROINTESTINAL: No diarrhea, no nausea, no vomiting, no abdominal pain. NEUROLOGICAL: No headaches, no weakness, no numbness. HEMATOLOGICAL: Denies any bleeding or petechiae. GENITOURINARY: Denies any burning micturition, frequency, or urgency. MUSCULOSKELETAL/RHEUMATOLOGICAL: Denies any joint pain, swelling, or any muscle pain. ENDOCRINE: Denies any polyuria or polydipsia. The rest of the 14-point review of systems is negative. PHYSICAL EXAMINATION: GENERAL: The patient is alert and oriented x3, not in any acute distress. Well developed, well nourished. HEENT: Pupils are round and equally reacting to light. EOMI. No scleral icterus. No conjunctival pallor. Normocephalic, atraumatic. No pharyngeal erythema. No thyromegaly. CARDIOVASCULAR: S1 and S2 present. No murmurs, rubs, or gallops. PULMONARY: Chest is clear to auscultation, no wheezing or crackles. ABDOMEN: Soft, nontender, nondistended, normoactive bowel sounds. No palpable organomegaly. MUSCULOSKELETAL: No joint swelling or deformity. EXTREMITIES: No cyanosis, clubbing, or pedal edema. NEUROLOGICAL: Gross neurological examination did not reveal any focal deficits. SKIN: No rashes. Assessment Depression and suicidal ideation Diabetes mellitus type 1 with hyperglycemia Recent hospitalization for DKA History of TIA Fibromyalgia Rheumatoid arthritis Gastroesophageal reflux disease Hyponatremia likely due to the hyperglycemia Anxiety depression History ADD Obesity Chronic low back pain GI prophylaxis DVT prophylaxis Early ambulation Full code Plan Continue off the insulin pump at this time Continue on accuchecks ACHS with Levemir BID, sliding scale and scheduled insulin All other medications per psychiatry Antiemetics and pain management will be added Full up TSH and A1C Thank you for this consultation we will follow along as needed this hospital stay The impression and plan of care has been dictated by Sheila Chavez, Nurse Practitioner as directed. Dr. Ortega MD I have performed a history and physical examination and medical decision making of this patient, discussed the same with the dictator, and agree with the dictators assessment and plan as written, documented as a scribe. Based on total visit time, I have performed more than 50% of this visit. Past Medical History Past Medical History: Chest Pain / Angina, CVA/TIA, Diabetes Mellitus, Fibromyalgia, GERD/Reflux, Rheumatoid Arthritis (RA), Syncope Additional Past Medical History / Comment(s): IDDM type I, hx DKA, hx TIA. "Neurocardiogenic Syncope -causes sudden drop in blood pressure syncope-has not happened in about 6 months". Multiple lipomas. History of Any Multi-Drug Resistant Organisms: None Reported Past Surgical History: Breast Surgery, Tubal Ligation, Uterine Ablation Additional Past Surgical History / Comment(s): Tilt table test, LEFT BREAST BIOPSY - BENIGN, left thigh lipoma removal X2, left breast lipoma removal X1. Past Anesthesia/Blood Transfusion Reactions: No Reported Reaction Past Psychological History: ADD/ADHD, Anxiety, Depression Additional Psychological History / Comment(s): She has a walker but since starting orencia treatments has not need to use it. She does not drive, her mother takes her to [employer]. Smoking Status: Never smoker Past Alcohol Use History: Rare Additional Past Alcohol Use History / Comment(s): Patient reports occasional alcohol use on special Past Drug Use History: Marijuana Additional Drug Use History / Comment(s): Pt states she smokes marijuana nightly for pain control and sleep. - Past Family History Mother Family Medical History: Asthma Additional Family Medical History / Comment(s): Depression, Colitis. Father History Unknown: Yes Family Medical History: Unable to Obtain Additional Family Medical History / Comment(s): Pt does not know who her father is. Medications and Allergies Home Medications Medication Instructions Recorded Confirmed Type Omeprazole [PriLOSEC] 20 mg PO DAILY 05/20/20 11/28/22 History DULoxetine HCL [Cymbalta] 60 mg PO DAILY 30 Days capsule. 12/16/20 11/28/22 Rx lamoTRIgine [LaMICtal] 25 mg PO BID 10/08/21 11/28/22 History Glucagon [Gvoke Pfs 1-Pack Syringe] 1 mg SQ DIRECTED PRN 11/16/22 11/28/22 History Insulin Aspart (For Pump) [NovoLOG 0.01 unit SQ-PUMP CONTINUOUS 11/16/22 11/28/22 History (For Pump)] Methylphenidate HCl 20 mg PO BID 11/16/22 11/28/22 History Metoclopramide [Reglan] 5 mg PO TID PRN #20 tab 11/18/22 11/28/22 Rx Loperamide [Imodium] 2 mg PO QID PRN #20 capsule 11/19/22 11/28/22 Rx Ondansetron Odt [Zofran Odt] 4 mg PO Q8HR PRN #20 tab 11/19/22 11/28/22 Rx Allergies Allergy/AdvReac Type Severity Reaction Status Date / Time paroxetine HCl [From Paxil] Allergy Rash/Hives Verified 11/27/22 18:00 sertraline HCl [From Zoloft] Allergy Rash/Hives Verified 11/27/22 18:00 Physical Exam Vitals: Vital Signs Temp Pulse Pulse Resp BP BP Pulse Ox 11/28/22 06:07 96.7 F L 85 16 105/61 97 11/27/22 17:49 97 18 131/74 99 Intake and Output 11/27/22 11/28/22 11/28/22 22:59 06:59 14:59 Other: Weight 74.843 kg 85.638 kg Results CBC & Chem 7: 11/28/22 12:07 11/28/22 12:07 Labs: Abnormal Lab Results - Last 24 Hours (Table) 11/27/22 11/27/22 11/27/22 Range/Units 22:40 22:40 23:30 Hgb (11.4-16.0) gm/dL RDW (11.5-15.5) % Sodium (137-145) mmol/L Glucose (74-99) mg/dL POC Glucose (mg/dL) 472 H (70-110) mg/dL Calcium (8.4-10.2) mg/dL Alkaline Phosphatase (38-126) U/L Total Protein (6.3-8.2) g/dL Albumin (3.5-5.0) g/dL Urine Glucose (UA) 4+ H (Negative) Urine Ketones 2+ H (Negative) Ur Amphetamines Screen Detected H (NotDetected) U Methamphetamines Scrn Detected H (NotDetected) U Marijuana (THC) Screen Detected H (NotDetected) 11/28/22 11/28/22 11/28/22 Range/Units 01:55 07:48 12:07 Hgb 11.1 L D (11.4-16.0) gm/dL RDW 15.7 H (11.5-15.5) % Sodium (137-145) mmol/L Glucose (74-99) mg/dL POC Glucose (mg/dL) 355 H 391 H (70-110) mg/dL Calcium (8.4-10.2) mg/dL Alkaline Phosphatase (38-126) U/L Total Protein (6.3-8.2) g/dL Albumin (3.5-5.0) g/dL Urine Glucose (UA) (Negative) Urine Ketones (Negative) Ur Amphetamines Screen (NotDetected) U Methamphetamines Scrn (NotDetected) U Marijuana (THC) Screen (NotDetected) 11/28/22 11/28/22 Range/Units 12:07 12:52 Hgb (11.4-16.0) gm/dL RDW (11.5-15.5) % Sodium 131 L (137-145) mmol/L Glucose 305 H (74-99) mg/dL POC Glucose (mg/dL) 245 H (70-110) mg/dL Calcium 8.3 L (8.4-10.2) mg/dL Alkaline Phosphatase 141 H (38-126) U/L Total Protein 5.5 L (6.3-8.2) g/dL Albumin 3.2 L (3.5-5.0) g/dL Urine Glucose (UA) (Negative) Urine Ketones (Negative) Ur Amphetamines Screen (NotDetected) U Methamphetamines Scrn (NotDetected) U Marijuana (THC) Screen (NotDetected) Assessment and Plan Time with Patient: Less than 30
[2022-11-28] MEDS: MAG HYDROX/AL HYDROX/SIMETH 30 ML CUP PO PRN ×2 (14:48→18:41)
[2022-11-28 17:50] LABS: Glucose,Whole Blood 168 mg/dL (70-110)
[2022-11-28 19:59] LABS: Glucose,Whole Blood 221 mg/dL (70-110)
[2022-11-28] MEDS: OLANZapine ODT 5 MG TAB PO SCH (20:37)
[2022-11-28] MEDS: INSULIN DETEMIR (LEVEMIR) 100 UNIT/ML SYR SQ SCH (20:37)
[2022-11-28] MEDS: IBUPROFEN 600 MG TAB PO PRN (20:39)
[2022-11-28] MEDS: traZODone HCL 50 MG TAB PO PRN (20:39)
[2022-11-29 06:20] LABS: Chol/HDL Ratio 2.88 Ratio; LDL Cholesterol,Calculated 87.2 mg/dL (0.0-131.0); VLDL Calculation 13.28 mg/dL (5.00-40.00)
[2022-11-29 07:55] LABS: Glucose,Whole Blood 178 mg/dL (70-110)
[2022-11-29] MEDS ORDERED: DULoxetine HCL 60 MG CAPSULE.DR PO SCH (09:00)
[2022-11-29] MEDS: INSULIN ASPART (NovoLOG) 100 UNIT/ML VIAL SQ SCH ×7 (09:13→20:47)
[2022-11-29] MEDS: INSULIN DETEMIR (LEVEMIR) 100 UNIT/ML SYR SQ SCH ×2 (09:13→20:48)
[2022-11-29] MEDS: lamoTRIgine 100 MG TAB PO SCH (09:14)
[2022-11-29] MEDS: PANTOPRAZOLE 40 MG TABLET PO SCH (09:14)
[2022-11-29] MEDS: NICOTINE 14MG/24HR PATCH TRANSDERM SCH ×2 (09:14→09:20)
[2022-11-29] MEDS ORDERED: hydrOXYzine HCL 50 MG/ML 1 ML VIAL IM PRN (12:30)
[2022-11-29] MEDS ORDERED: hydrOXYzine pamoate 25 MG CAP PO PRN (12:30)
[2022-11-29 12:31] LABS: Glucose,Whole Blood 239 mg/dL (70-110)
[2022-11-29 13:24] VITALS: BMI 33.4
--- NOTE | 2022-11-29 14:22 | P.PN ---
Progress Note - Text Progress Note Date: 11/29/22 Interval History: Patient was seen resting in bed and was directable and agreeable to speak with rewriter in her room. She is currently reporting suicidal ideation however denies any homicidal ideation. She remains minimal and conversations stating that she is too tired today. She reports that she had difficulty with sleep last night. She is not endorsing any acute issues or concerns. However, the patient does not wish to engage in a full psychiatric interview at this time. Mental Status Exam: General Appearance: Patient appears to be stated age is somnolent, directable, and cooperative. Behavior: Patient is very somnolent. Speech: Patient's speech is fluent and nonpressured. Nonspontaneous, low in volume, slightly slurred. Mood/Affect: Mood is "very tired." affect is congruent and somnolent Suicidality/Homicidality: Patient reports suicidal ideation however denies any homicidal ideation. Perceptions: unable to assess Though content/process: Unable to assess Memory and concentration: Grossly poor this time Judgment and insight: Poor Vital Signs Temp 97.8 F 11/29/22 10:00 Pulse 73 11/29/22 10:00 Resp 15 11/29/22 10:00 BP 121/55 11/29/22 10:00 Pulse Ox 96 11/29/22 10:00 FiO2 Intake & Output 11/28/22 11/29/22 11/29/22 18:59 06:59 18:59 Weight 85.638 kg Laboratory Results - Last 24 Hours 11/28/22 11/28/22 11/28/22 12:07 12:07 17:49 POC Glucose (mg/dL) 168 H POC Glu [employer] ID Chaitanya Bourne [address] Glu mg/dL 223 Hemoglobin A1c 9.4 H Triglycerides 66.40 Cholesterol 154.00 LDL Cholesterol, Calc 87.2 VLDL Cholesterol, Calc 13.28 HDL Cholesterol 53.50 Cholesterol/HDL Ratio 2.88 11/28/22 11/29/22 11/29/22 19:56 07:53 12:29 POC Glucose (mg/dL) 221 H 178 H 239 H POC Glu [employer] ID Truman Flood, Jamee Laguerre [address] Glu mg/dL Hemoglobin A1c Triglycerides Cholesterol LDL Cholesterol, Calc VLDL Cholesterol, Calc HDL Cholesterol Cholesterol/HDL Ratio Assessment Cyclothymic disorder PTSD Plan: -Patient continues to meet criteria for inpatient psychiatric admission for symptom stabilization and safety. Patient has signed adult voluntary form and medication consent and was placed in patient's chart. -Medications: Decrease Cymbalta to 30 mg by mouth daily due to concerns for oversedation Continue Lamictal 100 mg daily for mood stabilization Continue Zyprexa Zydis 5 mg by mouth at bedtime for mood stabilization Trazodone 50 mg daily at bedtime when necessary for insomnia discontinue Ativan and change to Vistaril due to concerns for oversedation -When necessary Haldol and Vistaril for agitation/aggression. -NRT - nicotine patch -SW on board for discharge planning. Encouraged the patient to participate in milieu.
[2022-11-29 17:44] LABS: Glucose,Whole Blood 113 mg/dL (70-110)
--- NOTE | 2022-11-29 18:49 | P.PN ---
Progress Note - Text Progress Note Date: 11/29/22 This is a 47-year-old female with medical history of diabetes mellitus, fibromyalgia, rheumatoid arthritis, GERD, TIA. Patient is a type I diabetic and uses an insulin pump. Also has history of anxiety depression ADD with occasional alcohol and daily marijuana use. Patient reports 2 prior admissions to the mental health unit and states she felt like she was being pulled in multiple directions and felt worsening depression and decided to come to the hospital to seek help. She had complaints of suicidal ideation upon presentation to the for psychiatric evaluation. Currently she is denying any suicidal or homicidal ideations. Patient reports living by herself and on disability, does not work. There is conflict between her and her parents regarding her ex boyfriend patients states she has PPO against but wants to work things out and her parents are in disagreement and states they will "cut her off". Additionally there is a court case she is involved in which is also stressing her out. She is denying and chest pain, no shortness of breath. Having some nausea and heart burn requesting medication for this. Also requesting pain mediation for her sciatica as she uses THC at home and unable to take at the hospital. Workup showed normocytic anemia with a hemoglobin of 11.1. Sodium 131 patient is hyperglycemic with a blood sugar of 472 on admission, this low sodium can be due to the elevated blood glucose. Patient is off her insulin pump currently and will receive a dose of Levemir with scheduled and sliding scale insulin for this. Her urinalysis does show 4+ glucose and 2+ ketones this would be expected to be improved with treatment of hyperglycemia. Urine drug toxicology shows amphetamines and methamphetamines and marijuana. Covid is negative. Patient was admitted to the hospital for psychiatric evaluation with medicine consultation. 11/29/2022: Patient sleeping in bed. Very sleepy. Does wake up also questioned her doses of right away. I confirmed with the staff patient eating breakfast. stat Accu-Chek was 239 to rule out hypoglycemia. Patient is no focal symptoms. Had walked to the lunchroom this morning. Breakfast. Patient confirms having used her pump at home now trouble. Currently on insulin scheduled. Active Medications Acetaminophen (Acetaminophen Tab 325 Mg Tab) 650 mg PO Q4HR PRN PRN Reason: Mild Pain (Scale 1 to 3) Al Hydroxide/Mg Hydroxide (Mag Hydrox/Al Hydrox/Simeth 30 Ml Cup) 30 ml PO Q4HR PRN PRN Reason: GI Upset Last Admin: 11/28/22 18:41 Dose: 30 ml Dextrose/Water (Dextrose 50% Syringe 50 Ml) 25 ml IVP PER PROTOCOL PRN; Protocol PRN Reason: Hypoglycemia Dextrose/Water (Dextrose 50% Syringe 50 Ml) 50 ml IVP PER PROTOCOL PRN; Protocol PRN Reason: Hypoglycemia Duloxetine HCl (Duloxetine Hcl 30 Mg Capsule.Dr) 30 mg PO DAILY [facility] Haloperidol (Haloperidol 5 Mg Tab) 5 mg PO Q6HR PRN PRN Reason: Agitation Haloperidol Lactate (Haloperidol Lactate 5 Mg/Ml 1 Ml Vial) 5 mg IM Q6HR PRN PRN Reason: Severe Agitation Hydroxyzine HCl (Hydroxyzine Hcl 50 Mg/Ml 1 Ml Vial) 50 mg IM Q6HR PRN PRN Reason: Agitation Hydroxyzine Pamoate (Hydroxyzine Pamoate 25 Mg Cap) 25 mg PO Q6HR PRN PRN Reason: Anxiety Ibuprofen (Ibuprofen 600 Mg Tab) 600 mg PO Q6HR PRN PRN Reason: Moderate Pain (Scale 4 to 6) Last Admin: 11/28/22 20:39 Dose: 600 mg Insulin Aspart (Insulin Aspart (Novolog) 100 Unit/Ml Vial) 0 unit SQ [facility]; Protocol Last Admin: 11/29/22 17:45 Dose: Not Given Insulin Aspart (Insulin Aspart (Novolog) 100 Unit/Ml Vial) 4 unit SQ AC-TID [facility] Last Admin: 11/29/22 18:09 Dose: 4 unit Insulin Detemir (Insulin Detemir (Levemir) 100 Unit/Ml Syr) 15 unit SQ BID@0700,2100 [facility] Last Admin: 11/29/22 09:13 Dose: 15 unit Lamotrigine (Lamotrigine 100 Mg Tab) 100 mg PO DAILY [facility] Last Admin: 11/29/22 09:14 Dose: 100 mg Loperamide HCl (Loperamide 2 Mg Cap) 2 mg PO QID PRN PRN Reason: Diarrhea Magnesium Hydroxide (Magnesium Hydroxide 2,400 Mg/30 Ml Cup) 2,400 mg PO DAILY PRN PRN Reason: Constipation Nicotine (Nicotine 14mg/24hr Patch) 1 patch TRANSDERM DAILY [facility] Last Admin: 11/29/22 09:20 Dose: Not Given Olanzapine (Olanzapine Odt 5 Mg Tab) 5 mg PO HS [facility] Last Admin: 11/28/22 20:37 Dose: 5 mg Ondansetron HCl (Ondansetron Odt 4 Mg Tab) 4 mg PO Q8HR PRN PRN Reason: Nausea Last Admin: 11/28/22 18:42 Dose: 4 mg Pantoprazole Sodium (Pantoprazole 40 Mg Tablet) 40 mg PO DAILY [facility] Last Admin: 11/29/22 09:14 Dose: 40 mg Trazodone HCl (Trazodone Hcl 50 Mg Tab) 50 mg PO HS PRN PRN Reason: Insomnia Last Admin: 11/28/22 20:39 Dose: 50 mg Past medical history: Fibromyalgia, GERD, diabetes mellitus type 1, rheumatoid arthritis, anxiety, depression,, multiple lipomas Past surgical history: Breast surgery, tubal ligation, uterine ablation, Past psych history: -anxiety, depression, ADHD Social history: Patient lives with her mother. No smoking. History of doing marijuana in the past. . disability Physical examination: VITAL SIGNS: 97.8, 73, 15, 121/55, 96% room air GENERAL: Very sleepy, arousable but answer questions and doses off EYES: Pupils equal. Conjunctiva normal. NECK: JVD unable to assess; masses not palpable. HEART: First and second heart sounds are normal; no edema. LUNGS: Respiratory rate increased, clear to auscultation. ABDOMEN: Soft, nontender, liver spleen not palpable, no masses palpable. PSYCH: Unable to assess patient very sleepy. INVESTIGATIONS, reviewed in the clinical context: Accu-Cheks today: 178, 239 Assessment and plan: -Cyclothymic disorder, PTSD. Being followed by psychiatry. -Diabetmellitus type I, uncontrolled with hyperglycemia On insulin pump which has been taken off as it is not allowed psychiatry unit. She was scheduled Levemir and NovoLog. Sliding scale. Eating fair. -Chronic fibromyalgia Tylenol when necessary -GERD Protonix -Rheumatoid arthritis Tylenol as needed At the present time will continue with current dose of insulin. Discussed with the staff. We'll follow.
[2022-11-29 20:35] LABS: Glucose,Whole Blood 147 mg/dL (70-110)
[2022-11-29] MEDS: OLANZapine ODT 5 MG TAB PO SCH (20:48)
[2022-11-29] MEDS: traZODone HCL 50 MG TAB PO PRN (20:49)
[2022-11-29] MEDS: IBUPROFEN 600 MG TAB PO PRN (20:49)
[2022-11-30 07:08] VITALS: BP 122/57; PULSE 66; RESP 16; TEMP 98.6
[2022-11-30 07:52] LABS: Glucose,Whole Blood 217 mg/dL (70-110)
[2022-11-30] MEDS: INSULIN DETEMIR (LEVEMIR) 100 UNIT/ML SYR SQ SCH (08:00)
[2022-11-30] MEDS: PANTOPRAZOLE 40 MG TABLET PO SCH (08:00)
[2022-11-30] MEDS: INSULIN ASPART (NovoLOG) 100 UNIT/ML VIAL SQ SCH ×4 (08:00→12:51)
[2022-11-30] MEDS: lamoTRIgine 100 MG TAB PO SCH (08:00)
[2022-11-30] MEDS: NICOTINE 14MG/24HR PATCH TRANSDERM SCH (08:01)
[2022-11-30] MEDS ORDERED: DULoxetine HCL 30 MG CAPSULE.DR PO SCH (09:00)
--- NOTE | 2022-11-30 11:59 | P.DS ---
Providers Date of admission: 11/28/22 04:29 Expected date of discharge: 11/30/22 Attending physician: Nicholas Luther MD Consults: 11/28/22 02:48 Consult Physician Routine Consulting Provider: Ashvin Bundy Consult Reason/Comments: h and p Do you want consulting provider notified?: Yes, Notify in am Primary care physician: Kevin Ruiz - Discharge Diagnosis(es) (1) Cyclothymic disorder Current Visit: Yes Status: Acute Priority: High (2) Cluster B personality disorder Current Visit: Yes Status: Chronic Priority: Medium (3) PTSD (post-traumatic stress disorder) Current Visit: Yes Status: Chronic Priority: Medium Hospital Course: Admission HPI: Initial psychiatric evaluation was completed by Dr. Dotson who wrote: 47-year-old female presents to the emergency department chief complaint of suicidal ideation. Subjective: She reports that she has been under a significant amount of stress lately with her boyfriend and her mom and stepdad. Her mom and stepdad say that she doesn't leave the boyfriend they won't have anything to do with her, so she got PPO against her boyfriend but felt that she was forced into it and that the relationship was still workable.. She states that she started experiencing feelings of wanting to harm herself recently. She reports a plan to hurt herself. She denies homicidal ideation. Denies hallucinations or delusions. However she complains of an inner voice that is always criticizing and telling her what to do but feels it is her own voice. Her main complaint is that her moods fluctuate all over the place she'll go from 0-60 agitation or no apparent reason spend money inappropriately talk a lot and feel like she is racing and then go into depression. She was placed on Lamictal for that at 50 mg and feels that it has been somewhat helpful but that she needs more. Past history She reports that she has been hospitalized in the past. She had been tried on Zoloft which bothered her stomach, Paxil which gave her hives, Effexor which she was able tolerate by taking stomach medicine. She took Effexor with Wellbutrin ingestion seem to work Prozac with Wellbutrin still then more she was then moved to [facility] which seemed to work for a while and then quite so now she's been on Cymbalta 60 mg for about 2 years but it seems not to be working. Hospital course: Upon admission to the unit patient was initially presenting as alert, cooperative, with a serious affect. Patient was however directable and agreeable to commence treatment. Patient got along well with other patients on the unit and followed unit protocol. Patient was compliant with the medications and denied any side effects throughout hospital course. Patient was started on Zyprexa and Lamictal in order to address agitation and mood stability. She was also continued on her home medication of Cymbalta. Patient spoke of her stressors and engaged in therapy. However, the patient remained primarily isolative to herself in her room. The patient did express concerns for oversedation with the medications and therefore her Cymbalta was decreased. On this regimen of Cymbalta, Lamictal, and Zyprexa, the patient displayed significant improvement in regards her target symptoms of mood and suicidal thoughts. She became more future and goal oriented. She reported no side effects of her medications and has been adherent. Patient was also seen by medical team for history and physical exam. On the day of discharge, the patient is not reporting any suicidal or homicidal ideation, intention, and/or plan. She is not reporting any auditory or visual hallucinations. She is denying any paranoia or other delusions. She has been adherent with her medications and is not reporting any significant side effects. She denies any medical issues or concerns. She reports no new rashes, hea dache, chest pain, shortness of breath, palpitations, akathisia, or tardive dyskinesia. She was counseled at length the importance of medication adherence and appropriate outpatient follow-up. As the patient no longer expressed any suicidal thoughts, she did not meet criteria for continued inpatient psychiatric hospitalization and was subsequently discharged after appropriate safety planning. Mental status exam: General Appearance: Patient appears to be stated age is alert, pleasant, and cooperative. Patient is in no acute distress and has fair hygiene and grooming Behavior: She is calmly lying down in bed without any agitated behavior. Speech: Patient's speech is fluent and nonpressured. Mood/Affect: Patient reports their mood is "I'm okay", affect is congruent and constricted. Suicidality/Homicidality: Patient reports no suicidal or homicidal ideation, intention, and/or plan. Perceptions: Patient denies any auditory or visual hallucinations. Though content/process: There is no evidence of any delusional thought content and thought process is linear and goal-directed. Memory and concentration: AOX3, grossly intact for the purposes of this session. Can spell "WORLD" backwards correctly. Judgment and insight: Improved with guarded prognosis Impression: Cyclothymic disorder PTSD Cluster B personality disorder Plan: -Continue with discharge today as patient has improved and stabilized psychiatrically and is not currently an imminent threat to herself and/or others. Patient will remain at elevated risk for self-harm due to cluster B personality traits and poor frustration tolerance. -Continue medications: Cymbalta 30 mg by mouth daily for depression/anxiety Lamictal 100 mg by mouth daily for mood stabilization Zyprexa Zydis 5 mg by mouth at bedtime for mood stabilization -Patient was counseled on the need for medication compliance and appropriate follow-up at mental health and also primary care for medical issues. Patient verbalized understanding and agreed. -Social work to arrange for and conduct family meeting to ensure safety upon discharge and answer any questions/concerns. Social work also to arrange for patients follow up appointments for psychiatric care along with follow up with primary care provider. -Patient counseled on abstaining from recreational drugs and marijuana and alcohol. Was informed/educated on the adverse effects on their physical and mental health. Patient verbally agreed and understood. -Patient was instructed to return to the hospital or seek immediate medical care if their psychiatric or medical symptoms do worsen or reoccur. -Psychoeducation and supportive therapy provided to patient. Risks and benefits of pharmacological treatment versus the risks and benefits of nontreatment weighed and discussed. Informed consent discussion held. Common side effects of psychotropics discussed such as, but not limited to headache, GI disturbance, sexual dysfunction, movement disorders, sedation, and orthostatic hypotension. Life threatening and blackbox warnings of prescribed medications also discussed. Potential risks of operating a vehicle or heavy machinery discussed with patient at length. Advised on importance of compliance and a reliable and responsible manner. Patient advised to review FDA consumer labeling of all medications prior to taking. Patient verbalized understanding of potential risks, and agrees with current treatment plan. Patient advised to medically contact physician/emergency personnel if any acute changes in condition occur. Vital Signs Temp 98.6 F 11/30/22 07:07 Pulse 66 11/30/22 07:07 Resp 16 11/30/22 07:07 BP 122/57 11/30/22 07:07 Pulse Ox 97 11/30/22 07:07 FiO2 Intake & Output 11/29/22 11/30/22 11/30/22 18:59 06:59 18:59 Weight 85.638 kg Laboratory Results WBC 4.0 k/uL (3.8-10.6) 11/28/22 12:07 RBC 4.34 m/uL (3.80-5.40) 11/28/22 12:07 Hgb 11.1 gm/dL (11.4-16.0) L D 11/28/22 12:07 Hct 34.8 % (34.0-46.0) 11/28/22 12:07 MCV 80.0 fL (80.0-100.0) 11/28/22 12:07 MCH 25.6 pg (25.0-35.0) 11/28/22 12:07 MCHC 32.0 g/dL (31.0-37.0) 11/28/22 12:07 RDW 15.7 % (11.5-15.5) H 11/28/22 12:07 Plt Count 221 k/uL (150-450) 11/28/22 12:07 MPV 7.8 11/28/22 12:07 Neutrophils % 44 % 11/28/22 12:07 Lymphocytes % 47 % 11/28/22 12:07 Monocytes % 6 % 11/28/22 12:07 Eosinophils % 0 % 11/28/22 12:07 Basophils % 0 % 11/28/22 12:07 Neutrophils # 1.8 k/uL (1.3-7.7) 11/28/22 12:07 Lymphocytes # 1.9 k/uL (1.0-4.8) 11/28/22 12:07 Monocytes # 0.3 k/uL (0-1.0) 11/28/22 12:07 Eosinophils # 0.0 k/uL (0-0.7) 11/28/22 12:07 Basophils # 0.0 k/uL (0-0.2) 11/28/22 12:07 Hypochromasia Slight 11/28/22 12:07 Sodium 131 mmol/L (137-145) L 11/28/22 12:07 Potassium 4.1 mmol/L (3.5-5.1) 11/28/22 12:07 Chloride 101 mmol/L (98-107) 11/28/22 12:07 Carbon Dioxide 25 mmol/L (22-30) 11/28/22 12:07 Anion Gap 5 mmol/L 11/28/22 12:07 BUN 16 mg/dL (7-17) 11/28/22 12:07 Creatinine 0.64 mg/dL (0.52-1.04) 11/28/22 12:07 Est GFR (CKD-EPI)AfAm >90 (>60 ml/min/1.73 sqM) 11/28/22 12:07 Est GFR (CKD-EPI)NonAf >90 (>60 ml/min/1.73 sqM) 11/28/22 12:07 Glucose 305 mg/dL (74-99) H 11/28/22 12:07 POC Glucose (mg/dL) 217 mg/dL (70-110) H 11/30/22 07:51 POC Glu [employer] And [employer] ID Jamee Gale 11/30/22 07:[address] Glu mg/dL 223 mg/dL 11/28/22 12:07 Hemoglobin A1c 9.4 % (<=6.0) H 11/28/22 12:07 Calcium 8.3 mg/dL (8.4-10.2) L 11/28/22 12:07 Total Bilirubin 0.4 mg/dL (0.2-1.3) 11/28/22 12:07 AST 20 U/L (14-36) 11/28/22 12:07 ALT 20 U/L (4-34) 11/28/22 12:07 Alkaline Phosphatase 141 U/L (38-126) H 11/28/22 12:07 Total Protein 5.5 g/dL (6.3-8.2) L 11/28/22 12:07 Albumin 3.2 g/dL (3.5-5.0) L 11/28/22 12:07 Triglycerides 66.40 mg/dL (0.00-149.00) 11/28/22 12:07 Cholesterol 154.00 mg/dL (0.00-200.00) 11/28/22 12:07 LDL Cholesterol, Calc 87.2 mg/dL (0.0-131.0) 11/28/22 12:07 VLDL Cholesterol, Calc 13.28 mg/dL (5.00-40.00) 11/28/22 12:07 HDL Cholesterol 53.50 mg/dL (40.00-60.00) 11/28/22 12:07 Cholesterol/HDL Ratio 2.88 Ratio 11/28/22 12:07 TSH 0.580 mIU/L (0.465-4.680) 11/28/22 12:07 Urine Color Yellow 11/27/22 22:40 Urine Appearance Clear (Clear) 11/27/22 22:40 Urine pH 6.0 (5.0-8.0) 11/27/22 22:40 Ur Specific Bryant 1.027 (1.001-1.035) 11/27/22 22:40 Urine Protein Negative (Negative) 11/27/22 22:40 Urine Glucose (UA) 4+ (Negative) H 11/27/22 22:40 Urine Ketones 2+ (Negative) H 11/27/22 22:40 Urine Blood Negative (Negative) 11/27/22 22:40 Urine Nitrite Negative (Negative) 11/27/22 22:40 Urine Bilirubin Negative (Negative) 11/27/22 22:40 Urine Urobilinogen <2.0 mg/dL (<2.0) 11/27/22 22:40 Ur Leukocyte Esterase Negative (Negative) 11/27/22 22:40 Urine HCG, Qual Not Detected (Not Detectd) 11/27/22 22:40 Urine Opiates Screen Not Detected (NotDetected) 11/27/22 22:40 Ur Oxycodone Screen Not Detected (NotDetected) 11/27/22 22:40 Urine Methadone Screen Not Detected (NotDetected) 11/27/22 22:40 Ur Propoxyphene Screen Not Detected (NotDetected) 11/27/22 22:40 Ur Barbiturates Screen Not Detected (NotDetected) 11/27/22 22:40 U Tricyclic Antidepress Not Detected (NotDetected) 11/27/22 22:40 Ur Phencyclidine Scrn Not Detected (NotDetected) 11/27/22 22:40 Ur Amphetamines Screen Detected (NotDetected) H 11/27/22 22:40 U Methamphetamines Scrn Detected (NotDetected) H 11/27/22 22:40 U Benzodiazepines Scrn Not Detected (NotDetected) 11/27/22 22:40 Urine Cocaine Screen Not Detected (NotDetected) 11/27/22 22:40 U Marijuana (THC) Screen Detected (NotDetected) H 11/27/22 22:40 Coronavirus (PCR) Not Detected (Not Detectd) 11/28/22 03:29 Allergies Allergy/AdvReac Type Severity Reaction Status Date / Time paroxetine HCl [From Paxil] Allergy Rash/Hives Verified 11/27/22 18:00 sertraline HCl [From Zoloft] Allergy Rash/Hives Verified 11/27/22 18:00 Patient Condition at Discharge: Stable Plan - Discharge Summary Discharge Rx Participant: No New Discharge Prescriptions: New DULoxetine HCL [Cymbalta] 30 mg PO DAILY 30 Days #30 cap lamoTRIgine [LaMICtal] 100 mg PO DAILY 30 Days #30 tab OLANZapine ODT [ZyPREXA Zydis] 5 mg PO HS 30 Days #30 tab Continue Omeprazole [PriLOSEC] 20 mg PO DAILY Insulin Aspart (For Pump) [NovoLOG (For Pump)] 0.01 unit SQ-PUMP CONTINUOUS Loperamide [Imodium] 2 mg PO QID PRN #20 capsule PRN Reason: Diarrhea Ondansetron Odt [Zofran ODT] 4 mg PO Q8HR PRN #20 tab PRN Reason: Nausea Methylphenidate HCl 20 mg PO BID Glucagon [Gvoke Pfs 1-Pack Syringe] 1 mg SQ DIRECTED PRN PRN Reason: Hypoglycemia Metoclopramide [Reglan] 5 mg PO TID PRN #20 tab PRN Reason: Nausea Discontinued DULoxetine HCL [Cymbalta] 60 mg PO DAILY 30 Days capsule. lamoTRIgine [LaMICtal] 25 mg PO BID Discharge Medication List Omeprazole [PriLOSEC] 20 mg PO DAILY 05/20/20 [History] Glucagon [Gvoke Pfs 1-Pack Syringe] 1 mg SQ DIRECTED PRN 11/16/22 [History] Insulin Aspart (For Pump) [NovoLOG (For Pump)] 0.01 unit SQ-PUMP CONTINUOUS 11/16/22 [History] Methylphenidate HCl 20 mg PO BID 11/16/22 [History] Metoclopramide [Reglan] 5 mg PO TID PRN #20 tab 11/18/22 [Rx] Loperamide [Imodium] 2 mg PO QID PRN #20 capsule 11/19/22 [Rx] Ondansetron Odt [Zofran ODT] 4 mg PO Q8HR PRN #20 tab 11/19/22 [Rx] DULoxetine HCL [Cymbalta] 30 mg PO DAILY 30 Days #30 cap 11/30/22 [Rx] OLANZapine ODT [ZyPREXA Zydis] 5 mg PO HS 30 Days #30 tab 11/30/22 [Rx] lamoTRIgine [LaMICtal] 100 mg PO DAILY 30 Days #30 tab 11/30/22 [Rx] Follow up Appointment(s)/Referral(s): Kevin Ruiz DO [Primary Care Provider] - 1-2 days Activity/Diet/Wound Care/Special Instructions: Avoid the use of street drugs and alcohol. Take all medications as prescribed. When you are in need of refills on your medications, please contact your medical provider and/or outpatient psychiatrist/provider to have this done. Please go to your scheduled outpatient appointment for aftercare treatment. If symptoms return or become worse, call the crisis line at and/or go to the nearest emergency room for evaluation. National Suicide Hotline 465.
[2022-11-30 12:49] LABS: Glucose,Whole Blood 292 mg/dL (70-110)
== END 2022-11-30 14:00 | disposition home or self-care (01) | DRG 883 ==
LOC: EC 17:47 → 3MHU 11-28 04:29
PROVIDERS: ADMIT Psychiatry & Neurology Psychiatry; ATTEND Psychiatry & Neurology Psychiatry
DX: F34.0 Cyclothymic disorder (principal); R45.851 Suicidal ideations; E87.1 Hypo-osmolality and hyponatremia; E10.65 Type 1 diabetes mellitus with hyperglycemia; D64.9 Anemia, unspecified; F60.89 Other specific personality disorders; M06.9 Rheumatoid arthritis, unspecified; Z79.4 Long term (current) use of insulin; Z20.822 Contact with and (suspected) exposure to COVID-19; F43.10 Post-traumatic stress disorder, unspecified; F90.9 Attention-deficit hyperactivity disorder, unspecified type; F41.8 Other specified anxiety disorders; M79.7 Fibromyalgia; M54.40 Lumbago with sciatica, unspecified side; E66.9 Obesity, unspecified; Z68.33 Body mass index [BMI] 33.0-33.9, adult; K21.9 Gastro-esophageal reflux disease without esophagitis; K59.00 Constipation, unspecified; G89.29 Other chronic pain; G47.00 Insomnia, unspecified; F12.90 Cannabis use, unspecified, uncomplicated; Z79.899 Other long term (current) drug therapy; Z96.41 Presence of insulin pump (external) (internal); Z86.73 Personal history of transient ischemic attack (TIA), and cerebral infarction without residual deficits; Z71.6 Tobacco abuse counseling; Z71.3 Dietary counseling and surveillance; Z88.8 Allergy status to other drugs, medicaments and biological substances; Z81.8 Family history of other mental and behavioral disorders
CPT/HCPCS: 36415; 80053; 80061; 80306; 81003; 81025; 82075; 83036; 84443; 85025; 87635; 99285

== ENCOUNTER 2023-03-21 06:57 | Emergency (ER) | payer MEDICARE, OTHER ==
--- NOTE | 2023-03-21 07:12 | ED ---
General Adult HPI - General Stated complaint: Vomitting Time Seen by Provider: 03/21/23 07:11 Source: patient, RN notes reviewed Mode of arrival: ambulatory Limitations: no limitations - History of Present Illness Initial comments: 48-year-old female presents emergency Department chief complaint of nausea vomiting. Patient states she is a type I diabetic states that she is concerned about DKA. Patient states that she started vomiting yesterday she is unsure what her blood sugars that she has not checked it. Patient states she was an insulin pump but states that her site went bad so she is on current injections. - Related Data Home Medications Medication Instructions Recorded Confirmed Glucagon [Gvoke Pfs 1-Pack Syringe] 1 mg SQ DIRECTED PRN 11/16/22 01/10/23 Previous Rx's Medication Instructions Recorded DULoxetine HCL [Cymbalta] 60 mg PO HS 30 Days #30 cap 01/13/23 Insulin Aspart (For Pump) [NovoLOG 0.01 unit SQ-PUMP CONTINUOUS 30 01/13/23 (For Pump)] Days #4 each Loperamide [Imodium] 2 mg PO TID PRN 30 Days #90 cap 01/13/23 Omeprazole [PriLOSEC] 20 mg PO DAILY 30 Days #30 cap 01/13/23 QUEtiapine [SEROquel] 25 mg PO DAILY PRN 30 Days #30 tab 01/13/23 QUEtiapine [SEROquel] 25 mg PO HS 30 Days #30 tab 01/13/23 lamoTRIgine [LaMICtal] 100 mg PO HS 30 Days #30 tab 01/13/23 Ondansetron Odt [Zofran Odt] 4 mg PO Q8HR PRN #10 tab 03/21/23 Allergies Allergy/AdvReac Type Severity Reaction Status Date / Time paroxetine HCl [From Paxil] Allergy Rash/Hives Verified 03/21/23 07:36 sertraline HCl [From Zoloft] Allergy Rash/Hives Verified 03/21/23 07:36 Review of Systems ROS Statement: Those systems with pertinent positive or pertinent negative responses have been documented in the HPI. ROS Other: All systems not noted in ROS Statement are negative. Past Medical History Past Medical History: Chest Pain / Angina, CVA/TIA, Diabetes Mellitus, Fibromyalgia, GERD/Reflux, Rheumatoid Arthritis (RA), Syncope Additional Past Medical History / Comment(s): IDDM type I, hx DKA, hx TIA. "Neurocardiogenic Syncope -causes sudden drop in blood pressure syncope-has not happened in about 6 months". Multiple lipomas. History of Any Multi-Drug Resistant Organisms: None Reported Past Surgical History: Breast Surgery, Tubal Ligation, Uterine Ablation Additional Past Surgical History / Comment(s): Tilt table test, LEFT BREAST BIOPSY - BENIGN, left thigh lipoma removal X2, left breast lipoma removal X1. Past Anesthesia/Blood Transfusion Reactions: No Reported Reaction Past Psychological History: ADD/ADHD, Anxiety, Depression Additional Psychological History / Comment(s): She has a walker but since starting orencia treatments has not need to use it. She does not drive, her mother takes her to [employer]. Smoking Status: Never smoker Past Alcohol Use History: Rare Additional Past Alcohol Use History / Comment(s): Patient reports occasional alcohol use on special Past Drug Use History: Marijuana Additional Drug Use History / Comment(s): Pt states she smokes marijuana nightly for pain control and sleep. - Past Family History Mother Family Medical History: Asthma Additional Family Medical History / Comment(s): Depression, Colitis. Father History Unknown: Yes Family Medical History: Unable to Obtain Additional Family Medical History / Comment(s): Pt does not know who her father is. General Exam - General Exam Comments Initial Comments: Visual Physical Exam Vital signs reviewed General: Well-appearing, nontoxic, no acute distress. Head: Normocephalic, atraumatic Eyes: PERRLA, EOMI ENT: Airway patent Chest: Nonlabored breathing Skin: No visual rash, normal skin tone Neuro: Alert and oriented 3 Musculoskeletal: No gross abnormalities General appearance: alert, in no apparent distress Head exam: Present: atraumatic, normocephalic, normal inspection Eye exam: Present: normal appearance, PERRL, EOMI. Absent: scleral icterus, conjunctival injection, periorbital swelling ENT exam: Present: normal exam, normal oropharynx, mucous membranes moist Neck exam: Present: normal inspection, full ROM. Absent: tenderness, meningismus, lymphadenopathy Respiratory exam: Present: normal lung sounds bilaterally. Absent: respiratory distress, wheezes, rales, rhonchi, stridor Cardiovascular Exam: Present: regular rate, normal rhythm, normal heart sounds. Absent: systolic murmur, diastolic murmur, rubs, gallop, clicks GI/Abdominal exam: Present: soft, normal bowel sounds. Absent: distended, tenderness, guarding, rebound, rigid Course Vital Signs 03/21/23 03/21/23 07:34 11:05 Temperature 97.6 F Pulse Rate 106 H 108 H Respiratory 18 18 Rate Blood Pressure 126/84 115/71 O2 Sat by Pulse 96 100 Oximetry Medical Decision Making - Medical Decision Making I completed the quick note portion of this chart signed Darian Bush PA-C Was pt. sent in by a medical professional or institution ([facility], [employer], urgent care, hospital, or fdc...) When possible be specific @ -No Did you speak to anyone other than the patient for history (EMS, parent, family, police, friend...)? What history was obtained from this source @ -No Did you review nursing and triage notes (agree or disagree)? Why? @ -I reviewed and agree with nursing and triage notes Were old charts reviewed (outside hosp., previous admission, EMS record, old EKG, old radiological studies, urgent care reports/EKG's, fdc records)? Report findings @ -No old charts were reviewed Differential Diagnosis (chest pain, altered mental status, abdominal pain women, abdominal pain men, vaginal bleeding, weakness, fever, dyspnea, syncope, headache, dizziness, GI bleed, back pain, seizure, CVA, palpatations, mental health, musculoskeletal)? @ -Differential Abdominal Pain Women: Appendicitis, Cholecystitis, diverticulosis, ischemic bowel, pancreatitis, hepatitis, UTI, gastroenteritis, AAA, incarcerated hernia, bowel obstruction, constipation, inflammatory bowel, hepatitis, peptic ulcer disease, splenic infarction, perforated viscus, vulvitis, ovarian torsion, PID, kidney stone, placenta abruption, this is not meant to be an all-inclusive listable EKG interpreted by me (3pts min.). @ -None X-rays interpreted by me (1pt min.). @ -None done CT interpreted by me (1pt min.). @ -None done U/S interpreted by me (1pt. min.). @ -None done What testing was considered but not performed or refused? (CT, X-rays, U/S, labs)? Why? @ -None What meds were considered but not given or refused? Why? @ -None Did you discuss the management of the patient with other professionals (professionals i.e. , PA, [employer], lab, RT, psych nurse, manager social media, security administrator, teacher, parole or probation officer, shoe parts caser)? Give summary @ -No Was smoking cessation discussed for >3mins.? @ -No Was critical care preformed (if so, how long)? @ -No Were there social determinants of health that impacted care today? How? (Homelessness, low income, unemployed, alcoholism, drug addiction, transportation, low edu. Level, literacy, decrease access to med. care, longterm, re hab)? @ -No Was there de-escalation of care discussed even if they declined (Discuss DNR or withdrawal of care, Hospice)? DNR status @ -No What co-morbidities impacted this encounter? (DM, HTN, Smoking, COPD, CAD, Cancer, CVA, ARF, Chemo, Hep., AIDS, mental health diagnosis, sleep apnea, morbid obesity)? @ -Diabetes Was patient admitted / discharged? Hospital course, mention meds given and route, prescriptions, significant lab abnormalities, going to OR and other pertinent info. @ -Discharge patient presented for nausea vomiting hyperglycemia. Patient was given 2 L of normal saline, insulin but sugar has improved since nausea has resolved. Patient will be discharged with antiemetics and close follow-up return parameters were discussed patient agree to plan Undiagnosed new problem with uncertain prognosis? @ -No Drug Therapy requiring intensive monitoring for toxicity (Heparin, Nitro, Insulin, Cardizem)? @ -No Were any procedures done? @ -No Diagnosis/symptom? @ -Nausea vomiting, hyperglycemia Acute, or Chronic, or Acute on Chronic? @ -Acute Uncomplicated (without systemic symptoms) or Complicated (systemic symptoms)? @ -Complicated Side effects of treatment? @ -No Exacerbation, Progression, or Severe Exacerbation? @ -No Poses a threat to life or bodily function? How? (Chest pain, [place], [place], pneumonia, PE, COPD, DKA, ARF, appy, cholecystitis, CVA, Diverticulitis, Homicidal, Suicidal, threat to staff... and all critical care pts) @ -No - Lab Data Result diagrams: 03/21/23 08:33 03/21/23 08:33 Lab Results 03/21/23 03/21/23 03/21/23 Range/Units 07:36 08:33 08:33 WBC 11.1 H (3.8-10.6) k/uL RBC 4.92 (3.80-5.40) m/uL Hgb 13.0 (11.4-16.0) gm/dL Hct 39.9 (34.0-46.0) % MCV 81.0 (80.0-100.0) fL MCH 26.4 (25.0-35.0) pg MCHC 32.6 (31.0-37.0) g/dL RDW 13.6 (11.5-15.5) % Plt Count 348 (150-450) k/uL MPV 8.4 Neutrophils % 73 % Lymphocytes % 21 % Monocytes % 4 % Eosinophils % 0 % Basophils % 0 % Neutrophils # 8.1 H (1.3-7.7) k/uL Lymphocytes # 2.3 (1.0-4.8) k/uL Monocytes # 0.5 (0-1.0) k/uL Eosinophils # 0.0 (0-0.7) k/uL Basophils # 0.0 (0-0.2) k/uL Sodium 132 L (137-145) mmol/L Potassium 5.2 H (3.5-5.1) mmol/L Chloride 92 L (98-107) mmol/L Carbon Dioxide 24 (22-30) mmol/L Anion Gap 16 mmol/L BUN 19 H (7-17) mg/dL Creatinine 0.45 L (0.52-1.04) mg/dL Est GFR (CKD-EPI)AfAm >90 (>60 ml/min/1.73 sqM) Est GFR (CKD-EPI)NonAf >90 (>60 ml/min/1.73 sqM) Glucose 356 H (74-99) mg/dL POC Glucose (mg/dL) 299 H (70-110) mg/dL POC Glu Administrative Project Coordinator ID Blackford, Karlene Plasma Lactic Acid Yariel (0.7-2.0) mmol/L Calcium 9.6 (8.4-10.2) mg/dL Magnesium 1.7 (1.6-2.3) mg/dL Total Bilirubin 0.8 (0.2-1.3) mg/dL AST 39 H (14-36) U/L ALT 21 (4-34) U/L Alkaline Phosphatase 168 H (38-126) U/L Total Protein 7.3 (6.3-8.2) g/dL Albumin 4.2 (3.5-5.0) g/dL Amylase 34 (30-110) U/L Lipase 43 (23-300) U/L Urine Color Urine Appearance (Clear) Urine pH (5.0-8.0) Ur Specific [place] (1.001-1.035) Urine Protein (Negative) Urine Glucose (UA) (Negative) Urine Ketones (Negative) Urine Blood (Negative) Urine Nitrite (Negative) Urine Bilirubin (Negative) Urine Urobilinogen (<2.0) mg/dL Ur Leukocyte Esterase (Negative) 03/21/23 03/21/23 03/21/23 Range/Units 08:33 08:33 09:26 WBC (3.8-10.6) k/uL RBC (3.80-5.40) m/uL Hgb (11.4-16.0) gm/dL Hct (34.0-46.0) % MCV (80.0-100.0) fL MCH (25.0-35.0) pg MCHC (31.0-37.0) g/dL RDW (11.5-15.5) % Plt Count (150-450) k/uL MPV Neutrophils % % Lymphocytes % % Monocytes % % Eosinophils % % Basophils % % Neutrophils # (1.3-7.7) k/uL Lymphocytes # (1.0-4.8) k/uL Monocytes # (0-1.0) k/uL Eosinophils # (0-0.7) k/uL Basophils # (0-0.2) k/uL Sodium (137-145) mmol/L Potassium (3.5-5.1) mmol/L Chloride (98-107) mmol/L Carbon Dioxide (22-30) mmol/L Anion Gap mmol/L BUN (7-17) mg/dL Creatinine (0.52-1.04) mg/dL Est GFR (CKD-EPI)AfAm (>60 ml/min/1.73 sqM) Est GFR (CKD-EPI)NonAf (>60 ml/min/1.73 sqM) Glucose (74-99) mg/dL POC Glucose (mg/dL) 361 H (70-110) mg/dL POC Glu Administrative Project Coordinator ID [place], Sarah Plasma Lactic Acid Yariel 1.6 (0.7-2.0) mmol/L Calcium (8.4-10.2) mg/dL Magnesium (1.6-2.3) mg/dL Total Bilirubin (0.2-1.3) mg/dL AST (14-36) U/L ALT (4-34) U/L Alkaline Phosphatase (38-126) U/L Total Protein (6.3-8.2) g/dL Albumin (3.5-5.0) g/dL Amylase (30-110) U/L Lipase (23-300) U/L Urine Color Light Yellow Urine Appearance Clear (Clear) Urine pH 5.0 (5.0-8.0) Ur Specific [place] 1.032 (1.001-1.035) Urine Protein Trace H (Negative) Urine Glucose (UA) 4+ H (Negative) Urine Ketones 4+ H (Negative) Urine Blood Negative (Negative) Urine Nitrite Negative (Negative) Urine Bilirubin Negative (Negative) Urine Urobilinogen <2.0 (<2.0) mg/dL Ur Leukocyte Esterase Negative (Negative) 03/21/23 03/21/23 03/21/23 Range/Units 10:38 12:04 13:12 WBC (3.8-10.6) k/uL RBC (3.80-5.40) m/uL Hgb (11.4-16.0) gm/dL Hct (34.0-46.0) % MCV (80.0-100.0) fL MCH (25.0-35.0) pg MCHC (31.0-37.0) g/dL RDW (11.5-15.5) % Plt Count (150-450) k/uL MPV Neutrophils % % Lymphocytes % % Monocytes % % Eosinophils % % Basophils % % Neutrophils # (1.3-7.7) k/uL Lymphocytes # (1.0-4.8) k/uL Monocytes # (0-1.0) k/uL Eosinophils # (0-0.7) k/uL Basophils # (0-0.2) k/uL Sodium (137-145) mmol/L Potassium (3.5-5.1) mmol/L Chloride (98-107) mmol/L Carbon Dioxide (22-30) mmol/L Anion Gap mmol/L BUN (7-17) mg/dL Creatinine (0.52-1.04) mg/dL Est GFR (CKD-EPI)AfAm (>60 ml/min/1.73 sqM) Est GFR (CKD-EPI)NonAf (>60 ml/min/1.73 sqM) Glucose (74-99) mg/dL POC Glucose (mg/dL) 393 H 308 H 268 H (70-110) mg/dL POC Glu Administrative Project Coordinator DANILO Talamantes, Sarah Talamantes, Sarah Peterson, Laura Plasma Lactic Acid Yariel (0.7-2.0) mmol/L Calcium (8.4-10.2) mg/dL Magnesium (1.6-2.3) mg/dL Total Bilirubin (0.2-1.3) mg/dL AST (14-36) U/L ALT (4-34) U/L Alkaline Phosphatase (38-126) U/L Total Protein (6.3-8.2) g/dL Albumin (3.5-5.0) g/dL Amylase (30-110) U/L Lipase (23-300) U/L Urine Color Urine Appearance (Clear) Urine pH (5.0-8.0) Ur Specific [place] (1.001-1.035) Urine Protein (Negative) Urine Glucose (UA) (Negative) Urine Ketones (Negative) Urine Blood (Negative) Urine Nitrite (Negative) Urine Bilirubin (Negative) Urine Urobilinogen (<2.0) mg/dL Ur Leukocyte Esterase (Negative) Disposition Clinical Impression: Dehydration, Hyperglycemia, Nausea & vomiting Disposition: HOME SELF-CARE Condition: Stable Instructions (If sedation given, give patient instructions): Diabetic Hyperglycemia (ED) Additional Instructions: Please return to the Emergency Department if symptoms worsen or any other concerns. Prescriptions: Ondansetron Odt [Zofran Odt] 4 mg PO Q8HR PRN #10 tab PRN Reason: Nausea Is patient prescribed a controlled substance at d/c from ED?: No Referrals: Kevin Ruiz DO [Primary Care Provider] - 1-2 days Time of Disposition: 13:15
[2023-03-21 07:38] LABS: Glucose,Whole Blood 299 mg/dL (70-110)
[2023-03-21 07:55] VITALS: RESP 18; TEMP 97.6
[2023-03-21] MEDS ORDERED: SODIUM CHLORIDE 0.9% 2,000 ML IV ONE (08:43)
[2023-03-21] MEDS ORDERED: MAG HYDROX/AL HYDROX/SIMETH 30 ML, HYOSCYAMINE ELIXIR 10 ML PO STA ×2 (08:43)
[2023-03-21] MEDS ORDERED: ONDANSETRON 4 MG/2 ML VIAL IVP STA (08:43)
[2023-03-21 09:28] LABS: Appearance,Urine Clear (Clear); Bilirubin,Urine Negative (Negative); Blood,Urine Negative (Negative); Color,Urine Light Yellow; Glucose,Urine (UA) 4+ (Negative); Leukocyte Esterase,Urine Negative (Negative); Nitrite,Urine Negative (Negative); Protein,Urine Trace (Negative); Specific Gravity,Urine 1.032 (1.001-1.035); Urobilinogen,Urine <2.0 mg/dL (<2.0)
[2023-03-21 09:32] LABS: Glucose,Whole Blood 361 mg/dL (70-110)
[2023-03-21 09:43] LABS: ALT 21 U/L (4-34); AST 39 U/L (14-36); African American GFR (CKD) >90 (>60 ml/min/1.73 sqM); Albumin 4.2 g/dL (3.5-5.0); Alkaline Phosphatase 168 U/L (38-126); Amylase 34 U/L (30-110); Anion Gap 16 mmol/L; Blood Urea Nitrogen 19 mg/dL (7-17); Calcium 9.6 mg/dL (8.4-10.2); Carbon Dioxide 24 mmol/L (22-30); Chloride 92 mmol/L (98-107); Glucose 356 mg/dL (74-99); Lipase 43 U/L (23-300); Magnesium 1.7 mg/dL (1.6-2.3); Non-African American GFR(CKD) >90 (>60 ml/min/1.73 sqM); Sodium 132 mmol/L (137-145); Total Bilirubin 0.8 mg/dL (0.2-1.3); Total Protein 7.3 g/dL (6.3-8.2)
[2023-03-21 09:49] LABS: Potassium 5.2 mmol/L (3.5-5.1)
[2023-03-21 09:57] LABS: Basophils % (A) 0 %; Eosinophils % (A) 0 %; HCT 39.9 % (34.0-46.0); Lymphocytes # (A) 2.3 k/uL (1.0-4.8); Lymphocytes % (A) 21 %; MCH 26.4 pg (25.0-35.0); MCHC 32.6 g/dL (31.0-37.0); Mean Platelet Volume 8.4; Monocytes # (A) 0.5 k/uL (0-1.0); Monocytes % (A) 4 %; Neutrophils # (A) 8.1 k/uL (1.3-7.7); Neutrophils % (A) 73 %; Platelet Count 348 k/uL (150-450); RBC 4.92 m/uL (3.80-5.40); RDW 13.6 % (11.5-15.5); WBC 11.1 k/uL (3.8-10.6)
[2023-03-21 10:29] LABS: Ketones,Urine 4+ (Negative)
[2023-03-21 10:39] LABS: Glucose,Whole Blood 393 mg/dL (70-110)
[2023-03-21] MEDS ORDERED: diphenhydrAMINE 50 MG/ML 1 ML VIAL IVP STA (10:46)
[2023-03-21] MEDS ORDERED: INSULIN REGULAR 100 UNIT/ML VIAL (IV) IV ONE ×2 (10:46→12:13)
[2023-03-21] MEDS ORDERED: METOCLOPRAMIDE 5 MG/ML 2 ML VIAL IVP STA (10:46)
[2023-03-21 12:06] LABS: Glucose,Whole Blood 308 mg/dL (70-110)
[2023-03-21 13:15] LABS: Glucose,Whole Blood 268 mg/dL (70-110)
[2023-03-21 13:59] VITALS: BP 127/82; PULSE 63
== END 2023-03-21 13:35 | disposition home or self-care (01) ==
LOC: EC 06:57
DX: E10.65 Type 1 diabetes mellitus with hyperglycemia (principal); E86.0 Dehydration; F12.90 Cannabis use, unspecified, uncomplicated; Z88.8 Allergy status to other drugs, medicaments and biological substances; Z86.73 Personal history of transient ischemic attack (TIA), and cerebral infarction without residual deficits
CPT/HCPCS: 36415; 80053; 82150; 83605; 83690; 83735; 85025; 81003; 99284; 96374; 96375 ×2; 96361 ×3; J1200; J2765; J2405

== ENCOUNTER 2023-05-16 06:08 | Emergency (ER) | payer MEDICARE, OTHER ==
[2023-05-16 06:13] LABS: Glucose,Whole Blood 392 mg/dL (70-110)
[2023-05-16] MEDS ORDERED: SODIUM CHLORIDE 0.9% 2,000 ML IV STA (06:32)
[2023-05-16] MEDS ORDERED: ONDANSETRON 4 MG/2 ML VIAL IVP STA (06:32)
--- NOTE | 2023-05-16 06:34 | ED ---
General Adult HPI - General Chief complaint: Nausea/Vomiting/Diarrhea Stated complaint: Vomiting Time Seen by Provider: 05/16/23 06:13 Source: patient, RN notes reviewed Mode of arrival: ambulatory Limitations: no limitations - History of Present Illness Initial comments: 48-year-old female presents emergency Department with chief complaint of nausea vomiting hyperglycemia. Patient states she is type I diabetic she states recently her insulin pump broke states that she had to switch injection states she is running out of her insulin. Patient denies any recent illnesses. She states she's been vomiting throughout the night she states she feels very dehydrated she has not checked her blood sugar. Patient denies any fevers chills no chest pain or shortness of breath. - Related Data Home Medications Medication Instructions Recorded Confirmed Glucagon [Gvoke Pfs 1-Pack Syringe] 1 mg SQ DIRECTED PRN 11/16/22 03/21/23 Omeprazole [PriLOSEC] 40 mg PO DAILY 03/21/23 03/21/23 lamoTRIgine [LaMICtal] 100 mg PO DAILY 03/21/23 03/21/23 Previous Rx's Medication Instructions Recorded DULoxetine HCL [Cymbalta] 60 mg PO HS 30 Days #30 cap 01/13/23 Insulin Aspart (For Pump) [NovoLOG 0.01 unit SQ-PUMP CONTINUOUS 30 01/13/23 (For Pump)] Days #4 each QUEtiapine [SEROquel] 25 mg PO DAILY PRN 30 Days #30 tab 01/13/23 QUEtiapine [SEROquel] 25 mg PO HS 30 Days #30 tab 01/13/23 Ondansetron Odt [Zofran Odt] 4 mg PO Q8HR PRN #10 tab 03/21/23 Insulin Aspart [NovoLOG Flexpen] 10 units SQ AC-TID #2 pen 05/16/23 Insulin Glargine [Lantus Vial] 30 unit SQ HS #10 ml 05/16/23 Allergies Allergy/AdvReac Type Severity Reaction Status Date / Time paroxetine HCl [From Paxil] Allergy Rash/Hives Verified 05/16/23 06:12 sertraline HCl [From Zoloft] Allergy Rash/Hives Verified 05/16/23 06:12 Review of Systems ROS Statement: Those systems with pertinent positive or pertinent negative responses have been documented in the HPI. ROS Other: All systems not noted in ROS Statement are negative. Past Medical History Past Medical History: Chest Pain / Angina, CVA/TIA, Diabetes Mellitus, Fibromyalgia, GERD/Reflux, Rheumatoid Arthritis (RA), Syncope Additional Past Medical History / Comment(s): IDDM type I, hx DKA, hx TIA. "Neurocardiogenic Syncope -causes sudden drop in blood pressure syncope-has not happened in about 6 months". Multiple lipomas. History of Any Multi-Drug Resistant Organisms: None Reported Past Surgical History: Breast Surgery, Tubal Ligation, Uterine Ablation Additional Past Surgical History / Comment(s): Tilt table test, LEFT BREAST BIOPSY - BENIGN, left thigh lipoma removal X2, left breast lipoma removal X1. Past Anesthesia/Blood Transfusion Reactions: No Reported Reaction Past Psychological History: ADD/ADHD, Anxiety, Depression Smoking Status: Never smoker Past Alcohol Use History: Rare Past Drug Use History: Marijuana - Past Family History Mother Family Medical History: Asthma Additional Family Medical History / Comment(s): Depression, Colitis. Father History Unknown: Yes Family Medical History: Unable to Obtain Additional Family Medical History / Comment(s): Pt does not know who her father is. General Exam Limitations: no limitations General appearance: alert, in no apparent distress Head exam: Present: atraumatic, normocephalic, normal inspection Eye exam: Present: normal appearance, PERRL, EOMI. Absent: scleral icterus, conjunctival injection, periorbital swelling ENT exam: Absent: mucous membranes dry Neck exam: Present: normal inspection. Absent: tenderness, meningismus, lymphadenopathy Respiratory exam: Present: normal lung sounds bilaterally. Absent: respiratory distress, wheezes, rales, rhonchi, stridor Cardiovascular Exam: Present: regular rate, normal rhythm, normal heart sounds. Absent: systolic murmur, diastolic murmur, rubs, gallop, clicks GI/Abdominal exam: Present: soft, normal bowel sounds. Absent: distended, tenderness, guarding, rebound, rigid Neurological exam: Present: alert Course Vital Signs 05/16/23 05/16/23 06:09 09:04 Temperature 97.8 F 97.9 F Pulse Rate 90 80 Respiratory 20 18 Rate Blood Pressure 135/81 115/58 O2 Sat by Pulse 95 100 Oximetry Medical Decision Making - Medical Decision Making Was pt. sent in by a medical professional or institution (Dr., PA, CAR PARKER, urgent care, hospital, or snf...) When possible be specific @ -No Did you speak to anyone other than the patient for history (EMS, parent, family, police, friend...)? What history was obtained from this source @ -No Did you review nursing and triage notes (agree or disagree)? Why? @ -I reviewed and agree with nursing and triage notes Were old charts reviewed (outside hosp., previous admission, EMS record, old EKG, old radiological studies, urgent care reports/EKG's, snf records)? Report findings @ -No old charts were reviewed Differential Diagnosis (chest pain, altered mental status, abdominal pain women, abdominal pain men, vaginal bleeding, weakness, fever, dyspnea, syncope, headache, dizziness, GI bleed, back pain, seizure, CVA, palpatations, mental health, musculoskeletal)? @ -Differential Abdominal Pain Women: Appendicitis, Cholecystitis, diverticulosis, ischemic bowel, pancreatitis, hepatitis, UTI, gastroenteritis, AAA, incarcerated hernia, bowel obstruction, constipation, inflammatory bowel, hepatitis, peptic ulcer disease, splenic infarction, perforated viscus, vulvitis, ovarian torsion, PID, kidney stone, placenta abruption, this is not meant to be an all-inclusive list EKG interpreted by me (3pts min.). @ -[None X-rays interpreted by me (1pt min.). @ -None done CT interpreted by me (1pt min.). @ -None done U/S interpreted by me (1pt. min.). @ -None done What testing was considered but not performed or refused? (CT, X-rays, U/S, labs)? Why? @ -None What meds were considered but not given or refused? Why? @ -None Did you discuss the management of the patient with other professionals (professionals i.e. , PA, CAR PARKER, lab, RT, psych nurse, addiction social worker, hairpiece stylist, teacher, labor relations officer, case hardener)? Give summary @ -No Was smoking cessation discussed for >3mins.? @ -No Was critical care preformed (if so, how long)? @ -No Were there social determinants of health that impacted care today? How? (Homelessness, low income, unemployed, alcoholism, drug addiction, transportation, low edu. Level, literacy, decrease access to med. care, senior living, rehab)? @ -No Was there de-escalation of care discussed even if they declined (Discuss DNR or withdrawal of care, Hospice)? DNR status @ -No What co-morbidities impacted this encounter? (DM, HTN, Smoking, COPD, CAD, Cancer, CVA, ARF, Chemo, Hep., AIDS, mental health diagnosis, sleep apnea, morbid obesity)? @ -None Was patient admitted / discharged? Hospital course, mention meds given and route, prescriptions, significant lab abnormalities, going to OR and other pertinent info. @ -Discharged. Patient felt greatly improved after IV fluids, antiemetics and insulin. Laboratory studies reveal mild hyperglycemia otherwise no acute process.. Patient was given prescription for her insulin return parameters were discussed. Undiagnosed new problem with uncertain prognosis? @ -No Drug Therapy requiring intensive monitoring for toxicity (Heparin, Nitro, Insulin, Cardizem)? @ -No Were any procedures done? @ -No Diagnosis/symptom? @ -[Hyperglycemia, nausea vomiting Acute, or Chronic, or Acute on Chronic? @ -Acute Uncomplicated (without systemic symptoms) or Complicated (systemic symptoms)? @ -complicated Side effects of treatment? @ -No Exacerbation, Progression, or Severe Exacerbation? @ -No Poses a threat to life or bodily function? How? (Chest pain, [place], MA, pneumonia, PE, COPD, DKA, ARF, appy, cholecystitis, CVA, Diverticulitis, Homicidal, Suicidal, threat to staff... and all critical care pts) @ -No - Lab Data Result diagrams: 05/16/23 07:04 05/16/23 07:04 Lab Results 05/16/23 05/16/23 05/16/23 Range/Units 06:12 06:15 07:04 WBC 7.4 (3.8-10.6) k/uL RBC 5.19 (3.80-5.40) m/uL Hgb 14.2 (11.4-16.0) gm/dL Hct 42.5 (34.0-46.0) % MCV 81.9 (80.0-100.0) fL MCH 27.3 (25.0-35.0) pg MCHC 33.4 (31.0-37.0) g/dL RDW 14.6 (11.5-15.5) % Plt Count 257 (150-450) k/uL MPV 7.4 Neutrophils % 66 % Lymphocytes % 29 % Monocytes % 3 % Eosinophils % 1 % Basophils % 0 % Neutrophils # 4.9 (1.3-7.7) k/uL Lymphocytes # 2.2 (1.0-4.8) k/uL Monocytes # 0.2 (0-1.0) k/uL Eosinophils # 0.1 (0-0.7) k/uL Basophils # 0.0 (0-0.2) k/uL VBG pH (7.31-7.41) VBG pCO2 (37-51) mmHg VBG HCO3 (24-28) mmol/L Sodium (137-145) mmol/L Potassium (3.5-5.1) mmol/L Chloride (98-107) mmol/L Carbon Dioxide (22-30) mmol/L Anion Gap mmol/L BUN (7-17) mg/dL Creatinine (0.52-1.04) mg/dL Est GFR (CKD-EPI)AfAm (>60 ml/min/1.73 sqM) Est GFR (CKD-EPI)NonAf (>60 ml/min/1.73 sqM) Glucose (74-99) mg/dL POC Glucose (mg/dL) 392 H (70-110) mg/dL POC Glu Hobbing Machine Operator ID Kevin Robin Plasma Lactic Acid Yariel (0.7-2.0) mmol/L Calcium (8.4-10.2) mg/dL Total Bilirubin (0.2-1.3) mg/dL AST (14-36) U/L ALT (4-34) U/L Alkaline Phosphatase (38-126) U/L Total Protein (6.3-8.2) g/dL Albumin (3.5-5.0) g/dL Lipase (23-300) U/L Urine Color Colorless Urine Appearance Cloudy H (Clear) Urine pH 5.0 (5.0-8.0) Ur Specific [place] 1.037 H (1.001-1.035) Urine Protein Negative (Negative) Urine Glucose (UA) 4+ H (Negative) Urine Ketones Trace H (Negative) Urine Blood Negative (Negative) Urine Nitrite Negative (Negative) Urine Bilirubin Negative (Negative) Urine Urobilinogen <2.0 (<2.0) mg/dL Ur Leukocyte Esterase Negative (Negative) Urine RBC 1 (0-5) /hpf Urine WBC 5 (0-5) /hpf Ur Squamous Epith Cells 19 H (0-4) /hpf Urine Bacteria Rare H (None) /hpf Urine Mucus Rare H (None) /hpf Acetone, Qual (Negative) 05/16/23 05/16/23 05/16/23 Range/Units 07:04 07:04 07:04 WBC (3.8-10.6) k/uL RBC (3.80-5.40) m/uL Hgb (11.4-16.0) gm/dL Hct (34.0-46.0) % MCV (80.0-100.0) fL MCH (25.0-35.0) pg MCHC (31.0-37.0) g/dL RDW (11.5-15.5) % Plt Count (150-450) k/uL MPV Neutrophils % % Lymphocytes % % Monocytes % % Eosinophils % % Basophils % % Neutrophils # (1.3-7.7) k/uL Lymphocytes # (1.0-4.8) k/uL Monocytes # (0-1.0) k/uL Eosinophils # (0-0.7) k/uL Basophils # (0-0.2) k/uL VBG pH 7.38 (7.31-7.41) VBG pCO2 50 (37-51) mmHg VBG HCO3 30 H (24-28) mmol/L Sodium 138 (137-145) mmol/L Potassium 4.5 (3.5-5.1) mmol/L Chloride 99 (98-107) mmol/L Carbon Dioxide 27 (22-30) mmol/L Anion Gap 12 mmol/L BUN 19 H (7-17) mg/dL Creatinine 0.47 L (0.52-1.04) mg/dL Est GFR (CKD-EPI)AfAm >90 (>60 ml/min/1.73 sqM) Est GFR (CKD-EPI)NonAf >90 (>60 ml/min/1.73 sqM) Glucose 341 H (74-99) mg/dL POC Glucose (mg/dL) (70-110) mg/dL POC Glu Hobbing Machine Operator ID Plasma Lactic Acid Yariel 1.8 (0.7-2.0) mmol/L Calcium 9.5 (8.4-10.2) mg/dL Total Bilirubin 0.7 (0.2-1.3) mg/dL AST 29 (14-36) U/L ALT 25 (4-34) U/L Alkaline Phosphatase 140 H (38-126) U/L Total Protein 7.3 (6.3-8.2) g/dL Albumin 4.4 (3.5-5.0) g/dL Lipase 61 (23-300) U/L Urine Color Urine Appearance (Clear) Urine pH (5.0-8.0) Ur Specific [place] (1.001-1.035) Urine Protein (Negative) Urine Glucose (UA) (Negative) Urine Ketones (Negative) Urine Blood (Negative) Urine Nitrite (Negative) Urine Bilirubin (Negative) Urine Urobilinogen (<2.0) mg/dL Ur Leukocyte Esterase (Negative) Urine RBC (0-5) /hpf Urine WBC (0-5) /hpf Ur Squamous Epith Cells (0-4) /hpf Urine Bacteria (None) /hpf Urine Mucus (None) /hpf Acetone, Qual Negative (Negative) 05/16/23 Range/Units 09:16 WBC (3.8-10.6) k/uL RBC (3.80-5.40) m/uL Hgb (11.4-16.0) gm/dL Hct (34.0-46.0) % MCV (80.0-100.0) fL MCH (25.0-35.0) pg MCHC (31.0-37.0) g/dL RDW (11.5-15.5) % Plt Count (150-450) k/uL MPV Neutrophils % % Lymphocytes % % Monocytes % % Eosinophils % % Basophils % % Neutrophils # (1.3-7.7) k/uL Lymphocytes # (1.0-4.8) k/uL Monocytes # (0-1.0) k/uL Eosinophils # (0-0.7) k/uL Basophils # (0-0.2) k/uL VBG pH (7.31-7.41) VBG pCO2 (37-51) mmHg VBG HCO3 (24-28) mmol/L Sodium (137-145) mmol/L Potassium (3.5-5.1) mmol/L Chloride (98-107) mmol/L Carbon Dioxide (22-30) mmol/L Anion Gap mmol/L BUN (7-17) mg/dL Creatinine (0.52-1.04) mg/dL Est GFR (CKD-EPI)AfAm (>60 ml/min/1.73 sqM) Est GFR (CKD-EPI)NonAf (>60 ml/min/1.73 sqM) Glucose (74-99) mg/dL POC Glucose (mg/dL) 270 H (70-110) mg/dL POC Glu Hobbing Machine Operator ID July Plasma Lactic Acid Yariel (0.7-2.0) mmol/L Calcium (8.4-10.2) mg/dL Total Bilirubin (0.2-1.3) mg/dL AST (14-36) U/L ALT (4-34) U/L Alkaline Phosphatase (38-126) U/L Total Protein (6.3-8.2) g/dL Albumin (3.5-5.0) g/dL Lipase (23-300) U/L Urine Color Urine Appearance (Clear) Urine pH (5.0-8.0) Ur Specific [place] (1.001-1.035) Urine Protein (Negative) Urine Glucose (UA) (Negative) Urine Ketones (Negative) Urine Blood (Negative) Urine Nitrite (Negative) Urine Bilirubin (Negative) Urine Urobilinogen (<2.0) mg/dL Ur Leukocyte Esterase (Negative) Urine RBC (0-5) /hpf Urine WBC (0-5) /hpf Ur Squamous Epith Cells (0-4) /hpf Urine Bacteria (None) /hpf Urine Mucus (None) /hpf Acetone, Qual (Negative) Disposition Clinical Impression: Nausea and vomiting, Hyperglycemia Disposition: HOME SELF-CARE Condition: Stable Instructions (If sedation given, give patient instructions): Acute Nausea and Vomiting (ED) Additional Instructions: Please return to the Emergency Department if symptoms worsen or any other concerns. Prescriptions: Insulin Glargine [Lantus Vial] 30 unit SQ HS #10 ml Insulin Aspart [NovoLOG Flexpen] 10 units SQ AC-TID #2 pen Is patient prescribed a controlled substance at d/c from ED?: No Referrals: Kevin Ruiz DO [Primary Care Provider] - 1-2 days Time of Disposition: 09:28
[2023-05-16 06:50] LABS: Appearance,Urine Cloudy (Clear); Bacteria,Urine Rare /hpf; Bilirubin,Urine Negative (Negative); Blood,Urine Negative (Negative); Color,Urine Colorless; Glucose,Urine (UA) 4+ (Negative); Ketones,Urine Trace (Negative); Leukocyte Esterase,Urine Negative (Negative); Mucus,Urine Rare /hpf; Nitrite,Urine Negative (Negative); Protein,Urine Negative (Negative); RBC,Urine 1 /hpf (0-5); Specific Gravity,Urine 1.037 (1.001-1.035); Squamous Epithelial Cell,Urine 19 /hpf (0-4); Urobilinogen,Urine <2.0 mg/dL (<2.0); WBC,Urine 5 /hpf (0-5)
[2023-05-16 07:17] LABS: VBG PH 7.38 (7.31-7.41)
[2023-05-16 07:21] LABS: Basophils % (A) 0 %; Eosinophils # (A) 0.1 k/uL (0-0.7); Eosinophils % (A) 1 %; HCT 42.5 % (34.0-46.0); HGB 14.2 gm/dL (11.4-16.0); Lymphocytes # (A) 2.2 k/uL (1.0-4.8); Lymphocytes % (A) 29 %; MCH 27.3 pg (25.0-35.0); MCHC 33.4 g/dL (31.0-37.0); MCV 81.9 fL (80.0-100.0); Mean Platelet Volume 7.4; Monocytes # (A) 0.2 k/uL (0-1.0); Monocytes % (A) 3 %; Neutrophils # (A) 4.9 k/uL (1.3-7.7); Neutrophils % (A) 66 %; Platelet Count 257 k/uL (150-450); RBC 5.19 m/uL (3.80-5.40); RDW 14.6 % (11.5-15.5); WBC 7.4 k/uL (3.8-10.6)
[2023-05-16 07:38] LABS: ALT 25 U/L (4-34); AST 29 U/L (14-36); African American GFR (CKD) >90 (>60 ml/min/1.73 sqM); Albumin 4.4 g/dL (3.5-5.0); Alkaline Phosphatase 140 U/L (38-126); Anion Gap 12 mmol/L; Blood Urea Nitrogen 19 mg/dL (7-17); Calcium 9.5 mg/dL (8.4-10.2); Carbon Dioxide 27 mmol/L (22-30); Chloride 99 mmol/L (98-107); Glucose 341 mg/dL (74-99); Lipase 61 U/L (23-300); Non-African American GFR(CKD) >90 (>60 ml/min/1.73 sqM); Potassium 4.5 mmol/L (3.5-5.1); Sodium 138 mmol/L (137-145); Total Bilirubin 0.7 mg/dL (0.2-1.3); Total Protein 7.3 g/dL (6.3-8.2)
[2023-05-16] MEDS ORDERED: MAG HYDROX/AL HYDROX/SIMETH 30 ML, HYOSCYAMINE ELIXIR 10 ML, LIDOCAINE VISCOUS 2% 10 ML PO STA ×3 (07:41)
[2023-05-16 09:17] LABS: Glucose,Whole Blood 270 mg/dL (70-110)
[2023-05-16 09:21] VITALS: BP 115/58; PULSE 80; RESP 18; TEMP 97.9
[2023-05-16] MEDS ORDERED: INSULIN REGULAR 100 UNIT/ML VIAL (IV) IV ONE (09:28)
== END 2023-05-16 10:02 | disposition home or self-care (01) ==
LOC: EC 06:08
DX: R11.2 Nausea with vomiting, unspecified (principal); E11.65 Type 2 diabetes mellitus with hyperglycemia; K21.9 Gastro-esophageal reflux disease without esophagitis; F41.9 Anxiety disorder, unspecified; F32.A Depression, unspecified; F12.90 Cannabis use, unspecified, uncomplicated; Z79.899 Other long term (current) drug therapy; Z88.8 Allergy status to other drugs, medicaments and biological substances
CPT/HCPCS: 36415; 80053; 82803; 82009; 83605; 83690; 85025; 81001; 99284; 96374; 96361 ×2; J2405